=== PATIENT | male | born 1965 | race Caucasian/White ===

== ENCOUNTER 2016-07-25 07:54 | Outpatient (RCR) | payer BC ==
[2016-07-25 08:11] LABS: MEAN CORPUSCULAR VOLUME 83 FL (80-100); PLATELET COUNT 296 10^3uL (150-450); WHITE BLOOD COUNT 5.53 10^3uL (4.0-11.0)
[2016-07-25 08:40] LABS: MEAN CORPUSCULAR HEMOGLOBIN 25.9 PG (26.0-34.0); MEAN CORPUSCULAR HGB CONC 31.2 g/dL (31.0-37.0)
[2016-07-25 08:41] LABS: ANISOCYTOSIS SLIGHT; BAND NEUTROPHILS % 0 % (0-6); EOSINOPHILS % 6 % (0-4); MICROCYTOSIS SLIGHT; MONOCYTES # 0.7 #; MONOCYTES % 14 % (3-11); RBC MORPH SEE REFERENCE (NORMAL); SEGMENTED NEUTROPHILS % 44 % (51-67); TOTAL CELLS COUNTED 100
[2016-08-15 08:11] LABS: MEAN CORPUSCULAR VOLUME 81 FL (80-100); MEAN PLATELET VOLUME 9.9 FL (6.0-9.5); PLATELET COUNT 286 10^3uL (150-450); WHITE BLOOD COUNT 4.71 10^3uL (4.0-11.0)
[2016-08-15 08:14] LABS: MEAN CORPUSCULAR HEMOGLOBIN 24.3 PG (26.0-34.0); MEAN CORPUSCULAR HGB CONC 29.8 g/dL (31.0-37.0)
[2016-08-15 08:31] LABS: BAND NEUTROPHILS % 0 % (0-6); EOSINOPHILS % 9 % (0-4); LYMPHOCYTES # 1.5 #; MONOCYTES # 0.4 #; MONOCYTES % 10 % (3-11); RBC MORPH NORMAL (NORMAL); SEGMENTED NEUTROPHILS % 49 % (51-67); TOTAL CELLS COUNTED 100
[2016-09-01 10:50] LABS: MEAN PLATELET VOLUME 10.2 FL (6.0-9.5); PLATELET COUNT 329 10^3uL (150-450); WHITE BLOOD COUNT 5.59 10^3uL (4.0-11.0)
[2016-09-01 10:56] LABS: MEAN CORPUSCULAR HEMOGLOBIN 23.1 PG (26.0-34.0); MEAN CORPUSCULAR HGB CONC 29.6 g/dL (31.0-37.0); MEAN CORPUSCULAR VOLUME 78 FL (80-100)
[2016-09-01 10:57] LABS: ANISOCYTOSIS SLIGHT; BAND NEUTROPHILS % 0 % (0-6); EOSINOPHILS % 4 % (0-4); HYPOCHROMASIA SLIGHT; LYMPHOCYTES # 1.8 #; MONOCYTES # 0.3 #; MONOCYTES % 5 % (3-11); RBC MORPH SEE REFERENCE (NORMAL); SEGMENTED NEUTROPHILS % 59 % (51-67); TOTAL CELLS COUNTED 100
[2016-09-01 11:02] LABS: ANION GAP 15.7 MEQ/L (3-15); MAGNESIUM* 1.9 mg/dL (1.6-2.3); PHOSPHORUS 3.7 mg/dL (2.4-4.9); TOTAL PROTEIN 6.8 g/dL (6.4-8.5)
[2016-09-19 10:15] LABS: MEAN PLATELET VOLUME 9.9 FL (6.0-9.5); PLATELET COUNT 325 10^3uL (150-450); WHITE BLOOD COUNT 6.97 10^3uL (4.0-11.0)
[2016-09-19 11:02] LABS: MEAN CORPUSCULAR HEMOGLOBIN 22.1 PG (26.0-34.0); MEAN CORPUSCULAR VOLUME 76 FL (80-100)
[2016-09-19 11:18] LABS: BAND NEUTROPHILS % 0 % (0-6); LYMPHOCYTES # 2.1 #; SEGMENTED NEUTROPHILS % 59 % (51-67)
[2016-09-19 11:20] LABS: ANISOCYTOSIS SLIGHT; EOSINOPHILS % 3 % (0-4); HYPOCHROMASIA SLIGHT; MICROCYTOSIS SLIGHT; MONOCYTES # 0.4 #; MONOCYTES % 6 % (3-11); NUCLEATED RED BLOOD CELLS 2; RBC MORPH SEE REFERENCE (NORMAL); TOTAL CELLS COUNTED 100
[2016-09-19 12:04] LABS: ALBUMIN 3.8 g/dL (3.4-5.0); CALCULATED IONIZED CALCIUM 4.5 mg/dL (3.8-4.6); MAGNESIUM* 1.7 mg/dL (1.6-2.3); PHOSPHORUS 4.2 mg/dL (2.4-4.9); TOTAL PROTEIN 6.7 g/dL (6.4-8.5)
[2016-09-26 08:33] LABS: BASOPHILS % (AUTO) 0 % (0-2); EOSINOPHILS # (AUTO) 0.2 10^3uL; EOSINOPHILS % (AUTO) 4 % (0-4); LYMPHOCYTES # (AUTO) 1.3 X10^3; MEAN PLATELET VOLUME 10.1 FL (6.0-9.5); MONOCYTES # (AUTO) 0.3 X10^3; MONOCYTES % (AUTO) 6 % (3-11); NEUTROPHILS # (AUTO) 3.3 X10^3; NEUTROPHILS % (AUTO) 64 % (51-67); PLATELET COUNT 264 10^3uL (150-450); WHITE BLOOD COUNT 5.11 10^3uL (4.0-11.0)
[2016-09-26 08:46] LABS: MEAN CORPUSCULAR HEMOGLOBIN 23.1 PG (26.0-34.0); MEAN CORPUSCULAR VOLUME 77 FL (80-100)
[2016-09-27 18:45] LABS: IRON 26 ug/dL (65-175); UNBOUND IRON CONTENT 372 ug/dl (126-382)
[2016-10-03 08:15] LABS: BASOPHILS % (AUTO) 0 % (0-2); EOSINOPHILS # (AUTO) 0.1 10^3uL; EOSINOPHILS % (AUTO) 2 % (0-4); LYMPHOCYTES # (AUTO) 0.9 X10^3; MEAN PLATELET VOLUME 9.2 FL (6.0-9.5); MONOCYTES # (AUTO) 0.3 X10^3; MONOCYTES % (AUTO) 12 % (3-11); NEUTROPHILS # (AUTO) 1.6 X10^3; NEUTROPHILS % (AUTO) 54 % (51-67); PLATELET COUNT 290 10^3uL (150-450); WHITE BLOOD COUNT 2.86 10^3uL (4.0-11.0)
[2016-10-03 08:31] LABS: MEAN CORPUSCULAR HEMOGLOBIN 23.1 PG (26.0-34.0); MEAN CORPUSCULAR HGB CONC 29.5 g/dL (31.0-37.0); MEAN CORPUSCULAR VOLUME 78 FL (80-100)
[2016-10-10 08:12] LABS: MEAN PLATELET VOLUME 9.2 FL (6.0-9.5); PLATELET COUNT 177 10^3uL (150-450); WHITE BLOOD COUNT 3.59 10^3uL (4.0-11.0)
[2016-10-10 08:13] LABS: MEAN CORPUSCULAR HEMOGLOBIN 22.7 PG (26.0-34.0); MEAN CORPUSCULAR HGB CONC 29.7 g/dL (31.0-37.0); MEAN CORPUSCULAR VOLUME 76 FL (80-100)
[2016-10-10 08:40] LABS: BAND NEUTROPHILS % 12 % (0-6); EOSINOPHILS % 0 % (0-4); LYMPHOCYTES # 0.9 #; MONOCYTES # 0.2 #; MONOCYTES % 5 % (3-11); RBC MORPH SEE REFERENCE (NORMAL); SEGMENTED NEUTROPHILS % 58 % (51-67); TOTAL CELLS COUNTED 100
[2016-10-10 08:41] LABS: ANISOCYTOSIS MODERATE; HYPOCHROMASIA SLIGHT; POIKILOCYTOSIS SLIGHT
[2016-10-17 08:15] LABS: BASOPHILS % (AUTO) 0 % (0-2); EOSINOPHILS # (AUTO) 0.1 10^3uL; EOSINOPHILS % (AUTO) 2 % (0-4); LYMPHOCYTES # (AUTO) 1.6 X10^3; MEAN PLATELET VOLUME 9.1 FL (6.0-9.5); MONOCYTES # (AUTO) 0.3 X10^3; MONOCYTES % (AUTO) 5 % (3-11); NEUTROPHILS # (AUTO) 3.9 X10^3; NEUTROPHILS % (AUTO) 65 % (51-67); PLATELET COUNT 368 10^3uL (150-450); WHITE BLOOD COUNT 6.02 10^3uL (4.0-11.0)
[2016-10-17 08:18] LABS: MEAN CORPUSCULAR HEMOGLOBIN 22.9 PG (26.0-34.0); MEAN CORPUSCULAR HGB CONC 29.9 g/dL (31.0-37.0); MEAN CORPUSCULAR VOLUME 77 FL (80-100)
[2016-10-17 20:02] LABS: IRON 64 ug/dL (65-175); UNBOUND IRON CONTENT 225 ug/dl (126-382)
== END 2016-10-23 | disposition home or self-care (01) ==
LOC: LAB 07:54
PROVIDERS: ATTEND Internal Medicine Hematology & Oncology
DX: C18.0 Malignant neoplasm of cecum (principal)
CPT/HCPCS: 36415; 80053; 82378; 82728; 83540; 83550; 83615; 83735; 84100; 85007; 85025; 85027

== ENCOUNTER 2016-10-31 11:41 | Outpatient (RCR) | payer BC ==
[2016-10-31 11:56] LABS: MEAN CORPUSCULAR VOLUME 86 FL (80-100); MEAN PLATELET VOLUME 9.2 FL (6.0-9.5); PLATELET COUNT 338 10^3uL (150-450); WHITE BLOOD COUNT 2.81 10^3uL (4.0-11.0)
[2016-10-31 12:21] LABS: MEAN CORPUSCULAR HEMOGLOBIN 26.6 PG (26.0-34.0); MEAN CORPUSCULAR HGB CONC 30.8 g/dL (31.0-37.0)
[2016-10-31 12:27] LABS: ALBUMIN 3.6 g/dL (3.4-5.0); ANION GAP 15.3 MEQ/L (3-15); CALCULATED IONIZED CALCIUM 4.2 mg/dL (3.8-4.6); TOTAL PROTEIN 6.8 g/dL (6.4-8.5)
[2016-10-31 13:12] LABS: BAND NEUTROPHILS % 3 % (0-6); EOSINOPHILS % 5 % (0-4); LYMPHOCYTES # 0.7 #; MONOCYTES # 0.3 #; MONOCYTES % 17 % (3-11); POLYCHROMASIA SLIGHT; RBC MORPH SEE REFERENCE (NORMAL); SEGMENTED NEUTROPHILS % 49 % (51-67); TOTAL CELLS COUNTED 100
[2016-11-07 14:04] LABS: MEAN CORPUSCULAR HEMOGLOBIN 27.2 PG (26.0-34.0); MEAN CORPUSCULAR VOLUME 87 FL (80-100); MEAN PLATELET VOLUME 8.8 FL (6.0-9.5); PLATELET COUNT 336 10^3uL (150-450); WHITE BLOOD COUNT 6.85 10^3uL (4.0-11.0)
[2016-11-07 14:12] LABS: MEAN CORPUSCULAR HGB CONC 31.2 g/dL (31.0-37.0)
[2016-11-07 14:33] LABS: ALBUMIN 3.6 g/dL (3.4-5.0); ANION GAP 18.3 MEQ/L (3-15); CALCULATED IONIZED CALCIUM 4.1 mg/dL (3.8-4.6); MAGNESIUM* 2.1 mg/dL (1.6-2.3); TOTAL PROTEIN 7.1 g/dL (6.4-8.5)
[2016-11-07 14:48] LABS: ANISOCYTOSIS MODERATE; BAND NEUTROPHILS % 1 % (0-6); EOSINOPHILS % 6 % (0-4); LYMPHOCYTES # 1.4 #; MONOCYTES # 0.4 #; MONOCYTES % 7 % (3-11); RBC MORPH SEE REFERENCE (NORMAL); SEGMENTED NEUTROPHILS % 66 % (51-67); TOTAL CELLS COUNTED 100
[2016-11-14 12:16] LABS: MEAN CORPUSCULAR VOLUME 89 FL (80-100); MEAN PLATELET VOLUME 9.6 FL (6.0-9.5); PLATELET COUNT 295 10^3uL (150-450); WHITE BLOOD COUNT 8.15 10^3uL (4.0-11.0)
[2016-11-14 12:24] LABS: ALBUMIN 3.7 g/dL (3.4-5.0); ANION GAP 17.2 MEQ/L (3-15); CALCULATED IONIZED CALCIUM 4.1 mg/dL (3.8-4.6); MAGNESIUM* 2.2 mg/dL (1.6-2.3); TOTAL PROTEIN 7.1 g/dL (6.4-8.5)
[2016-11-14 12:25] LABS: MEAN CORPUSCULAR HGB CONC 30.3 g/dL (31.0-37.0)
[2016-11-14 12:36] LABS: ANISOCYTOSIS MARKED; BAND NEUTROPHILS % 0 % (0-6); EOSINOPHILS % 1 % (0-4); HYPOCHROMASIA SLIGHT; LYMPHOCYTES # 1.6 #; MONOCYTES # 0.6 #; MONOCYTES % 7 % (3-11); NUCLEATED RED BLOOD CELLS 1; RBC MORPH SEE REFERENCE (NORMAL); SEGMENTED NEUTROPHILS % 72 % (51-67); STOMATOCYTES SLIGHT; TOTAL CELLS COUNTED 100
[2016-11-21 12:00] LABS: BASOPHILS % (AUTO) 0 % (0-2); EOSINOPHILS # (AUTO) 0.4 10^3uL; EOSINOPHILS % (AUTO) 4 % (0-4); LYMPHOCYTES # (AUTO) 2.3 X10^3; MEAN CORPUSCULAR HGB CONC 31.9 g/dL (31.0-37.0); MEAN CORPUSCULAR VOLUME 88 FL (80-100); MEAN PLATELET VOLUME 9.9 FL (6.0-9.5); MONOCYTES # (AUTO) 1.1 X10^3; MONOCYTES % (AUTO) 10 % (3-11); NEUTROPHILS % (AUTO) 64 % (51-67); PLATELET COUNT 342 10^3uL (150-450); WHITE BLOOD COUNT 10.92 10^3uL (4.0-11.0)
[2016-11-21 12:36] LABS: ALBUMIN 3.4 g/dL (3.4-5.0); ANION GAP 17.9 MEQ/L (3-15); CALCULATED IONIZED CALCIUM 4.1 mg/dL (3.8-4.6); TOTAL PROTEIN 6.6 g/dL (6.4-8.5)
[2016-11-21 15:36] LABS: BILIRUBIN,URINE Negative (Negative); COLOR,URINE Yellow; GLUCOSE, URINE (UA) Negative (Negative); LEUKOCYTE ESTERASE, URINE 1+ (Negative); PH,URINE 6.5 (5.0 - 8.0)
[2016-11-21 15:37] LABS: CLARITY,URINE Slightly Cloudy
[2016-11-21 15:54] LABS: RBC,URINE >100 /HPF; URINE CENTRIFUGED VOLUME 12 mL
[2016-11-28 14:45] LABS: MEAN CORPUSCULAR HEMOGLOBIN 28.6 PG (26.0-34.0); MEAN CORPUSCULAR VOLUME 91 FL (80-100); MEAN PLATELET VOLUME 9.8 FL (6.0-9.5); PLATELET COUNT 328 10^3uL (150-450); WHITE BLOOD COUNT 8.44 10^3uL (4.0-11.0)
[2016-11-28 14:55] LABS: MEAN CORPUSCULAR HGB CONC 31.5 g/dL (31.0-37.0)
[2016-11-28 15:09] LABS: ANISOCYTOSIS MARKED; BAND NEUTROPHILS % 2 % (0-6); EOSINOPHILS % 7 % (0-4); LYMPHOCYTES # 1.5 #; MONOCYTES # 0.4 #; MONOCYTES % 5 % (3-11); RBC MORPH SEE REFERENCE (NORMAL); SEGMENTED NEUTROPHILS % 67 % (51-67); TOTAL CELLS COUNTED 100
[2016-11-28 15:26] LABS: ALBUMIN 3.4 g/dL (3.4-5.0); ANION GAP 13.7 MEQ/L (3-15); CALCULATED IONIZED CALCIUM 4.3 mg/dL (3.8-4.6); TOTAL PROTEIN 6.5 g/dL (6.4-8.5)
[2016-12-05 12:05] LABS: MEAN CORPUSCULAR HEMOGLOBIN 28.8 PG (26.0-34.0); MEAN CORPUSCULAR HGB CONC 32.3 g/dL (31.0-37.0); MEAN CORPUSCULAR VOLUME 89 FL (80-100); MEAN PLATELET VOLUME 9.3 FL (6.0-9.5); PLATELET COUNT 330 10^3uL (150-450); WHITE BLOOD COUNT 8.36 10^3uL (4.0-11.0)
[2016-12-05 12:21] LABS: ANISOCYTOSIS SLIGHT; BAND NEUTROPHILS % 0 % (0-6); EOSINOPHILS % 3 % (0-4); LYMPHOCYTES # 2.1 #; MONOCYTES # 0.2 #; MONOCYTES % 2 % (3-11); RBC MORPH SEE REFERENCE (NORMAL); SEGMENTED NEUTROPHILS % 70 % (51-67); TOTAL CELLS COUNTED 100
[2016-12-05 12:48] LABS: ALBUMIN 3.7 g/dL (3.4-5.0); ANION GAP 21.3 MEQ/L (3-15); CALCULATED IONIZED CALCIUM 4.3 mg/dL (3.8-4.6); MAGNESIUM* 1.9 mg/dL (1.6-2.3); TOTAL PROTEIN 6.9 g/dL (6.4-8.5)
[2016-12-12 13:06] LABS: MEAN CORPUSCULAR HEMOGLOBIN 28.2 PG (26.0-34.0); MEAN CORPUSCULAR VOLUME 90 FL (80-100); MEAN PLATELET VOLUME 9.3 FL (6.0-9.5); PLATELET COUNT 366 10^3uL (150-450); WHITE BLOOD COUNT 9.46 10^3uL (4.0-11.0)
[2016-12-12 13:08] LABS: MEAN CORPUSCULAR HGB CONC 31.4 g/dL (31.0-37.0)
[2016-12-12 13:18] LABS: ANISOCYTOSIS SLIGHT; BAND NEUTROPHILS % 1 % (0-6); EOSINOPHILS % 2 % (0-4); LYMPHOCYTES # 2.2 #; MONOCYTES # 0.9 #; MONOCYTES % 10 % (3-11); RBC MORPH SEE REFERENCE (NORMAL); SEGMENTED NEUTROPHILS % 64 % (51-67); TOTAL CELLS COUNTED 100
[2016-12-13] MEDS ORDERED: ONDA8TAB13 PO (17:24)
[2016-12-13] MEDS ORDERED: TRIF1TAB7 PO (17:24)
[2016-12-13] MEDS ORDERED: SCOP1PAT10 TOP (17:24)
[2016-12-13] MEDS ORDERED: REGO40TA PO (17:24)
[2016-12-13] MEDS ORDERED: OXYC5SOL13 PO (17:24)
[2016-12-13] MEDS ORDERED: DRON10CA2 PO (17:24)
[2016-12-13] MEDS ORDERED: MTC5V480 PO (17:24)
[2016-12-21] MEDS ORDERED: CIPR500S3 PO (14:46)
[2016-12-21] MEDS ORDERED: HDR4T PO (14:46)
[2016-12-21] MEDS ORDERED: MTC5V480 PO (14:48)
[2016-12-23] MEDS ORDERED: CEFD125S4 PO (08:17)
== END 2017-01-08 | disposition home or self-care (01) ==
LOC: LAB 11:41
PROVIDERS: ATTEND Internal Medicine Hematology & Oncology
DX: C18.0 Malignant neoplasm of cecum (principal); R30.0 Dysuria
CPT/HCPCS: 36415; 80053; 81003; 81015; 82378; 82728; 83540; 83550; 83615; 83735; 84100; 85007; 85025; 85027; 87077; 87088; 87186

== ENCOUNTER → 2016-11-10 | Outpatient (CLI) | payer BC | LOC: RAD 10:54 | PROVIDERS: ATTEND Internal Medicine Hematology & Oncology | DX: S37.009A Unspecified injury of unspecified kidney, initial encounter (principal); N13.39 Other hydronephrosis; Z96.0 Presence of urogenital implants; X58.XXXA Exposure to other specified factors, initial encounter | CPT/HCPCS: 76770 ==

== ENCOUNTER → 2016-11-15 | Outpatient (CLI) | payer BC | LOC: RAD 13:26 | PROVIDERS: ATTEND Internal Medicine Hematology & Oncology | DX: C18.0 Malignant neoplasm of cecum (principal); R16.0 Hepatomegaly, not elsewhere classified | CPT/HCPCS: 71250; 74176 ==

== ENCOUNTER 2016-12-13 16:41 | Inpatient (IN) | payer BC ==
[~2016-12-13] VITALS: Ht 195.6 cm; Wt 79.3 kg
--- NOTE | 2016-12-13 16:45 | NUR ---
Patient admitted to room [address] Stover's office. He denies abdominal pain but complaints of persistent nausea and vomiting at home.
--- OUTSIDE RECORDS SUMMARY | 2016-12-13 16:46 | XMS REPORT | Continuity of Care Document ---
Author Author [facility] Organization [facility] Address Unknown Phone Unavailable Care Team Providers Care Registered Appraiser Name Role Phone Page, Rogers PCP [phone] Source Comments Some departments are not documenting in the electronic medical record. If you do not see the information that you expected, contact Release of Information in the Health Information Management department at [phone] for further assistance in locating additional records.[facility] Active Allergies and Adverse Reactions No Known Allergies Current Medications Prescription Sig. Disp. Refills Start End Date Status Date amLODIPine (NORVASC) 10 Take 10 mg by mouth Active mg tablet daily. acetaminophen (TYLENOL) Take 1,000 mg by mouth Active 500 mg tablet every 6 hours as needed. other medication 1 Dose. Zija juice mix Active vitamin mix added to water. levofloxacin (LEVAQUIN) Take 1 Tab by mouth every 7 Tab 0 07/22/20 Active 250 mg tablet 24 hours. 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/19/2012 Colon cancer (HCC) 06/19/2012 Liver metastases (HCC) 06/19/2012 Social History Tobacco Use Types Packs/Day Years Used Date Never Smoker Smokeless Tobacco: Never Used Alcohol Use Drinks/Week oz/Week Comments No Last Filed Vital Signs Vital Sign Reading Time Taken Blood Pressure 129/84 11/06/2013 8:54 AM INNOVATION MANAGER Pulse 88 11/06/2013 8:54 AM INNOVATION MANAGER Temperature 36.8 C (98.3 F) 07/22/2013 8:00 AM INNOVATION MANAGER Respiratory Rate - - Height 1.943 m (6' 4.5") 11/06/2013 8:54 AM INNOVATION MANAGER Weight 104.599 kg (230 lb 9.6 11/06/2013 8:54 AM INNOVATION MANAGER oz) Body Mass Index 27.71 11/06/2013 8:54 AM INNOVATION MANAGER Oxygen Saturation 100% 11/06/2013 8:54 AM INNOVATION MANAGER Plan of Care Health Maintenance Due Date Last Done Comments Hepatitis C Screening 1965 Physical (Comprehensive) 02/03/1972 Exam Pertussis Vaccine 02/03/1976 Tetanus Vaccine 1982 Colorectal Cancer 2015 Screening Influenza Vaccine 05/05/2017 Results from Last 3 Months Not on file
[2016-12-13 17:01] VITALS: BP 133/94
[2016-12-13] MEDS ORDERED: SODIUM CHLORIDE FLUSH 10 ML ONE (17:10)
[2016-12-13 17:11] VITALS: BP 133/94
[2016-12-13 17:18] LABS: BASOPHILS % (AUTO) 0 % (0-2); EOSINOPHILS # (AUTO) 0.1 10^3uL; EOSINOPHILS % (AUTO) 2 % (0-4); LYMPHOCYTES # (AUTO) 1.3 X10^3; MEAN CORPUSCULAR HEMOGLOBIN 28.5 PG (26.0-34.0); MEAN CORPUSCULAR HGB CONC 32.1 g/dL (31.0-37.0); MEAN CORPUSCULAR VOLUME 89 FL (80-100); MEAN PLATELET VOLUME 9.5 FL (6.0-9.5); MONOCYTES # (AUTO) 0.7 X10^3; MONOCYTES % (AUTO) 8 % (3-11); NEUTROPHILS # (AUTO) 6.3 X10^3; NEUTROPHILS % (AUTO) 74 % (51-67); PLATELET COUNT 292 10^3uL (150-450); WHITE BLOOD COUNT 8.55 10^3uL (4.0-11.0)
[2016-12-13] MEDS ORDERED: DRON10CA2 PO (17:24)
[2016-12-13] MEDS ORDERED: ONDA8TAB13 PO (17:24)
[2016-12-13] MEDS ORDERED: TRIF1TAB7 PO (17:24)
[2016-12-13] MEDS ORDERED: SCOP1PAT10 TOP (17:24)
[2016-12-13] MEDS ORDERED: REGO40TA PO (17:24)
[2016-12-13] MEDS ORDERED: MTC5V480 PO (17:24)
[2016-12-13] MEDS ORDERED: OXYC5SOL13 PO (17:24)
[2016-12-13 17:34] LABS: ALBUMIN 3.7 g/dL (3.4-5.0); ANION GAP 14.8 MEQ/L (3-15)
--- NOTE | 2016-12-13 17:35 | NUR ---
Accessed patient's right port with a 20 gauge one inch power port needle. Site had good blood return.
--- NOTE | 2016-12-13 17:39 | History and Physical (E) ---
History & Physical PCP: Prosper Martinez MD CC: Nausea/vomiting, possible bowel obstruction HPI Prosper Feliciano is a 51 year old male admitted from oncology clinic 12/13 where he presented for follow-up of colon cancer and increased nausea/vomiting and anorexia. In office today he reported large volume emesis and oncologist had concern for bowel obstruction as well as electrolyte disturbances. He called asking for direct admit. Of note, patient was diagnosed 12/2011, stage IV-B, now on 5th line chemotherapy. On arrival to unit, accompanied by his . He is awake, alert, interactive, oriented, and not in acute distress at present. He is able to relate history well. He denied severe nausea and abdominal pain at this time. Had been seen in Dr. Stover's office 12/09 and was complaining of anorexia due to nausea. Notes from that visit reviewed. Plan was to add scopolamine. Patient thinks it helped for the first few days but hasn't since. Vomiting continues to happen daily and happened again today around 1300 before his oncology appointment. Has had some abdominal pain with this. Gets some relief with oxycodone. No bloating or distension. No bloody emesis or blood in stool. Endorses constipation. Takes some bowel regimen at home for this including suppository (which he took last night.) No fever or chills. No RAMOS. PMH * Metastatic Colon cancer, stage IV-B, diagnosed 12/2011. Adenocarcinoma, grade 2, KRAS gene: wild-type. S/P colon resection and regional lymphadenectomy. History of Folfiri, Folfox, Xeliri, Lonsurf, all with bevacizumab (Avastin). Has progressed despite these regimens. * Iron deficiency anemia * HTN * Bilateral ureteral obstruction PSH * Colon resection with regional lymphadenectomy * Bilateral ureteral stents * PowerPort * HIPEC (hyperthermic intraperitoneal chemotherapy) at [facility] 2012. ALLERGIES: Please see list at end of report. HOME MEDICATIONS: Please see list at end of report. FH Father of melanoma. Mother is living and healthy. Children are healthy. SH Lives with and 2 children in their home in [place]. 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 No alcohol, tobacco, or drug use. ROS CONSTITUTION: Losing weight, he thinks about 50 pounds in the last few months. HEENT: No change in vision or hearing. No sores in mouth, sore throat. Has trouble swallowing pills. CV: No chest pain, palpitations. PULM: Occasional shortness of breath. No cough. GI: Per HPI, exam. : No dysuria. No blood in urine. MS: No new muscle or joint aches and pains. NEURO: No numbness or tingling. No weakness. INTEG: No rashes, lesions, or sores. ENDO: No heat or cold intolerance. No polydipsia or polyuria. HEME/LYMPH: No easy bruising or bleeding. No swollen glands. PSYCH: No change in mood or behavior. OBJECTIVE Temp 97.4 HR 95 RR 18 BP 133/94 SpO2 97% RA GEN: Awake, alert, oriented. HEENT: EOMI, clear sclerae, dry oral mucosa, temporal wasting. CV: RRR S1 S2 normal with no murmur LUNGS: Diminished without R/R/W. ABD: Soft, tender in RLQ but he says this is chronic. Non-distended. No rebound tenderness. Normoactive bowel sounds. EXTR: No C/C/E. Normal peripheral pulses. INTEG: No rash. Pallor. NEURO: No focal motor neuro deficit. Weight: 78 kg LABS: PENDING IMAGING 12/13/16 ACUTE ABDOMINAL SERIES: PENDING ASSESSMENT Prosper Feliciano is a 51 year old male admitted from oncology clinic 12/13 with recurrent nausea, vomiting, anorexia, unintentional weight loss, and dehydration , all in the setting of metastatic colon cancer for which is now on 5th line therapy. Differential for his current symptoms includes possible bowel obstruction, pancreatitis, obstipation. PLAN * Possible Bowel Obstruction: NPO, IVF. Acute abdominal series. Check amylase, lipase. Consider CT abdomen if warranted. * Nausea/Vomiting: Ondansetron, promethazine. * Abdominal Pain: Minimal at present. Hydromorphone PRN. * Elevated Creatinine: History of. Had bilateral ureteral stents. Check UA, chemistry. * Dehydration: NS bolus + 1 L maintenance. Expect at least 2 L IVF. Check electrolytes. * Anorexia, Unintentional Weight Loss: Multifactorial. Supportive care. Workup for bowel obstruction. Treat nausea/vomiting. Consider sodium chlorite operator consult. * Chronic Pain: Takes oxycodone at home. * Metastatic Colon Cancer: No longer taking Lonsurf or Stivarga. For now, supportive care. * F/E/N: NPO, IVF as above. PowerPort. I&O, daily weight. * Prophylaxis: SCDs. Defer enoxaparin in case of surgical need. * Code Status: Full * Dispo: Inpatient, expecting at least 2-3 day stay. CHRONIC ISSUES Home medications to be reviewed: * HTN: Observe. No longer takes amlodipine, lisinopril. Allergies/Home Medications Allergies: Coded Allergies: No Known Drug Allergies (Unverified , 12/13/16) Copies to: End of Report . MISSAEL MOSCOSO MD Dec 13, 2016 17:09
[2016-12-13] MEDS ORDERED: NS FLUSH 3 ML PRN IV (17:40)
--- NOTE | 2016-12-13 17:40 | NUR ---
To radiology for abdominal x-ray. Patient treated with 8mg. of IV Zofran prior to leaving the floor.
[2016-12-13] MEDS: ONDANSETRON 2 MG/ML (Z0FRAN) 2 ML VIAL IV PRN ×2 (17:49→22:42)
[2016-12-13] MEDS: NS FLUSH 10 ML PRN IV (17:50)
--- NOTE | 2016-12-13 18:07 | NUR ---
MED REC COMPLETE--current list obtained from medication list provided by patient's PCP, retail pharmacy, patient report, and external med history application.
[2016-12-13] MEDS ORDERED: POLYETHYLENE GLYCOL 17 GM (MIRALAX) PACKET PO PRN (18:30)
[2016-12-13] MEDS ORDERED: MAGNESIUM HYDROXIDE 80MG/ML (MILK OF MAGNESIA) 30 ML UDC PO PRN (18:30)
[2016-12-13] MEDS ORDERED: DOCUSATE SODIUM 100 MG (COLACE) CAP PO PRN (18:30)
--- NOTE | 2016-12-13 18:30 | NUR ---
Patient remains NPO at this time with IVF bolus infusing. Continues to deny abdominal pain.
--- NOTE | 2016-12-13 18:46 | Diagnostic Imaging Report ---
INDICATION: Nausea and vomiting. Abdominal series performed with a frontal chest radiograph and supine and upright abdominal films. Frontal chest view shows Port-A-Cath over the right chest with tip overlying the SVC. The heart and mediastinal silhouette are unremarkable. The lungs are clear. There is no free intraperitoneal air. There is an air-fluid level in the stomach. There is prominent stool throughout the colon with no overt intestinal obstruction. There are postsurgical changes in the right upper quadrant with surgical anastomosis overlying the right side of the abdomen. There are bilateral ureteral stents in place. IMPRESSION: Prominent stool throughout the colon with no intestinal obstruction or ileus. Air-fluid level is noted in the stomach. There are postop changes with bilateral ureteral stents. There is no free air. There is no acute pulmonary infiltrate. Dictated by: Dictated on workstation # [id number]
[2016-12-13] MEDS: POTASSIUM CL INJ SCH ×4 (18:50→22:35)
[2016-12-13] MEDS: LIDOCAINE 1% INJ SCH ×4 (18:50→22:35)
[2016-12-13] MEDS: PROMETHAZINE HCL INJ 25 MG in SODIUM CHLORIDE 25 ML IV PRN (19:35)
[2016-12-13] MEDS: HYDROmorphone 1 MG/ML (DILAUDID) SYRINGE IV PRN ×2 (19:36→22:34)
[2016-12-13 20:39] VITALS: BP 138/85
[2016-12-14] VITALS: BP 114/82
[2016-12-14] MEDS: HYDROmorphone 1 MG/ML (DILAUDID) SYRINGE IV PRN ×6 (03:24→21:19)
[2016-12-14] MEDS: PROMETHAZINE HCL INJ 25 MG in SODIUM CHLORIDE 25 ML IV PRN ×3 (03:24→15:44)
[2016-12-14 03:37] VITALS: BP 120/86
[2016-12-14 04:01] LABS: CLARITY,URINE Cloudy; GLUCOSE, URINE (UA) Negative (Negative); LEUKOCYTE ESTERASE ,URINE Trace (Negative)
[2016-12-14 04:02] LABS: BILIRUBIN,URINE 1+ (Negative); COLOR,URINE Dark Yellow
[2016-12-14 04:05] LABS: URINE CENTRIFUGED VOLUME 12 mL
[2016-12-14 04:10] LABS: RBC,URINE >100 /HPF
[2016-12-14 06:10] LABS: BASOPHILS % (AUTO) 0 % (0-2); EOSINOPHILS # (AUTO) 0.2 10^3uL; EOSINOPHILS % (AUTO) 3 % (0-4); LYMPHOCYTES # (AUTO) 1.1 X10^3; MEAN CORPUSCULAR HEMOGLOBIN 28.2 PG (26.0-34.0); MEAN CORPUSCULAR VOLUME 92 FL (80-100); MONOCYTES # (AUTO) 0.6 X10^3; MONOCYTES % (AUTO) 11 % (3-11); NEUTROPHILS % (AUTO) 67 % (51-67); PLATELET COUNT 229 10^3uL (150-450)
[2016-12-14 06:34] LABS: PHOSPHORUS 3.6 mg/dL (2.4-4.9)
--- NOTE | 2016-12-14 06:39 | NUR ---
Patient rests in bed throughout night with minimal needs. Has some pain and nausea, see MAR for times. No needs at this time.
[2016-12-14 06:44] LABS: MEAN CORPUSCULAR HGB CONC 30.7 g/dL (31.0-37.0)
--- NOTE | 2016-12-14 07:35 | NUR ---
Patient resting in bed with eyes closed upon shift assessment. Alert and oriented X3. Reports nausea and RUQ abdominal pain rated 5/10 on pain scale. PRN Dilaudid and Zofran provided. Respirations even and non-labored. Vital signs WNL. Updated patient on plan of care for shift. Call light in reach.
[2016-12-14 07:48] VITALS: BP 136/87
[2016-12-14] MEDS: ONDANSETRON 2 MG/ML (Z0FRAN) 2 ML VIAL IV PRN ×3 (07:51→19:57)
--- NOTE | 2016-12-14 08:08 | NUR ---
NUTRITION ASSESSMENT Level 1 Patient: Prosper Feliciano Age/Sex: 51/M Date Screened: 12-14-16 Weight: 170.7#/77.6 kg Height: 77 inches Primary Diagnosis: possible bowel obstruction, n/v, colon cancer Diet Order: FL Relevant labs: potassium 3.3, glucose 89 Food allergies: N Nutrition Assessment Criteria Age over 80: N Body Mass Index (BMI) under 19: N Admission Screening Indicates Risk? 6 points Moderate/High Risk Diagnosis: 6 points TPN or PPN: N NPO or clear liquid diet: N Serum Glucose <70 or >180: N Hgb A1c >6.7: N/A Total: 12 points Risk Screen: __ Patient at low nutritional risk based on available data; reevaluate in 5-7 days __ Patient at moderate nutritional risk based on available data; reevaluate in 3-5 days _X_ Patient at high nutritional risk; complete Nutrition Assessment within 48 hours of admission.
[2016-12-14] MEDS: NS FLUSH 3 ML DAILY IV SCH (08:13)
[2016-12-14] MEDS ORDERED: POTASSIUM CHLORIDE ER 20 MEQ TABLET PO SCH (08:25)
--- NOTE | 2016-12-14 08:39 | Progress Note (E) ---
Progress Note SUBJECTIVE Vitals stable. No BM. WBC remains normal. Hgb down to 8.7. K still mildly low at 3.3. Renal function preserved. On exam, awake, interactive. Feels marginally better. Still having nausea but it's improved. Updated patient, , and mother at bedside on findings, plan of care. OBJECTIVE Vital Signs Date Time Temp Pulse Resp B/P Pulse Ox O2 Delivery O2 Flow Rate FiO2 12/14/16 07:48 97.5 71 16 136/87 100 Room air I & O 12/13/16 12/14/16 Cumulative From/Thru 19:00 07:00 12/13/16 17:11 - 12/14/16 06:34 Intake Total 1473 ml 1473 ml Output Total 350 ml 350 ml Balance 1123 ml 1123 ml GEN: Awake, alert, oriented. HEENT: EOMI, clear sclerae, dry oral mucosa, temporal wasting. CV: RRR S1 S2 normal with no murmur LUNGS: Diminished without R/R/W. ABD: Soft, tender in RLQ but he says this is chronic. Non-distended. No rebound tenderness. Hyperactive bowel sounds. EXTR: No C/C/E. Normal peripheral pulses. INTEG: No rash. Pallor. NEURO: No focal motor neuro deficit. Lab-Past 14 Days, 35 Results 12/13/16 03:15: Urine Bacteria None seen, Urine Bilirubin 1+H, Urine Blood 3+H, Urine Clarity Cloudy, Urine Collection Type Clean catch, Urine Color Dark yellow, Urine Glucose (UA) Negative, Urine Ketones Negative, Urine Leukocyte Esterase TraceH, Urine Microscopic RBC >100, Urine Nitrite Negative, Urine Protein 3+H, Urine Specific [place] 1.025, Urine Squamous Epithelial Cells 10-20, Urine Urobilinogen 1.0, Urine WBC 50-100H, Urine pH 7.0, Volume Urine Centrifuged 12 ml 12/13/16 17:10: Alanine Aminotransferase (ALT/SGPT) 115H, Albumin 3.7, Albumin/Globulin Ratio 1.121, Alkaline Phosphatase 188H, Amylase Level 58, Anion Gap 14.8, Aspartate Amino Transf (AST/SGOT) 74H, BUN/Creatinine Ratio 16, Basophils # (Auto) 0.0, Basophils (%) (Auto) 0, Blood Urea Nitrogen 23H, C-Reactive Protein 1.90H, Calcium Level 9.1, Calcium/Ionized Calcium Ratio 4.0, Calculated Osmolality 274L , Carbon Dioxide Level 35H, Chloride Level 93L, Creatinine 1.47, Eosinophils # ( Auto) 0.1, Eosinophils (%) (Auto) 2, Estimat Glomerular Filtration Rate 61.1, Estimated GFR (Non- 50.5, Glucose Level 113H, Hematocrit 32.40L , Hemoglobin 10.4L, Lipase 83, Lymphocytes # (Auto) 1.3, Lymphocytes (%) (Auto) 15L, Magnesium Level 2.0, Mean Corpuscular Hemoglobin 28.5, Mean Corpuscular Hemoglobin Concent 32.1, Mean Corpuscular Volume 89, Mean Platelet Volume 9.5, Monocytes # (Auto) 0.7, Monocytes (%) (Auto) 8, Neutrophils # (Auto) 6.3, Neutrophils (%) (Auto) 74H, Platelet Count 292, Potassium Level 3.0L, Red Blood Count 3.65L, Red Cell Distribution Width 18.0H, Sodium Level 139, Total Bilirubin 0.8, Total Protein 7.0, White Blood Count 8.55 12/14/16 05:50: Albumin 3.0L, Anion Gap 11.0, Basophils # (Auto) 0.0, Basophils (%) (Auto) 0, Blood Urea Nitrogen 21H, Calcium Level 8.4L, Carbon Dioxide Level 35H, Chloride Level 97L, Creatinine 1.44, Eosinophils # (Auto) 0.2, Eosinophils (%) (Auto) 3, Estimat Glomerular Filtration Rate 62.6, Estimated GFR (Non- 51.7, Glucose Level 89#, Hematocrit 28.30L, Hemoglobin 8.7L, Lymphocytes # (Auto ) 1.1, Lymphocytes (%) (Auto) 19L, Mean Corpuscular Hemoglobin 28.2, Mean Corpuscular Hemoglobin Concent 30.7L, Mean Corpuscular Volume 92, Mean Platelet Volume 10.0H, Monocytes # (Auto) 0.6, Monocytes (%) (Auto) 11, Neutrophils # ( Auto) 4.0, Neutrophils (%) (Auto) 67, Platelet Count 229, Potassium Level 3.3L, Red Blood Count 3.09L, Red Cell Distribution Width 18.1H, Sodium Level 140, White Blood Count 5.90, Phosphorus Level 3.6#, Smear Scan Yes IMAGING 12/13/16 ACUTE ABD SERIES INDICATION: Nausea and vomiting. Abdominal series performed with a frontal chest radiograph and supine and upright abdominal films. Frontal chest view shows Port-A-Cath over the right chest with tip overlying the SVC. The heart and mediastinal silhouette are unremarkable. The lungs are clear. There is no free intraperitoneal air. There is an air-fluid level in the stomach. There is prominent stool throughout the colon with no overt intestinal obstruction. There are postsurgical changes in the right upper quadrant with surgical anastomosis overlying the right side of the abdomen. There are bilateral ureteral stents in place. IMPRESSION: Prominent stool throughout the colon with no intestinal obstruction or ileus. Air-fluid level is noted in the stomach. There are postop changes with bilateral ureteral stents. There is no free air. There is no acute pulmonary infiltrate. ASSESSMENT Prosper Feliciano is a 51 year old male admitted from oncology clinic 12/13 with recurrent nausea, vomiting, anorexia, unintentional weight loss, and dehydration , all in the setting of metastatic colon cancer for which is now on 5th line therapy. Differential for his current symptoms includes possible bowel obstruction, pancreatitis, obstipation. PLAN * Possible Bowel Obstruction: Less likely on the basis of workup thus far. Was initially NPO and gave IVF. Acute abdominal series as noted. Amylase and lipase were normal. Treat constipation. If not improving, consider CT abdomen if warranted. * Constipation: On the basis of acute abdominal series. Likely contributing to symptoms. Bowel regimen. Enema. * Nausea/Vomiting: Ondansetron, promethazine. * Abdominal Pain: Minimal at present. Hydromorphone PRN. * Elevated Creatinine: History of. Had bilateral ureteral stents which is likely causing pyuria. Noted nitrate is nil. * Dehydration: NS bolus + 1 L maintenance. Expect at least 2 L IVF. Check electrolytes. * Anorexia, Unintentional Weight Loss: Multifactorial. Supportive care. Workup for bowel obstruction. Treat nausea/vomiting. Treat constipation. Desk Top Publisher consult. * Chronic Pain: Takes oxycodone at home. * Metastatic Colon Cancer: No longer taking Lonsurf or Stivarga. For now, supportive care. * F/E/N: NPO initially but advanced to FLD. IVF as above. PowerPort. I&O, daily weight. * Prophylaxis: SCDs. Defer enoxaparin in case of surgical need. * Code Status: Full * Dispo: Inpatient, expecting at least 2-3 day stay. CHRONIC ISSUES * HTN: Observe. No longer takes amlodipine, lisinopril. MISSAEL MOSCOSO MD Dec 14, 2016 08:31
[2016-12-14] MEDS: POLYETHYLENE GLYCOL 17 GM (MIRALAX) PACKET PO SCH ×2 (09:00→09:46)
[2016-12-14] MEDS: MAGNESIUM HYDROXIDE 80MG/ML (MILK OF MAGNESIA) 30 ML UDC PO SCH ×5 (09:00→21:00)
[2016-12-14] MEDS: DOCUSATE SODIUM 100 MG (COLACE) CAP PO SCH ×3 (09:00→21:00)
[2016-12-14] MEDS: POTASSIUM CHLORIDE ORAL SOLUTION 20 MEQ/15 ML (KCL) UDC PO SCH ×2 (09:45→17:59)
[2016-12-14] MEDS: NS FLUSH 10 ML PRN IV ×5 (09:55→19:57)
--- NOTE | 2016-12-14 11:49 | NUR ---
PRN Dilaudid provided at 1102 for c/o abdominal pain rated 5/10 on pain scale. Continues to report nausea. Unable to tolerate PO bowel regimen medication. Fleets enema provided at 1135. Patient tolerates well. Will continue to monitor for results.
--- NOTE | 2016-12-14 13:40 | NUR ---
NUTRITION ASSESSMENT Level II Patient: Prosper Feliciano Age/Sex: 51/M Date Assessed: 12-14-16 ASSESSMENT Pertinent History: Patient admitted with possible bowel obstruction, n/v and metastatic colon cancer. PMHx includes stage IV metastatic colon cancer, s/p colon resection, iron deficiency anemia and HTN. He lives with his at home. Pt. reports weight loss of ~50# in the past few months; there are no documented weights or past admissions for comparison. Noted physicians note today said bowel obstruction less likely based on abdominal series, and it appears as though constipation may be primary cause of abdominal discomfort. Dietitian consult received for anorexia, dysgeusia and colon cancer. Meds/Nutrition: Miralax, MOM, Colace, KCl Weight: 170.7#/77.6 kg Height: 77 inches Body Mass Index (BMI): 20.3 [place] Body Weight : 148#/67.2 kg % IBW: 115% GASTROINTESTINAL Appetite: poor Diet Order: FL Unintentional loss of >10 lbs. in 3 months: Yes Difficult to chew/swallow: N Diabetes: N Relevant Labs: potassium 3.3, glucose 89 Calculations for Nutritional Assessment Estimated calorie needs: 28-30 kcals/kg = 2,150-2,310 kcals Estimated protein needs: 1.2-1.5 g/kg = 92-115 g./day DIAGNOSIS 1. Nutrition Diagnosis: Malnutrition related to catabolic disease state as evidenced by unintentional weight loss of 50# in the past few months with metastatic colon cancer, n/v, anorexia and dysgeusia. NUTRITIONAL INTERVENTION Goal: Patient will receive adequate nutrition to meet his needs. Plan: Attempted to visit pt. re: dietary strategies to help with n/v/dysgeusia, but he had received an enema and RN recommended we wait. Plan to follow up tomorrow with educational handouts. Nutritional supplements such as Ensure or homemade protein shake will be encouraged. We can also try to supplement with Benecalorie for additional kcals/protein when diet is advanced to solid foods. MONITORING & EVALUATION __ Monitor patients menu selections _X_ Monitor patients food intake per nursing notes __ Monitor NPO/clear liquid days __ Monitor lab values __ Monitor I&O __ Other
[2016-12-14 15:53] VITALS: BP 127/82
[2016-12-14] MEDS ORDERED: SODIUM CHLORIDE 100 ML ONE (15:57)
[2016-12-14] MEDS ORDERED: DEXAMETHASONE 10 MG/ML (DECADRON) VIAL IV ONE (17:25)
--- NOTE | 2016-12-14 18:17 | NUR ---
Patient sitting up in bed attempting to sip on full liquid supper tray. Unable to tolerate PO intake throughout day shift. Dr. Reyes notified that patient unable to take PO potassium, new order received. Pain persists in abdomen, PRN Dilaudid provided. Also continues to report nausea, Decadron provided. Family at bedside so will defer new order for enema, patient agrees to call when children leave. Call light in reach.
[2016-12-14] MEDS: POTASSIUM CL IVPB 10 MEQ/100ML 100 ML IV SCH ×3 (18:28→21:13)
[2016-12-14 21:20] VITALS: BP 145/86
--- NOTE | 2016-12-14 23:25 | NUR ---
Pt. ready for enema; administered by Sofie/RN; pt. tolerated well.
--- NOTE | 2016-12-14 23:45 | NUR ---
Pt. reports a 'small to medium' result following enema.
--- NOTE | 2016-12-14 23:55 | NUR ---
Pt. requests snack-vanilla pudding and ice cream provided. Pt. currently denies nausea. at bedside
[2016-12-15 00:06] VITALS: BP 155/94
[2016-12-15] MEDS: HYDROmorphone 1 MG/ML (DILAUDID) SYRINGE IV PRN ×3 (00:21→12:33)
[2016-12-15] MEDS: NS FLUSH 10 ML PRN IV ×5 (00:21→20:06)
--- NOTE | 2016-12-15 00:25 | NUR ---
Dilaudid 1 mg IV given for pain in stomach rated "5"; pt. denies nausea. White board updated with info for PRN meds. Pt. watching tv; at bedside; no additional needs. Call light and H2O within reach.
--- NOTE | 2016-12-15 01:30 | NUR ---
Pt. resting quietly with eyes closed; appears to be in no distress.
[2016-12-15 04:00] VITALS: BP 146/90
--- NOTE | 2016-12-15 05:16 | NUR ---
Pt. down to xray via wheelchair.
--- NOTE | 2016-12-15 05:30 | NUR ---
Dilaudid 1 mg IV given for pain rated "6". Right port secure. Pt. denies nausea; eating ice chips. Resp are even and unlabored on room air. Pt. is very pleasant and cooperative. resting in recliner at bedside.
--- NOTE | 2016-12-15 05:50 | NUR ---
This nurse draws from central line for lab; no difficulties; flushed with NS. Pt. now eating jello.
[2016-12-15 05:57] LABS: BASOPHILS % (AUTO) 0 % (0-2); EOSINOPHILS % (AUTO) 0 % (0-4); LYMPHOCYTES # (AUTO) 0.7 X10^3; MEAN CORPUSCULAR HEMOGLOBIN 28.4 PG (26.0-34.0); MEAN CORPUSCULAR VOLUME 90 FL (80-100); MEAN PLATELET VOLUME 10.1 FL (6.0-9.5); MONOCYTES # (AUTO) 0.3 X10^3; MONOCYTES % (AUTO) 5 % (3-11); NEUTROPHILS # (AUTO) 4.5 X10^3; NEUTROPHILS % (AUTO) 82 % (51-67); PLATELET COUNT 250 10^3uL (150-450); WHITE BLOOD COUNT 5.42 10^3uL (4.0-11.0)
[2016-12-15 06:09] LABS: MEAN CORPUSCULAR HGB CONC 31.4 g/dL (31.0-37.0)
[2016-12-15 06:31] LABS: ALBUMIN 3.4 g/dL (3.4-5.0); ANION GAP 15.2 MEQ/L (3-15); CALCULATED IONIZED CALCIUM 4.2 mg/dL (3.8-4.6); TOTAL PROTEIN 6.4 g/dL (6.4-8.5)
--- NOTE | 2016-12-15 07:45 | Diagnostic Imaging Report ---
INDICATION: Constipation. 0519 hours. Abdominal images reveal bilateral double-J nephroureteral stents. Positioning is similar to the exam of 12/13/2016. Other extensive postoperative changes again noted at the level of the liver and right midabdomen. IMPRESSION: Stable appearance of bilateral nephroureteral stents. No new abnormality is appreciated. Dictated by: Dictated on workstation # [id number]
[2016-12-15 07:55] VITALS: BP 132/93
[2016-12-15] MEDS ORDERED: LORazepam 2 MG/ML (ATIVAN) 1 ML VIAL IV PRN (08:55)
[2016-12-15] MEDS: NS FLUSH 3 ML DAILY IV SCH (09:00)
--- NOTE | 2016-12-15 09:18 | Progress Note (E) ---
Progress Note SUBJECTIVE Overnight, got enema and had some minimal result. He couldn't retain the enema for long. Still having abdominal pain and nausea but he feels nausea is improved. CBC stable though Hgb down to 9.4 from 10.4. K improved to 4.1 with IV supplement. AST, ALT, AlkP all slightly elevated. CRP up to 3.6. On exam, resting in bed, alert, interactive. Updated on findings, plan of care. OBJECTIVE Vital Signs Date Time Temp Pulse Resp B/P Pulse Ox O2 Delivery O2 Flow Rate FiO2 12/15/16 07:55 97.6 74 74 132/93 97 Room air I & O 12/14/16 12/15/16 Cumulative From/Thru 19:00 07:00 12/13/16 17:11 - 12/14/16 22:00 Intake Total 100 ml 1573 ml Output Total 300 ml 400 ml 1050 ml Balance -200 ml -400 ml 523 ml GEN: Awake, alert, oriented. HEENT: EOMI, clear sclerae, dry oral mucosa, temporal wasting. CV: RRR S1 S2 normal with no murmur LUNGS: Diminished without R/R/W. ABD: Soft, steam press tender in RLQ but he says this is chronic. Non-distended. No rebound tenderness. Hyperactive bowel sounds. EXTR: No C/C/E. Normal peripheral pulses. INTEG: No rash. Pallor. NEURO: No focal motor neuro deficit. Lab-Past 14 Days, 35 Results 12/13/16 03:15: Urine Bacteria None seen, Urine Bilirubin 1+H, Urine Blood 3+H, Urine Clarity Cloudy, Urine Collection Type Clean catch, Urine Color Dark yellow, Urine Glucose (UA) Negative, Urine Ketones Negative, Urine Leukocyte Esterase TraceH, Urine Microscopic RBC >100, Urine Nitrite Negative, Urine Protein 3+H, Urine Specific [place] 1.025, Urine Squamous Epithelial Cells 10-20, Urine Urobilinogen 1.0, Urine WBC 50-100H, Urine pH 7.0, Volume Urine Centrifuged 12 ml 12/13/16 17:10: Alanine Aminotransferase (ALT/SGPT) 115H, Albumin 3.7, Albumin/Globulin Ratio 1.121, Alkaline Phosphatase 188H, Amylase Level 58, Anion Gap 14.8, Aspartate Amino Transf (AST/SGOT) 74H, BUN/Creatinine Ratio 16, Basophils # (Auto) 0.0, Basophils (%) (Auto) 0, Blood Urea Nitrogen 23H, C-Reactive Protein 1.90H, Calcium Level 9.1, Calcium/Ionized Calcium Ratio 4.0, Calculated Osmolality 274L , Carbon Dioxide Level 35H, Chloride Level 93L, Creatinine 1.47, Eosinophils # ( Auto) 0.1, Eosinophils (%) (Auto) 2, Estimat Glomerular Filtration Rate 61.1, Estimated GFR (Non- 50.5, Glucose Level 113H, Hematocrit 32.40L , Hemoglobin 10.4L, Lipase 83, Lymphocytes # (Auto) 1.3, Lymphocytes (%) (Auto) 15L, Magnesium Level 2.0, Mean Corpuscular Hemoglobin 28.5, Mean Corpuscular Hemoglobin Concent 32.1, Mean Corpuscular Volume 89, Mean Platelet Volume 9.5, Monocytes # (Auto) 0.7, Monocytes (%) (Auto) 8, Neutrophils # (Auto) 6.3, Neutrophils (%) (Auto) 74H, Platelet Count 292, Potassium Level 3.0L, Red Blood Count 3.65L, Red Cell Distribution Width 18.0H, Sodium Level 139, Total Bilirubin 0.8, Total Protein 7.0, White Blood Count 8.55 12/14/16 05:50: Albumin 3.0L, Anion Gap 11.0, Basophils # (Auto) 0.0, Basophils (%) (Auto) 0, Blood Urea Nitrogen 21H, Calcium Level 8.4L, Carbon Dioxide Level 35H, Chloride Level 97L, Creatinine 1.44, Eosinophils # (Auto) 0.2, Eosinophils (%) (Auto) 3, Estimat Glomerular Filtration Rate 62.6, Estimated GFR (Non- 51.7, Glucose Level 89#, Hematocrit 28.30L, Hemoglobin 8.7L, Lymphocytes # (Auto ) 1.1, Lymphocytes (%) (Auto) 19L, Mean Corpuscular Hemoglobin 28.2, Mean Corpuscular Hemoglobin Concent 30.7L, Mean Corpuscular Volume 92, Mean Platelet Volume 10.0H, Monocytes # (Auto) 0.6, Monocytes (%) (Auto) 11, Neutrophils # ( Auto) 4.0, Neutrophils (%) (Auto) 67, Platelet Count 229, Potassium Level 3.3L, Red Blood Count 3.09L, Red Cell Distribution Width 18.1H, Sodium Level 140, White Blood Count 5.90, Phosphorus Level 3.6#, Smear Scan Yes 12/15/16 05:45: Alanine Aminotransferase (ALT/SGPT) 94H, Albumin 3.4, Albumin/Globulin Ratio 1.133, Alkaline Phosphatase 157H, Anion Gap 15.2H, Aspartate Amino Transf (AST/ SGOT) 51H, BUN/Creatinine Ratio 14, Basophils # (Auto) 0.0, Basophils (%) (Auto ) 0, Blood Urea Nitrogen 21H, C-Reactive Protein 3.60H, Calcium Level 8.9, Calcium/Ionized Calcium Ratio 4.2, Calculated Osmolality 274L, Carbon Dioxide Level 29, Chloride Level 100, Creatinine 1.51H, Eosinophils # (Auto) 0.0, Eosinophils (%) (Auto) 0, Estimat Glomerular Filtration Rate 59.2, Estimated GFR (Non- 49.0, Glucose Level 113#H, Hematocrit 29.90L, Hemoglobin 9.4L, Lymphocytes # (Auto) 0.7, Lymphocytes (%) (Auto) 12L, Mean Corpuscular Hemoglobin 28.4, Mean Corpuscular Hemoglobin Concent 31.4, Mean Corpuscular Volume 90, Mean Platelet Volume 10.1H, Monocytes # (Auto) 0.3, Monocytes (%) (Auto) 5, Neutrophils # (Auto) 4.5, Neutrophils (%) (Auto) 82H, Platelet Count 250, Potassium Level 4.1#, Red Blood Count 3.31L, Red Cell Distribution Width 17.5H, Sodium Level 140, Total Bilirubin 0.7, Total Protein 6.4, White Blood Count 5.42 IMAGING 12/15/16 ABDOMEN (FLAT PLATE) 1VIEW INDICATION: Constipation. 0519 hours. Abdominal images reveal bilateral double-J nephroureteral stents. Positioning is similar to the exam of 12/13/2016. Other extensive postoperative changes again noted at the level of the liver and right midabdomen. IMPRESSION: Stable appearance of bilateral nephroureteral stents. No new abnormality is appreciated. 12/13/16 ACUTE ABD SERIES INDICATION: Nausea and vomiting. Abdominal series performed with a frontal chest radiograph and supine and upright abdominal films. Frontal chest view shows Port-A-Cath over the right chest with tip overlying the SVC. The heart and mediastinal silhouette are unremarkable. The lungs are clear. There is no free intraperitoneal air. There is an air-fluid level in the stomach. There is prominent stool throughout the colon with no overt intestinal obstruction. There are postsurgical changes in the right upper quadrant with surgical anastomosis overlying the right side of the abdomen. There are bilateral ureteral stents in place. IMPRESSION: Prominent stool throughout the colon with no intestinal obstruction or ileus. Air-fluid level is noted in the stomach. There are postop changes with bilateral ureteral stents. There is no free air. There is no acute pulmonary infiltrate. REFERENCE 11/15/16 CT CHEST/ABDOMEN/PELVIS WO PROCEDURE: CT chest, abdomen, and pelvis without contrast. TECHNIQUE: Multiple contiguous axial images were obtained through the chest, abdomen, and pelvis without the use of intravenous contrast. INDICATION: Cancer of the colon. COMPARISON: 08/19/2016. FINDINGS: CT chest: The lungs are well aerated. There are nodules present throughout all five lobes. These have increased in size and number when compared with previous exam. The largest lesion is in the right upper lobe medially measuring 12 mm today. This previously measured 8 mm. The nodules are too numerous to count, though multiple additional nodules were measured and have increased in average of 50% in size. All of the remaining nodules are 1 cm or smaller. There is no pleural effusion or pericardial effusion. No mediastinal or hilar adenopathy of pathologic size. Bone windows show no blastic or lytic lesions. Degenerative changes of the thoracic spine. IMPRESSION: Findings are consistent with diffuse metastatic lung nodules, increasing both in number and size since previous exam. CT abdomen and pelvis: Surgical clips from previous partial hepatectomy are again noted. The masses within the right lobe of the liver involving segment 8 have increased in size. The largest lesion now measures approximately 2.2 x 1.5 cm. This has increased from 1.6 x 1.5 cm. The hepatic dilatation in the left lobe is again present. The pancreas appears normal. The spleen is normal. The adrenal glands are normal. Kidneys show double-J stent present with mild hydronephrosis on the left. This does not appear significantly changed. Both stents extend into the bladder. Bladder appears normal. No evidence of aortic dilatation. Lack of IV contrast markedly limits the evaluation for adenopathy on today's study. The periportal lymph node measures approximately 3 x 2.5 cm today, increasing from 2.8 x 2.2 cm. An adjacent lymph node just anterior to the pancreas has increased in size as well, now measuring 2.4 x 1.2 cm. This previously measured approximately 1.3 x 1.1 cm. The mesenteric mass in the right lower quadrant measures 4 x 2.6 cm today, previously measuring 3.6 x 2 cm. Bone windows show no blastic or lytic lesions. IMPRESSION: 1. Increasing hepatic masses within the right lobe since previous exam, both in size and number. 2. Increasing size of the previously measured lymph nodes and mesenteric mass, as described above. ASSESSMENT Prosper Feliciano is a 51 year old male admitted from oncology clinic 12/13 with recurrent nausea, vomiting, anorexia, unintentional weight loss, and dehydration , all in the setting of metastatic colon cancer for which is now on 5th line therapy. Differential for his current symptoms includes possible bowel obstruction, pancreatitis, obstipation. He has improved marginally with supportive care thus far. He has ominous findings on CT chest/abdomen/pelvis from 11/2016, showing progression of metastatic colon cancer even over the three months prior when compared to CT scan 08/2016. PLAN * Possible Bowel Obstruction: Less likely on the basis of workup thus far. Was initially NPO and gave IVF. Acute abdominal series as noted. Follow-up as noted. Amylase and lipase were normal. Treated constipation. If not improving, consider small bowel follow through. * Constipation: On the basis of acute abdominal series. Likely contributing to symptoms. Bowel regimen. Enema x 2 given. With improved nausea, encourage use of PO bowel regimen. * Nausea/Vomiting: Ondansetron, promethazine. Gave dexamethasone 10 mg IV 12/14 with some benefit. Added lorazepam as well PRN. * Abdominal Pain: Hydromorphone PRN. * Elevated Creatinine: History of. Had bilateral ureteral stents which is likely causing pyuria. Noted nitrate is nil. Cr 1.47 on admit, rising to 1.51 . * Dehydration: NS bolus + 1 L maintenance. Not drinking well, so additional IVF 12/15. * Anorexia, Unintentional Weight Loss: Multifactorial. Supportive care. Workup for bowel obstruction. Treat nausea/vomiting. Treat constipation. Screening Tech consult. * Chronic Pain: Takes oxycodone at home. Hydromorphone while not tolerating PO well. * Metastatic Colon Cancer: No longer taking Lonsurf or Stivarga. CT 11/2016 as noted showing progression of metastatic disease over the preceding [address] Stover on findings, plan of care. * F/E/N: NPO initially but advanced to FLD. IVF as above. PowerPort. I&O, daily weight. * Prophylaxis: SCDs. Defer enoxaparin in case of surgical need. * Code Status: Full * Dispo: Inpatient, expecting 2-3 day additional stay. CHRONIC ISSUES * HTN: Observe. No longer takes amlodipine, lisinopril. MISSAEL MOSCOSO MD Dec 15, 2016 08:46
--- NOTE | 2016-12-15 09:52 | NUR ---
Nutrition Follow Up: Visited with pt. and his mom re: weight loss and dietary strategies to help with anorexia/n/v/taste changes. Pt. stated milk hasn't been settling well lately, although he can tolerate milk products such as pudding. He has tried Boost and Ensure and said they're "so-so." He did agree to try a homemade protein shake with protein powder. Pt. stated his taste changes happened after he initially was on chemo about 5 years ago, and it "comes and goes." He also reports dry mouth at times. Pt. requested a Sprite when I was in the room and he took some sips for me. Weight today: N/A Labs: glucose 113, AST 51, ALT 94 1. Discussed dietary strategies with pt. and mom and provided educational handouts re: n/v and dysgeusia. Specifically encouraged small sips of fluids throughout the day, and if he has a bad taste in his mouth, encouraged a mouth swish with 1 tsp. baking soda and 1 tsp. salt in 1 quart water. Otherwise, he can try ice water with lemon to help stimulate saliva flow, or suck on citrus hard candy. Cold foods or at room temperature are encouraged to reduce the smell and associated nausea, plus they typically have less of a strong taste. Will try a homemade chocolate protein shake at lunch today with ice cream, whole milk and protein powder. Will try a homemade strawberry smoothie later with protein powder. Also informed pt. that when his diet is advanced we can mix Benecalorie into foods such as mashed potatoes and oatmeal to provide additional kcals/protein. 2. Informed pt.s mom that the Med/Surg kitchenette is stocked with Sprite, pudding cups and Jello, and she can feel free to get him anything he wants according to his diet order, which is still [place] at the moment. Mom verbalized understanding.
[2016-12-15] MEDS: DOCUSATE SODIUM 100 MG (COLACE) CAP PO SCH ×3 (10:05→21:00)
[2016-12-15] MEDS: MAGNESIUM HYDROXIDE 80MG/ML (MILK OF MAGNESIA) 30 ML UDC PO SCH ×4 (10:06→21:47)
[2016-12-15] MEDS: POLYETHYLENE GLYCOL 17 GM (MIRALAX) PACKET PO SCH (10:06)
[2016-12-15] MEDS: D5 1/2 NS W/KCL 20 MEQ/L 1,000 ML IV SCH ×2 (10:06→18:11)
[2016-12-15 11:02] VITALS: BP 132/93
[2016-12-15 11:37] VITALS: BP 137/88
--- NOTE | 2016-12-15 13:00 | NUR ---
Patient has denied the need for pain or nausea medication throughout the morning. Still not able to drink or eat more than a few bites of breakfast or lunch.
--- NOTE | 2016-12-15 14:29 | NUR ---
MULTIDISCIPLINARY MTG/DR. REYES: Pt. has been battling colon cancer for five years which has recently progressed significantly. Pt. admitted with intractable n/v and constipation. Continue to work on a bowel regimen but Pt. is not tolerating orals well. Pt. has also had two enemas with some results. Pt. has not required any nausea medication today. Will change Pt. to low fiber diet. Pt. reports things don't taste good. Dietitian visited with Pt. to discuss what could help with this. Dr. Reyes to discuss Pt. expectations regarding his hospital stay. No discharge needs identified at this time.
[2016-12-15 15:48] VITALS: BP 142/83
--- NOTE | 2016-12-15 17:00 | NUR ---
Patient is in a significant amount of abdominal pain (rated 7/10) at this time. He is also nauseated with dry heaves. Gave Dilaudid 2 mg.IV and Zofran 8mg. IV. Encouraged the patient to accept PRN medications more frequently and educated him again on the intervals at which they could be requested. Did not give enema at this time.
[2016-12-15] MEDS: ONDANSETRON 2 MG/ML (Z0FRAN) 2 ML VIAL IV PRN (17:03)
[2016-12-15] MEDS: HYDROmorphone 2 MG/ML (DILAUDID) 1 ML SYRINGE IV PRN ×2 (17:09→20:06)
--- NOTE | 2016-12-15 17:20 | NUR ---
Pain has improved but enema was not given at this time either because a visitor was at the bedside.
--- NOTE | 2016-12-15 17:45 | NUR ---
To radiology for abdominal x-ray.
--- NOTE | 2016-12-15 18:00 | NUR ---
Back on the floor. The patient reports a significant decrease in pain and nausea. Also states he feels as though he would be able to eat something. Patient requested to wait with his enema because he would like to eat at this time.
--- NOTE | 2016-12-15 18:55 | Diagnostic Imaging Report ---
INDICATION: Ileus. EXAMINATION: KUB, supine and upright views were obtained at 6:02 p.m. COMPARISON: Same day at 5:19 a.m. FINDINGS: The bilateral ureteral stents are unchanged in position. There is moderate stool throughout the colon. There are postsurgical changes in the right upper quadrant as well as on the right side of the abdomen. Bowel gas pattern shows no overt obstruction or significant ileus. IMPRESSION: Stable abdominal study. No change in postoperative findings and ureteral stents. Prominent stool throughout the colon with no overt obstruction or ileus. Dictated by: Dictated on workstation # [id number]
--- NOTE | 2016-12-15 19:30 | NUR ---
Patient is still attempting to eat off of his food tray but he reports difficulty swallowing and a feeling of "fullness" in the abdomen. Enema will be given when the patient decides he is done with his supper.
--- NOTE | 2016-12-15 20:10 | NUR ---
Dilaudid 2 mg IV given for pain rated "6". Pt. finished with supper tray; denies nausea; requests enema to be given a little later-will notify nurse. IVF infusing at right port without difficulty; call light and drink within reach. at bedside; both watching tv.
--- NOTE | 2016-12-15 21:50 | NUR ---
Soap suds enema given per instruction; pt. tolerated procedure well.
--- NOTE | 2016-12-15 22:25 | NUR ---
Pt. reported small to medium stool return following enema; pt. states, "I think this type did me some good!" Pt. sitting at bedside; visiting with . Additional ice provided for drink; call light within reach.
[2016-12-16] MEDS: HYDROmorphone 2 MG/ML (DILAUDID) 1 ML SYRINGE IV PRN ×6 (00:10→15:08)
--- NOTE | 2016-12-16 00:10 | NUR ---
Dilaudid 2 mg IV given for pain rated "6". Pt. states, "I want all of you to know how much I appreciate everything you do. When I came into the ER, they asked if I wanted to go to [place] and I told them; No, I want to stay in [place]. Everyone is so nice; the care is good- I don't want to be anywhere else. Thank you." This nurse shares compliment with nightshift staff.
[2016-12-16] MEDS: NS FLUSH 10 ML PRN IV ×8 (00:12→17:26)
[2016-12-16 00:15] VITALS: BP 140/88
[2016-12-16] MEDS: ONDANSETRON 2 MG/ML (Z0FRAN) 2 ML VIAL IV PRN ×2 (02:13→05:44)
[2016-12-16] MEDS: D5 1/2 NS W/KCL 20 MEQ/L 1,000 ML IV SCH (02:14)
--- NOTE | 2016-12-16 02:15 | NUR ---
IVF replenished at this time. Dilaudid 2 mg IV; Zofran 8 mg IV given for nausea. Fan blowing in room for comfort; call light and H2O within reach. Addendum: 12/16/16 at 0228 by Rima Ash RN Pain rated "4-5".
--- NOTE | 2016-12-16 02:45 | NUR ---
IVF DC'd at this time; order states 2000 cc's total.
--- NOTE | 2016-12-16 05:45 | NUR ---
Dilaudid 2 mg IV given for pain rated "5"; Zofran 8 mg IV given for nausea; saline flushed.
[2016-12-16 07:19] VITALS: BP 122/75
--- NOTE | 2016-12-16 07:20 | NUR ---
Patient sitting up in bed upon shift assessment. Reports right sided abdominal pain rated 2/10 on pain scale. Denies nausea at this time. Updated for plan of care for shift including PRN medication schedule and pain management. Call light in reach.
[2016-12-16] MEDS: NS FLUSH 3 ML DAILY IV SCH (08:18)
[2016-12-16] MEDS: DOCUSATE SODIUM 100 MG (COLACE) CAP PO SCH ×2 (08:18→21:00)
[2016-12-16] MEDS: MAGNESIUM HYDROXIDE 80MG/ML (MILK OF MAGNESIA) 30 ML UDC PO SCH ×4 (08:31→21:00)
[2016-12-16] MEDS: POLYETHYLENE GLYCOL 17 GM (MIRALAX) PACKET PO SCH (08:31)
--- NOTE | 2016-12-16 08:47 | NUR ---
Patient consumes piece of white toast and small serving of scrambled eggs for breakfast. Ambulates to sink to shave face and perform oral care. Reports abdominal pain rated 5/10 on scale after food and activity. States "I was doing good but might have overdone it". PRN Dilaudid provided. Reports intermittent nausea but denies need for antiemetic. Will continue to monitor.
--- NOTE | 2016-12-16 12:31 | Progress Note (E) ---
Progress Note SUBJECTIVE Had some good result with soap suds enema last night. Still having pain. Nausea stable. Some minimal PO intake. Tolerated toast and eggs this AM. Discussed findings and plan of care at bedside. Mother was present. Discussed hospice. He is tearful during this discussion. He understands he has no treatment options but fears hospice means giving up altogether. Began education process regarding hospice, focusing on comfort instead of cure. He had already discussed this briefly with oncologist prior to this admission. Is receptive to meeting with hospice. Plan to have [facility] visit with him and family this afternoon. OBJECTIVE Vital Signs Date Time Temp Pulse Resp B/P Pulse Ox O2 Delivery O2 Flow Rate FiO2 12/16/16 07:19 97.4 78 18 122/75 97 Room air I & O 12/15/16 12/16/16 Cumulative From/Thru 19:00 07:00 12/13/16 17:11 - 12/16/16 06:14 Intake Total 1112 ml 1800 ml 4485 ml Output Total 400 ml 1000 ml 2450 ml Balance 712 ml 800 ml 2035 ml GEN: Awake, alert, oriented. HEENT: EOMI, clear sclerae, dry oral mucosa, temporal wasting. CV: RRR S1 S2 normal with no murmur LUNGS: Diminished without R/R/W. ABD: Soft, lining machine tender in RLQ but he says this is chronic. Non-distended. No rebound tenderness. Hyperactive bowel sounds. EXTR: No C/C/E. Normal peripheral pulses. INTEG: No rash. Pallor. NEURO: No focal motor neuro deficit. Lab-Past 14 Days, 35 Results 12/13/16 03:15: Urine Bacteria None seen, Urine Bilirubin 1+H, Urine Blood 3+H, Urine Clarity Cloudy, Urine Collection Type Clean catch, Urine Color Dark yellow, Urine Glucose (UA) Negative, Urine Ketones Negative, Urine Leukocyte Esterase TraceH, Urine Microscopic RBC >100, Urine Nitrite Negative, Urine Protein 3+H, Urine Specific [place] 1.025, Urine Squamous Epithelial Cells 10-20, Urine Urobilinogen 1.0, Urine WBC 50-100H, Urine pH 7.0, Volume Urine Centrifuged 12 ml 12/13/16 17:10: Alanine Aminotransferase (ALT/SGPT) 115H, Albumin 3.7, Albumin/Globulin Ratio 1.121, Alkaline Phosphatase 188H, Amylase Level 58, Anion Gap 14.8, Aspartate Amino Transf (AST/SGOT) 74H, BUN/Creatinine Ratio 16, Basophils # (Auto) 0.0, Basophils (%) (Auto) 0, Blood Urea Nitrogen 23H, C-Reactive Protein 1.90H, Calcium Level 9.1, Calcium/Ionized Calcium Ratio 4.0, Calculated Osmolality 274L , Carbon Dioxide Level 35H, Chloride Level 93L, Creatinine 1.47, Eosinophils # ( Auto) 0.1, Eosinophils (%) (Auto) 2, Estimat Glomerular Filtration Rate 61.1, Estimated GFR (Non- 50.5, Glucose Level 113H, Hematocrit 32.40L , Hemoglobin 10.4L, Lipase 83, Lymphocytes # (Auto) 1.3, Lymphocytes (%) (Auto) 15L, Magnesium Level 2.0, Mean Corpuscular Hemoglobin 28.5, Mean Corpuscular Hemoglobin Concent 32.1, Mean Corpuscular Volume 89, Mean Platelet Volume 9.5, Monocytes # (Auto) 0.7, Monocytes (%) (Auto) 8, Neutrophils # (Auto) 6.3, Neutrophils (%) (Auto) 74H, Platelet Count 292, Potassium Level 3.0L, Red Blood Count 3.65L, Red Cell Distribution Width 18.0H, Sodium Level 139, Total Bilirubin 0.8, Total Protein 7.0, White Blood Count 8.55 12/14/16 05:50: Albumin 3.0L, Anion Gap 11.0, Basophils # (Auto) 0.0, Basophils (%) (Auto) 0, Blood Urea Nitrogen 21H, Calcium Level 8.4L, Carbon Dioxide Level 35H, Chloride Level 97L, Creatinine 1.44, Eosinophils # (Auto) 0.2, Eosinophils (%) (Auto) 3, Estimat Glomerular Filtration Rate 62.6, Estimated GFR (Non- 51.7, Glucose Level 89#, Hematocrit 28.30L, Hemoglobin 8.7L, Lymphocytes # (Auto ) 1.1, Lymphocytes (%) (Auto) 19L, Mean Corpuscular Hemoglobin 28.2, Mean Corpuscular Hemoglobin Concent 30.7L, Mean Corpuscular Volume 92, Mean Platelet Volume 10.0H, Monocytes # (Auto) 0.6, Monocytes (%) (Auto) 11, Neutrophils # ( Auto) 4.0, Neutrophils (%) (Auto) 67, Platelet Count 229, Potassium Level 3.3L, Red Blood Count 3.09L, Red Cell Distribution Width 18.1H, Sodium Level 140, White Blood Count 5.90, Phosphorus Level 3.6#, Smear Scan Yes 12/15/16 05:45: Alanine Aminotransferase (ALT/SGPT) 94H, Albumin 3.4, Albumin/Globulin Ratio 1.133, Alkaline Phosphatase 157H, Anion Gap 15.2H, Aspartate Amino Transf (AST/ SGOT) 51H, BUN/Creatinine Ratio 14, Basophils # (Auto) 0.0, Basophils (%) (Auto ) 0, Blood Urea Nitrogen 21H, C-Reactive Protein 3.60H, Calcium Level 8.9, Calcium/Ionized Calcium Ratio 4.2, Calculated Osmolality 274L, Carbon Dioxide Level 29, Chloride Level 100, Creatinine 1.51H, Eosinophils # (Auto) 0.0, Eosinophils (%) (Auto) 0, Estimat Glomerular Filtration Rate 59.2, Estimated GFR (Non- 49.0, Glucose Level 113#H, Hematocrit 29.90L, Hemoglobin 9.4L, Lymphocytes # (Auto) 0.7, Lymphocytes (%) (Auto) 12L, Mean Corpuscular Hemoglobin 28.4, Mean Corpuscular Hemoglobin Concent 31.4, Mean Corpuscular Volume 90, Mean Platelet Volume 10.1H, Monocytes # (Auto) 0.3, Monocytes (%) (Auto) 5, Neutrophils # (Auto) 4.5, Neutrophils (%) (Auto) 82H, Platelet Count 250, Potassium Level 4.1#, Red Blood Count 3.31L, Red Cell Distribution Width 17.5H, Sodium Level 140, Total Bilirubin 0.7, Total Protein 6.4, White Blood Count 5.42 IMAGING 12/15/16 ABDOMEN (FLAT PLATE) 1VIEW INDICATION: Constipation. 0519 hours. Abdominal images reveal bilateral double-J nephroureteral stents. Positioning is similar to the exam of 12/13/2016. Other extensive postoperative changes again noted at the level of the liver and right midabdomen. IMPRESSION: Stable appearance of bilateral nephroureteral stents. No new abnormality is appreciated. 12/13/16 ACUTE ABD SERIES INDICATION: Nausea and vomiting. Abdominal series performed with a frontal chest radiograph and supine and upright abdominal films. Frontal chest view shows Port-A-Cath over the right chest with tip overlying the SVC. The heart and mediastinal silhouette are unremarkable. The lungs are clear. There is no free intraperitoneal air. There is an air-fluid level in the stomach. There is prominent stool throughout the colon with no overt intestinal obstruction. There are postsurgical changes in the right upper quadrant with surgical anastomosis overlying the right side of the abdomen. There are bilateral ureteral stents in place. IMPRESSION: Prominent stool throughout the colon with no intestinal obstruction or ileus. Air-fluid level is noted in the stomach. There are postop changes with bilateral ureteral stents. There is no free air. There is no acute pulmonary infiltrate. REFERENCE 11/15/16 CT CHEST/ABDOMEN/PELVIS WO PROCEDURE: CT chest, abdomen, and pelvis without contrast. TECHNIQUE: Multiple contiguous axial images were obtained through the chest, abdomen, and pelvis without the use of intravenous contrast. INDICATION: Cancer of the colon. COMPARISON: 08/19/2016. FINDINGS: CT chest: The lungs are well aerated. There are nodules present throughout all five lobes. These have increased in size and number when compared with previous exam. The largest lesion is in the right upper lobe medially measuring 12 mm today. This previously measured 8 mm. The nodules are too numerous to count, though multiple additional nodules were measured and have increased in average of 50% in size. All of the remaining nodules are 1 cm or smaller. There is no pleural effusion or pericardial effusion. No mediastinal or hilar adenopathy of pathologic size. Bone windows show no blastic or lytic lesions. Degenerative changes of the thoracic spine. IMPRESSION: Findings are consistent with diffuse metastatic lung nodules, increasing both in number and size since previous exam. CT abdomen and pelvis: Surgical clips from previous partial hepatectomy are again noted. The masses within the right lobe of the liver involving segment 8 have increased in size. The largest lesion now measures approximately 2.2 x 1.5 cm. This has increased from 1.6 x 1.5 cm. The hepatic dilatation in the left lobe is again present. The pancreas appears normal. The spleen is normal. The adrenal glands are normal. Kidneys show double-J stent present with mild hydronephrosis on the left. This does not appear significantly changed. Both stents extend into the bladder. Bladder appears normal. No evidence of aortic dilatation. Lack of IV contrast markedly limits the evaluation for adenopathy on today's study. The periportal lymph node measures approximately 3 x 2.5 cm today, increasing from 2.8 x 2.2 cm. An adjacent lymph node just anterior to the pancreas has increased in size as well, now measuring 2.4 x 1.2 cm. This previously measured approximately 1.3 x 1.1 cm. The mesenteric mass in the right lower quadrant measures 4 x 2.6 cm today, previously measuring 3.6 x 2 cm. Bone windows show no blastic or lytic lesions. IMPRESSION: 1. Increasing hepatic masses within the right lobe since previous exam, both in size and number. 2. Increasing size of the previously measured lymph nodes and mesenteric mass, as described above. ASSESSMENT Prosper Feliciano is a 51 year old male admitted from oncology clinic 12/13 with recurrent nausea, vomiting, anorexia, unintentional weight loss, and dehydration , all in the setting of metastatic colon cancer for which is now on 5th line therapy. Differential for his current symptoms includes possible bowel obstruction, pancreatitis, obstipation. He has improved marginally with supportive care thus far. He has ominous findings on CT chest/abdomen/pelvis from 11/2016, showing progression of metastatic colon cancer even over the three months prior when compared to CT scan 08/2016. PLAN * Possible Bowel Obstruction: Less likely on the basis of workup thus far. Was initially NPO and gave IVF. Acute abdominal series as noted. Follow-up as noted. Amylase and lipase were normal. Treated constipation. If not improving, consider small bowel follow through. * Constipation: On the basis of acute abdominal series. Likely contributing to symptoms. Bowel regimen. Fleets enema x 2 given, then soap suds enema with some effect. With improved nausea, encourage use of PO bowel regimen. * Nausea/Vomiting: Ondansetron, promethazine. Gave dexamethasone 10 mg IV 12/14 with some benefit. Added lorazepam as well PRN. Continued scopolamine. * Abdominal Pain: Hydromorphone PRN. * Elevated Creatinine: History of. Had bilateral ureteral stents which is likely causing pyuria. Noted nitrate is nil. Cr 1.47 on admit, rising to 1.51 . * Dehydration: NS bolus + 1 L maintenance. Not drinking well, so additional IVF 12/15. * Anorexia, Unintentional Weight Loss: Multifactorial. Supportive care. Workup for bowel obstruction. Treat nausea/vomiting. Treat constipation. [employer] Tool Driller consult. * Chronic Pain: Takes oxycodone at home. Hydromorphone while not tolerating PO well. * Metastatic Colon Cancer: No longer taking Lonsurf or Stivarga. CT 11/2016 as noted showing progression of metastatic disease over the preceding [address] Stover on findings, plan of care. * F/E/N: NPO initially but advanced to FLD. IVF as above. PowerPort. I&O, daily weight. * Prophylaxis: SCDs. Defer enoxaparin in case of surgical need. * Code Status: Full * Dispo: Inpatient, expecting 2-3 day additional stay. CHRONIC ISSUES * HTN: Observe. No longer takes amlodipine, lisinopril. MISSAEL MOSCOSO MD Dec 16, 2016 12:11
[2016-12-16] MEDS: SCOPOLAMINE 1.5 MG (TRANSDERM-SCOP) PATCH TD SCH (12:45)
[2016-12-16] MEDS: ONDANSETRON 4 MG (ZOFRAN) ORAL DISSOLVE TAB PO SCH ×3 (12:45→20:01)
[2016-12-16 15:26] VITALS: BP 139/89
[2016-12-16] MEDS ORDERED: KETOROLAC 30 MG/ML (TORADOL) 1 ML VIAL IV ONE (17:00)
[2016-12-16] MEDS: HYDROmorphone (DILAUDID) 4 MG TAB PO PRN ×2 (17:20→22:59)
[2016-12-16] MEDS: KETOROLAC 15 MG/ML (TORADOL) 1 ML VIAL IV PRN (20:03)
--- NOTE | 2016-12-16 20:10 | NUR ---
Prosper had consumed good portion of supper and drank coke and ice water - c/o N/V with pain. Scheduled Zofran administered, with prn Toradol, refused po Colace and MOM.
--- NOTE | 2016-12-16 21:30 | NUR ---
Feeling better and asking for Ice cream and sprite.
[2016-12-16] MEDS: PROMETHAZINE HCL INJ 25 MG in SODIUM CHLORIDE 25 ML IV PRN (22:58)
--- NOTE | 2016-12-16 23:00 | NUR ---
Complained of feeling nauseated w/ pain, no emesis. Prn Dilaudid po 8 mg and IV prn Phenergan.
[2016-12-17 00:08] VITALS: BP 128/89
[2016-12-17] MEDS: NS FLUSH 10 ML PRN IV ×7 (02:00→20:39)
[2016-12-17] MEDS: HYDROmorphone 2 MG/ML (DILAUDID) 1 ML SYRINGE IV PRN ×7 (02:00→20:39)
[2016-12-17] MEDS: ONDANSETRON 2 MG/ML (Z0FRAN) 2 ML VIAL IV PRN ×3 (05:45→17:35)
[2016-12-17 07:56] VITALS: BP 129/79
[2016-12-17] MEDS ORDERED: SODIUM CHLORIDE 250 ML ONE (08:11)
[2016-12-17] MEDS: PROMETHAZINE HCL INJ 25 MG in SODIUM CHLORIDE 25 ML IV PRN ×2 (08:14→18:31)
--- NOTE | 2016-12-17 08:40 | NUR ---
Pt in bed, rates abd pain 12/12, asks for pain meds and nausea meds- Refused Zofran 8mg ODT at this time- requests IV nausea medicine- Phenergan given at 0820. Dilaudid 2mg IV given at 0825 for abdominal pain. Refused breakfast meal- states "I ate 3 big meals yesterday and paid for it overnight, I better not eat right now." Will continue to monitor patient- call light within reach.
[2016-12-17] MEDS: NS FLUSH 3 ML DAILY IV SCH (08:56)
--- NOTE | 2016-12-17 09:16 | NUR ---
Pt resting at this time, arouses to verbal stimuli. RR 12 at this time. Mother and veterinary technician in [place] at their request while he is resting. This nurse at bedside. Will cont to monitor patient.
--- NOTE | 2016-12-17 09:44 | NUR ---
Pt placed on 2L nc, sats 88% on RA, RR 12. Arouses to verbal and tactile stimuli. Sats on 2L nc 96-97%. Will cont to monitor. Addendum: 12/17/16 at 0946 by Jennifer Fairbanks RN Alexa VALDERRAMA notified.
[2016-12-17] MEDS ORDERED: BISACODYL 10 MG SUPP (DULCOLAX) PR PRN (10:00)
--- NOTE | 2016-12-17 10:05 | NUR ---
Dr. Reyes at bedside. Pt awake/alert. Mother at bedside. O2 sats 99% on 2L nc, RR 16, HR 73- Placed back on RA- will cont to monitor- Pt is up to bathroom now Addendum: 12/17/16 at 1020 by Jennifer Fairbanks RN BP 155/85
[2016-12-17] MEDS: DOCUSATE SODIUM 100 MG (COLACE) CAP PO SCH ×2 (10:11→21:00)
[2016-12-17] MEDS: MAGNESIUM HYDROXIDE 80MG/ML (MILK OF MAGNESIA) 30 ML UDC PO SCH ×4 (10:12→21:00)
--- NOTE | 2016-12-17 10:12 | Progress Note (E) ---
Progress Note SUBJECTIVE Overnight, no major issues but this AM, again more nauseated and having some pain. Placed on 2 L NC for SpO2 dipping to 88% at times. Vitals stable otherwise. No further BMs charted but he states he had several loose stools. Had emesis last night as well. Feels stable at present. Voices great appreciation for his cares. OBJECTIVE Vital Signs Date Time Temp Pulse Resp B/P Pulse Ox O2 Delivery O2 Flow Rate FiO2 12/17/16 07:56 98.0 76 20 129/79 97 Room air I & O 12/16/16 12/17/16 Cumulative From/Thru 19:00 07:00 12/13/16 17:11 - 12/17/16 06:29 Intake Total 474 ml 879 ml 5838 ml Output Total 400 ml 600 ml 3450 ml Balance 74 ml 279 ml 2388 ml GEN: Awake, alert, oriented. Tired appearing. HEENT: EOMI, clear sclerae, dry oral mucosa, temporal wasting. CV: RRR S1 S2 normal with no murmur LUNGS: Diminished without R/R/W. ABD: Soft, distillery manager in RLQ, chronic. Non-distended. No rebound tenderness. Hypoactive bowel sounds. EXTR: No C/C/E. Normal peripheral pulses. INTEG: No rash. Pallor. NEURO: No focal motor neuro deficit. Lab-Past 14 Days, 35 Results 12/13/16 03:15: Urine Bacteria None seen, Urine Bilirubin 1+H, Urine Blood 3+H, Urine Clarity Cloudy, Urine Collection Type Clean catch, Urine Color Dark yellow, Urine Glucose (UA) Negative, Urine Ketones Negative, Urine Leukocyte Esterase TraceH, Urine Microscopic RBC >100, Urine Nitrite Negative, Urine Protein 3+H, Urine Specific [place] 1.025, Urine Squamous Epithelial Cells 10-20, Urine Urobilinogen 1.0, Urine WBC 50-100H, Urine pH 7.0, Volume Urine Centrifuged 12 ml 12/13/16 17:10: Alanine Aminotransferase (ALT/SGPT) 115H, Albumin 3.7, Albumin/Globulin Ratio 1.121, Alkaline Phosphatase 188H, Amylase Level 58, Anion Gap 14.8, Aspartate Amino Transf (AST/SGOT) 74H, BUN/Creatinine Ratio 16, Basophils # (Auto) 0.0, Basophils (%) (Auto) 0, Blood Urea Nitrogen 23H, C-Reactive Protein 1.90H, Calcium Level 9.1, Calcium/Ionized Calcium Ratio 4.0, Calculated Osmolality 274L , Carbon Dioxide Level 35H, Chloride Level 93L, Creatinine 1.47, Eosinophils # ( Auto) 0.1, Eosinophils (%) (Auto) 2, Estimat Glomerular Filtration Rate 61.1, Estimated GFR (Non- 50.5, Glucose Level 113H, Hematocrit 32.40L , Hemoglobin 10.4L, Lipase 83, Lymphocytes # (Auto) 1.3, Lymphocytes (%) (Auto) 15L, Magnesium Level 2.0, Mean Corpuscular Hemoglobin 28.5, Mean Corpuscular Hemoglobin Concent 32.1, Mean Corpuscular Volume 89, Mean Platelet Volume 9.5, Monocytes # (Auto) 0.7, Monocytes (%) (Auto) 8, Neutrophils # (Auto) 6.3, Neutrophils (%) (Auto) 74H, Platelet Count 292, Potassium Level 3.0L, Red Blood Count 3.65L, Red Cell Distribution Width 18.0H, Sodium Level 139, Total Bilirubin 0.8, Total Protein 7.0, White Blood Count 8.55 12/14/16 05:50: Albumin 3.0L, Anion Gap 11.0, Basophils # (Auto) 0.0, Basophils (%) (Auto) 0, Blood Urea Nitrogen 21H, Calcium Level 8.4L, Carbon Dioxide Level 35H, Chloride Level 97L, Creatinine 1.44, Eosinophils # (Auto) 0.2, Eosinophils (%) (Auto) 3, Estimat Glomerular Filtration Rate 62.6, Estimated GFR (Non- 51.7, Glucose Level 89#, Hematocrit 28.30L, Hemoglobin 8.7L, Lymphocytes # (Auto ) 1.1, Lymphocytes (%) (Auto) 19L, Mean Corpuscular Hemoglobin 28.2, Mean Corpuscular Hemoglobin Concent 30.7L, Mean Corpuscular Volume 92, Mean Platelet Volume 10.0H, Monocytes # (Auto) 0.6, Monocytes (%) (Auto) 11, Neutrophils # ( Auto) 4.0, Neutrophils (%) (Auto) 67, Platelet Count 229, Potassium Level 3.3L, Red Blood Count 3.09L, Red Cell Distribution Width 18.1H, Sodium Level 140, White Blood Count 5.90, Phosphorus Level 3.6#, Smear Scan Yes 12/15/16 05:45: Alanine Aminotransferase (ALT/SGPT) 94H, Albumin 3.4, Albumin/Globulin Ratio 1.133, Alkaline Phosphatase 157H, Anion Gap 15.2H, Aspartate Amino Transf (AST/ SGOT) 51H, BUN/Creatinine Ratio 14, Basophils # (Auto) 0.0, Basophils (%) (Auto ) 0, Blood Urea Nitrogen 21H, C-Reactive Protein 3.60H, Calcium Level 8.9, Calcium/Ionized Calcium Ratio 4.2, Calculated Osmolality 274L, Carbon Dioxide Level 29, Chloride Level 100, Creatinine 1.51H, Eosinophils # (Auto) 0.0, Eosinophils (%) (Auto) 0, Estimat Glomerular Filtration Rate 59.2, Estimated GFR (Non- 49.0, Glucose Level 113#H, Hematocrit 29.90L, Hemoglobin 9.4L, Lymphocytes # (Auto) 0.7, Lymphocytes (%) (Auto) 12L, Mean Corpuscular Hemoglobin 28.4, Mean Corpuscular Hemoglobin Concent 31.4, Mean Corpuscular Volume 90, Mean Platelet Volume 10.1H, Monocytes # (Auto) 0.3, Monocytes (%) (Auto) 5, Neutrophils # (Auto) 4.5, Neutrophils (%) (Auto) 82H, Platelet Count 250, Potassium Level 4.1#, Red Blood Count 3.31L, Red Cell Distribution Width 17.5H, Sodium Level 140, Total Bilirubin 0.7, Total Protein 6.4, White Blood Count 5.42 IMAGING 12/15/16 ABDOMEN (FLAT PLATE) 1VIEW INDICATION: Constipation. 0519 hours. Abdominal images reveal bilateral double-J nephroureteral stents. Positioning is similar to the exam of 12/13/2016. Other extensive postoperative changes again noted at the level of the liver and right midabdomen. IMPRESSION: Stable appearance of bilateral nephroureteral stents. No new abnormality is appreciated. 12/13/16 ACUTE ABD SERIES INDICATION: Nausea and vomiting. Abdominal series performed with a frontal chest radiograph and supine and upright abdominal films. Frontal chest view shows Port-A-Cath over the right chest with tip overlying the SVC. The heart and mediastinal silhouette are unremarkable. The lungs are clear. There is no free intraperitoneal air. There is an air-fluid level in the stomach. There is prominent stool throughout the colon with no overt intestinal obstruction. There are postsurgical changes in the right upper quadrant with surgical anastomosis overlying the right side of the abdomen. There are bilateral ureteral stents in place. IMPRESSION: Prominent stool throughout the colon with no intestinal obstruction or ileus. Air-fluid level is noted in the stomach. There are postop changes with bilateral ureteral stents. There is no free air. There is no acute pulmonary infiltrate. REFERENCE 11/15/16 CT CHEST/ABDOMEN/PELVIS WO PROCEDURE: CT chest, abdomen, and pelvis without contrast. TECHNIQUE: Multiple contiguous axial images were obtained through the chest, abdomen, and pelvis without the use of intravenous contrast. INDICATION: Cancer of the colon. COMPARISON: 08/19/2016. FINDINGS: CT chest: The lungs are well aerated. There are nodules present throughout all five lobes. These have increased in size and number when compared with previous exam. The largest lesion is in the right upper lobe medially measuring 12 mm today. This previously measured 8 mm. The nodules are too numerous to count, though multiple additional nodules were measured and have increased in average of 50% in size. All of the remaining nodules are 1 cm or smaller. There is no pleural effusion or pericardial effusion. No mediastinal or hilar adenopathy of pathologic size. Bone windows show no blastic or lytic lesions. Degenerative changes of the thoracic spine. IMPRESSION: Findings are consistent with diffuse metastatic lung nodules, increasing both in number and size since previous exam. CT abdomen and pelvis: Surgical clips from previous partial hepatectomy are again noted. The masses within the right lobe of the liver involving segment 8 have increased in size. The largest lesion now measures approximately 2.2 x 1.5 cm. This has increased from 1.6 x 1.5 cm. The hepatic dilatation in the left lobe is again present. The pancreas appears normal. The spleen is normal. The adrenal glands are normal. Kidneys show double-J stent present with mild hydronephrosis on the left. This does not appear significantly changed. Both stents extend into the bladder. Bladder appears normal. No evidence of aortic dilatation. Lack of IV contrast markedly limits the evaluation for adenopathy on today's study. The periportal lymph node measures approximately 3 x 2.5 cm today, increasing from 2.8 x 2.2 cm. An adjacent lymph node just anterior to the pancreas has increased in size as well, now measuring 2.4 x 1.2 cm. This previously measured approximately 1.3 x 1.1 cm. The mesenteric mass in the right lower quadrant measures 4 x 2.6 cm today, previously measuring 3.6 x 2 cm. Bone windows show no blastic or lytic lesions. IMPRESSION: 1. Increasing hepatic masses within the right lobe since previous exam, both in size and number. 2. Increasing size of the previously measured lymph nodes and mesenteric mass, as described above. ASSESSMENT Prosper Feliciano is a 51 year old male admitted from oncology clinic 12/13 with recurrent nausea, vomiting, anorexia, unintentional weight loss, and dehydration , all in the setting of metastatic colon cancer for which is now on 5th line therapy. Differential for his current symptoms includes possible bowel obstruction, pancreatitis, obstipation. He has improved marginally with supportive care thus far. He has ominous findings on CT chest/abdomen/pelvis from 11/2016, showing progression of metastatic colon cancer even over the three months prior when compared to CT scan 08/2016. PLAN * Possible Bowel Obstruction: Ruled out. Was initially NPO and gave IVF. Acute abdominal series as noted. Follow-up as noted. Amylase and lipase were normal. Treated constipation. * Constipation: On the basis of acute abdominal series. Bowel regimen. Fleets enema x 2 given, then soap suds enema with some effect. With improved nausea, encourage use of PO bowel regimen. * Nausea/Vomiting: Ondansetron, promethazine. Gave dexamethasone 10 mg IV 12/14 with some benefit. Added lorazepam as well PRN. Continued scopolamine. * Abdominal Pain: Hydromorphone PRN. * Elevated Creatinine: History of. Had bilateral ureteral stents which is likely causing pyuria. Noted nitrate is nil. Cr 1.47 on admit, rising to 1.51 . * Dehydration: NS bolus + 1 L maintenance. Not drinking well, so additional IVF 12/15. * Anorexia, Unintentional Weight Loss: Multifactorial. Supportive care. Treat nausea/vomiting. Treat constipation. Paper Cone Maker consult. * Chronic Pain: Takes oxycodone at home. Hydromorphone while not tolerating PO well. Ketorolac PRN. * Metastatic Colon Cancer: No longer taking Lonsurf or Stivarga. CT 11/2016 as noted showing progression of metastatic disease over the preceding [address] Stover on findings, plan of care. * F/E/N: NPO initially but advanced to FLD, then low fiber as tolerated. IVF as above. PowerPort. I&O, daily weight. * Prophylaxis: SCDs. Defer enoxaparin in case of surgical need. * Code Status: Full * Dispo: Inpatient. Possible discharge 12/18 or 12/19. Working on stabilizing his symptoms so he can try again to manage at home. CHRONIC ISSUES * HTN: Observe. No longer takes amlodipine, lisinopril. MISSAEL MOSCOSO MD Dec 17, 2016 10:01
[2016-12-17] MEDS: POLYETHYLENE GLYCOL 17 GM (MIRALAX) PACKET PO SCH (10:31)
[2016-12-17] MEDS: ONDANSETRON 4 MG (ZOFRAN) ORAL DISSOLVE TAB PO SCH ×4 (10:31→20:39)
--- NOTE | 2016-12-17 10:44 | NUR ---
Pt used bathroom indep. States he had a "big" bowel movement- he had already flushed. Pt educated to let staff assess BMs and measure urine- verbalizes understanding.
--- NOTE | 2016-12-17 11:40 | NUR ---
Pt calls nurse to room- had a small dark brown liquid BM- Dr. Reyes notified. Requests nausea and pain medications- Zofran 8mg IV for nausea and Dilaudid 2mg IV for abdominal pain rated 4/10 as ordered. Before nurse even left room- patient states he is already feeling better. Mother remains at bedside. Call light within reach- calls appropriately.
--- NOTE | 2016-12-17 13:45 | NUR ---
Pt reports abdominal pain has increased to 6/10- Dilaudid 2mg IV given at this time. Pt took scheduled Zofran 8mg ODT as well as Scheduled MOM at this time as well. No other needs reported at this time.
[2016-12-17 15:47] VITALS: BP 128/81
--- NOTE | 2016-12-17 18:06 | NUR ---
@0903 pt calls nurse to room for c/o extreme nausea but no emesis. Zofran 8mg IV given along with Dilaudid 2mg IV for abdominal pain that he rates pain 8/10 at worst, then decreases to 2/10- states the pain comes and goes quickly. States this is the most nauseous he has been today. Will give Phenergan if nauseous persists after this Zofran. 10minutes after Zofran, Mother leaves to get him a grape slushy- states that he thought that sounded appealing. Will cont to monitor nausea closely.
[2016-12-18] VITALS (7 sets, daily range): BP systolic 119–163; BP diastolic 79–87
[2016-12-18] MEDS: NS FLUSH 10 ML PRN IV ×4 (04:28→14:57)
[2016-12-18] MEDS: HYDROmorphone 2 MG/ML (DILAUDID) 1 ML SYRINGE IV PRN ×2 (04:28→11:54)
--- NOTE | 2016-12-18 07:05 | NUR ---
Patient rests in bed throughout night, has one episode of emesis after eating a cup of pudding. Has had 2 loose stools this shift. Utilizes pain medication when needed, discussed pain medication options, and patient states that he is not ready to take pills at this time. No needs at this time.
[2016-12-18] MEDS: DOCUSATE SODIUM 100 MG (COLACE) CAP PO SCH ×2 (09:00→21:00)
[2016-12-18] MEDS: POLYETHYLENE GLYCOL 17 GM (MIRALAX) PACKET PO SCH (09:00)
[2016-12-18] MEDS: MAGNESIUM HYDROXIDE 80MG/ML (MILK OF MAGNESIA) 30 ML UDC PO SCH ×4 (09:00→21:00)
[2016-12-18] MEDS: NS FLUSH 3 ML DAILY IV SCH (09:00)
[2016-12-18] MEDS ORDERED: DEXAMETHASONE 10 MG/ML (DECADRON) VIAL IV ONE (09:40)
--- NOTE | 2016-12-18 09:51 | Progress Note (E) ---
Progress Note SUBJECTIVE Still having emesis at times and nausea often. Continuing to have loose stools. Continuing to have abdominal pain. OBJECTIVE Vital Signs Date Time Temp Pulse Resp B/P Pulse Ox O2 Delivery O2 Flow Rate FiO2 12/18/16 07:50 97.0 84 18 125/87 98 Room air I & O 12/17/16 12/18/16 Cumulative From/Thru 19:00 07:00 12/13/16 17:11 - 12/18/16 06:24 Intake Total 288 ml 240 ml 6366 ml Output Total 100 ml 800 ml 4350 ml Balance 188 ml -560 ml 2016 ml GEN: Awake, alert, oriented. Tired appearing. HEENT: EOMI, clear sclerae, dry oral mucosa, temporal wasting. CV: RRR S1 S2 normal with no murmur LUNGS: Diminished without R/R/W. ABD: Soft, feeder tender in RLQ, chronic. Non-distended. No rebound tenderness. Hypoactive bowel sounds. EXTR: No C/C/E. Normal peripheral pulses. INTEG: No rash. Pallor. NEURO: No focal motor neuro deficit. Lab-Past 14 Days, 35 Results 12/13/16 03:15: Urine Bacteria None seen, Urine Bilirubin 1+H, Urine Blood 3+H, Urine Clarity Cloudy, Urine Collection Type Clean catch, Urine Color Dark yellow, Urine Glucose (UA) Negative, Urine Ketones Negative, Urine Leukocyte Esterase TraceH, Urine Microscopic RBC >100, Urine Nitrite Negative, Urine Protein 3+H, Urine Specific [place] 1.025, Urine Squamous Epithelial Cells 10-20, Urine Urobilinogen 1.0, Urine WBC 50-100H, Urine pH 7.0, Volume Urine Centrifuged 12 ml 12/13/16 17:10: Alanine Aminotransferase (ALT/SGPT) 115H, Albumin 3.7, Albumin/Globulin Ratio 1.121, Alkaline Phosphatase 188H, Amylase Level 58, Anion Gap 14.8, Aspartate Amino Transf (AST/SGOT) 74H, BUN/Creatinine Ratio 16, Basophils # (Auto) 0.0, Basophils (%) (Auto) 0, Blood Urea Nitrogen 23H, C-Reactive Protein 1.90H, Calcium Level 9.1, Calcium/Ionized Calcium Ratio 4.0, Calculated Osmolality 274L , Carbon Dioxide Level 35H, Chloride Level 93L, Creatinine 1.47, Eosinophils # ( Auto) 0.1, Eosinophils (%) (Auto) 2, Estimat Glomerular Filtration Rate 61.1, Estimated GFR (Non- 50.5, Glucose Level 113H, Hematocrit 32.40L , Hemoglobin 10.4L, Lipase 83, Lymphocytes # (Auto) 1.3, Lymphocytes (%) (Auto) 15L, Magnesium Level 2.0, Mean Corpuscular Hemoglobin 28.5, Mean Corpuscular Hemoglobin Concent 32.1, Mean Corpuscular Volume 89, Mean Platelet Volume 9.5, Monocytes # (Auto) 0.7, Monocytes (%) (Auto) 8, Neutrophils # (Auto) 6.3, Neutrophils (%) (Auto) 74H, Platelet Count 292, Potassium Level 3.0L, Red Blood Count 3.65L, Red Cell Distribution Width 18.0H, Sodium Level 139, Total Bilirubin 0.8, Total Protein 7.0, White Blood Count 8.55 12/14/16 05:50: Albumin 3.0L, Anion Gap 11.0, Basophils # (Auto) 0.0, Basophils (%) (Auto) 0, Blood Urea Nitrogen 21H, Calcium Level 8.4L, Carbon Dioxide Level 35H, Chloride Level 97L, Creatinine 1.44, Eosinophils # (Auto) 0.2, Eosinophils (%) (Auto) 3, Estimat Glomerular Filtration Rate 62.6, Estimated GFR (Non- 51.7, Glucose Level 89#, Hematocrit 28.30L, Hemoglobin 8.7L, Lymphocytes # (Auto ) 1.1, Lymphocytes (%) (Auto) 19L, Mean Corpuscular Hemoglobin 28.2, Mean Corpuscular Hemoglobin Concent 30.7L, Mean Corpuscular Volume 92, Mean Platelet Volume 10.0H, Monocytes # (Auto) 0.6, Monocytes (%) (Auto) 11, Neutrophils # ( Auto) 4.0, Neutrophils (%) (Auto) 67, Platelet Count 229, Potassium Level 3.3L, Red Blood Count 3.09L, Red Cell Distribution Width 18.1H, Sodium Level 140, White Blood Count 5.90, Phosphorus Level 3.6#, Smear Scan Yes 12/15/16 05:45: Alanine Aminotransferase (ALT/SGPT) 94H, Albumin 3.4, Albumin/Globulin Ratio 1.133, Alkaline Phosphatase 157H, Anion Gap 15.2H, Aspartate Amino Transf (AST/ SGOT) 51H, BUN/Creatinine Ratio 14, Basophils # (Auto) 0.0, Basophils (%) (Auto ) 0, Blood Urea Nitrogen 21H, C-Reactive Protein 3.60H, Calcium Level 8.9, Calcium/Ionized Calcium Ratio 4.2, Calculated Osmolality 274L, Carbon Dioxide Level 29, Chloride Level 100, Creatinine 1.51H, Eosinophils # (Auto) 0.0, Eosinophils (%) (Auto) 0, Estimat Glomerular Filtration Rate 59.2, Estimated GFR (Non- 49.0, Glucose Level 113#H, Hematocrit 29.90L, Hemoglobin 9.4L, Lymphocytes # (Auto) 0.7, Lymphocytes (%) (Auto) 12L, Mean Corpuscular Hemoglobin 28.4, Mean Corpuscular Hemoglobin Concent 31.4, Mean Corpuscular Volume 90, Mean Platelet Volume 10.1H, Monocytes # (Auto) 0.3, Monocytes (%) (Auto) 5, Neutrophils # (Auto) 4.5, Neutrophils (%) (Auto) 82H, Platelet Count 250, Potassium Level 4.1#, Red Blood Count 3.31L, Red Cell Distribution Width 17.5H, Sodium Level 140, Total Bilirubin 0.7, Total Protein 6.4, White Blood Count 5.42 IMAGING 12/15/16 ABDOMEN (FLAT PLATE) 1VIEW INDICATION: Constipation. 0519 hours. Abdominal images reveal bilateral double-J nephroureteral stents. Positioning is similar to the exam of 12/13/2016. Other extensive postoperative changes again noted at the level of the liver and right midabdomen. IMPRESSION: Stable appearance of bilateral nephroureteral stents. No new abnormality is appreciated. 12/13/16 ACUTE ABD SERIES INDICATION: Nausea and vomiting. Abdominal series performed with a frontal chest radiograph and supine and upright abdominal films. Frontal chest view shows Port-A-Cath over the right chest with tip overlying the SVC. The heart and mediastinal silhouette are unremarkable. The lungs are clear. There is no free intraperitoneal air. There is an air-fluid level in the stomach. There is prominent stool throughout the colon with no overt intestinal obstruction. There are postsurgical changes in the right upper quadrant with surgical anastomosis overlying the right side of the abdomen. There are bilateral ureteral stents in place. IMPRESSION: Prominent stool throughout the colon with no intestinal obstruction or ileus. Air-fluid level is noted in the stomach. There are postop changes with bilateral ureteral stents. There is no free air. There is no acute pulmonary infiltrate. REFERENCE 11/15/16 CT CHEST/ABDOMEN/PELVIS WO PROCEDURE: CT chest, abdomen, and pelvis without contrast. TECHNIQUE: Multiple contiguous axial images were obtained through the chest, abdomen, and pelvis without the use of intravenous contrast. INDICATION: Cancer of the colon. COMPARISON: 08/19/2016. FINDINGS: CT chest: The lungs are well aerated. There are nodules present throughout all five lobes. These have increased in size and number when compared with previous exam. The largest lesion is in the right upper lobe medially measuring 12 mm today. This previously measured 8 mm. The nodules are too numerous to count, though multiple additional nodules were measured and have increased in average of 50% in size. All of the remaining nodules are 1 cm or smaller. There is no pleural effusion or pericardial effusion. No mediastinal or hilar adenopathy of pathologic size. Bone windows show no blastic or lytic lesions. Degenerative changes of the thoracic spine. IMPRESSION: Findings are consistent with diffuse metastatic lung nodules, increasing both in number and size since previous exam. CT abdomen and pelvis: Surgical clips from previous partial hepatectomy are again noted. The masses within the right lobe of the liver involving segment 8 have increased in size. The largest lesion now measures approximately 2.2 x 1.5 cm. This has increased from 1.6 x 1.5 cm. The hepatic dilatation in the left lobe is again present. The pancreas appears normal. The spleen is normal. The adrenal glands are normal. Kidneys show double-J stent present with mild hydronephrosis on the left. This does not appear significantly changed. Both stents extend into the bladder. Bladder appears normal. No evidence of aortic dilatation. Lack of IV contrast markedly limits the evaluation for adenopathy on today's study. The periportal lymph node measures approximately 3 x 2.5 cm today, increasing from 2.8 x 2.2 cm. An adjacent lymph node just anterior to the pancreas has increased in size as well, now measuring 2.4 x 1.2 cm. This previously measured approximately 1.3 x 1.1 cm. The mesenteric mass in the right lower quadrant measures 4 x 2.6 cm today, previously measuring 3.6 x 2 cm. Bone windows show no blastic or lytic lesions. IMPRESSION: 1. Increasing hepatic masses within the right lobe since previous exam, both in size and number. 2. Increasing size of the previously measured lymph nodes and mesenteric mass, as described above. ASSESSMENT Prosper Feliciano is a 51 year old male admitted from oncology clinic 12/13 with recurrent nausea, vomiting, anorexia, unintentional weight loss, and dehydration , all in the setting of metastatic colon cancer for which has had progression on 5th line therapy. Differential for his current symptoms included possible bowel obstruction, pancreatitis, obstipation. He has improved marginally with supportive care thus far, with enemas effective in helping start BM. He continues to struggle with abdominal pain and nausea/vomiting. He has ominous findings on CT chest/abdomen/pelvis from 11/2016, showing progression of metastatic colon cancer even over the three months prior when compared to CT scan 08/2016. PLAN * Possible Bowel Obstruction: Ruled out. Was initially NPO and gave IVF. Acute abdominal series as noted. Follow-up as noted. Amylase and lipase were normal. Treated constipation. * Constipation: On the basis of acute abdominal series. Bowel regimen. Fleets enema x 2 given, then soap suds enema with some effect. With improved nausea, encourage use of PO bowel regimen. * Nausea/Vomiting: Recurrent. Ondansetron, promethazine, scopolamine. Gave dexamethasone 10 mg IV 12/14 with some benefit. Repeated dose 12/18. Added lorazepam as well PRN. * Abdominal Pain: Hydromorphone PRN. * Elevated Creatinine: History of. Had bilateral ureteral stents which is likely causing pyuria. Noted nitrate is nil. Cr 1.47 on admit, rising to 1.51 . * Dehydration: NS bolus + 1 L maintenance. Not drinking well, so additional IVF 12/15. * Anorexia, Unintentional Weight Loss: Multifactorial. Supportive care. Treat nausea/vomiting. Treat constipation. Tape Librarian consult... recommended baking soda rinses and/or lemon juice rinses to help with dysgeusia. * Chronic Pain: Takes oxycodone at home. Gave IV hydromorphone while not tolerating PO well. Ketorolac PRN. * Metastatic Colon Cancer: No longer taking Lonsurf or Stivarga. CT 11/2016 as noted showing progression of metastatic disease over the preceding [address] Stover on findings, plan of care. * F/E/N: NPO initially but advanced to FLD, then low fiber as tolerated. IVF as above. PowerPort. I&O, daily weight. * Prophylaxis: SCDs. Defer enoxaparin in case of surgical need. * Code Status: Full * Dispo: Inpatient. Still working on stabilizing his symptoms so he can try again to manage at home. He does not feel he can manage as of 12/18. If still not manageable 12/19, revisit hospice... has already met with [facility], but may need to determine if he should be transitioned to inpatient hospice. CHRONIC ISSUES * HTN: Observe. No longer takes amlodipine, lisinopril. MISSAEL MOSCOSO MD Dec 18, 2016 09:37
[2016-12-18] MEDS: ONDANSETRON 4 MG (ZOFRAN) ORAL DISSOLVE TAB PO SCH ×4 (09:57→21:00)
[2016-12-18] MEDS: PROMETHAZINE HCL INJ 25 MG in SODIUM CHLORIDE 25 ML IV PRN (09:57)
--- NOTE | 2016-12-18 11:01 | NUR ---
0935- Patient has been resting quietly this AM- at bedside. 0940- Dr. Reyes at bedside, discussing small bowel follow through. As soon as left room, patient had a large liquid emesis in trash can with red biohazard bag- Unable to measure but would approximate 1/4 of trash bag was emesis. Phenergan infusing. 1055- Pt to radiology for small bowel follow through study. accompanied patient.
[2016-12-18] MEDS: ONDANSETRON 2 MG/ML (Z0FRAN) 2 ML VIAL IV PRN ×2 (11:53→17:24)
[2016-12-18] MEDS: KETOROLAC 15 MG/ML (TORADOL) 1 ML VIAL IV PRN (11:54)
--- NOTE | 2016-12-18 11:55 | NUR ---
Pt returns to room from radiology via w/c. No emesis while in radiology. Zofran 8mg IV given, Dilaudid 2mg IV and Toradol IV given for pain. at bedside. Meat Manager explains that she will return in an hour to complete the test. Pt resting in bed.
[2016-12-18] MEDS ORDERED: LIDOCAINE 4% TOPICAL 4.5 ML SYR ONE (13:50)
[2016-12-18] MEDS ORDERED: NALOXONE 0.4 MG/ML (NARCAN) 1 ML VIAL IV PRN (13:50)
[2016-12-18] MEDS ORDERED: OXYMETAZOLINE 0.05% NASAL SPRAY (AFRIN) 15 ML BTL ONE (13:50)
[2016-12-18] MEDS: METOCLOPRAMIDE 10 MG/2 ML (REGLAN) VIAL IV PRN ×2 (14:57→21:33)
[2016-12-18] MEDS: HYDROmorphone PCA 30 MG/30 ML (DILAUDID) VIAL IV PRN (14:57)
[2016-12-18] MEDS: D5 1/2 NS IV 1,000 ML IV SCH (14:58)
--- NOTE | 2016-12-18 15:39 | NUR ---
@1510-Patient had gone to radiology again for another image of small bowel follow through. Is now back in room. @1515-Dilaudid GOVERNMENT AFFAIRS SPECIALIST started at this time, verified by Mari STRONG. IVF infusing at 75ml/hr as ordered into Rt PAC. Alexa RT in room to connect ETCO2 monitor. This nurse and Alexa educated patient on ETCO2 monitor purpose and alarms, GOVERNMENT AFFAIRS SPECIALIST use and questions answered- and daughter were in room and educated as well. VS 124/84, HR 88, RR 12, O2 90% RA, ETCO2 48 @1530- Alexa RT called to room due to ETCO2 monitor not reading cannula- She places patient on 1L nc. O2 sats increase to 98%. Pt drowsy and falls asleep frequently-easily arouses to verbal stimuli. Will cont to monitor frequently.
--- NOTE | 2016-12-18 17:00 | Diagnostic Imaging Report ---
INDICATION: Nausea and vomiting. EXAMINATION: Small bowel study. COMPARISON: Abdominal radiograph of 12/15/16. FINDINGS: Labeling Specialist radiograph demonstrated bilateral nephroureteral stents in place. Oral contrast was administered. This promptly distended the stomach. The abdomen and pelvis was then imaged in multiple different time frames up to 5 hours and 15 minutes post contrast administration. Throughout the entire examination, at least some contrast remained in a mildly dilated stomach. However, the remainder of the contrast passed through the small bowel and entered the colon by 5 hours and 15 minutes. This is on the upper limits of normal in time for small bowel transit. There are no dilated loops of small bowel throughout the examination. IMPRESSION: 1. No small bowel obstruction. The small bowel transit time was on the upper limits of normal at approximately 5 hours. 2. Throughout the entire exam, there was oral contrast material within the stomach. This could be due to gastroparesis. Consider nuclear medicine gastric imaging time for further evaluation if this is of clinical concern. Dictated by: Dictated on workstation # [id number]
[2016-12-19] VITALS (7 sets, daily range): BP systolic 115–139; BP diastolic 79–88
[2016-12-19] MEDS: D5 1/2 NS IV 1,000 ML IV SCH ×2 (03:58→17:13)
[2016-12-19] MEDS: METOCLOPRAMIDE 10 MG/2 ML (REGLAN) VIAL IV PRN ×2 (03:58→11:50)
--- NOTE | 2016-12-19 06:25 | NUR ---
Patient rests in bed throughout night with minimal needs. Reglan given as needed for nausea, but no other PRN's given for nausea. Patient reports good pain control with ORCHID WORKER and states that he is feeling well. Has 2-3 loose stools this shift. No needs at this time.
[2016-12-19] MEDS: POLYETHYLENE GLYCOL 17 GM (MIRALAX) PACKET PO SCH (09:00)
[2016-12-19] MEDS: MAGNESIUM HYDROXIDE 80MG/ML (MILK OF MAGNESIA) 30 ML UDC PO SCH ×4 (09:00→20:24)
[2016-12-19] MEDS: DOCUSATE SODIUM 100 MG (COLACE) CAP PO SCH ×2 (09:00→20:24)
[2016-12-19] MEDS: NS FLUSH 3 ML DAILY IV SCH (09:00)
[2016-12-19] MEDS: ONDANSETRON 4 MG (ZOFRAN) ORAL DISSOLVE TAB PO SCH ×4 (09:29→20:58)
--- NOTE | 2016-12-19 09:42 | Progress Note (E) ---
Progress Note S: Awake and reports feeling better, stools liquidy, no blood, here. He wants to go home but wants to make sure he feels a bit stronger. Misses his children. 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 CV: RRR S1 S2 normal with no murmur LUNGS: Diminished without R/R/W. ABD: Soft, linseed oil press tender in RLQ, chronic. Non-distended. No rebound tenderness. Hypoactive bowel sounds. EXTR: No C/C/E. Normal peripheral pulses. INTEG: No rash. Pallor. NEURO: No focal motor neuro deficit. Lab-Past 14 Days, 35 Results 12/13/16 03:15: Urine Bacteria None seen, Urine Bilirubin 1+H, Urine Blood 3+H, Urine Clarity Cloudy, Urine Collection Type Clean catch, Urine Color Dark yellow, Urine Glucose (UA) Negative, Urine Ketones Negative, Urine Leukocyte Esterase TraceH, Urine Microscopic RBC >100, Urine Nitrite Negative, Urine Protein 3+H, Urine Specific Chunky 1.025, Urine Squamous Epithelial Cells 10-20, Urine Urobilinogen 1.0, Urine WBC 50-100H, Urine pH 7.0, Volume Urine Centrifuged 12 ml 12/13/16 17:10: Alanine Aminotransferase (ALT/SGPT) 115H, Albumin 3.7, Albumin/Globulin Ratio 1.121, Alkaline Phosphatase 188H, Amylase Level 58, Anion Gap 14.8, Aspartate Amino Transf (AST/SGOT) 74H, BUN/Creatinine Ratio 16, Basophils # (Auto) 0.0, Basophils (%) (Auto) 0, Blood Urea Nitrogen 23H, C-Reactive Protein 1.90H, Calcium Level 9.1, Calcium/Ionized Calcium Ratio 4.0, Calculated Osmolality 274L , Carbon Dioxide Level 35H, Chloride Level 93L, Creatinine 1.47, Eosinophils # ( Auto) 0.1, Eosinophils (%) (Auto) 2, Estimat Glomerular Filtration Rate 61.1, Estimated GFR (Non- 50.5, Glucose Level 113H, Hematocrit 32.40L , Hemoglobin 10.4L, Lipase 83, Lymphocytes # (Auto) 1.3, Lymphocytes (%) (Auto) 15L, Magnesium Level 2.0, Mean Corpuscular Hemoglobin 28.5, Mean Corpuscular Hemoglobin Concent 32.1, Mean Corpuscular Volume 89, Mean Platelet Volume 9.5, Monocytes # (Auto) 0.7, Monocytes (%) (Auto) 8, Neutrophils # (Auto) 6.3, Neutrophils (%) (Auto) 74H, Platelet Count 292, Potassium Level 3.0L, Red Blood Count 3.65L, Red Cell Distribution Width 18.0H, Sodium Level 139, Total Bilirubin 0.8, Total Protein 7.0, White Blood Count 8.55 12/14/16 05:50: Albumin 3.0L, Anion Gap 11.0, Basophils # (Auto) 0.0, Basophils (%) (Auto) 0, Blood Urea Nitrogen 21H, Calcium Level 8.4L, Carbon Dioxide Level 35H, Chloride Level 97L, Creatinine 1.44, Eosinophils # (Auto) 0.2, Eosinophils (%) (Auto) 3, Estimat Glomerular Filtration Rate 62.6, Estimated GFR (Non- 51.7, Glucose Level 89#, Hematocrit 28.30L, Hemoglobin 8.7L, Lymphocytes # (Auto ) 1.1, Lymphocytes (%) (Auto) 19L, Mean Corpuscular Hemoglobin 28.2, Mean Corpuscular Hemoglobin Concent 30.7L, Mean Corpuscular Volume 92, Mean Platelet Volume 10.0H, Monocytes # (Auto) 0.6, Monocytes (%) (Auto) 11, Neutrophils # ( Auto) 4.0, Neutrophils (%) (Auto) 67, Platelet Count 229, Potassium Level 3.3L, Red Blood Count 3.09L, Red Cell Distribution Width 18.1H, Sodium Level 140, White Blood Count 5.90, Phosphorus Level 3.6#, Smear Scan Yes 12/15/16 05:45: Alanine Aminotransferase (ALT/SGPT) 94H, Albumin 3.4, Albumin/Globulin Ratio 1.133, Alkaline Phosphatase 157H, Anion Gap 15.2H, Aspartate Amino Transf (AST/ SGOT) 51H, BUN/Creatinine Ratio 14, Basophils # (Auto) 0.0, Basophils (%) (Auto ) 0, Blood Urea Nitrogen 21H, C-Reactive Protein 3.60H, Calcium Level 8.9, Calcium/Ionized Calcium Ratio 4.2, Calculated Osmolality 274L, Carbon Dioxide Level 29, Chloride Level 100, Creatinine 1.51H, Eosinophils # (Auto) 0.0, Eosinophils (%) (Auto) 0, Estimat Glomerular Filtration Rate 59.2, Estimated GFR (Non- 49.0, Glucose Level 113#H, Hematocrit 29.90L, Hemoglobin 9.4L, Lymphocytes # (Auto) 0.7, Lymphocytes (%) (Auto) 12L, Mean Corpuscular Hemoglobin 28.4, Mean Corpuscular Hemoglobin Concent 31.4, Mean Corpuscular Volume 90, Mean Platelet Volume 10.1H, Monocytes # (Auto) 0.3, Monocytes (%) (Auto) 5, Neutrophils # (Auto) 4.5, Neutrophils (%) (Auto) 82H, Platelet Count 250, Potassium Level 4.1#, Red Blood Count 3.31L, Red Cell Distribution Width 17.5H, Sodium Level 140, Total Bilirubin 0.7, Total Protein 6.4, White Blood Count 5.42 IMAGING 12/15/16 ABDOMEN (FLAT PLATE) 1VIEW INDICATION: Constipation. 0519 hours. Abdominal images reveal bilateral double-J nephroureteral stents. Positioning is similar to the exam of 12/13/2016. Other extensive postoperative changes again noted at the level of the liver and right midabdomen. IMPRESSION: Stable appearance of bilateral nephroureteral stents. No new abnormality is appreciated. 12/13/16 ACUTE ABD SERIES INDICATION: Nausea and vomiting. Abdominal series performed with a frontal chest radiograph and supine and upright abdominal films. Frontal chest view shows Port-A-Cath over the right chest with tip overlying the SVC. The heart and mediastinal silhouette are unremarkable. The lungs are clear. There is no free intraperitoneal air. There is an air-fluid level in the stomach. There is prominent stool throughout the colon with no overt intestinal obstruction. There are postsurgical changes in the right upper quadrant with surgical anastomosis overlying the right side of the abdomen. There are bilateral ureteral stents in place. IMPRESSION: Prominent stool throughout the colon with no intestinal obstruction or ileus. Air-fluid level is noted in the stomach. There are postop changes with bilateral ureteral stents. There is no free air. There is no acute pulmonary infiltrate. REFERENCE 11/15/16 CT CHEST/ABDOMEN/PELVIS WO PROCEDURE: CT chest, abdomen, and pelvis without contrast. TECHNIQUE: Multiple contiguous axial images were obtained through the chest, abdomen, and pelvis without the use of intravenous contrast. INDICATION: Cancer of the colon. COMPARISON: 08/19/2016. FINDINGS: CT chest: The lungs are well aerated. There are nodules present throughout all five lobes. These have increased in size and number when compared with previous exam. The largest lesion is in the right upper lobe medially measuring 12 mm today. This previously measured 8 mm. The nodules are too numerous to count, though multiple additional nodules were measured and have increased in average of 50% in size. All of the remaining nodules are 1 cm or smaller. There is no pleural effusion or pericardial effusion. No mediastinal or hilar adenopathy of pathologic size. Bone windows show no blastic or lytic lesions. Degenerative changes of the thoracic spine. IMPRESSION: Findings are consistent with diffuse metastatic lung nodules, increasing both in number and size since previous exam. CT abdomen and pelvis: Surgical clips from previous partial hepatectomy are again noted. The masses within the right lobe of the liver involving segment 8 have increased in size. The largest lesion now measures approximately 2.2 x 1.5 cm. This has increased from 1.6 x 1.5 cm. The hepatic dilatation in the left lobe is again present. The pancreas appears normal. The spleen is normal. The adrenal glands are normal. Kidneys show double-J stent present with mild hydronephrosis on the left. This does not appear significantly changed. Both stents extend into the bladder. Bladder appears normal. No evidence of aortic dilatation. Lack of IV contrast markedly limits the evaluation for adenopathy on today's study. The periportal lymph node measures approximately 3 x 2.5 cm today, increasing from 2.8 x 2.2 cm. An adjacent lymph node just anterior to the pancreas has increased in size as well, now measuring 2.4 x 1.2 cm. This previously measured approximately 1.3 x 1.1 cm. The mesenteric mass in the right lower quadrant measures 4 x 2.6 cm today, previously measuring 3.6 x 2 cm. Bone windows show no blastic or lytic lesions. IMPRESSION: 1. Increasing hepatic masses within the right lobe since previous exam, both in size and number. 2. Increasing size of the previously measured lymph nodes and mesenteric mass, as described above. ASSESSMENT Prosper Feliciano is a 51 year old male admitted from oncology clinic 12/13 with recurrent nausea, vomiting, anorexia, unintentional weight loss, and dehydration , all in the setting of metastatic colon cancer for which has had progression on 5th line therapy. Differential for his current symptoms included possible bowel obstruction, pancreatitis, obstipation. He has improved marginally with supportive care thus far, with enemas effective in helping start BM. He continues to struggle with abdominal pain and nausea/vomiting. He has ominous findings on CT chest/abdomen/pelvis from 11/2016, showing progression of metastatic colon cancer even over the three months prior when compared to CT scan 08/2016. PLAN * Possible Bowel Obstruction: Ruled out. Was initially NPO and gave IVF. Acute abdominal series as noted. Follow-up as noted. Amylase and lipase were normal. Treated constipation. * Constipation: On the basis of acute abdominal series. Bowel regimen. Fleets enema x 2 given, then soap suds enema with some effect. With improved nausea, encourage use of PO bowel regimen. * Nausea/Vomiting: Recurrent. Ondansetron, promethazine, scopolamine. Gave dexamethasone 10 mg IV 12/14 with some benefit. Repeated dose 12/18. Added lorazepam as well PRN. * Abdominal Pain: Hydromorphone PRN. * Elevated Creatinine: History of. Had bilateral ureteral stents which is likely causing pyuria. Noted nitrate is nil. Cr 1.47 on admit, rising to 1.51 . * Dehydration: NS bolus + 1 L maintenance. Not drinking well, so additional IVF 12/15. * Anorexia, Unintentional Weight Loss: Multifactorial. Supportive care. Treat nausea/vomiting. Treat constipation. Acetylene Gas Compressor consult... recommended baking soda rinses and/or lemon juice rinses to help with dysgeusia. * Chronic Pain: Takes oxycodone at home. Gave IV hydromorphone while not tolerating PO well. Ketorolac PRN. * Metastatic Colon Cancer: No longer taking Lonsurf or Stivarga. CT 11/2016 as noted showing progression of metastatic disease over the preceding [address] Stover on findings, plan of care. * F/E/N: NPO initially but advanced to FLD, then low fiber as tolerated. IVF as above. PowerPort. I&O, daily weight. * Prophylaxis: SCDs. Defer enoxaparin in case of surgical need. * Code Status: Full * Dispo: Inpatient. Still working on stabilizing his symptoms so he can try again to manage at home. He would like to wait another day but wants to get home. [facility] has already visited with him. Will see how he does and then determine if he should be transitioned to inpatient hospice vs Hospice at home. CHRONIC ISSUES * HTN: Observe. No longer takes amlodipine, lisinopril. Dr. Reyes' Note : Mr. Feliciano is concerned about his diarrhea bowel movements and he wonders what we can do to help them become more solid.He describes bowel pain well controlled.He wants to feel a little stronger heart shows a RRR lungs show no wheezes or crackles abdomen is soft and nt today;bs are active extremities show no c/c/edema assessment: abdominal pain ,controlled;colon cancer, with widespread metastases. Plan : continue present care and check witrh his oncologist office about diet.I did speak to Hyun at Dr Stover's cffice [oncology] and she promised to speak to Dr Stover about our Q.Q. and then she will get back to me. Lyudmila Genao APRN Dec 19, 2016 09:42 MELINDA REYES DO Dec 19, 2016 13:26
--- NOTE | 2016-12-19 10:20 | CONSULTATION REPORT ---
ADMITTING PHYSICIAN: Reza Reyes MD CONSULTING PHYSICIAN: Mendoza Blevins MD REPORT Date of Report: 12/19/2016 REASON FOR CONSULTATION: Nausea and vomiting DIAGNOSIS: 1. Stage IV colon cancer. 2. Intermittent nausea and vomiting. RECOMMENDATIONS: Continue medical therapy. There doesn't appear to be a surgically correctable situation at this time, and a gastrostomy would be unlikely to change his course at this point. I did discuss this with him today. I will continue to follow. HISTORY AND PRESENT ILLNESS: The patient is a 51-year-old who was admitted by Dr. Reyes several days ago with nausea and vomiting. The patient has stage IV colon cancer that was diagnosed in 2011, and recently completed his 5th different chemotherapy line. His tumor has progressed on imaging from November, and he had developed nausea and vomiting at home that led him to be admitted at the request of Dr. Stover. Over the last several days he has improved to some degree and the small bowel follow through that was obtained yesterday did show contrast that reached the colon after about 5 hours. There was some delay of passage of contrast, and much of it was retained in the stomach, even at the end of the study. The patient has had a laparotomy, colon resection and a liver resection. He reports that he feels better today, actually much better than when he came into the hospital. He hasn't had any vomiting through the day yesterday and overnight. He took some breakfast this morning and has had loose stools over the last couple of days. PAST MEDICAL HISTORY: 1. Metastatic colon cancer, stage IV. 2. Iron deficiency anemia. 3. Hypertension. 4. Bilateral ureteral obstruction. SURGICAL HISTORY: 1. Resection with regional lymphadenectomy and liver resection. 2. Bilateral ureteral stents. 3. PowerPort placement. 4. HIPEC at [facility] in 2012. ALLERGIES: None. MEDICATIONS: See chart. SOCIAL HISTORY: The patient lives with his and 2 children in their home in [place]. He does not use alcohol or tobacco. REVIEW OF SYSTEMS: As above. PHYSICAL EXAM VITAL: Temperature is 96.0, heart rate 100, respirations 18, blood pressure 115/82. O2 sats are 100% on room air. GENERAL: The patient is awake and alert, oriented and in no acute distress. He appears thin and slightly pale, but not emaciated. Neck: Soft and nontender with no lymphadenopathy. LUNGS: Clear to auscultation bilaterally. HEART: S1, S2 regular rate and rhythm. ABDOMEN: Bowel sounds are present. Soft with firmness and some palpable areas of firmness that suggest metastatic disease, either in the abdominal wall or in the underlying omentum. One in particular was just below the umbilicus. There was no guarding or rebound tenderness noted. SKIN: Warm and dry with no jaundice and slightly pale. NEURO: Grossly intact. LABORATORY: White blood cell count was 5.4 on December 15 with hemoglobin of 9.4. IMAGING: CT from November shows progression in the size of enlarged lymph nodes in the abdomen, as well as multiple pulmonary nodules bilaterally. There are several hepatic lesions that have increased in size compared to previous exams.
[2016-12-19] MEDS: SCOPOLAMINE 1.5 MG (TRANSDERM-SCOP) PATCH TD SCH (11:54)
--- NOTE | 2016-12-19 13:15 | NUR ---
MULTIDISCIPLINARY MTG/DR. GODOY: Pt. is now having loose stools. GI panel ordered. Pt. doesn't feel comfortable going home at this time. Pt. nausea has improved. Discussed Pt. diet. Encouraged him to have low fiber smaller meals with snacks. Dr. Blevins evaluated Pt. and he did not recommend any further interventions at this time. Pt. is on a DELIVERY MANAGER at this time. Discussed pain medications with Pt. Flory with [facility] visited with Pt. and family on Monday. Discussed with Pt. about going home on a pain pump. Explained that could be done through hospice, home health and/or an infusion company. Pt. agreed to have SW look into the pricing of these services. Pt. and reported insurance has only covered so much antiemetic. Pharmacy will contact Pt. insurance to look at what antiemetic and pain medications are covered and report to Pt. and .
--- NOTE | 2016-12-19 16:34 | NUR ---
SW and pharmacy met with Pt. Becca and informed her of the findings regarding the cost for nausea and pain medications. SW also informed them of the cost for a pain pump through an infusion company and also the what insurance covers for hospice and home health. SW will type of this information to give to Becca. Becca stated Pt. is not really excited about getting a pain pump because he had to have a pump for chemo and he didn't care for it. She thinks Pt. would like to try oral pain medications. Pharmacy suggested the oral pills and also using a fentanyl patch to help.
[2016-12-19] MEDS: ONDANSETRON 2 MG/ML (Z0FRAN) 2 ML VIAL IV PRN (16:39)
--- NOTE | 2016-12-19 18:14 | NUR ---
Patient's pain has been well controlled by the Dilaudid VBA DEVELOPER. He is educated about the safety features in place on the VBA DEVELOPER. He has required two PRN nausea medications in addition to the scheduled meds. already on board. No vomiting on this shift. He was able to eat a low fiber diet slowly and in small portions without difficulty. No swallowing issues noted. Patient has had a 4 small diarrhea stools this shift.
--- NOTE | 2016-12-19 19:30 | NUR ---
Pt sitting in bed, playing games with son. 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 Denies need for nausea meds currently.
--- NOTE | 2016-12-19 20:40 | NUR ---
Pt found awake in bed, SPO2 98% on 1 l/min NC, ETCO2 40, HR 89, RR 14. I did not titrate O2, when Pt falls asleep his SPO2 drops below 90% on RA.
--- NOTE | 2016-12-19 22:50 | NUR ---
Pt ambulates one lap around unit with his .
[2016-12-19] MEDS: PROMETHAZINE HCL INJ 25 MG in SODIUM CHLORIDE 25 ML IV PRN (23:41)
[2016-12-20] VITALS (7 sets, daily range): BP systolic 121–148; BP diastolic 70–87
[2016-12-20] MEDS: ONDANSETRON 2 MG/ML (Z0FRAN) 2 ML VIAL IV PRN (04:35)
[2016-12-20] MEDS: HYDROmorphone PCA 30 MG/30 ML (DILAUDID) VIAL IV PRN (04:59)
[2016-12-20] MEDS: D5 1/2 NS IV 1,000 ML IV SCH ×2 (06:28→20:44)
[2016-12-20] MEDS: ONDANSETRON 4 MG (ZOFRAN) ORAL DISSOLVE TAB PO SCH ×4 (06:29→20:42)
--- NOTE | 2016-12-20 06:30 | NUR ---
Pt rests intermittently throughout the night. Scheduled zofran given early to help stave off breakfast nausea. Pt states that pain is controlled "pretty well" with SENIOR FOREMAN. Cont on 1L oxygen per nc. No needs at this time.
[2016-12-20] MEDS: METOCLOPRAMIDE 10 MG/2 ML (REGLAN) VIAL IV PRN ×3 (08:35→22:56)
[2016-12-20] MEDS: NS FLUSH 3 ML DAILY IV SCH (08:57)
[2016-12-20] MEDS: MAGNESIUM HYDROXIDE 80MG/ML (MILK OF MAGNESIA) 30 ML UDC PO SCH (09:00)
[2016-12-20] MEDS: DOCUSATE SODIUM 100 MG (COLACE) CAP PO SCH ×2 (09:00→21:00)
[2016-12-20] MEDS: POLYETHYLENE GLYCOL 17 GM (MIRALAX) PACKET PO SCH (09:00)
--- NOTE | 2016-12-20 09:40 | Progress Note (E) ---
Progress Note S: Reports feeling better today-ate some eggs for breakfast- states he slept actually very well last night. no vomiting, no new complaints in room O: I & O Past 24 hrs 12/20/16 07:00 Intake Total 3088 ml Output Total 600 ml Balance 2488 ml Intake Oral 1363 ml IV Total 1725 ml Output Urine Total 600 ml # Bowel Movements 4 Vital Signs Date Time Temp Pulse Resp B/P Pulse Ox O2 Delivery O2 Flow Rate FiO2 12/20/16 07:31 96.1 100 20 126/70 97 Room air GEN: Awake, alert, oriented.feels good this am- better appetite HEENT: EOMI, clear sclerae, moist oral mucosa, temporal wasting. CV: RRR S1 S2 normal with no murmur LUNGS: Diminished without R/R/W. ABD: Soft, Non-distended. No rebound tenderness. Hypoactive bowel sounds. EXTR: No C/C/E. Normal peripheral pulses. INTEG: No rash. Pallor. NEURO: No focal motor neuro deficit. Lab-Past 14 Days, 35 Results 12/13/16 03:15: Urine Bacteria None seen, Urine Bilirubin 1+H, Urine Blood 3+H, Urine Clarity Cloudy, Urine Collection Type Clean catch, Urine Color Dark yellow, Urine Glucose (UA) Negative, Urine Ketones Negative, Urine Leukocyte Esterase TraceH, Urine Microscopic RBC >100, Urine Nitrite Negative, Urine Protein 3+H, Urine Specific [place] 1.025, Urine Squamous Epithelial Cells 10-20, Urine Urobilinogen 1.0, Urine WBC 50-100H, Urine pH 7.0, Volume Urine Centrifuged 12 ml 12/13/16 17:10: Alanine Aminotransferase (ALT/SGPT) 115H, Albumin 3.7, Albumin/Globulin Ratio 1.121, Alkaline Phosphatase 188H, Amylase Level 58, Anion Gap 14.8, Aspartate Amino Transf (AST/SGOT) 74H, BUN/Creatinine Ratio 16, Basophils # (Auto) 0.0, Basophils (%) (Auto) 0, Blood Urea Nitrogen 23H, C-Reactive Protein 1.90H, Calcium Level 9.1, Calcium/Ionized Calcium Ratio 4.0, Calculated Osmolality 274L , Carbon Dioxide Level 35H, Chloride Level 93L, Creatinine 1.47, Eosinophils # ( Auto) 0.1, Eosinophils (%) (Auto) 2, Estimat Glomerular Filtration Rate 61.1, Estimated GFR (Non- 50.5, Glucose Level 113H, Hematocrit 32.40L , Hemoglobin 10.4L, Lipase 83, Lymphocytes # (Auto) 1.3, Lymphocytes (%) (Auto) 15L, Magnesium Level 2.0, Mean Corpuscular Hemoglobin 28.5, Mean Corpuscular Hemoglobin Concent 32.1, Mean Corpuscular Volume 89, Mean Platelet Volume 9.5, Monocytes # (Auto) 0.7, Monocytes (%) (Auto) 8, Neutrophils # (Auto) 6.3, Neutrophils (%) (Auto) 74H, Platelet Count 292, Potassium Level 3.0L, Red Blood Count 3.65L, Red Cell Distribution Width 18.0H, Sodium Level 139, Total Bilirubin 0.8, Total Protein 7.0, White Blood Count 8.55 12/14/16 05:50: Albumin 3.0L, Anion Gap 11.0, Basophils # (Auto) 0.0, Basophils (%) (Auto) 0, Blood Urea Nitrogen 21H, Calcium Level 8.4L, Carbon Dioxide Level 35H, Chloride Level 97L, Creatinine 1.44, Eosinophils # (Auto) 0.2, Eosinophils (%) (Auto) 3, Estimat Glomerular Filtration Rate 62.6, Estimated GFR (Non- 51.7, Glucose Level 89#, Hematocrit 28.30L, Hemoglobin 8.7L, Lymphocytes # (Auto ) 1.1, Lymphocytes (%) (Auto) 19L, Mean Corpuscular Hemoglobin 28.2, Mean Corpuscular Hemoglobin Concent 30.7L, Mean Corpuscular Volume 92, Mean Platelet Volume 10.0H, Monocytes # (Auto) 0.6, Monocytes (%) (Auto) 11, Neutrophils # ( Auto) 4.0, Neutrophils (%) (Auto) 67, Platelet Count 229, Potassium Level 3.3L, Red Blood Count 3.09L, Red Cell Distribution Width 18.1H, Sodium Level 140, White Blood Count 5.90, Phosphorus Level 3.6#, Smear Scan Yes 12/15/16 05:45: Alanine Aminotransferase (ALT/SGPT) 94H, Albumin 3.4, Albumin/Globulin Ratio 1.133, Alkaline Phosphatase 157H, Anion Gap 15.2H, Aspartate Amino Transf (AST/ SGOT) 51H, BUN/Creatinine Ratio 14, Basophils # (Auto) 0.0, Basophils (%) (Auto ) 0, Blood Urea Nitrogen 21H, C-Reactive Protein 3.60H, Calcium Level 8.9, Calcium/Ionized Calcium Ratio 4.2, Calculated Osmolality 274L, Carbon Dioxide Level 29, Chloride Level 100, Creatinine 1.51H, Eosinophils # (Auto) 0.0, Eosinophils (%) (Auto) 0, Estimat Glomerular Filtration Rate 59.2, Estimated GFR (Non- 49.0, Glucose Level 113#H, Hematocrit 29.90L, Hemoglobin 9.4L, Lymphocytes # (Auto) 0.7, Lymphocytes (%) (Auto) 12L, Mean Corpuscular Hemoglobin 28.4, Mean Corpuscular Hemoglobin Concent 31.4, Mean Corpuscular Volume 90, Mean Platelet Volume 10.1H, Monocytes # (Auto) 0.3, Monocytes (%) (Auto) 5, Neutrophils # (Auto) 4.5, Neutrophils (%) (Auto) 82H, Platelet Count 250, Potassium Level 4.1#, Red Blood Count 3.31L, Red Cell Distribution Width 17.5H, Sodium Level 140, Total Bilirubin 0.7, Total Protein 6.4, White Blood Count 5.42 IMAGING 12/15/16 ABDOMEN (FLAT PLATE) 1VIEW INDICATION: Constipation. 0519 hours. Abdominal images reveal bilateral double-J nephroureteral stents. Positioning is similar to the exam of 12/13/2016. Other extensive postoperative changes again noted at the level of the liver and right midabdomen. IMPRESSION: Stable appearance of bilateral nephroureteral stents. No new abnormality is appreciated. 12/13/16 ACUTE ABD SERIES INDICATION: Nausea and vomiting. Abdominal series performed with a frontal chest radiograph and supine and upright abdominal films. Frontal chest view shows Port-A-Cath over the right chest with tip overlying the SVC. The heart and mediastinal silhouette are unremarkable. The lungs are clear. There is no free intraperitoneal air. There is an air-fluid level in the stomach. There is prominent stool throughout the colon with no overt intestinal obstruction. There are postsurgical changes in the right upper quadrant with surgical anastomosis overlying the right side of the abdomen. There are bilateral ureteral stents in place. IMPRESSION: Prominent stool throughout the colon with no intestinal obstruction or ileus. Air-fluid level is noted in the stomach. There are postop changes with bilateral ureteral stents. There is no free air. There is no acute pulmonary infiltrate. REFERENCE 11/15/16 CT CHEST/ABDOMEN/PELVIS WO PROCEDURE: CT chest, abdomen, and pelvis without contrast. TECHNIQUE: Multiple contiguous axial images were obtained through the chest, abdomen, and pelvis without the use of intravenous contrast. INDICATION: Cancer of the colon. COMPARISON: 08/19/2016. FINDINGS: CT chest: The lungs are well aerated. There are nodules present throughout all five lobes. These have increased in size and number when compared with previous exam. The largest lesion is in the right upper lobe medially measuring 12 mm today. This previously measured 8 mm. The nodules are too numerous to count, though multiple additional nodules were measured and have increased in average of 50% in size. All of the remaining nodules are 1 cm or smaller. There is no pleural effusion or pericardial effusion. No mediastinal or hilar adenopathy of pathologic size. Bone windows show no blastic or lytic lesions. Degenerative changes of the thoracic spine. IMPRESSION: Findings are consistent with diffuse metastatic lung nodules, increasing both in number and size since previous exam. CT abdomen and pelvis: Surgical clips from previous partial hepatectomy are again noted. The masses within the right lobe of the liver involving segment 8 have increased in size. The largest lesion now measures approximately 2.2 x 1.5 cm. This has increased from 1.6 x 1.5 cm. The hepatic dilatation in the left lobe is again present. The pancreas appears normal. The spleen is normal. The adrenal glands are normal. Kidneys show double-J stent present with mild hydronephrosis on the left. This does not appear significantly changed. Both stents extend into the bladder. Bladder appears normal. No evidence of aortic dilatation. Lack of IV contrast markedly limits the evaluation for adenopathy on today's study. The periportal lymph node measures approximately 3 x 2.5 cm today, increasing from 2.8 x 2.2 cm. An adjacent lymph node just anterior to the pancreas has increased in size as well, now measuring 2.4 x 1.2 cm. This previously measured approximately 1.3 x 1.1 cm. The mesenteric mass in the right lower quadrant measures 4 x 2.6 cm today, previously measuring 3.6 x 2 cm. Bone windows show no blastic or lytic lesions. IMPRESSION: 1. Increasing hepatic masses within the right lobe since previous exam, both in size and number. 2. Increasing size of the previously measured lymph nodes and mesenteric mass, as described above. ASSESSMENT Prosper Feliciano is a 51 year old male admitted from oncology clinic 12/13 with recurrent nausea, vomiting, anorexia, unintentional weight loss, and dehydration , all in the setting of metastatic colon cancer for which has had progression on 5th line therapy. Differential for his current symptoms included possible bowel obstruction, pancreatitis, obstipation. He has improved marginally with supportive care thus far, with enemas effective in helping start BM. He continues to struggle with abdominal pain and nausea/vomiting. He has ominous findings on CT chest/abdomen/pelvis from 11/2016, showing progression of metastatic colon cancer even over the three months prior when compared to CT scan 08/2016. PLAN * Possible Bowel Obstruction: Ruled out. Was initially NPO and gave IVF. Acute abdominal series as noted. Follow-up as noted. Amylase and lipase were normal. Treated constipation. * Constipation: On the basis of acute abdominal series. Bowel regimen. Fleets enema x 2 given, then soap suds enema with some effect. With improved nausea, encourage use of PO bowel regimen. * Nausea/Vomiting: Recurrent. Ondansetron, promethazine, scopolamine. Gave dexamethasone 10 mg IV 12/14 with some benefit. Repeated dose 12/18. Added lorazepam as well PRN. * Abdominal Pain: Hydromorphone PRN. * Elevated Creatinine: History of. Had bilateral ureteral stents which is likely causing pyuria. Noted nitrate is nil. Cr 1.47 on admit, rising to 1.51 . * Dehydration: NS bolus + 1 L maintenance. Not drinking well, so additional IVF 12/15. * Anorexia, Unintentional Weight Loss: Multifactorial. Supportive care. Treat nausea/vomiting. Treat constipation. Final Installer Inspector consult... recommended baking soda rinses and/or lemon juice rinses to help with dysgeusia. * Chronic Pain: Takes oxycodone at home. Gave IV hydromorphone while not tolerating PO well. Ketorolac PRN. * Metastatic Colon Cancer: No longer taking Lonsurf or Stivarga. CT 11/2016 as noted showing progression of metastatic disease over the preceding [address] Stover on findings, plan of care. * F/E/N: NPO initially but advanced to FLD, then low fiber as tolerated. IVF as above. [employer]. I&O, daily weight. * Prophylaxis: SCDs. Defer enoxaparin in case of surgical need. * Code Status: Full * Dispo: Inpatient. He is feeling better- Dr Stover to visit him today. Continue same management- getting close to a plan- home soon- he will decide at some point on whether he wants hospice or not.He isnt sure if hes ready for that just yet CHRONIC ISSUES * HTN: Observe. No longer takes amlodipine, lisinopril. Lyudmila Genao ANIMAL CONTROL SPECIALIST Dec 20, 2016 09:40
[2016-12-20] MEDS ORDERED: MAGNESIUM HYDROXIDE 80MG/ML (MILK OF MAGNESIA) 30 ML UDC PO PRN (12:10)
--- NOTE | 2016-12-20 14:00 | NUR ---
Walked the halls with his mother.
--- NOTE | 2016-12-20 17:30 | NUR ---
Dr. Stover here to see the patient. at the bedside.
--- NOTE | 2016-12-20 18:04 | NUR ---
Patient continues to have good pain control from Dilaudid TREER. He required a couple of additional PRN doses of nausea medication in addition to his scheduled Zofran. With this on board he was able to eat about half of his lunch and about 25% of his breakfast.
--- NOTE | 2016-12-20 21:08 | NUR ---
Pt found lying in bed on 1 l/min NC, SPO2 98%, HR 80, ETCO2 37, RR 17.
--- NOTE | 2016-12-20 22:30 | NUR ---
Patient up, has walked one lap with in fowler. Reglan given per request, patient states that he feels like it is helping him control his nausea much better. RECEIVING BARN CUSTODIAN controlling pain well. No needs at this time. Returned to bed.
[2016-12-21] VITALS (7 sets, daily range): BP systolic 118–143; BP diastolic 67–83
--- NOTE | 2016-12-21 05:42 | NUR ---
Pt has been asleep most of this shift, rates pain 1/10 at this time. is asleep in recliner next to bed. Call light is in reach, will continue to monitor.
[2016-12-21] MEDS: ONDANSETRON 4 MG (ZOFRAN) ORAL DISSOLVE TAB PO SCH ×2 (06:11→11:45)
--- NOTE | 2016-12-21 07:48 | NUR ---
Pt is resting in bed- seems comfortable. Pt wakes easily to verbal stimuli. VSS- remains on 1L nc as he de-sats during rest periods. IVF infusing into Rt PAC. Pt states he wants to wait for breakfast as he is resting so well- states he will call for his tray when he is ready. has left to get kids off to school. Educated patient to let this nurse know when he uses bathroom for I&O. Will cont to monitor patient closely- call light within reach.
--- NOTE | 2016-12-21 07:48 | NUR ---
Nutrition Follow Up: Pt. continues to have diarrhea. Nausea is improved but not completely gone, and his appetite is improved when the nausea is gone. Nursing is giving Zofran before meals to help with symptom control, and Reglan is also helping. He is eating 10-50% of low-fiber diet with small portions. Plans are being made to transition to home with adequate pain meds. Weight today: 174.4#/79.3 kg--this is up 3.7# 1. Continue low-fiber diet per physician order with small portions. Dietary manipulation of foods should continue to be done based on pt. preference, such as emphasizing cold foods to help when nauseous, or adding spices based on taste preference in the moment. Baking soda mouth rinse or cold water with lemon continue to be options to help combat taste changes. 2. Supplement foods with Benecalorie for additional kcals/protein. 3. Homemade protein shake BID, flavor per pt. preference.
[2016-12-21] MEDS: D5 1/2 NS IV 1,000 ML IV SCH (08:47)
[2016-12-21] MEDS: NS FLUSH 10 ML PRN IV ×2 (08:49→15:28)
[2016-12-21] MEDS: METOCLOPRAMIDE 10 MG/2 ML (REGLAN) VIAL IV PRN ×2 (08:49→15:28)
[2016-12-21] MEDS: DOCUSATE SODIUM 100 MG (COLACE) CAP PO SCH (08:57)
[2016-12-21] MEDS: NS FLUSH 3 ML DAILY IV SCH (08:57)
[2016-12-21] MEDS: POLYETHYLENE GLYCOL 17 GM (MIRALAX) PACKET PO SCH (08:57)
--- NOTE | 2016-12-21 09:01 | NUR ---
Pt awake, alert/oriented, at bedside. Pt states he is ready to try some breakfast. Rates abdominal pain 2/10 at this time, EMAIL CAMPAIGN SPECIALIST button within reach. PRN Reglan given at 0850 to "stay ahead of nausea"- currently denies nausea but is about to try to eat. Dr. Reyes notified of reports from clerk television production that urine is bright red colored- no voids for this nurse to assess since 644. Dr. Reyes gives VORB for UA- new hat placed in toilet, patient educated to let nurse know next time he urinates to collect sample- patient and verbalize understanding. Addendum: 12/21/16 at 0912 by Jennifer Fairbanks RN Pt refused scheduled Miralax and Colace this AM- states he is still having multiple somewhat loose stools.
--- NOTE | 2016-12-21 09:25 | NUR ---
UA sent to lab- Red in color- patient denies pain or discomfort when voiding.
[2016-12-21 09:35] LABS: BILIRUBIN,URINE Negative (Negative); CLARITY,URINE Cloudy; COLOR,URINE Brown; GLUCOSE, URINE (UA) Negative (Negative); LEUKOCYTE ESTERASE ,URINE Trace (Negative); UROBILINOGEN,URINE 0.2 mg/dL (0.2-1.0)
[2016-12-21 10:07] LABS: RBC,URINE TNTC /HPF; URINE CENTRIFUGED VOLUME 12 mL
--- NOTE | 2016-12-21 10:27 | NUR ---
Pt resting quietly in bed, o2 remains at 1 lpm. ETCO2 38-44mmhg, SpO2 95% in 1 Lpm.
--- NOTE | 2016-12-21 10:41 | NUR ---
Dustin SUTTON at bedside.
--- NOTE | 2016-12-21 11:45 | Progress Note (E) ---
Progress Note Mr Jodie sampson he had a smooth night and he is feeling better.He denies chest pain and abdominal pain of new origin.He denies coughing ,but does admit a strong red tint to his urine today.He believes he is ready to go back home. heart shows a RRR LUNGS-CTA abdomen-soft,nontender,bs are active extremities--no c/c/ edema Assessment:Stage lv metastatic colon cancer Recurrent nausea and vomiting Frequent diarrhea Plan Probable discharge to home today. MELINDA GODOY DO Dec 21, 2016 11:45
[2016-12-21] MEDS ORDERED: cefTRIAXone SODIUM 1,000 MG in SODIUM CHLORIDE 50 ML IV SCH (11:55)
--- NOTE | 2016-12-21 13:44 | Discharge Instructions (E) ---
Discharge Instructions Activity Instructions as tolerates Discharge Diet: Low fiber, Soft Lyudmila Genao APRN Dec 21, 2016 13:44
--- NOTE | 2016-12-21 14:35 | NUR ---
This morning Pt. decided to discharge home with a pain pump along with home health services through [facility]. [facility] contacted [facility] to order the pain pump. They planned on being here at 15:00. After visiting with Pt. and this afternoon. Pt. would prefer to try and go home with oral pain medication. Pt. will have a follow up with Dr. Stover on Monday. [facility] contacted [facility] and cancelled the pump. Jazmyne with [facility] stated they can hold the pain pump and medication for 7-10 days. [facility]EL informed Pt. of this and instructed him that if the pain is not manageable at home he can request the pain pump through Dr. Stover. [facility] and gave her the contact information for Jazmyne at [facility] P: [phone] F: [phone] and updated her on Pt. discharge plan.
[2016-12-21] MEDS ORDERED: HDR4T PO (14:46)
[2016-12-21] MEDS ORDERED: CIPR500S3 PO (14:46)
[2016-12-21] MEDS ORDERED: MTC5V480 PO (14:48)
--- NOTE | 2016-12-21 14:53 | Discharge Summary (E FT) ---
Discharge Summary (E FT) Admit Date Dec 13, 2016 at 16:42 Discharge Date December 21, 2016 3pm Admitting Provider Reza Reyes MD Primary Care Provider Prosper Martinez MD Attending Provider Reza Reyes MD Consulting Provider SANDRA SPEARS MD Hospital Course Summary CC: Nausea/vomiting, possible bowel obstruction HPI Prosper Feliciano is a 51 year old male admitted from oncology clinic 12/13 where he presented for follow-up of colon cancer and increased nausea/vomiting and anorexia. In office today he reported large volume emesis and oncologist had concern for bowel obstruction as well as electrolyte disturbances. He called asking for direct admit. Of note, patient was diagnosed 12/2011, stage IV-B, now on 5th line chemotherapy. On arrival to unit, accompanied by his . He is awake, alert, interactive, oriented, and not in acute distress at present. He is able to relate history well. He denied severe nausea and abdominal pain at this time. Had been seen in Dr. Stover's office 12/09 and was complaining of anorexia due to nausea. Notes from that visit reviewed. Plan was to add scopolamine. Patient thinks it helped for the first few days but hasn't since. Vomiting continues to happen daily and happened again today around 1300 before his oncology appointment. Has had some abdominal pain with this. Gets some relief with oxycodone. No bloating or distension. No bloody emesis or blood in stool. Endorses constipation. Takes some bowel regimen at home for this including suppository (which he took last night.) No fever or chills. No RAMOS. GEN: Awake, alert, oriented.feels good this am- better appetite HEENT: EOMI, clear sclerae, moist oral mucosa, temporal wasting. CV: RRR S1 S2 normal with no murmur LUNGS: Diminished without R/R/W. ABD: Soft, Non-distended. No rebound tenderness. Hypoactive bowel sounds. EXTR: No C/C/E. Normal peripheral pulses. INTEG: No rash. Pallor. NEURO: No focal motor neuro deficit. Lab-Past 14 Days, 35 Results 12/13/16 03:15: Urine Bacteria None seen, Urine Bilirubin 1+H, Urine Blood 3+H, Urine Clarity Cloudy, Urine Collection Type Clean catch, Urine Color Dark yellow, Urine Glucose (UA) Negative, Urine Ketones Negative, Urine Leukocyte Esterase TraceH, Urine Microscopic RBC >100, Urine Nitrite Negative, Urine Protein 3+H, Urine Specific [place] 1.025, Urine Squamous Epithelial Cells 10-20, Urine Urobilinogen 1.0, Urine WBC 50-100H, Urine pH 7.0, Volume Urine Centrifuged 12 ml 12/13/16 17:10: Alanine Aminotransferase (ALT/SGPT) 115H, Albumin 3.7, Albumin/Globulin Ratio 1.121, Alkaline Phosphatase 188H, Amylase Level 58, Anion Gap 14.8, Aspartate Amino Transf (AST/SGOT) 74H, BUN/Creatinine Ratio 16, Basophils # (Auto) 0.0, Basophils (%) (Auto) 0, Blood Urea Nitrogen 23H, C-Reactive Protein 1.90H, Calcium Level 9.1, Calcium/Ionized Calcium Ratio 4.0, Calculated Osmolality 274L , Carbon Dioxide Level 35H, Chloride Level 93L, Creatinine 1.47, Eosinophils # ( Auto) 0.1, Eosinophils (%) (Auto) 2, Estimat Glomerular Filtration Rate 61.1, Estimated GFR (Non- 50.5, Glucose Level 113H, Hematocrit 32.40L , Hemoglobin 10.4L, Lipase 83, Lymphocytes # (Auto) 1.3, Lymphocytes (%) (Auto) 15L, Magnesium Level 2.0, Mean Corpuscular Hemoglobin 28.5, Mean Corpuscular Hemoglobin Concent 32.1, Mean Corpuscular Volume 89, Mean Platelet Volume 9.5, Monocytes # (Auto) 0.7, Monocytes (%) (Auto) 8, Neutrophils # (Auto) 6.3, Neutrophils (%) (Auto) 74H, Platelet Count 292, Potassium Level 3.0L, Red Blood Count 3.65L, Red Cell Distribution Width 18.0H, Sodium Level 139, Total Bilirubin 0.8, Total Protein 7.0, White Blood Count 8.55 12/14/16 05:50: Albumin 3.0L, Anion Gap 11.0, Basophils # (Auto) 0.0, Basophils (%) (Auto) 0, Blood Urea Nitrogen 21H, Calcium Level 8.4L, Carbon Dioxide Level 35H, Chloride Level 97L, Creatinine 1.44, Eosinophils # (Auto) 0.2, Eosinophils (%) (Auto) 3, Estimat Glomerular Filtration Rate 62.6, Estimated GFR (Non- 51.7, Glucose Level 89#, Hematocrit 28.30L, Hemoglobin 8.7L, Lymphocytes # (Auto ) 1.1, Lymphocytes (%) (Auto) 19L, Mean Corpuscular Hemoglobin 28.2, Mean Corpuscular Hemoglobin Concent 30.7L, Mean Corpuscular Volume 92, Mean Platelet Volume 10.0H, Monocytes # (Auto) 0.6, Monocytes (%) (Auto) 11, Neutrophils # ( Auto) 4.0, Neutrophils (%) (Auto) 67, Platelet Count 229, Potassium Level 3.3L, Red Blood Count 3.09L, Red Cell Distribution Width 18.1H, Sodium Level 140, White Blood Count 5.90, Phosphorus Level 3.6#, Smear Scan Yes 12/15/16 05:45: Alanine Aminotransferase (ALT/SGPT) 94H, Albumin 3.4, Albumin/Globulin Ratio 1.133, Alkaline Phosphatase 157H, Anion Gap 15.2H, Aspartate Amino Transf (AST/ SGOT) 51H, BUN/Creatinine Ratio 14, Basophils # (Auto) 0.0, Basophils (%) (Auto ) 0, Blood Urea Nitrogen 21H, C-Reactive Protein 3.60H, Calcium Level 8.9, Calcium/Ionized Calcium Ratio 4.2, Calculated Osmolality 274L, Carbon Dioxide Level 29, Chloride Level 100, Creatinine 1.51H, Eosinophils # (Auto) 0.0, Eosinophils (%) (Auto) 0, Estimat Glomerular Filtration Rate 59.2, Estimated GFR (Non- 49.0, Glucose Level 113#H, Hematocrit 29.90L, Hemoglobin 9.4L, Lymphocytes # (Auto) 0.7, Lymphocytes (%) (Auto) 12L, Mean Corpuscular Hemoglobin 28.4, Mean Corpuscular Hemoglobin Concent 31.4, Mean Corpuscular Volume 90, Mean Platelet Volume 10.1H, Monocytes # (Auto) 0.3, Monocytes (%) (Auto) 5, Neutrophils # (Auto) 4.5, Neutrophils (%) (Auto) 82H, Platelet Count 250, Potassium Level 4.1#, Red Blood Count 3.31L, Red Cell Distribution Width 17.5H, Sodium Level 140, Total Bilirubin 0.7, Total Protein 6.4, White Blood Count 5.42 IMAGING 12/15/16 ABDOMEN (FLAT PLATE) 1VIEW INDICATION: Constipation. 0519 hours. Abdominal images reveal bilateral double-J nephroureteral stents. Positioning is similar to the exam of 12/13/2016. Other extensive postoperative changes again noted at the level of the liver and right midabdomen. IMPRESSION: Stable appearance of bilateral nephroureteral stents. No new abnormality is appreciated. 12/13/16 ACUTE ABD SERIES INDICATION: Nausea and vomiting. Abdominal series performed with a frontal chest radiograph and supine and upright abdominal films. Frontal chest view shows Port-A-Cath over the right chest with tip overlying the SVC. The heart and mediastinal silhouette are unremarkable. The lungs are clear. There is no free intraperitoneal air. There is an air-fluid level in the stomach. There is prominent stool throughout the colon with no overt intestinal obstruction. There are postsurgical changes in the right upper quadrant with surgical anastomosis overlying the right side of the abdomen. There are bilateral ureteral stents in place. IMPRESSION: Prominent stool throughout the colon with no intestinal obstruction or ileus. Air-fluid level is noted in the stomach. There are postop changes with bilateral ureteral stents. There is no free air. There is no acute pulmonary infiltrate. REFERENCE 11/15/16 CT CHEST/ABDOMEN/PELVIS WO PROCEDURE: CT chest, abdomen, and pelvis without contrast. TECHNIQUE: Multiple contiguous axial images were obtained through the chest, abdomen, and pelvis without the use of intravenous contrast. INDICATION: Cancer of the colon. COMPARISON: 08/19/2016. FINDINGS: CT chest: The lungs are well aerated. There are nodules present throughout all five lobes. These have increased in size and number when compared with previous exam. The largest lesion is in the right upper lobe medially measuring 12 mm today. This previously measured 8 mm. The nodules are too numerous to count, though multiple additional nodules were measured and have increased in average of 50% in size. All of the remaining nodules are 1 cm or smaller. There is no pleural effusion or pericardial effusion. No mediastinal or hilar adenopathy of pathologic size. Bone windows show no blastic or lytic lesions. Degenerative changes of the thoracic spine. IMPRESSION: Findings are consistent with diffuse metastatic lung nodules, increasing both in number and size since previous exam. CT abdomen and pelvis: Surgical clips from previous partial hepatectomy are again noted. The masses within the right lobe of the liver involving segment 8 have increased in size. The largest lesion now measures approximately 2.2 x 1.5 cm. This has increased from 1.6 x 1.5 cm. The hepatic dilatation in the left lobe is again present. The pancreas appears normal. The spleen is normal. The adrenal glands are normal. Kidneys show double-J stent present with mild hydronephrosis on the left. This does not appear significantly changed. Both stents extend into the bladder. Bladder appears normal. No evidence of aortic dilatation. Lack of IV contrast markedly limits the evaluation for adenopathy on today's study. The periportal lymph node measures approximately 3 x 2.5 cm today, increasing from 2.8 x 2.2 cm. An adjacent lymph node just anterior to the pancreas has increased in size as well, now measuring 2.4 x 1.2 cm. This previously measured approximately 1.3 x 1.1 cm. The mesenteric mass in the right lower quadrant measures 4 x 2.6 cm today, previously measuring 3.6 x 2 cm. Bone windows show no blastic or lytic lesions. IMPRESSION: 1. Increasing hepatic masses within the right lobe since previous exam, both in size and number. 2. Increasing size of the previously measured lymph nodes and mesenteric mass, as described above. ASSESSMENT Prosper Feliciano is a 51 year old male admitted from oncology clinic 12/13 with recurrent nausea, vomiting, anorexia, unintentional weight loss, and dehydration , all in the setting of metastatic colon cancer for which has had progression on 5th line therapy. Differential for his current symptoms included possible bowel obstruction, pancreatitis, obstipation. He has improved marginally with supportive care thus far, with enemas effective in helping start BM. He continues to struggle with abdominal pain and nausea/vomiting. He has ominous findings on CT chest/abdomen/pelvis from 11/2016, showing progression of metastatic colon cancer even over the three months prior when compared to CT scan 08/2016. PLAN * Possible Bowel Obstruction: Ruled out. Was initially NPO and gave IVF. Acute abdominal series as noted. Follow-up as noted. Amylase and lipase were normal. Treated constipation. * Constipation: On the basis of acute abdominal series. Bowel regimen. Fleets enema x 2 given, then soap suds enema with some effect. With improved nausea, encourage use of PO bowel regimen. * Nausea/Vomiting: Recurrent. Ondansetron, promethazine, scopolamine. Gave dexamethasone 10 mg IV 12/14 with some benefit. Repeated dose 12/18. Added lorazepam as well PRN. * Abdominal Pain: Hydromorphone PRN. * Elevated Creatinine: History of. Had bilateral ureteral stents which is likely causing pyuria. Noted nitrate is nil. Cr 1.47 on admit, rising to 1.51 . * Dehydration: NS bolus + 1 L maintenance. Not drinking well, so additional IVF 12/15. * Anorexia, Unintentional Weight Loss: Multifactorial. Supportive care. Treat nausea/vomiting. Treat constipation. Junior Mechanical Engineer consult... recommended baking soda rinses and/or lemon juice rinses to help with dysgeusia. * Chronic Pain: Takes oxycodone at home. Gave IV hydromorphone while not tolerating PO well. Ketorolac PRN. * Metastatic Colon Cancer: No longer taking Lonsurf or Stivarga. CT 11/2016 as noted showing progression of metastatic disease over the preceding [address] Stover on findings, plan of care. * F/E/N: NPO initially but advanced to FLD, then low fiber as tolerated. IVF as above. PowerPort. I&O, daily weight. * Prophylaxis: SCDs. Defer enoxaparin in case of surgical need. * Code Status: Full * Dispo: Inpatient. He is feeling better- Dr Stover visited him 12-20-16. No plans for Hospice at this time. Contemplated a pain pump- decided against it- prefers oral Dilaudid dissolved in water to go home with. Will see Dr Stover Monday at 4pm for f/u- information for pain pump given to Dr Espinoza Nurse if he should change his mind. CHRONIC ISSUES * HTN: Observe. No longer takes amlodipine, lisinopril. Discharge Disposition ASSESSMENT Prosper Feliciano is a 51 year old male admitted from oncology clinic 12/13 with recurrent nausea, vomiting, anorexia, unintentional weight loss, and dehydration , all in the setting of metastatic colon cancer for which has had progression on 5th line therapy. Differential for his current symptoms included possible bowel obstruction, pancreatitis, obstipation. He has improved marginally with supportive care thus far, with enemas effective in helping start BM. He continues to struggle with abdominal pain and nausea/vomiting. He has ominous findings on CT chest/abdomen/pelvis from 11/2016, showing progression of metastatic colon cancer even over the three months prior when compared to CT scan 08/2016. PLAN * Possible Bowel Obstruction: Ruled out. Treated constipation. * Constipation: * UTI- culture pending at time of discharge- received Rocephin 1 gm IV x 1 - home on Cipro- Dr Stover to f/u culture * Nausea/Vomiting: Recurrent. * Abdominal Pain: * Elevated Creatinine:. * Dehydration:. * Anorexia, Unintentional Weight Loss: Multifactorial * Chronic Pain: Takes oxycodone at home. Will use Dilaudid oral at home- likes it better dissolved in water * Metastatic Colon Cancer: No longer taking Lonsurf or Stivarga. CT 11/2016 as noted showing progression of metastatic disease over the preceding [address] Stover on findings, plan of care. * F/E/N: NPO initially but advanced to FLD, then low fiber as tolerated. IVF as above. PowerPort. I&O, daily weight. * Prophylaxis: SCDs * Code Status: Full * Dispo: Inpatient. He is feeling better- Dr Stover to visit him today. Continue same management- getting close to a plan- home soon- he will decide at some point on whether he wants hospice or not.He isnt sure if hes ready for that just yet CHRONIC ISSUES * HTN: Observe. No longer takes amlodipine, lisinopril. New Medications: Ciprofloxacin HCl (Cipro 500mg/5ml) 500 Mg/5 Ml Roxana.mc.rec 500 MG PO BID Infection #70 Ref 0 BTL Hydromorphone HCl (Dilaudid) 4 Mg Tab 4 MG PO Q4 1-2 tabs po q4 hours prn pain PRN PAIN #20 Ref 0 TAB Continued Medications: Metoclopramide HCl (Metoclopramide HCl) 5 Mg/5 Ml Solution 10 MG PO Q6H PRN prn #200 (This prescription has been renewed) Ondansetron (Ondansetron ODT) 8 Mg Tab.rapdis 8 MG PO Q8H PRN NAUSEA/VOMITING Oxycodone HCl (Oxycodone HCl) 5 Mg/5 Ml Solution 10 MG PO Q3H PRN PAIN Scopolamine Hydrobromide (Transderm-Scop 1.5mg) 1 Each Patch.td72 1 PATCH TOP Q72H Follow up Instructions continue meds as at home. Appt Dr Stover Monday 4 pm He wants to get home and try to manage there. No Hospice at this time Copies to: End of Report . Lyudmila Genao RESERVATIONS AGENT Dec 21, 2016 14:53
--- NOTE | 2016-12-21 14:56 | NUR ---
Scripts for Dilaudid and Reglan given to Becca- she is leaving hospital to drop off at [facility] so that scripts could be filled for when patient gets home.
--- NOTE | 2016-12-21 15:53 | NUR ---
@ 1540 Discharge instructions reviewed with patient and Becca. Both Verbalize understanding. Discharge signature sheets signed by Becca and copies given to them. @1545- Rt PAC heparinized and de-accessed at this time. Pt tolerated without difficulty. @1552- Pt dismissed to home via w/c accompanied by this nurse and his . Belongings with .
== END 2016-12-21 15:55 | disposition home or self-care (01) | DRG 392 ==
LOC: MED/SURG 16:42
PROVIDERS: ADMIT Internal Medicine; ATTEND Internal Medicine
DX: K59.00 Constipation, unspecified (principal); C18.9 Malignant neoplasm of colon, unspecified; N39.0 Urinary tract infection, site not specified; T83.592A Infection and inflammatory reaction due to indwelling ureteral stent, initial encounter; R11.2 Nausea with vomiting, unspecified; R63.0 Anorexia; R63.4 Abnormal weight loss; I10 Essential (primary) hypertension; E86.0 Dehydration; Y84.6 Urinary catheterization as the cause of abnormal reaction of the patient, or of later complication, without mention of misadventure at the time of the procedure; R19.7 Diarrhea, unspecified
CPT/HCPCS: 36415; 74000; 74020; 74022; 74250; 80053; 80069; 81003; 81015; 82150; 83690; 83735; 85025; 86140; 87088; 87507; 94770

== ENCOUNTER 2016-12-22 19:42 | Inpatient (IN) | payer BC ==
[~2016-12-22] VITALS: Ht 193 cm; Wt 76.2 kg
[~2016-12-22 19:42] MED LIST: CIPR500S3 PO; DRON10CA2 PO; HDR4T PO; MTC5V480 PO; ONDA8TAB13 PO; OXYC5SOL13 PO; REGO40TA PO; SCOP1PAT10 TOP; TRIF1TAB7 PO
--- OUTSIDE RECORDS SUMMARY | 2016-12-22 19:46 | XMS REPORT | Continuity of Care Document ---
Author Author [facility] Organization [facility] Address Unknown Phone Unavailable Care Team Providers Care Apprentice Instrument Technician Name Role Phone Page, [place] PCP [phone] Source Comments Some departments are not documenting in the electronic medical record. If you do not see the information that you expected, contact Release of Information in the Health Information Management department at [phone] for further assistance in locating additional records.[facility] Active Allergies and Adverse Reactions No Known [...] Taken Blood Pressure 129/84 11/06/2013 8:54 AM DIESEL FITTER MECHANIC Pulse 88 11/06/2013 8:54 AM DIESEL FITTER MECHANIC Temperature 36.8 C (98.3 F) 07/22/2013 8:00 AM DIESEL FITTER MECHANIC Respiratory Rate - - Height 1.943 m (6' 4.5") 11/06/2013 8:54 AM DIESEL FITTER MECHANIC Weight 104.599 kg (230 lb 9.6 11/06/2013 8:54 AM DIESEL FITTER MECHANIC oz) Body Mass Index 27.71 11/06/2013 8:54 AM DIESEL FITTER MECHANIC Oxygen Saturation 100% 11/06/2013 8:54 AM DIESEL FITTER MECHANIC Plan of Care Health Maintenance Due Date Last Done Comments Hepatitis C Screening 1965 Physical (Comprehensive) 02/03/1972 Exam Pertussis Vaccine 02/03/1976 Tetanus Vaccine 1982 Colorectal Cancer 2015 Screening Influenza Vaccine 05/05/2017 Results from Last 3 Months Not on file
--- OUTSIDE RECORDS SUMMARY | 2016-12-22 19:46 | XMS REPORT | Continuity of Care Document ---
Author Author [facility] Organization [facility] Address Unknown Phone Unavailable Care Team Providers Care Finisher Plate Name Role Phone Page, [place] PCP [phone] Source Comments Some departments are not documenting in the electronic medical record. If you do not see the information that you expected, contact Release of Information in the Health Information Management department at [phone] for further assistance in locating additional records.[facility] Active Allergies and Adverse Reactions No Known [...] Taken Blood Pressure 129/84 11/06/2013 8:54 AM CLIENT DEVELOPMENT DIRECTOR Pulse 88 11/06/2013 8:54 AM CLIENT DEVELOPMENT DIRECTOR Temperature 36.8 C (98.3 F) 07/22/2013 8:00 AM CLIENT DEVELOPMENT DIRECTOR Respiratory Rate - - Height 1.943 m (6' 4.5") 11/06/2013 8:54 AM CLIENT DEVELOPMENT DIRECTOR Weight 104.599 kg (230 lb 9.6 11/06/2013 8:54 AM CLIENT DEVELOPMENT DIRECTOR oz) Body Mass Index 27.71 11/06/2013 8:54 AM CLIENT DEVELOPMENT DIRECTOR Oxygen Saturation 100% 11/06/2013 8:54 AM CLIENT DEVELOPMENT DIRECTOR Plan of Care Health Maintenance Due Date Last Done Comments Hepatitis C Screening 1965 Physical (Comprehensive) 02/03/1972 Exam Pertussis Vaccine 02/03/1976 Tetanus Vaccine 1982 Colorectal Cancer 2015 Screening Influenza Vaccine 05/05/2017 Results from Last 3 Months Not on file
[2016-12-22] MEDS ORDERED: HYDROmorphone 1 MG/ML (DILAUDID) SYRINGE IV ONE (20:10)
[2016-12-22] MEDS ORDERED: METOCLOPRAMIDE 10 MG/2 ML (REGLAN) VIAL IV ONE (20:10)
[2016-12-22 20:35] LABS: BASOPHILS % (AUTO) 0 % (0-2); EOSINOPHILS # (AUTO) 0.1 10^3uL; EOSINOPHILS % (AUTO) 1 % (0-4); LYMPHOCYTES # (AUTO) 0.9 X10^3; MEAN CORPUSCULAR HEMOGLOBIN 28.3 PG (26.0-34.0); MEAN CORPUSCULAR HGB CONC 31.9 g/dL (31.0-37.0); MEAN CORPUSCULAR VOLUME 89 FL (80-100); MEAN PLATELET VOLUME 9.9 FL (6.0-9.5); MONOCYTES # (AUTO) 0.7 X10^3; MONOCYTES % (AUTO) 10 % (3-11); NEUTROPHILS # (AUTO) 5.5 X10^3; NEUTROPHILS % (AUTO) 77 % (51-67); PLATELET COUNT 278 10^3uL (150-450); WHITE BLOOD COUNT 7.17 10^3uL (4.0-11.0)
[2016-12-22 21:22] LABS: ALBUMIN 3.4 g/dL (3.4-5.0); ANION GAP 16.2 MEQ/L (3-15); CALCULATED IONIZED CALCIUM 4.2 mg/dL (3.8-4.6); TOTAL PROTEIN 6.5 g/dL (6.4-8.5)
[2016-12-22] MEDS ORDERED: POTASSIUM CL IVPB 10 MEQ/100ML 100 ML IV ONE (21:30)
--- NOTE | 2016-12-22 22:24 | NUR ---
Patient admitted to room 317 at this time. Reports nausea and pain 12/12. with patient. KCL running through port. See admission assessment part 1 & 2. Will continue to monitor.
[2016-12-22] MEDS ORDERED: LIDOCAINE PF 1% (XYLOCAINE) 2 ML VIAL INJ ONE (22:30)
[2016-12-22 22:36] VITALS: BP 167/93
[2016-12-22 22:39] VITALS: BP 167/93
[2016-12-22] MEDS: LIDOCAINE PF 1% (XYLOCAINE) 2 ML VIAL INJ PRN (23:06)
[2016-12-22] MEDS: POTASSIUM CL IVPB 10 MEQ/100ML 100 ML IV SCH (23:06)
[2016-12-22] MEDS ORDERED: SODIUM CHLORIDE 25 ML IV ONE (23:09)
[2016-12-22] MEDS ORDERED: PROMETHAZINE 25 MG/ML (PHENERGAN) 1 ML VIAL ONE (23:09)
[2016-12-22] MEDS ORDERED: SODIUM CHLORIDE 100 ML ONE (23:09)
--- NOTE | 2016-12-22 23:09 | History and Physical (E) ---
History & Physical PCP: Prosper Martinez MD CC: Abdominal pain HPI Very pleasant 51 year old male returns to the hospital tonight with worsening abdominal pain, nausea and vomiting. He was recently discharged yesterday. He has as known diagnosis of widely metastatic Stage IV colon CA follow by Dr Stover with [facility]. He returns tonight, and BMP has revealed a potassium of 2.7. Some u waves on EKG, but otherwise OK. He received dilaudid and antiemetics in the ER, and also a bolus of 10 meq of KCL. He feels better this evening upon my telemedicine evaluation. Please note this patient was seen by telemedicine technology. PMH Stage IV colon CA as above ALLERGIES: Please see list at end of report. HOME MEDICATIONS: Please see list at end of report. FH Non contributory SH No EtOH or tobacco reported ROS As mentioned above, otherwise negative in a 10 point review of systems OBJECTIVE GEN: Awake, alert, oriented, NAD HEENT: EOMI, CV: RRR S1 S2 normal with no murmur LUNGS: CTA B ABD: Soft, NT/ND with normal bowel sounds. EXTR: No C/C/E. Normal peripheral pulses. INTEG: No rash. NEURO: No focal motor neuro deficit. Weight: 76.2 kg LABS Potassium of 2.7 as mentioned above ASSESSMENT 1. Intractable nausea and vomiting 2. Widely metastatic stage IV colon CA 3. Hypokalemia 4. Mild clinical dehydration PLAN Patient will be admitted to inpatient status. He will need monitored on telemetry. Will continue potassium repletion tonight, and repeat labs in the morning along with a magnesium. Will allow a clear liquid diet as he tolerates. Reglan and dilaudid IV for symptomatic control. I had a discussion regarding advanced directives, and he wishes for a DNR. Will place this order on his chart tonight as per his expressed wishes. This patient will be admitted to inpatient services and meets medical necessity in accordance with [facility] guidelines. Allergies/Home Medications Allergies: Coded Allergies: No Known Drug Allergies (Unverified , 12/22/16) Reported Home Medications Scheduled Ciprofloxacin HCl (Cipro 500mg/5ml) 500 MG PO BID Scopolamine Hydrobromide (Transderm-Scop 1.5mg) 1 PATCH TOP Q72H (Reported) Scheduled PRN Hydromorphone HCl (Dilaudid) 4 MG PO Q4 PRN PRN PAIN Metoclopramide HCl (Metoclopramide HCl) 10 MG PO Q6H PRN PRN prn Ondansetron (Ondansetron ODT) 8 MG PO Q8H PRN PRN NAUSEA/VOMITING (Reported) Oxycodone HCl (Oxycodone HCl) 10 MG PO Q3H PRN PRN PAIN (Reported) Copies to: End of Report . CONRADO AVERY MD Dec 22, 2016 23:09
[2016-12-22] MEDS ORDERED: SCOPOLAMINE 1.5 MG (TRANSDERM-SCOP) PATCH TD ONE (23:11)
[2016-12-22] MEDS: PROMETHAZINE HCL INJ 12.5 MG in SODIUM CHLORIDE 25 ML IV PRN (23:14)
[2016-12-22] MEDS: HYDROmorphone 1 MG/ML (DILAUDID) SYRINGE IV PRN (23:22)
[2016-12-23] VITALS (7 sets, daily range): BP systolic 122–156; BP diastolic 64–95
[2016-12-23] MEDS: POTASSIUM CL IVPB 10 MEQ/100ML 100 ML IV SCH ×2 (00:30→01:36)
[2016-12-23] MEDS: SCOPOLAMINE 1.5 MG (TRANSDERM-SCOP) PATCH TD SCH (00:30)
[2016-12-23] MEDS: LIDOCAINE PF 1% (XYLOCAINE) 2 ML VIAL INJ PRN ×2 (00:30→01:36)
[2016-12-23] MEDS: ONDANSETRON 2 MG/ML (Z0FRAN) 2 ML VIAL IV PRN ×4 (00:31→22:39)
[2016-12-23] MEDS: METOCLOPRAMIDE 10 MG/2 ML (REGLAN) VIAL IV PRN ×4 (02:30→23:22)
[2016-12-23] MEDS: HYDROmorphone 1 MG/ML (DILAUDID) SYRINGE IV PRN ×3 (02:30→08:35)
--- NOTE | 2016-12-23 03:31 | NUR ---
Dr Cruz notified of potassium recheck - 3.2. Will continue to monitor.
[2016-12-23] MEDS ORDERED: SODIUM CHLORIDE 25 ML IV ONE (04:59)
[2016-12-23] MEDS ORDERED: PROMETHAZINE 25 MG/ML (PHENERGAN) 1 ML VIAL ONE (05:00)
[2016-12-23] MEDS ORDERED: HYDROmorphone 1 MG/ML (DILAUDID) SYRINGE ONE (05:00)
[2016-12-23] MEDS: PROMETHAZINE HCL INJ 12.5 MG in SODIUM CHLORIDE 25 ML IV PRN ×2 (05:02→14:37)
[2016-12-23 05:54] LABS: BASOPHILS % (AUTO) 0 % (0-2); EOSINOPHILS # (AUTO) 0.1 10^3uL; EOSINOPHILS % (AUTO) 2 % (0-4); LYMPHOCYTES # (AUTO) 0.9 X10^3; MEAN CORPUSCULAR HEMOGLOBIN 28.6 PG (26.0-34.0); MEAN CORPUSCULAR HGB CONC 32.1 g/dL (31.0-37.0); MEAN CORPUSCULAR VOLUME 89 FL (80-100); MEAN PLATELET VOLUME 9.8 FL (6.0-9.5); MONOCYTES # (AUTO) 0.7 X10^3; MONOCYTES % (AUTO) 11 % (3-11); NEUTROPHILS # (AUTO) 4.4 X10^3; NEUTROPHILS % (AUTO) 72 % (51-67); PLATELET COUNT 248 10^3uL (150-450); WHITE BLOOD COUNT 6.19 10^3uL (4.0-11.0)
--- NOTE | 2016-12-23 06:01 | NUR ---
Pt rests intermittently throughout the night. Experiences one episode of emesis. PRN antiemetics given as ordered this shift. PRN dilaudid provided for abdominal pain. Right port-a-cath heplocked. at bedside. No needs at this time.
--- NOTE | 2016-12-23 06:10 | Diagnostic Imaging Report ---
EXAMINATION: Abdominal radiographs, acute series. DATE: December 22, 2016. CLINICAL INDICATION: 51-year-old male, abdominal pain. COMPARISON: December 18, 2016. COMMENTS: There is contrast material within the stomach. There are bilateral ureteral stents. There are sutures overlying the right lower abdomen. There are right upper quadrant sutures. There are no abnormally distended gas-filled segments of bowel. There is no identified free intraperitoneal air, pneumatosis, or portal venous gas. There is no identified acute cardiopulmonary abnormality. Right-sided port catheter tip overlies the upper SVC. IMPRESSION: 1. No identified acute abdominal radiographic abnormality. Dictated by: Dictated on workstation # [id number]
[2016-12-23] MEDS ORDERED: SODIUM CHLORIDE FLUSH 10 ML ONE (06:54)
[2016-12-23 07:16] LABS: ANION GAP 15.3 MEQ/L (3-15); MAGNESIUM* 1.8 mg/dL (1.6-2.3)
--- NOTE | 2016-12-23 07:40 | NUR ---
Patient returning from bathroom upon shift assessment. Alert and oriented X3. Appears pale and lethargic. Reports RLQ abdominal pain rated 4/10 on pain scale, denies need for PRN pain medication. Reports abdominal is tender to touch and he is experiencing mild nausea. Respirations even and shallow on roomair. Telemetry intact and reflecting NSR at a rate of 69 bpm. No edema noted to BLE. Updated patient on plan of care for shift including pain management, potassium replacement, and floor routines. Call light in reach.
[2016-12-23] MEDS ORDERED: CEFD125S4 PO (08:17)
--- NOTE | 2016-12-23 08:32 | NUR ---
NUTRITION ASSESSMENT Level 1 Patient: Prosper Feliciano Age/Sex: 51/M Date Screened: 12-23-16 Weight: 167.6#/76.2 kg Height: 76 inches Primary Diagnosis: intractable n/v, hypokalemia Diet Order: CL Relevant labs: potassium 2.9, glucose 100 Food allergies: N Nutrition Assessment Criteria Age over 80: N Body Mass Index (BMI) under 19: N Admission Screening Indicates Risk? 6 points Moderate/High Risk Diagnosis: 3 points TPN or PPN: N NPO or clear liquid diet: Yes Serum Glucose <70 or >180: N Hgb A1c >6.7: N/A Total: 9 points Risk Screen: __ Patient at low nutritional risk based on available data; reevaluate in 5-7 days __ Patient at moderate nutritional risk based on available data; reevaluate in 3-5 days _X_ Patient at high nutritional risk; complete Nutrition Assessment within 48 hours of admission.
--- NOTE | 2016-12-23 08:47 | NUR ---
PRN Dilaudid and Reglan provided at this time via right port-a-cath. Patient rates pain 4/10 on scale in right lower abdomen. Will continue to monitor.
[2016-12-23] MEDS: NS FLUSH 3 ML DAILY IV SCH (09:00)
[2016-12-23] MEDS ORDERED: NS FLUSH 3 ML PRN IV (09:00)
--- NOTE | 2016-12-23 09:10 | NUR ---
MED REC COMPLETED-current med list obtained from Ext Med History application and previous medication reconciliation from discharge. Conducted by Adryan Son, PharmD Candidate 2017.
--- NOTE | 2016-12-23 09:43 | NUR ---
NUTRITION ASSESSMENT Level II Patient: Prosper Feliciano Age/Sex: 51/M Date Assessed: 12-23-16 ASSESSMENT Pertinent History: Patient admitted with intractable n/v and hypokalemia and screened at high nutritional risk secondary to metastatic cancer and recent hospitalization. PMHx includes stage IV metastatic colon cancer, iron deficiency anemia, and HTN. He was most recently hospitalized 12-13 through 12-21 with partial LISANDRA and constipation. He had improved enough to take a low-fiber diet, but continues to have n/v, anorexia and dysgeusia. At his last admission I discussed nutritional strategies to help combat n/v and dysgeusia and provided handouts to pt. His weight hx. includes 50# loss over the past few months. Most recently he weighed 170.7# on 12-14-16 and was DCd on 12-21-16 weighing 174.4#. Hospice has been discussed with pt. and family, but he was not ready yet as of this last admission. Meds/Nutrition: KCl, Scopolamine (anti-emetic), Reglan prn, Phenergan prn, Zofran prn Weight: 167.6#/76.2 kg Height: 76 inches Body Mass Index (BMI): 20.4 [place] Body Weight : 202#/91.8 kg % IBW: 82% GASTROINTESTINAL Appetite: poor Diet Order: CL Unintentional loss of >10 lbs. in 3 months: Yes Difficult to chew/swallow: N Diabetes: N Relevant Labs: potassium 2.9, glucose 100 Calculations for Nutritional Assessment Estimated calorie needs: 28-30 kcals/kg = 2,120-2,280 kcals Estimated protein needs: 1.3-1.5 g/kg = 98-114 g./day DIAGNOSIS 1. Nutrition Diagnosis: Unintentional weight loss related to catabolic disease state and inadequate intake as evidenced by >50# weight loss in the past few months in the setting of stage IV metastatic colon cancer and frequent n/v/anorexia/dysgeusia. NUTRITIONAL INTERVENTION Goal: Patient will receive adequate nutrition to meet his needs; at this time, the goal is not palliative care/Hospice. Plan: 1. Will monitor tolerance to diet as advanced, and supplement with kcals/protein however we can. When diet is advanced, recommend small portions with nutrient-dense foods; will also plan to include 1 pkt. Benecalorie per meal mixed into appropriate foods (i.e. mashed potatoes, cream of wheat, etc.) as well as a homemade protein shake. Pt. does not like Ensure very much and milk is not setting well with him right now; we will avoid both of these. 2. At last admission, physician and I discussed possible nutrition support. At that time we determined that it was up to the patient, but TPN would merely likely prolong his course rather than improve his clinical condition. If pt. goes on Hospice, nutrition support would of course not be appropriate. I am not recommending nutrition support at this time; from a nutritional standpoint, every effort should be made to improving patients quality of life with p.o. nutrition and maximizing enjoyment of food through various methods that I educated him on to help combat taste changes and nausea. These include: baking soda mouth rinse, ice water with lemon for taste changes, adding citrus or sour things for xerostomia, and adding spices to meals based on taste preferences in the moment. 3. Will work with pt. on providing foods that sound good to him, and will monitor closely. MONITORING & EVALUATION __ Monitor patients menu selections __ Monitor patients food intake per nursing notes _X_ Monitor NPO/clear liquid days __ Monitor lab values __ Monitor I&O __ Other
[2016-12-23] MEDS: NS FLUSH 10 ML PRN IV ×5 (10:05→23:22)
[2016-12-23] MEDS: NS IV SCH ×2 (10:05→20:16)
[2016-12-23] MEDS: POTASSIUM CHLORIDE IV SCH ×2 (10:05→20:16)
--- NOTE | 2016-12-23 10:12 | Progress Note (E) ---
Progress Note December Mr. Feliciano is back in with emesis and hypokalemia. Of course he has the metastatic stomach cancer also.He does ask for another dose of antiemetic and dilaudid.I assured him I would tell the nurse right away.He denies chest pain and sob,but does admit to abdominal pains. heart-RRR LUNGS-cta abdomen-tender in general to palpation extremities- no c/c/ edema k+ is at 2.9 this am ASSESSMENT 1. Intractable nausea and vomiting 2. Widely metastatic stage IV colon CA 3. Hypokalemia 4. Mild clinical dehydration Plan; Give IV kcl at approx. 4meq per hour and try to get his MOLDING CUTTER pump restarted. MELINDA GODOY DO Dec 23, 2016 10:12
--- NOTE | 2016-12-23 10:18 | NUR ---
AXEL was contacted by Keke with [facility] who reported she was contacted by Pt. and Dr. Stover's nurse regarding Pt. uncontrolled symptoms. Keke reviewed the options with Pt. and answered her questions. Pt. ultimately decided to bring Pt. to the emergency room and he was then admitted. Keke stated the plan for discharge at this time is for Pt. to go home with a pain pump as well as home health services through [facility]. Keke has already discussed this with Jazmyne Ramsey. Addendum: 12/23/16 at 1507 by Shelia AVALOS Jazmyne Ramsey P: [phone] F: [phone] for pain pump. Addendum: 12/23/16 at 1525 by Shelia AVALOS Roxy professional development manager number: [phone]
[2016-12-23] MEDS: HYDROmorphone PCA 30 MG/30 ML (DILAUDID) VIAL IV PRN (10:56)
--- NOTE | 2016-12-23 10:56 | NUR ---
Dilaudid PIT SLAGMAN initiated at this time. 1mg bolus administered at 1057. Settings verified by Jazmyne Espinosa RN. Patient refuses end tidal C02 monitor. Respiratory rate currently 18. Rates pain 3/10 on pain scale in generalized abdomen. Educated on button and dosing. Will continue to monitor.
[2016-12-23] MEDS ORDERED: NALOXONE 0.4 MG/ML (NARCAN) 1 ML VIAL IV PRN (11:10)
--- NOTE | 2016-12-23 14:44 | NUR ---
Care assumed at 1300 from LIGIA Sepulveda. PRN Phenergan given at this time per pt request for c/o nausea. Pt denies other needs. PARTRIDGE FARMER, carrier fluids, and etco2 monitor all intact.
[2016-12-23] MEDS ORDERED: ONDANSETRON 2 MG/ML (Z0FRAN) 2 ML VIAL IV PRN (16:15)
--- NOTE | 2016-12-23 17:33 | NUR ---
PRN Reglan given at this time for c/o nausea. Pt states pain is "doing pretty well" right now. CHOIRMASTER button within reach. Denies other needs.
--- NOTE | 2016-12-23 18:34 | NUR ---
PRN Zofran given at this time for c/o nausea. Pt denies other needs. EtCO2 monitor intact.
[2016-12-23] MEDS: ONDANSETRON 4 MG (ZOFRAN) ORAL DISSOLVE TAB PO SCH (20:14)
[2016-12-23] MEDS ORDERED: POTASSIUM CL IVPB 10 MEQ/100ML 100 ML IV ONE (21:30)
--- NOTE | 2016-12-23 22:40 | NUR ---
Zofran 8 mg IV given for nausea. Pt. reports current pain level with Dilaudid RAYON TESTER is "4". Telemetry reflects sinus rhythm in the 80's. Pt. is watching basketball game on lap top; sitting at bedside; no additional requests currently. Pt. is very pleasant and cooperative; call light and H2O within reach.
--- NOTE | 2016-12-23 23:25 | NUR ---
Reglan 10 mg IV given for nausea; unmeasured large quantity dark emesis. Void of 250 cc's; dark/red in coloration. Pt. sitting at bedside for awhile.
[2016-12-24] VITALS (7 sets, daily range): BP systolic 139–153; BP diastolic 87–102
[2016-12-24] MEDS: ONDANSETRON 4 MG (ZOFRAN) ORAL DISSOLVE TAB PO SCH ×5 (01:26→21:34)
--- NOTE | 2016-12-24 01:30 | NUR ---
Zofran dissolve given per schedule; pt. currently resting more comfortably; no current requests. IVF/Dilaudid HELP DESK SUPERVISOR infusing and providing adequate pain control; at bedside.
[2016-12-24] MEDS: ONDANSETRON 2 MG/ML (Z0FRAN) 2 ML VIAL IV PRN ×4 (03:09→22:32)
--- NOTE | 2016-12-24 03:10 | NUR ---
Zofran 8 mg IV given for nausea by Lyudmila COY.
[2016-12-24] MEDS: PROMETHAZINE HCL INJ 25 MG in SODIUM CHLORIDE 25 ML IV PRN ×3 (03:55→18:47)
--- NOTE | 2016-12-24 03:55 | NUR ---
Phenergan 25 mg IV given for nausea by Lyudmila COY.
[2016-12-24] MEDS: POTASSIUM CHLORIDE IV SCH ×2 (06:18→17:05)
[2016-12-24] MEDS: NS IV SCH ×2 (06:18→17:05)
--- NOTE | 2016-12-24 06:25 | NUR ---
Dilaudid CREATIVE GURU cleared; 4.6 mg; pain controlled to promote rest. Pt. has slept in intervals; PRN nausea meds given throughout shift. Telemetry reflects sinus rhythm to sinus tach. Urine remains dark in coloration. has stayed at bedside. Call light and H2O within reach. Pt. is very pleasant and cooperative.
[2016-12-24] MEDS: NS FLUSH 10 ML PRN IV ×3 (07:35→22:32)
[2016-12-24] MEDS: METOCLOPRAMIDE 10 MG/2 ML (REGLAN) VIAL IV PRN ×3 (07:35→20:05)
--- NOTE | 2016-12-24 07:35 | NUR ---
Scheduled Zofran; PRN Reglan given at this time for nausea/emesis. Large amount of unmeasured emesis in trash can; dark in coloration noted. Ice chips and call light within reach.
[2016-12-24] MEDS: NS FLUSH 3 ML DAILY IV SCH (08:40)
[2016-12-24 08:58] LABS: BASOPHILS % (AUTO) 0 % (0-2); EOSINOPHILS # (AUTO) 0.1 10^3uL; EOSINOPHILS % (AUTO) 2 % (0-4); LYMPHOCYTES # (AUTO) 0.7 X10^3; MEAN CORPUSCULAR HEMOGLOBIN 28.2 PG (26.0-34.0); MEAN CORPUSCULAR VOLUME 93 FL (80-100); MEAN PLATELET VOLUME 9.5 FL (6.0-9.5); MONOCYTES # (AUTO) 0.4 X10^3; MONOCYTES % (AUTO) 8 % (3-11); NEUTROPHILS # (AUTO) 3.9 X10^3; NEUTROPHILS % (AUTO) 76 % (51-67); PLATELET COUNT 254 10^3uL (150-450); WHITE BLOOD COUNT 5.06 10^3uL (4.0-11.0)
[2016-12-24 09:16] LABS: ANION GAP 13.5 MEQ/L (3-15)
[2016-12-24 09:22] LABS: MEAN CORPUSCULAR HGB CONC 30.4 g/dL (31.0-37.0)
--- NOTE | 2016-12-24 09:45 | NUR ---
Patient is sleeping. No non-verbal indication of pain. at the bedside.
--- NOTE | 2016-12-24 11:19 | Progress Note (E) ---
Progress Note December Mr. Feliciano today c/o 3 episodes of nausea or emesis last night when there was no anti emetic which the passageof time allowed him to have.He denies chest pain and has just a wee bit of abdominal pain.He says he coughs only on occasion. He questioned me about our goals. I told him we would love to send him home whenever he wishes except our main goals are to stop the emesis and get his K+ back in a normal range. heart-RRR LUNGS- Clear to auscultation bilaterally abdomen bs are active extremities-we see no c/c/ and no edema ASSESSMENT: Frequent nausea with emesis,improving Metastatic colon cancer Hypokalemia Plan: Continue IV fluids with added kcl and continue anti emetic medications [3 in number] and change the dosing schedule of all three meds to eliminate gaps in coverage for c/o nausea.Patient remains a DNR status patient. MELINDA GODOY DO Dec 24, 2016 11:19
[2016-12-24] MEDS ORDERED: ONDANSETRON 4 MG (ZOFRAN) ORAL DISSOLVE TAB PO SCH (13:20)
[2016-12-24] MEDS: LORazepam 1 MG (ATIVAN) TABLET PO SCH ×2 (15:49→21:34)
--- NOTE | 2016-12-24 20:05 | NUR ---
Reglan 10 mg IV given for nausea; no emesis this time. FEATHER DUSTER WINDER is providing adequate pain control. No additional needs at this time. Pt. watching baseball on lap top computer; at bedside.
--- NOTE | 2016-12-24 22:35 | NUR ---
Zofran 8 mg IV given for nausea.
[2016-12-25] VITALS (7 sets, daily range): BP systolic 136–165; BP diastolic 62–100
[2016-12-25] MEDS: PROMETHAZINE HCL INJ 25 MG in SODIUM CHLORIDE 25 ML IV PRN ×4 (00:31→20:56)
--- NOTE | 2016-12-25 00:31 | NUR ---
Phenergan 25 mg IV given for nausea. Pt. is sleeping in short intervals; states ARCHITECTURAL DESIGN LECTURER controlling pain.
[2016-12-25] MEDS: METOCLOPRAMIDE 10 MG/2 ML (REGLAN) VIAL IV PRN ×4 (02:18→19:06)
[2016-12-25] MEDS: NS FLUSH 10 ML PRN IV ×3 (02:18→06:01)
--- NOTE | 2016-12-25 02:19 | NUR ---
Emesis: Reglan 10 mg IV given for N/V.
[2016-12-25] MEDS: NS IV SCH (04:22)
[2016-12-25] MEDS: POTASSIUM CHLORIDE IV SCH (04:22)
--- NOTE | 2016-12-25 04:25 | NUR ---
Phenergan 25 mg IV given for nausea. Pt. experienced a large amount of dark, liquid emesis.
--- NOTE | 2016-12-25 05:15 | NUR ---
Lab draw from central line by this nurse; followed by flush. Dilaudid TELEGRAPHIC TYPEWRITER INSTALLER and IVF infusing without difficulty; pt. appeared to have slept through procedure; resp are even and unlabored on room air.
[2016-12-25] MEDS: ONDANSETRON 2 MG/ML (Z0FRAN) 2 ML VIAL IV PRN ×4 (06:00→23:06)
--- NOTE | 2016-12-25 06:00 | NUR ---
Zofran 8 mg IV given for nausea; no emesis.
[2016-12-25 06:05] LABS: BASOPHILS % (AUTO) 0 % (0-2); EOSINOPHILS # (AUTO) 0.1 10^3uL; EOSINOPHILS % (AUTO) 1 % (0-4); LYMPHOCYTES # (AUTO) 0.9 X10^3; MEAN CORPUSCULAR HEMOGLOBIN 28.3 PG (26.0-34.0); MEAN CORPUSCULAR VOLUME 94 FL (80-100); MONOCYTES # (AUTO) 0.6 X10^3; MONOCYTES % (AUTO) 9 % (3-11); NEUTROPHILS # (AUTO) 5.3 X10^3; NEUTROPHILS % (AUTO) 77 % (51-67); PLATELET COUNT 278 10^3uL (150-450); WHITE BLOOD COUNT 6.98 10^3uL (4.0-11.0)
[2016-12-25 06:21] LABS: ANION GAP 16.2 MEQ/L (3-15)
[2016-12-25 06:31] LABS: MEAN CORPUSCULAR HGB CONC 30.3 g/dL (31.0-37.0)
--- NOTE | 2016-12-25 06:45 | NUR ---
PHONE REPRESENTATIVE cleared: 6 mg/Dilaudid. Pt. reports good pain control with the PHONE REPRESENTATIVE. Pt. slept in short intervals last night as was frequently nauseated; pt. experienced two episodes of emesis. Antiemetic medications were administered every 1 1/2 to 2 hrs.; PRN meds updated on white board for pt. reference. at bedside all night.
[2016-12-25] MEDS: ONDANSETRON 4 MG (ZOFRAN) ORAL DISSOLVE TAB PO SCH ×4 (07:42→20:57)
[2016-12-25] MEDS: NS FLUSH 3 ML DAILY IV SCH (09:00)
--- NOTE | 2016-12-25 09:22 | Progress Note (E) ---
Progress Note December This 51 year old is still throwing up some,in fact 4 or 5 times yesterday. He asked me to adjust his medication to hopefully put a stop to the emesis. He denies chest pain,abdominal pain and sob.He denies pain with walking to the bathroom or elsewhere. heart demonstrates a regular rate and rhythm K+-3.5 today ; creatinine- 2.05 ;bun-12 lungs show they are CTA BILATERALLY ABDOMEN HAS bs which are physiologic;abdomen is nontender extremities have no c/c/ or edema Assessment: recurrent emesis; colon cancer with widespread metastasis ;do not resusitate status remains Plan: reschedule his reglan and ativan dosages closer together and change his IV fluid to D5 1/2 ns. MELINDA GODOY DO Dec 25, 2016 09:22
--- NOTE | 2016-12-25 09:30 | NUR ---
Sleeping. O2 sats. are in the 90's.
[2016-12-25] MEDS: LORazepam 1 MG (ATIVAN) TABLET PO SCH ×4 (10:00→20:58)
--- NOTE | 2016-12-25 13:49 | NUR ---
ETCO2 monitor in place, all readings within normal limits.
--- NOTE | 2016-12-25 15:00 | NUR ---
Patient had about 1100 cc's of IVF in but voided only 200 cc's for the first 8 hours of the shift.
--- NOTE | 2016-12-25 17:55 | NUR ---
Offered the patient a shower twice today but on each time the patient said he would wait until later and see if he feels better.
--- NOTE | 2016-12-25 18:00 | NUR ---
Patient was able to void another 200cc's. He continues to have nausea despite a PRN or scheduled dose of nausea medication being administered every 1.5 to 2 hours through the day and night. Had a large episode of emesis and two small episodes. Scheduled Ativan makes him drowsy and more confused than usual but he has elected to take it despite these side effects.
[2016-12-25] MEDS: D5 1/2 NS W/KCL 40 MEQ/L 1,000 ML IV SCH ×2 (21:44→21:45)
[2016-12-25] MEDS: SCOPOLAMINE 1.5 MG (TRANSDERM-SCOP) PATCH TD SCH (23:46)
[2016-12-26] VITALS (7 sets, daily range): BP systolic 133–151; BP diastolic 91–98
[2016-12-26] MEDS ORDERED: SCOPOLAMINE PATCH REMOVAL TOP SCH (00:25)
[2016-12-26] MEDS: METOCLOPRAMIDE 10 MG/2 ML (REGLAN) VIAL IV PRN ×2 (00:51→04:54)
[2016-12-26] MEDS: LORazepam 1 MG (ATIVAN) TABLET PO SCH ×2 (00:54→06:37)
[2016-12-26] MEDS: PROMETHAZINE HCL INJ 25 MG in SODIUM CHLORIDE 25 ML IV PRN ×4 (01:29→23:23)
[2016-12-26] MEDS: ONDANSETRON 2 MG/ML (Z0FRAN) 2 ML VIAL IV PRN ×3 (02:58→17:39)
[2016-12-26 06:02] LABS: BASOPHILS % (AUTO) 0 % (0-2); EOSINOPHILS # (AUTO) 0.1 10^3uL; EOSINOPHILS % (AUTO) 1 % (0-4); LYMPHOCYTES # (AUTO) 0.9 X10^3; MEAN CORPUSCULAR HEMOGLOBIN 28.4 PG (26.0-34.0); MEAN CORPUSCULAR VOLUME 94 FL (80-100); MONOCYTES # (AUTO) 0.7 X10^3; MONOCYTES % (AUTO) 9 % (3-11); NEUTROPHILS # (AUTO) 6.6 X10^3; NEUTROPHILS % (AUTO) 79 % (51-67); PLATELET COUNT 309 10^3uL (150-450)
[2016-12-26 06:17] LABS: MEAN CORPUSCULAR HGB CONC 30.3 g/dL (31.0-37.0)
[2016-12-26 06:34] LABS: BUN/CREATININE RATIO 11 (10-20)
[2016-12-26] MEDS: ONDANSETRON 4 MG (ZOFRAN) ORAL DISSOLVE TAB PO SCH (06:35)
--- NOTE | 2016-12-26 06:38 | NUR ---
Pt rests in short intervals throughout the night. Multiple large amounts of emesis throughout the night. Antiemetics given as frequently as possible. Pain controlled by dilaudid GRIT REMOVAL OPERATOR.
[2016-12-26] MEDS: D5 1/2 NS W/KCL 40 MEQ/L 1,000 ML IV SCH ×4 (06:48→23:55)
--- NOTE | 2016-12-26 08:09 | NUR ---
PRN Phenergan given at this time for c/o nausea. Pt consumed approx 25% of breakfast. Skin warm, dry, intact. Resprs nonlabored, even on RA. EtCO2 monitor on; HR 90, O2 93% on RA, CO2 35, Resprs 14. Pt denies needs at this time. Mother and at bedside.
[2016-12-26] MEDS: NS FLUSH 3 ML DAILY IV SCH (08:54)
--- NOTE | 2016-12-26 10:18 | NUR ---
Pt remains on ETCO2, resting quietly. SpO2 92% on Room Air, ETCO2 46-52mmhg.
[2016-12-26] MEDS ORDERED: POLYETHYLENE GLYCOL 17 GM (MIRALAX) PACKET PO PRN (10:20)
[2016-12-26] MEDS ORDERED: MAGNESIUM HYDROXIDE 80MG/ML (MILK OF MAGNESIA) 30 ML UDC PO PRN (10:20)
[2016-12-26] MEDS ORDERED: DOCUSATE SODIUM 100 MG (COLACE) CAP PO PRN (10:20)
[2016-12-26] MEDS ORDERED: MAGNESIUM 1 GM/100 ML IVPB 100 ML IV ONE (10:20)
--- NOTE | 2016-12-26 10:40 | Progress Note (E) ---
Progress Note SUBJECTIVE Readmitted 12/22 after he had just been discharged 12/21 for nausea/vomiting and abdominal pain in the setting of metastatic colon cancer. On this admit, K was low at 2.7. Was given potassium replacement and was monitored on tele. Since admit, has continued to seg[place]ia nausea/vomiting despite high doses of anti- emetics. Overnight, vitals stable. Remains on room air. On repeat CBC, anemic with Hgb 8.4. WBC normal. K still low at 3.3 but improved since admit. Cr. 2.00, improved from peak 2.10 12/24. On exam, looks tired and unwell. Having emesis during exam. Bilious in quality. Feels better after emesis. Discussed findings, plan of care. OBJECTIVE Vital Signs Date Time Temp Pulse Resp B/P Pulse Ox O2 Delivery O2 Flow Rate FiO2 12/26/16 08:16 97.5 99 16 135/91 91 Room air 0.00 I & O 12/25/16 12/26/16 Cumulative From/Thru 19:00 07:00 12/22/16 19:50 - 12/26/16 06:05 Intake Total 1401 ml 2135 ml 9562 ml Output Total 200 ml 1050 ml 4800 ml Balance 1201 ml 1085 ml 4762 ml GEN: Tired appearing. Interactive, oriented. HEENT: EOMI, clear sclerae, dry oral mucosa, temporal wasting. CV: RRR S1 S2 normal with no murmur LUNGS: Diminished without R/R/W. ABD: Soft, mildly tender in lower quadrants. Non-distended. Hypoactive bowel sounds. EXTR: No C/C/E. Normal peripheral pulses. INTEG: No rash. Pallor. NEURO: No focal motor neuro deficit. Lab-Past 14 Days, 35 Results 12/22/16 20:30: Alanine Aminotransferase (ALT/SGPT) 63, Albumin 3.4, Albumin/Globulin Ratio 1.096L, Alkaline Phosphatase 160H, Amylase Level 42, Anion Gap 16.2H, Aspartate Amino Transf (AST/SGOT) 46H, BUN/Creatinine Ratio 13, Basophils # (Auto) 0.0, Basophils (%) (Auto) 0, Blood Urea Nitrogen 20H, Calcium Level 9.1, Calcium/ Ionized Calcium Ratio 4.2, Calculated Osmolality 272L, Carbon Dioxide Level 33H , Chloride Level 93L, Creatinine 1.49, Eosinophils # (Auto) 0.1, Eosinophils (% ) (Auto) 1, Estimat Glomerular Filtration Rate 60.2, Estimated GFR (Non- 49.7, Glucose Level 108, Hematocrit 27.00L, Hemoglobin 8.6L, Lipase 59 , Lymphocytes # (Auto) 0.9, Lymphocytes (%) (Auto) 12L, Mean Corpuscular Hemoglobin 28.3, Mean Corpuscular Hemoglobin Concent 31.9, Mean Corpuscular Volume 89, Mean Platelet Volume 9.9H, Monocytes # (Auto) 0.7, Monocytes (%) ( Auto) 10, Neutrophils # (Auto) 5.5, Neutrophils (%) (Auto) 77H, Platelet Count 278, Potassium Level 2.7#L, Red Blood Count 3.04L, Red Cell Distribution Width 15.8H, Smear Scan , Sodium Level 139, Total Bilirubin 0.8, Total Protein 6.5, White Blood Count 7.17 12/23/16 03:10: Potassium Level 3.2L 12/23/16 05:37: Anion Gap 15.3H, BUN/Creatinine Ratio 13, Basophils # (Auto) 0.0, Basophils (%) (Auto) 0, Blood Urea Nitrogen 20H, Calcium Level 8.6L, Carbon Dioxide Level 32H , Chloride Level 97L, Creatinine 1.58H, Eosinophils # (Auto) 0.1, Eosinophils (% ) (Auto) 2, Estimat Glomerular Filtration Rate 56.2, Estimated GFR (Non- 46.5, Glucose Level 100, Hematocrit 25.20L, Hemoglobin 8.1L, Lymphocytes # (Auto) 0.9, Lymphocytes (%) (Auto) 14L, Mean Corpuscular Hemoglobin 28.6, Mean Corpuscular Hemoglobin Concent 32.1, Mean Corpuscular Volume 89, Mean Platelet Volume 9.8H, Monocytes # (Auto) 0.7, Monocytes (%) ( Auto) 11, Neutrophils # (Auto) 4.4, Neutrophils (%) (Auto) 72H, Platelet Count 248, Potassium Level 2.9L, Red Blood Count 2.83L, Red Cell Distribution Width 16.0H, Smear Scan Yes, Sodium Level 141, White Blood Count 6.19, Magnesium Level 1.8 12/24/16 08:40: Anion Gap 13.5, BUN/Creatinine Ratio 11, Basophils # (Auto) 0.0, Basophils (%) ( Auto) 0, Blood Urea Nitrogen 24H, Calcium Level 8.6L, Carbon Dioxide Level 37H, Chloride Level 98, Creatinine 2.10H, Eosinophils # (Auto) 0.1, Eosinophils (%) ( Auto) 2, Estimat Glomerular Filtration Rate 40.5, Estimated GFR (Non- 33.5, Glucose Level 89, Hematocrit 25.30L, Hemoglobin 7.7L, Lymphocytes # (Auto) 0.7, Lymphocytes (%) (Auto) 13L, Mean Corpuscular Hemoglobin 28.2, Mean Corpuscular Hemoglobin Concent 30.4L, Mean Corpuscular Volume 93, Mean Platelet Volume 9.5, Monocytes # (Auto) 0.4, Monocytes (%) (Auto ) 8, Neutrophils # (Auto) 3.9, Neutrophils (%) (Auto) 76H, Platelet Count 254, Potassium Level 3.4L, Red Blood Count 2.73L, Red Cell Distribution Width 16.3H, Smear Scan Yes, Sodium Level 145, White Blood Count 5.06 12/25/16 05:23: Anion Gap 16.2H, BUN/Creatinine Ratio 12, Basophils # (Auto) 0.0, Basophils (%) (Auto) 0, Blood Urea Nitrogen 25H, Calcium Level 8.7L, Carbon Dioxide Level 39H , Chloride Level 96L, Creatinine 2.05H, Eosinophils # (Auto) 0.1, Eosinophils (% ) (Auto) 1, Estimat Glomerular Filtration Rate 41.6, Estimated GFR (Non- 34.4, Glucose Level 90, Hematocrit 26.10L, Hemoglobin 7.9L, Lymphocytes # (Auto) 0.9, Lymphocytes (%) (Auto) 13L, Mean Corpuscular Hemoglobin 28.3, Mean Corpuscular Hemoglobin Concent 30.3L, Mean Corpuscular Volume 94, Mean Platelet Volume 10.0H, Monocytes # (Auto) 0.6, Monocytes (%) ( Auto) 9, Neutrophils # (Auto) 5.3, Neutrophils (%) (Auto) 77H, Platelet Count 278, Potassium Level 3.5, Red Blood Count 2.79L, Red Cell Distribution Width 16.3H, Smear Scan Yes, Sodium Level 148, White Blood Count 6.98 4/24/17 05:30: Anion Gap , BUN/Creatinine Ratio 11, Basophils # (Auto) 0.0, Basophils (%) (Auto ) 0, Blood Urea Nitrogen 22H, Calcium Level 8.7L, Carbon Dioxide Level 44H, Chloride Level 95L, Creatinine 2.00H, Eosinophils # (Auto) 0.1, Eosinophils (%) (Auto) 1, Estimat Glomerular Filtration Rate 42.8, Estimated GFR (Non- 35.4, Glucose Level 125#H, Hematocrit 27.70L, Hemoglobin 8.4L, Lymphocytes # (Auto) 0.9, Lymphocytes (%) (Auto) 11L, Mean Corpuscular Hemoglobin 28.4, Mean Corpuscular Hemoglobin Concent 30.3L, Mean Corpuscular Volume 94, Mean Platelet Volume 10.0H, Monocytes # (Auto) 0.7, Monocytes (%) ( Auto) 9, Neutrophils # (Auto) 6.6, Neutrophils (%) (Auto) 79H, Platelet Count 309, Potassium Level 3.3L, Red Blood Count 2.96L, Red Cell Distribution Width 16.2H, Sodium Level 146, White Blood Count 8.30 IMAGING 12/22/16 ACUTE ABD SERIES EXAMINATION: Abdominal radiographs, acute series. DATE : December 22, 2016. CLINICAL INDICATION: 51-year-old male, abdominal pain. COMPARISON: December 18, 2016. COMMENTS: There is contrast material within the stomach. There are bilateral ureteral stents. There are sutures overlying the right lower abdomen. There are right upper quadrant sutures. There are no abnormally distended gas-filled segments of bowel. There is no identified free intraperitoneal air, pneumatosis, or portal venous gas. There is no identified acute cardiopulmonary abnormality. Right-sided port catheter tip overlies the upper SVC. IMPRESSION: 1. No identified acute abdominal radiographic abnormality. REFERENCE 12/18/16 SMALL BOWEL STUDY INDICATION: Nausea and vomiting. EXAMINATION: Small bowel study. COMPARISON: Abdominal radiograph of 12/15/16. FINDINGS: Planograph Operator radiograph demonstrated bilateral nephroureteral stents in place. Oral contrast was administered. This promptly distended the stomach. The abdomen and pelvis was then imaged in multiple different time frames up to 5 hours and 15 minutes post contrast administration. Throughout the entire examination, at least some contrast remained in a mildly dilated stomach. However, the remainder of the contrast passed through the small bowel and entered the colon by 5 hours and 15 minutes. This is on the upper limits of normal in time for small bowel transit. There are no dilated loops of small bowel throughout the examination. IMPRESSION: 1. No small bowel obstruction. The small bowel transit time was on the upper limits of normal at approximately 5 hours. 2. Throughout the entire exam, there was oral contrast material within the stomach. This could be due to gastroparesis. Consider nuclear medicine gastric imaging time for further evaluation if this is of clinical concern. ASSESSMENT Prosper Feliciano is a 51 year old male admitted from ED 12/22 with recurrent and intractable nausea/vomiting as well as abdominal pain all attributed to metastatic colon cancer for which has had progression on 5th line therapy. He had just been discharged after hospitalization 12/13-12/21 for similar presentation. Had small bowle follow-through study that admit that was negative for complete obstruction but did have low transit time. On this admit he had marked hypokalemia. PLAN * Nausea/Vomiting: Recurrent. Intractable. Metoclopramide scheduled. Scopolamine. Added dexamethasone scheduled 12/26. Ondansetron and promethazine PRN. If not improvement, consider adding olanzapine. 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 * MAGDY: Attributed to dehydration in the setting of history of urinary obstruction requiring bilateral ureteral stents. 1.49 on admit, fernanda to peak 2.10 12/24. IVF. Monitor trend. * Dehydration: IVF. * Hypokalemia: Attributed to vomiting. Improved with K supplement. Gave Mg 1 g IV 12/26. Monitor trends. * Anorexia, Unintentional Weight Loss: Multifactorial. Supportive care. Treat nausea/vomiting. Treat constipation. Studio Designer consult... recommended baking soda rinses and/or lemon juice rinses to help with dysgeusia. * Chronic Pain: Takes oxycodone at home. Gave IV hydromorphone while not tolerating PO well. NSAID deferred due to MAGDY. 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 * Metastatic Colon Cancer: No longer taking Lonsurf or Stivarga. CT 11/2016 as noted showing progression of metastatic disease over the preceding 3 months. [facility]ain [facility]. * F/E/N: NPO initially but advanced to regular as tolerated. IVF as above. PowerPort. I&O, daily weight. * Prophylaxis: SCDs. * Code Status: Full * Dispo: Inpatient. Still working on stabilizing his symptoms so he can try again to manage at home. Have discussed hospice at length but he does not feel ready for this service. CHRONIC ISSUES * HTN: Observe. No longer takes amlodipine, lisinopril. * Constipation: Improved since prior admit. Bowel regimen. MISSAEL MOSCOSO MD Dec 26, 2016 10:25
[2016-12-26] MEDS ORDERED: LORazepam 2 MG/ML (ATIVAN) 1 ML VIAL IV PRN (11:15)
[2016-12-26] MEDS: DEXAMETHASONE 4 MG/ML (DECADRON) VIAL IV SCH ×3 (11:19→23:48)
--- NOTE | 2016-12-26 11:25 | NUR ---
One time dose of Magnesium hung at this time. Pt denies other needs.
[2016-12-26] MEDS ORDERED: ONDANSETRON 2 MG/ML (Z0FRAN) 2 ML VIAL ONE (11:27)
--- NOTE | 2016-12-26 11:47 | NUR ---
PRN Zofran given at this time for c/o nausea. Denies other needs.
[2016-12-26] MEDS: METOCLOPRAMIDE 10 MG/2 ML (REGLAN) VIAL IV SCH ×2 (14:04→22:35)
[2016-12-26] MEDS: NS FLUSH 10 ML PRN IV (14:07)
--- NOTE | 2016-12-26 14:19 | NUR ---
MULTIDISCIPLINARY MTG/DR. MOSCOSO: Continue to try and find a regimen to control Pt. symptoms. Pt. was receiving Ativan but this has been stopped due to side affects. It is still available if needed. Pt. hypokalemia is improving. No discharge needs identified at this time.
--- NOTE | 2016-12-26 16:00 | NUR ---
PRN Phenergan given at this time for c/o nausea. Denies other needs.
--- NOTE | 2016-12-26 17:39 | NUR ---
PRN Zofran given at this time by Jennifer Byrd RN. Pt denies other needs.
[2016-12-26] MEDS ORDERED: OLANZAPINE 10 MG IM ONE (18:30)
--- NOTE | 2016-12-26 18:45 | NUR ---
Pt continues to c/o nausea this shift. Medications do not provide much relief. PRNs given when available. EtCO2 monitor intact. IVF infusing with no difficulty. Pt has vomited multiple times today, varying in size. Supportive cares given. Pt and family deny needs.
--- NOTE | 2016-12-26 20:50 | NUR ---
scopolamine patch removed.
[2016-12-27] VITALS (7 sets, daily range): BP systolic 125–146; BP diastolic 68–96
[2016-12-27] MEDS: ONDANSETRON 2 MG/ML (Z0FRAN) 2 ML VIAL IV PRN ×3 (01:09→16:38)
[2016-12-27] MEDS: PROMETHAZINE HCL INJ 25 MG in SODIUM CHLORIDE 25 ML IV PRN ×2 (04:28→22:54)
[2016-12-27] MEDS: METOCLOPRAMIDE 10 MG/2 ML (REGLAN) VIAL IV SCH ×3 (05:57→21:34)
[2016-12-27] MEDS: DEXAMETHASONE 4 MG/ML (DECADRON) VIAL IV SCH ×3 (05:57→18:03)
[2016-12-27 06:22] LABS: ALBUMIN 3.4 g/dL (3.4-5.0); ANION GAP 18.5 MEQ/L (3-15); MAGNESIUM* 1.7 mg/dL (1.6-2.3)
--- NOTE | 2016-12-27 06:32 | NUR ---
Pt cont to be nauseous this shift. PRN antiemetics given as ordered, along with scheduled meds. Dilaudid STRIPPING CUTTER AND WINDER is controlling pain. Pt confused; attempts to get up without help. Bed alarm set for safety.
[2016-12-27] MEDS: NS FLUSH 3 ML DAILY IV SCH (08:57)
[2016-12-27] MEDS: OLANZAPINE 10 MG PO SCH (09:26)
--- NOTE | 2016-12-27 10:28 | Progress Note (E) ---
Progress Note SUBJECTIVE Still having episodes of vomiting. Added olanzapine last night IM and had first PO dose this AM. Nauseated after but did not vomit. Cr continues to rise despite being on IVF. K 3.4. Met patient with Dr. Stover. No other recommendations for nausea beyond what we are doing. CAD pump could be of help but this will sedate him, most likely. Discussed hospice again and he feels OK now meeting with hospice. Will coordinate visit again with [facility] to determine if he wants to try to get home or if he needs inpatient hospice. OBJECTIVE Vital Signs Date Time Temp Pulse Resp B/P Pulse Ox O2 Delivery O2 Flow Rate FiO2 12/27/16 09:03 97.1 65 22 127/68 97 Room air 12/26/16 15:54 0.00 I & O 12/26/16 12/27/16 Cumulative From/Thru 19:00 07:00 12/22/16 19:50 - 12/27/16 06:04 Intake Total 2309 ml 1795 ml 23093 ml Output Total 2400 ml 3125 ml 91921 ml Balance -91 ml -1330 ml 3341 ml GEN: Tired appearing. Interactive, oriented. HEENT: EOMI, clear sclerae, dry oral mucosa, temporal wasting. CV: RRR S1 S2 normal with no murmur LUNGS: Diminished without R/R/W. ABD: Soft, mildly tender in lower quadrants. Non-distended. Hypoactive bowel sounds. EXTR: No C/C/E. Normal peripheral pulses. INTEG: No rash. Pallor. NEURO: No focal motor neuro deficit. Lab-Past 14 Days, 35 Results 12/22/16 20:30: Alanine Aminotransferase (ALT/SGPT) 63, Albumin 3.4, Albumin/Globulin Ratio 1.096L, Alkaline Phosphatase 160H, Amylase Level 42, Anion Gap 16.2H, Aspartate Amino Transf (AST/SGOT) 46H, BUN/Creatinine Ratio 13, Basophils # (Auto) 0.0, Basophils (%) (Auto) 0, Blood Urea Nitrogen 20H, Calcium Level 9.1, Calcium/ Ionized Calcium Ratio 4.2, Calculated Osmolality 272L, Carbon Dioxide Level 33H , Chloride Level 93L, Creatinine 1.49, Eosinophils # (Auto) 0.1, Eosinophils (% ) (Auto) 1, Estimat Glomerular Filtration Rate 60.2, Estimated GFR (Non- 49.7, Glucose Level 108, Hematocrit 27.00L, Hemoglobin 8.6L, Lipase 59 , Lymphocytes # (Auto) 0.9, Lymphocytes (%) (Auto) 12L, Mean Corpuscular Hemoglobin 28.3, Mean Corpuscular Hemoglobin Concent 31.9, Mean Corpuscular Volume 89, Mean Platelet Volume 9.9H, Monocytes # (Auto) 0.7, Monocytes (%) ( Auto) 10, Neutrophils # (Auto) 5.5, Neutrophils (%) (Auto) 77H, Platelet Count 278, Potassium Level 2.7#L, Red Blood Count 3.04L, Red Cell Distribution Width 15.8H, Smear Scan , Sodium Level 139, Total Bilirubin 0.8, Total Protein 6.5, White Blood Count 7.17 12/23/16 03:10: Potassium Level 3.2L 12/23/16 05:37: Anion Gap 15.3H, BUN/Creatinine Ratio 13, Basophils # (Auto) 0.0, Basophils (%) (Auto) 0, Blood Urea Nitrogen 20H, Calcium Level 8.6L, Carbon Dioxide Level 32H , Chloride Level 97L, Creatinine 1.58H, Eosinophils # (Auto) 0.1, Eosinophils (% ) (Auto) 2, Estimat Glomerular Filtration Rate 56.2, Estimated GFR (Non- 46.5, Glucose Level 100, Hematocrit 25.20L, Hemoglobin 8.1L, Lymphocytes # (Auto) 0.9, Lymphocytes (%) (Auto) 14L, Mean Corpuscular Hemoglobin 28.6, Mean Corpuscular Hemoglobin Concent 32.1, Mean Corpuscular Volume 89, Mean Platelet Volume 9.8H, Monocytes # (Auto) 0.7, Monocytes (%) ( Auto) 11, Neutrophils # (Auto) 4.4, Neutrophils (%) (Auto) 72H, Platelet Count 248, Potassium Level 2.9L, Red Blood Count 2.83L, Red Cell Distribution Width 16.0H, Smear Scan Yes, Sodium Level 141, White Blood Count 6.19, Magnesium Level 1.8 12/24/16 08:40: Anion Gap 13.5, BUN/Creatinine Ratio 11, Basophils # (Auto) 0.0, Basophils (%) ( Auto) 0, Blood Urea Nitrogen 24H, Calcium Level 8.6L, Carbon Dioxide Level 37H, Chloride Level 98, Creatinine 2.10H, Eosinophils # (Auto) 0.1, Eosinophils (%) ( Auto) 2, Estimat Glomerular Filtration Rate 40.5, Estimated GFR (Non- 33.5, Glucose Level 89, Hematocrit 25.30L, Hemoglobin 7.7L, Lymphocytes # (Auto) 0.7, Lymphocytes (%) (Auto) 13L, Mean Corpuscular Hemoglobin 28.2, Mean Corpuscular Hemoglobin Concent 30.4L, Mean Corpuscular Volume 93, Mean Platelet Volume 9.5, Monocytes # (Auto) 0.4, Monocytes (%) (Auto ) 8, Neutrophils # (Auto) 3.9, Neutrophils (%) (Auto) 76H, Platelet Count 254, Potassium Level 3.4L, Red Blood Count 2.73L, Red Cell Distribution Width 16.3H, Smear Scan Yes, Sodium Level 145, White Blood Count 5.06 12/25/16 05:23: Anion Gap 16.2H, BUN/Creatinine Ratio 12, Basophils # (Auto) 0.0, Basophils (%) (Auto) 0, Blood Urea Nitrogen 25H, Calcium Level 8.7L, Carbon Dioxide Level 39H , Chloride Level 96L, Creatinine 2.05H, Eosinophils # (Auto) 0.1, Eosinophils (% ) (Auto) 1, Estimat Glomerular Filtration Rate 41.6, Estimated GFR (Non- 34.4, Glucose Level 90, Hematocrit 26.10L, Hemoglobin 7.9L, Lymphocytes # (Auto) 0.9, Lymphocytes (%) (Auto) 13L, Mean Corpuscular Hemoglobin 28.3, Mean Corpuscular Hemoglobin Concent 30.3L, Mean Corpuscular Volume 94, Mean Platelet Volume 10.0H, Monocytes # (Auto) 0.6, Monocytes (%) ( Auto) 9, Neutrophils # (Auto) 5.3, Neutrophils (%) (Auto) 77H, Platelet Count 278, Potassium Level 3.5, Red Blood Count 2.79L, Red Cell Distribution Width 16.3H, Smear Scan Yes, Sodium Level 148, White Blood Count 6.98 12/26/16 05:30: Anion Gap , BUN/Creatinine Ratio 11, Basophils # (Auto) 0.0, Basophils (%) (Auto ) 0, Blood Urea Nitrogen 22H, Calcium Level 8.7L, Carbon Dioxide Level 44H, Chloride Level 95L, Creatinine 2.00H, Eosinophils # (Auto) 0.1, Eosinophils (%) (Auto) 1, Estimat Glomerular Filtration Rate 42.8, Estimated GFR (Non- 35.4, Glucose Level 125#H, Hematocrit 27.70L, Hemoglobin 8.4L, Lymphocytes # (Auto) 0.9, Lymphocytes (%) (Auto) 11L, Mean Corpuscular Hemoglobin 28.4, Mean Corpuscular Hemoglobin Concent 30.3L, Mean Corpuscular Volume 94, Mean Platelet Volume 10.0H, Monocytes # (Auto) 0.7, Monocytes (%) ( Auto) 9, Neutrophils # (Auto) 6.6, Neutrophils (%) (Auto) 79H, Platelet Count 309, Potassium Level 3.3L, Red Blood Count 2.96L, Red Cell Distribution Width 16.2H, Sodium Level 146, White Blood Count 8.30 12/27/16 05:50: Anion Gap 18.5H, Blood Urea Nitrogen 22H, Calcium Level 8.7L, Carbon Dioxide Level 39H, Chloride Level 89L, Creatinine 2.13H, Estimat Glomerular Filtration Rate 39.8, Estimated GFR (Non- 32.9, Glucose Level 135H, Potassium Level 3.4L, Sodium Level 143, Albumin 3.4, Magnesium Level 1.7, Phosphorus Level 5.7#H IMAGING 12/22/16 ACUTE ABD SERIES EXAMINATION: Abdominal radiographs, acute series. DATE : December 22, 2016. CLINICAL INDICATION: 51-year-old male, abdominal pain. COMPARISON: December 18, 2016. COMMENTS: There is contrast material within the stomach. There are bilateral ureteral stents. There are sutures overlying the right lower abdomen. There are right upper quadrant sutures. There are no abnormally distended gas-filled segments of bowel. There is no identified free intraperitoneal air, pneumatosis, or portal venous gas. There is no identified acute cardiopulmonary abnormality. Right-sided port catheter tip overlies the upper SVC. IMPRESSION: 1. No identified acute abdominal radiographic abnormality. REFERENCE 12/18/16 SMALL BOWEL STUDY INDICATION: Nausea and vomiting. EXAMINATION: Small bowel study. COMPARISON: Abdominal radiograph of 12/15/16. FINDINGS: Space Systems Operations Craftsman radiograph demonstrated bilateral nephroureteral stents in place. Oral contrast was administered. This promptly distended the stomach. The abdomen and pelvis was then imaged in multiple different time frames up to 5 hours and 15 minutes post contrast administration. Throughout the entire examination, at least some contrast remained in a mildly dilated stomach. However, the remainder of the contrast passed through the small bowel and entered the colon by 5 hours and 15 minutes. This is on the upper limits of normal in time for small bowel transit. There are no dilated loops of small bowel throughout the examination. IMPRESSION: 1. No small bowel obstruction. The small bowel transit time was on the upper limits of normal at approximately 5 hours. 2. Throughout the entire exam, there was oral contrast material within the stomach. This could be due to gastroparesis. Consider nuclear medicine gastric imaging time for further evaluation if this is of clinical concern. ASSESSMENT Prosper Feliciano is a 51 year old male admitted from ED 12/22 with recurrent and intractable nausea/vomiting as well as abdominal pain all attributed to metastatic colon cancer for which has had progression on 5th line therapy. He had just been discharged after hospitalization 12/13-12/21 for similar presentation. Had small bowle follow-through study that admit that was negative for complete obstruction but did have low transit time. On this admit he had marked hypokalemia. PLAN * Nausea/Vomiting: Recurrent. Intractable. Metoclopramide scheduled. Scopolamine , but removed 12/26 in case of adverse reaction. Added dexamethasone scheduled 12/26. Ondansetron and promethazine PRN. Added olanzapine 12/27. 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 * MAGDY: Worsening. Attributed to dehydration in the setting of history of urinary obstruction requiring bilateral ureteral stents. 1.49 on admit, fernanda to peak 2.13 12/27. IVF. * Dehydration: IVF. * Hypokalemia: Improved. Attributed to vomiting. Improved with K supplement. Gave Mg 1 g IV 12/26. Monitor trends. * Anorexia, Unintentional Weight Loss: Multifactorial. Tried to address on prior admit but not expected to improve. * Metastatic Colon Cancer: No longer taking Lonsurf or Stivarga. CT 11/2016 as noted showing progression of metastatic disease over the preceding 3 months. Discussed with oncologist who endorsed hospice. * F/E/N: NPO initially but advanced to regular as tolerated. IVF as above. PowerPort. I&O, daily weight. * Prophylaxis: SCDs. * Code Status: Full * Dispo: Inpatient. Re-consult hospice. Meet to determine if he wants to try home hospice or if he needs/meets inpatient hospice. CHRONIC ISSUES * HTN: Observe. No longer takes amlodipine, lisinopril. * Constipation: Improved since prior admit. Bowel regimen. MISSAEL MOSCOSO MD Dec 27, 2016 10:28
--- NOTE | 2016-12-27 14:00 | NUR ---
Patient and his are visiting with Flory from [facility] about goals for the next week.
[2016-12-27] MEDS ORDERED: TPN IV SCH ×10 (14:17→16:00)
--- NOTE | 2016-12-27 16:34 | NUR ---
Flory with [facility] visited with Pt. and . Pt. would like to go to his daughter's basketball games in [place] this weekend. Will continue to work on controlling Pt. nausea and vomiting and start TPN. Hospice will admit Pt. to their service Monday morning.
[2016-12-27] MEDS: [UNRECOGNIZED DRUG - NUTRITION] XX SCH (18:04)
[2016-12-27] MEDS: 1/2 NS W/KCL 20 MEQ/L 1,000 ML IV SCH (18:04)
--- NOTE | 2016-12-27 19:30 | NUR ---
Patient, family, and staff have worked together to create a balance between nausea and level of sedation. He has had several good visits including laughing and planning for children's activities today. He continues to vomit liquids even after taking only small drinks and does better without any oral intake.
[2016-12-28] MEDS: DEXAMETHASONE 4 MG/ML (DECADRON) VIAL IV SCH ×2 (00:01→05:47)
[2016-12-28] MEDS: NS FLUSH 10 ML PRN IV ×2 (00:02→21:11)
[2016-12-28] MEDS: ONDANSETRON 2 MG/ML (Z0FRAN) 2 ML VIAL IV PRN ×3 (01:51→17:59)
[2016-12-28] MEDS: 1/2 NS W/KCL 20 MEQ/L 1,000 ML IV SCH ×3 (04:06→18:45)
[2016-12-28] MEDS: PROMETHAZINE HCL INJ 25 MG in SODIUM CHLORIDE 25 ML IV PRN ×2 (04:26→20:21)
[2016-12-28] MEDS: METOCLOPRAMIDE 10 MG/2 ML (REGLAN) VIAL IV SCH ×3 (05:47→21:10)
[2016-12-28 05:54] VITALS: BP 142/93
[2016-12-28 06:52] LABS: ALBUMIN 3.1 g/dL (3.4-5.0); ANION GAP 12.1 MEQ/L (3-15); MAGNESIUM* 1.7 mg/dL (1.6-2.3)
--- NOTE | 2016-12-28 07:00 | NUR ---
Sleeping. Resp. even and unlabored.
[2016-12-28 07:46] VITALS: BP 145/95
--- NOTE | 2016-12-28 08:30 | NUR ---
Patient and sleeping. No non-verbal indication of pain.
[2016-12-28] MEDS: NS FLUSH 3 ML DAILY IV SCH (09:00)
[2016-12-28] MEDS: OLANZAPINE 10 MG PO SCH (09:30)
--- NOTE | 2016-12-28 10:30 | NUR ---
Patient had one large episode of emesis after attempting to take a few sips of liquids with his breakfast tray. He typically vomits within minutes of attempting any oral intake.
[2016-12-28] MEDS: HYDROmorphone PCA 30 MG/30 ML (DILAUDID) VIAL IV PRN (11:04)
--- NOTE | 2016-12-28 11:11 | Progress Note (E) ---
Progress Note SUBJECTIVE Nausea not improving. He's not able to keep anything down, food or fluid. Offered NG again but he feels that will make things worse. Now on TPN. Tolerating this OK. Encouraged use of lorazepam which is the only remaining tool available to him. He has avoided this because of the sedative effect but agrees to use it today to get some rest. OBJECTIVE Vital Signs Date Time Temp Pulse Resp B/P Pulse Ox O2 Delivery O2 Flow Rate FiO2 12/28/16 07:46 97.7 73 16 145/95 96 Room air 12/26/16 15:54 0.00 I & O 12/27/16 12/28/16 Cumulative From/Thru 19:00 07:00 12/22/16 19:50 - 12/28/16 05:55 Intake Total 119 ml 1415 ml 84283 ml Output Total 100 ml 17076 ml Balance 19 ml 1415 ml 4775 ml GEN: Tired appearing. Tearful. HEENT: EOMI, clear sclerae, dry oral mucosa, temporal wasting. CV: RRR S1 S2 normal with no murmur LUNGS: Diminished without R/R/W. ABD: Soft, mildly tender in lower quadrants. Non-distended. Hypoactive bowel sounds. EXTR: No C/C/E. Normal peripheral pulses. INTEG: No rash. Pallor. NEURO: No focal motor neuro deficit. Lab-Past 14 Days, 35 Results 12/22/16 20:30: Alanine Aminotransferase (ALT/SGPT) 63, Albumin 3.4, Albumin/Globulin Ratio 1.096L, Alkaline Phosphatase 160H, Amylase Level 42, Anion Gap 16.2H, Aspartate Amino Transf (AST/SGOT) 46H, BUN/Creatinine Ratio 13, Basophils # (Auto) 0.0, Basophils (%) (Auto) 0, Blood Urea Nitrogen 20H, Calcium Level 9.1, Calcium/ Ionized Calcium Ratio 4.2, Calculated Osmolality 272L, Carbon Dioxide Level 33H , Chloride Level 93L, Creatinine 1.49, Eosinophils # (Auto) 0.1, Eosinophils (% ) (Auto) 1, Estimat Glomerular Filtration Rate 60.2, Estimated GFR (Non- 49.7, Glucose Level 108, Hematocrit 27.00L, Hemoglobin 8.6L, Lipase 59 , Lymphocytes # (Auto) 0.9, Lymphocytes (%) (Auto) 12L, Mean Corpuscular Hemoglobin 28.3, Mean Corpuscular Hemoglobin Concent 31.9, Mean Corpuscular Volume 89, Mean Platelet Volume 9.9H, Monocytes # (Auto) 0.7, Monocytes (%) ( Auto) 10, Neutrophils # (Auto) 5.5, Neutrophils (%) (Auto) 77H, Platelet Count 278, Potassium Level 2.7#L, Red Blood Count 3.04L, Red Cell Distribution Width 15.8H, Smear Scan , Sodium Level 139, Total Bilirubin 0.8, Total Protein 6.5, White Blood Count 7.17 12/23/16 03:10: Potassium Level 3.2L 12/23/16 05:37: Anion Gap 15.3H, BUN/Creatinine Ratio 13, Basophils # (Auto) 0.0, Basophils (%) (Auto) 0, Blood Urea Nitrogen 20H, Calcium Level 8.6L, Carbon Dioxide Level 32H , Chloride Level 97L, Creatinine 1.58H, Eosinophils # (Auto) 0.1, Eosinophils (% ) (Auto) 2, Estimat Glomerular Filtration Rate 56.2, Estimated GFR (Non- 46.5, Glucose Level 100, Hematocrit 25.20L, Hemoglobin 8.1L, Lymphocytes # (Auto) 0.9, Lymphocytes (%) (Auto) 14L, Mean Corpuscular Hemoglobin 28.6, Mean Corpuscular Hemoglobin Concent 32.1, Mean Corpuscular Volume 89, Mean Platelet Volume 9.8H, Monocytes # (Auto) 0.7, Monocytes (%) ( Auto) 11, Neutrophils # (Auto) 4.4, Neutrophils (%) (Auto) 72H, Platelet Count 248, Potassium Level 2.9L, Red Blood Count 2.83L, Red Cell Distribution Width 16.0H, Smear Scan Yes, Sodium Level 141, White Blood Count 6.19, Magnesium Level 1.8 12/24/16 08:40: Anion Gap 13.5, BUN/Creatinine Ratio 11, Basophils # (Auto) 0.0, Basophils (%) ( Auto) 0, Blood Urea Nitrogen 24H, Calcium Level 8.6L, Carbon Dioxide Level 37H, Chloride Level 98, Creatinine 2.10H, Eosinophils # (Auto) 0.1, Eosinophils (%) ( Auto) 2, Estimat Glomerular Filtration Rate 40.5, Estimated GFR (Non- 33.5, Glucose Level 89, Hematocrit 25.30L, Hemoglobin 7.7L, Lymphocytes # (Auto) 0.7, Lymphocytes (%) (Auto) 13L, Mean Corpuscular Hemoglobin 28.2, Mean Corpuscular Hemoglobin Concent 30.4L, Mean Corpuscular Volume 93, Mean Platelet Volume 9.5, Monocytes # (Auto) 0.4, Monocytes (%) (Auto ) 8, Neutrophils # (Auto) 3.9, Neutrophils (%) (Auto) 76H, Platelet Count 254, Potassium Level 3.4L, Red Blood Count 2.73L, Red Cell Distribution Width 16.3H, Smear Scan Yes, Sodium Level 145, White Blood Count 5.06 12/25/16 05:23: Anion Gap 16.2H, BUN/Creatinine Ratio 12, Basophils # (Auto) 0.0, Basophils (%) (Auto) 0, Blood Urea Nitrogen 25H, Calcium Level 8.7L, Carbon Dioxide Level 39H , Chloride Level 96L, Creatinine 2.05H, Eosinophils # (Auto) 0.1, Eosinophils (% ) (Auto) 1, Estimat Glomerular Filtration Rate 41.6, Estimated GFR (Non- 34.4, Glucose Level 90, Hematocrit 26.10L, Hemoglobin 7.9L, Lymphocytes # (Auto) 0.9, Lymphocytes (%) (Auto) 13L, Mean Corpuscular Hemoglobin 28.3, Mean Corpuscular Hemoglobin Concent 30.3L, Mean Corpuscular Volume 94, Mean Platelet Volume 10.0H, Monocytes # (Auto) 0.6, Monocytes (%) ( Auto) 9, Neutrophils # (Auto) 5.3, Neutrophils (%) (Auto) 77H, Platelet Count 278, Potassium Level 3.5, Red Blood Count 2.79L, Red Cell Distribution Width 16.3H, Smear Scan Yes, Sodium Level 148, White Blood Count 6.98 12/26/16 05:30: Anion Gap , BUN/Creatinine Ratio 11, Basophils # (Auto) 0.0, Basophils (%) (Auto ) 0, Blood Urea Nitrogen 22H, Calcium Level 8.7L, Carbon Dioxide Level 44H, Chloride Level 95L, Creatinine 2.00H, Eosinophils # (Auto) 0.1, Eosinophils (%) (Auto) 1, Estimat Glomerular Filtration Rate 42.8, Estimated GFR (Non- 35.4, Glucose Level 125#H, Hematocrit 27.70L, Hemoglobin 8.4L, Lymphocytes # (Auto) 0.9, Lymphocytes (%) (Auto) 11L, Mean Corpuscular Hemoglobin 28.4, Mean Corpuscular Hemoglobin Concent 30.3L, Mean Corpuscular Volume 94, Mean Platelet Volume 10.0H, Monocytes # (Auto) 0.7, Monocytes (%) ( Auto) 9, Neutrophils # (Auto) 6.6, Neutrophils (%) (Auto) 79H, Platelet Count 309, Potassium Level 3.3L, Red Blood Count 2.96L, Red Cell Distribution Width 16.2H, Sodium Level 146, White Blood Count 8.30 12/27/16 05:50: Anion Gap 18.5H, Blood Urea Nitrogen 22H, Calcium Level 8.7L, Carbon Dioxide Level 39H, Chloride Level 89L, Creatinine 2.13H, Estimat Glomerular Filtration Rate 39.8, Estimated GFR (Non- 32.9, Glucose Level 135H, Potassium Level 3.4L, Sodium Level 143, Albumin 3.4, Magnesium Level 1.7, Phosphorus Level 5.7#H 12/28/16 05:45: Anion Gap 12.1, Blood Urea Nitrogen 25H, Calcium Level 8.6L, Carbon Dioxide Level 39H, Chloride Level 90L, Creatinine 1.95H, Estimat Glomerular Filtration Rate 44.1, Estimated GFR (Non- 36.5, Glucose Level 124H, Potassium Level 3.4L, Sodium Level 138, Albumin 3.1L, Magnesium Level 1.7, Phosphorus Level 5.0H IMAGING 12/22/16 ACUTE ABD SERIES EXAMINATION: Abdominal radiographs, acute series. DATE : December 22, 2016. CLINICAL INDICATION: 51-year-old male, abdominal pain. COMPARISON: December 18, 2016. COMMENTS: There is contrast material within the stomach. There are bilateral ureteral stents. There are sutures overlying the right lower abdomen. There are right upper quadrant sutures. There are no abnormally distended gas-filled segments of bowel. There is no identified free intraperitoneal air, pneumatosis, or portal venous gas. There is no identified acute cardiopulmonary abnormality. Right-sided port catheter tip overlies the upper SVC. IMPRESSION: 1. No identified acute abdominal radiographic abnormality. REFERENCE 12/18/16 SMALL BOWEL STUDY INDICATION: Nausea and vomiting. EXAMINATION: Small bowel study. COMPARISON: Abdominal radiograph of 12/15/16. FINDINGS: Garnishment Specialist radiograph demonstrated bilateral nephroureteral stents in place. Oral contrast was administered. This promptly distended the stomach. The abdomen and pelvis was then imaged in multiple different time frames up to 5 hours and 15 minutes post contrast administration. Throughout the entire examination, at least some contrast remained in a mildly dilated stomach. However, the remainder of the contrast passed through the small bowel and entered the colon by 5 hours and 15 minutes. This is on the upper limits of normal in time for small bowel transit. There are no dilated loops of small bowel throughout the examination. IMPRESSION: 1. No small bowel obstruction. The small bowel transit time was on the upper limits of normal at approximately 5 hours. 2. Throughout the entire exam, there was oral contrast material within the stomach. This could be due to gastroparesis. Consider nuclear medicine gastric imaging time for further evaluation if this is of clinical concern. ASSESSMENT Prosper Feliciano is a 51 year old male admitted from ED 12/22 with recurrent and intractable nausea/vomiting as well as abdominal pain all attributed to metastatic colon cancer for which has had progression on 5th line therapy. He had just been discharged after hospitalization 12/13-12/21 for similar presentation. Had small bowle follow-through study that admit that was negative for complete obstruction but did have low transit time. On this admit he had marked hypokalemia. PLAN * Nausea/Vomiting: Recurrent. Intractable. Metoclopramide scheduled. Scopolamine , but removed 12/26 in case of adverse reaction. Added dexamethasone scheduled 12/26. Ondansetron and promethazine PRN. Added olanzapine 12/27 without much benefit. Encouraged use of lorazepam which he had been avoiding because of sedation. 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 * MAGDY: Stable. Attributed to dehydration in the setting of history of urinary obstruction requiring bilateral ureteral stents. 1.49 on admit, fernanda to peak 2.13 12/27. IVF. * Dehydration: IVF. * Hypokalemia: Improved. Attributed to vomiting. Improved with K supplement. Gave Mg 1 g IV 12/26. Monitor trends. * Anorexia, Unintentional Weight Loss: Multifactorial. Tried to address on prior admit but not expected to improve. TPN in an effort to temporize the situation. * Metastatic Colon Cancer: No longer taking Lonsurf or Stivarga. CT 11/2016 as noted showing progression of metastatic disease over the preceding 3 months. Discussed with oncologist who endorsed hospice. * F/E/N: NPO initially but advanced to regular as tolerated. IVF as above. PowerPort. I&O, daily weight. * Prophylaxis: SCDs. * Code Status: Full * Dispo: Inpatient. Re-consulted hospice. His goal is to get stable enough to travel to [place] this weekend to see his daughter play basketball. Worried that his symptoms are not stable enough for travel but will continue to try. TPN is a temporizing agent but not likely to help. Will enroll in hospice at discharge Monday or if he further declines. CHRONIC ISSUES * HTN: Observe. No longer takes amlodipine, lisinopril. * Constipation: Improved since prior admit. Bowel regimen. MISSAEL MOSCOSO MD Dec 28, 2016 11:11
[2016-12-28] MEDS ORDERED: LORazepam 2 MG/ML (ATIVAN) 1 ML VIAL IV PRN (11:15)
--- NOTE | 2016-12-28 12:08 | NUR ---
Nutrition Follow Up: Intake remains poor, at 0-25%, due to intractable vomiting. Pt. tries to eat at times, but vomits most of what he takes. Noted delayed gastric emptying time, so Metoclopramide was scheduled to hopefully help combat intractable n/v. His hypokalemia is attributed to vomiting. TPN was started yesterday due to inability to take adequate p.o. nutrition and to hopefully help him have the strength to make an anticipated trip to [place] this weekend. It appears as though he will go on Hospice later this week. Weight today: N/A Labs: potassium 3.4, glucose 124, phosphorus 5.0, magnesium 1.7 1. Noted TPN was started last night at 25 ml/hr. Patient is at high risk for refeeding syndrome due to malnutrition and length of time he has had inadequate intake; agree with starting low-volume and slowly advance. Recommend final rate of TPN to be 80 ml/hr. to provide 1,958 kcals and 83 g. protein. 2. Discussed with RN about holding all meal trays since pt. is not tolerating p.o. intake at all. She agreed that it would be helpful; I changed his diet order to NPO with the comment that dietary may send food at nursing or patients request.
[2016-12-28 16:00] VITALS: BP 123/90
[2016-12-28] MEDS ORDERED: TPN IV SCH ×9 (16:00)
[2016-12-28] MEDS: diphenhydrAMINE 50 MG/ML INJ (BENADRYL) IV SCH (17:59)
[2016-12-28] MEDS: DEXAMETHASONE 10 MG/ML (DECADRON) VIAL IV SCH (17:59)
[2016-12-28] MEDS ORDERED: HOME MEDICATION PO SCH (19:05)
--- NOTE | 2016-12-28 19:30 | NUR ---
After a very emotional morning, the patient was able to sleep a few hours in the early afternoon. The last 4 to 5 hours of the shift, he has been awake and able to visit with multiple family members. He has smiled and joked with family. No further episodes of vomiting this afternoon but no oral intake was initiated.
[2016-12-28 20:52] VITALS: BP 118/82
[2016-12-29] VITALS (9 sets, daily range): BP systolic 119–1398; BP diastolic 86–106
[2016-12-29] MEDS: DEXAMETHASONE 10 MG/ML (DECADRON) VIAL IV SCH ×4 (00:15→18:34)
[2016-12-29] MEDS: ONDANSETRON 2 MG/ML (Z0FRAN) 2 ML VIAL IV PRN ×3 (00:15→16:52)
[2016-12-29] MEDS: diphenhydrAMINE 50 MG/ML INJ (BENADRYL) IV SCH ×4 (00:15→18:37)
[2016-12-29] MEDS: PROMETHAZINE HCL INJ 25 MG in SODIUM CHLORIDE 25 ML IV PRN ×2 (04:02→09:23)
--- NOTE | 2016-12-29 04:05 | NUR ---
Pt. has had a long interval of rest; woke up feeling nauseated; Phenergan IV given. Pain controlled by EMOTIONAL DISABILITIES TEACHER. at bedside.
[2016-12-29] MEDS: METOCLOPRAMIDE 10 MG/2 ML (REGLAN) VIAL IV SCH ×3 (05:02→22:12)
[2016-12-29] MEDS: NS FLUSH 10 ML PRN IV ×6 (05:02→22:12)
--- NOTE | 2016-12-29 05:05 | NUR ---
Scheduled Reglan given at this time; slight nausea still present following Phenergan.
--- NOTE | 2016-12-29 06:20 | NUR ---
Dilaudid PROJECT MANAGER/DESIGN MANAGER cleared for shift: 5.5 mg used.
[2016-12-29 06:41] LABS: ANION GAP 11.4 MEQ/L (3-15)
--- NOTE | 2016-12-29 07:00 | NUR ---
Zofran 8 mg IV given for nausea. Pt. has had zero emesis this past shift.
[2016-12-29] MEDS ORDERED: FAT EMULSIONS 250 ML IV SCH (09:00)
[2016-12-29] MEDS: NS FLUSH 3 ML DAILY IV SCH (09:00)
[2016-12-29] MEDS: OLANZAPINE 10 MG PO SCH (09:00)
--- NOTE | 2016-12-29 09:30 | NUR ---
Pt resting in bed at this time. Skin warm, dry, intact. Resprs nonlabored, even on RA. RETURNS SUPERVISOR, IVF, and TPN infusing into R port with no difficulty. States pain is "okay". PRN Phenergan given at this time per pt request for c/o nausea. Will continue to monitor. Denies other needs.
[2016-12-29] MEDS ORDERED: DRONABINOL 10 MG CAPSULE PO SCH (10:32)
--- NOTE | 2016-12-29 13:23 | NUR ---
Pt sitting on bed, leaning over small trash can. RUSLAN Reglan given. Pt requests to hold Dronabinol until nausea subsides. Will continue to monitor.
[2016-12-29] MEDS: DRONABINOL 10 MG CAPSULE PO SCH ×2 (14:31→21:50)
[2016-12-29] MEDS ORDERED: [UNRECOGNIZED DRUG - OTHER] IV SCH ×7 (16:00)
[2016-12-29] MEDS ORDERED: TPN IV SCH ×7 (16:00)
[2016-12-29] MEDS: TPN IV SCH ×7 (16:41)
[2016-12-29] MEDS: [UNRECOGNIZED DRUG - OTHER] IV SCH ×7 (16:41)
[2016-12-29] MEDS: 1/2 NS W/KCL 20 MEQ/L 1,000 ML IV SCH (16:51)
--- NOTE | 2016-12-29 16:52 | NUR ---
PRN Zofran given at this time for c/o nausea. Pt denies other needs.
--- NOTE | 2016-12-29 17:30 | NUR ---
Pt requests to have Dilaudid SADDLE MAKER dose increased as pain is uncontrolled. Bloustine aware, verbal order to give 1mg bolus, start continuous dose 0.5mg/hr, with SADDLE MAKER dose of 0.5mg every 10 mins with a 4 hour lock out of 9mg. Informed pt we would have to initiate etCO2 monitor d/t continuous dose. Pt complies.
--- NOTE | 2016-12-29 18:02 | NUR ---
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 EtCO2 32, HR 86, RR 13, O2sat. 97%. Pt. still on room air at this time.
--- NOTE | 2016-12-29 18:22 | Progress Note (E) ---
Progress Note SUBJECTIVE Still nauseated. TPN tolerated. Has not tried to eat or drink much because of nausea. Having worse abdominal pain today. 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 He acknowledges he is not well enough to go to [place] this weekend. Long conversation regarding plan of care. Plan to have him stay through weekend with TPN and current pain and nausea regimen. Encourage use of lorazepam especially at night to help with sleep. If not improvement by Monday, not likely to improve further. OBJECTIVE Vital Signs Date Time Temp Pulse Resp B/P Pulse Ox O2 Delivery O2 Flow Rate FiO2 12/29/16 17:01 76 16 99 Room air 12/29/16 16:11 98.0 149/100 12/26/16 15:54 0.00 I & O 12/28/16 12/29/16 Cumulative From/Thru 19:00 07:00 12/22/16 19:50 - 12/29/16 06:15 Intake Total 1826 ml 1902 ml 31543 ml Output Total 500 ml 700 ml 84546 ml Balance 1326 ml 1202 ml 7303 ml GEN: Tired appearing. Interactive, oriented. Belching. HEENT: EOMI, clear sclerae, dry oral mucosa, temporal wasting. CV: RRR S1 S2 normal with no murmur LUNGS: Diminished without R/R/W. ABD: Soft, mildly tender in lower quadrants. Non-distended. Hypoactive bowel sounds. EXTR: No C/C/E. Normal peripheral pulses. INTEG: No rash. Pallor. NEURO: No focal motor neuro deficit. Lab-Past 14 Days, 35 Results 12/22/16 20:30: Alanine Aminotransferase (ALT/SGPT) 63, Albumin 3.4, Albumin/Globulin Ratio 1.096L, Alkaline Phosphatase 160H, Amylase Level 42, Anion Gap 16.2H, Aspartate Amino Transf (AST/SGOT) 46H, BUN/Creatinine Ratio 13, Basophils # (Auto) 0.0, Basophils (%) (Auto) 0, Blood Urea Nitrogen 20H, Calcium Level 9.1, Calcium/ Ionized Calcium Ratio 4.2, Calculated Osmolality 272L, Carbon Dioxide Level 33H , Chloride Level 93L, Creatinine 1.49, Eosinophils # (Auto) 0.1, Eosinophils (% ) (Auto) 1, Estimat Glomerular Filtration Rate 60.2, Estimated GFR (Non- 49.7, Glucose Level 108, Hematocrit 27.00L, Hemoglobin 8.6L, Lipase 59 , Lymphocytes # (Auto) 0.9, Lymphocytes (%) (Auto) 12L, Mean Corpuscular Hemoglobin 28.3, Mean Corpuscular Hemoglobin Concent 31.9, Mean Corpuscular Volume 89, Mean Platelet Volume 9.9H, Monocytes # (Auto) 0.7, Monocytes (%) ( Auto) 10, Neutrophils # (Auto) 5.5, Neutrophils (%) (Auto) 77H, Platelet Count 278, Potassium Level 2.7#L, Red Blood Count 3.04L, Red Cell Distribution Width 15.8H, Smear Scan , Sodium Level 139, Total Bilirubin 0.8, Total Protein 6.5, White Blood Count 7.17 12/23/16 03:10: Potassium Level 3.2L 12/23/16 05:37: Anion Gap 15.3H, BUN/Creatinine Ratio 13, Basophils # (Auto) 0.0, Basophils (%) (Auto) 0, Blood Urea Nitrogen 20H, Calcium Level 8.6L, Carbon Dioxide Level 32H , Chloride Level 97L, Creatinine 1.58H, Eosinophils # (Auto) 0.1, Eosinophils (% ) (Auto) 2, Estimat Glomerular Filtration Rate 56.2, Estimated GFR (Non- 46.5, Glucose Level 100, Hematocrit 25.20L, Hemoglobin 8.1L, Lymphocytes # (Auto) 0.9, Lymphocytes (%) (Auto) 14L, Mean Corpuscular Hemoglobin 28.6, Mean Corpuscular Hemoglobin Concent 32.1, Mean Corpuscular Volume 89, Mean Platelet Volume 9.8H, Monocytes # (Auto) 0.7, Monocytes (%) ( Auto) 11, Neutrophils # (Auto) 4.4, Neutrophils (%) (Auto) 72H, Platelet Count 248, Potassium Level 2.9L, Red Blood Count 2.83L, Red Cell Distribution Width 16.0H, Smear Scan Yes, Sodium Level 141, White Blood Count 6.19, Magnesium Level 1.8 12/24/16 08:40: Anion Gap 13.5, BUN/Creatinine Ratio 11, Basophils # (Auto) 0.0, Basophils (%) ( Auto) 0, Blood Urea Nitrogen 24H, Calcium Level 8.6L, Carbon Dioxide Level 37H, Chloride Level 98, Creatinine 2.10H, Eosinophils # (Auto) 0.1, Eosinophils (%) ( Auto) 2, Estimat Glomerular Filtration Rate 40.5, Estimated GFR (Non- 33.5, Glucose Level 89, Hematocrit 25.30L, Hemoglobin 7.7L, Lymphocytes # (Auto) 0.7, Lymphocytes (%) (Auto) 13L, Mean Corpuscular Hemoglobin 28.2, Mean Corpuscular Hemoglobin Concent 30.4L, Mean Corpuscular Volume 93, Mean Platelet Volume 9.5, Monocytes # (Auto) 0.4, Monocytes (%) (Auto ) 8, Neutrophils # (Auto) 3.9, Neutrophils (%) (Auto) 76H, Platelet Count 254, Potassium Level 3.4L, Red Blood Count 2.73L, Red Cell Distribution Width 16.3H, Smear Scan Yes, Sodium Level 145, White Blood Count 5.06 12/25/16 05:23: Anion Gap 16.2H, BUN/Creatinine Ratio 12, Basophils # (Auto) 0.0, Basophils (%) (Auto) 0, Blood Urea Nitrogen 25H, Calcium Level 8.7L, Carbon Dioxide Level 39H , Chloride Level 96L, Creatinine 2.05H, Eosinophils # (Auto) 0.1, Eosinophils (% ) (Auto) 1, Estimat Glomerular Filtration Rate 41.6, Estimated GFR (Non- 34.4, Glucose Level 90, Hematocrit 26.10L, Hemoglobin 7.9L, Lymphocytes # (Auto) 0.9, Lymphocytes (%) (Auto) 13L, Mean Corpuscular Hemoglobin 28.3, Mean Corpuscular Hemoglobin Concent 30.3L, Mean Corpuscular Volume 94, Mean Platelet Volume 10.0H, Monocytes # (Auto) 0.6, Monocytes (%) ( Auto) 9, Neutrophils # (Auto) 5.3, Neutrophils (%) (Auto) 77H, Platelet Count 278, Potassium Level 3.5, Red Blood Count 2.79L, Red Cell Distribution Width 16.3H, Smear Scan Yes, Sodium Level 148, White Blood Count 6.98 12/26/16 05:30: Anion Gap , BUN/Creatinine Ratio 11, Basophils # (Auto) 0.0, Basophils (%) (Auto ) 0, Blood Urea Nitrogen 22H, Calcium Level 8.7L, Carbon Dioxide Level 44H, Chloride Level 95L, Creatinine 2.00H, Eosinophils # (Auto) 0.1, Eosinophils (%) (Auto) 1, Estimat Glomerular Filtration Rate 42.8, Estimated GFR (Non- 35.4, Glucose Level 125#H, Hematocrit 27.70L, Hemoglobin 8.4L, Lymphocytes # (Auto) 0.9, Lymphocytes (%) (Auto) 11L, Mean Corpuscular Hemoglobin 28.4, Mean Corpuscular Hemoglobin Concent 30.3L, Mean Corpuscular Volume 94, Mean Platelet Volume 10.0H, Monocytes # (Auto) 0.7, Monocytes (%) ( Auto) 9, Neutrophils # (Auto) 6.6, Neutrophils (%) (Auto) 79H, Platelet Count 309, Potassium Level 3.3L, Red Blood Count 2.96L, Red Cell Distribution Width 16.2H, Sodium Level 146, White Blood Count 8.30 12/27/16 05:50: Anion Gap 18.5H, Blood Urea Nitrogen 22H, Calcium Level 8.7L, Carbon Dioxide Level 39H, Chloride Level 89L, Creatinine 2.13H, Estimat Glomerular Filtration Rate 39.8, Estimated GFR (Non- 32.9, Glucose Level 135H, Potassium Level 3.4L, Sodium Level 143, Albumin 3.4, Magnesium Level 1.7, Phosphorus Level 5.7#H 12/28/16 05:45: Anion Gap 12.1, Blood Urea Nitrogen 25H, Calcium Level 8.6L, Carbon Dioxide Level 39H, Chloride Level 90L, Creatinine 1.95H, Estimat Glomerular Filtration Rate 44.1, Estimated GFR (Non- 36.5, Glucose Level 124H, Potassium Level 3.4L, Sodium Level 138, Albumin 3.1L, Magnesium Level 1.7, Phosphorus Level 5.0H 12/29/16 06:00: Albumin 3.0L, Anion Gap 11.4, Blood Urea Nitrogen 28H, Calcium Level 8.9, Carbon Dioxide Level 36H, Chloride Level 93L, Creatinine 1.48, Estimat Glomerular Filtration Rate 60.6, Estimated GFR (Non- 50.1, Glucose Level 147H, Phosphorus Level 4.4, Potassium Level 3.9, Sodium Level 136 IMAGING 12/22/16 ACUTE ABD SERIES EXAMINATION: Abdominal radiographs, acute series. DATE : December 22, 2016. CLINICAL INDICATION: 51-year-old male, abdominal pain. COMPARISON: December 18, 2016. COMMENTS: There is contrast material within the stomach. There are bilateral ureteral stents. There are sutures overlying the right lower abdomen. There are right upper quadrant sutures. There are no abnormally distended gas-filled segments of bowel. There is no identified free intraperitoneal air, pneumatosis, or portal venous gas. There is no identified acute cardiopulmonary abnormality. Right-sided port catheter tip overlies the upper SVC. IMPRESSION: 1. No identified acute abdominal radiographic abnormality. REFERENCE 12/18/16 SMALL BOWEL STUDY INDICATION: Nausea and vomiting. EXAMINATION: Small bowel study. COMPARISON: Abdominal radiograph of 12/15/16. FINDINGS: Industrial Relations Director radiograph demonstrated bilateral nephroureteral stents in place. Oral contrast was administered. This promptly distended the stomach. The abdomen and pelvis was then imaged in multiple different time frames up to 5 hours and 15 minutes post contrast administration. Throughout the entire examination, at least some contrast remained in a mildly dilated stomach. However, the remainder of the contrast passed through the small bowel and entered the colon by 5 hours and 15 minutes. This is on the upper limits of normal in time for small bowel transit. There are no dilated loops of small bowel throughout the examination. IMPRESSION: 1. No small bowel obstruction. The small bowel transit time was on the upper limits of normal at approximately 5 hours. 2. Throughout the entire exam, there was oral contrast material within the stomach. This could be due to gastroparesis. Consider nuclear medicine gastric imaging time for further evaluation if this is of clinical concern. ASSESSMENT Prosper Feliciano is a 51 year old male admitted from ED 12/22 with recurrent and intractable nausea/vomiting as well as abdominal pain all attributed to metastatic colon cancer for which has had progression on 5th line therapy. He had just been discharged after hospitalization 12/13-12/21 for similar presentation. Had small bowle follow-through study that admit that was negative for complete obstruction but did have low transit time. On this admit he had marked hypokalemia. PLAN * Nausea/Vomiting: Recurrent. Intractable. Metoclopramide scheduled. Scopolamine , but removed 12/26 in case of adverse reaction. Added dexamethasone scheduled 12/26. Ondansetron and promethazine PRN. Added olanzapine 12/27 without much benefit. Encouraged use of lorazepam which he had been avoiding because of sedation. Permit home dose of dronabinol. Trial of diphenhydramine. 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 Dose titrated 12/29. * MAGDY: Stable. Attributed to dehydration in the setting of history of urinary obstruction requiring bilateral ureteral stents. 1.49 on admit, fernanda to peak 2.13 12/27. IVF. * Dehydration: IVF/TPN. * Hypokalemia: Improved. Attributed to vomiting. Improved with K supplement. Gave Mg 1 g IV 12/26. Monitor trends. * Anorexia, Unintentional Weight Loss: Multifactorial. Tried to address on prior admit but not expected to improve. TPN in an effort to temporize the situation. * Metastatic Colon Cancer: No longer taking Lonsurf or Stivarga. CT 11/2016 as noted showing progression of metastatic disease over the preceding 3 months. Discussed with oncologist who endorsed hospice. * F/E/N: NPO initially but advanced to regular as tolerated. IVF as above. PowerPort. I&O, daily weight. * Prophylaxis: SCDs. * Code Status: DNR * Dispo: Inpatient. Re-consulted hospice. His goal is to get stable enough to travel to [place] this weekend to see his daughter play basketball but this is not realistic and he understands. Continue efforts at palliation through . Re-evaluate for hospice on Monday. CHRONIC ISSUES * HTN: Observe. No longer takes amlodipine, lisinopril. * Constipation: Improved since prior admit. Bowel regimen. MISSAEL MOSCOSO MD Dec 29, 2016 18:05
--- NOTE | 2016-12-29 18:45 | NUR ---
Pt resting in bed at this time. Skin warm, dry, intact. Resprs nonlabored, even on RA. CONTRACT ADMINISTRATOR, IVF, and TPN infusing into R port with no difficulty. Denies needs.
--- NOTE | 2016-12-29 21:05 | NUR ---
RT/Thien here per request of this RN. End Tidal CO2 monitor beeping continually; pt. sitting up in bed visiting with company. Ranges on monitor reset. Pt. appears cheerful; Dilaudid WATER TENDER maintaining pain control; nausea very mild currently. TPN and IVF infusing without difficulty; call light within reach.
--- NOTE | 2016-12-29 22:14 | NUR ---
Reglan 10 mg IV given for nausea; pt. experienced emesis a few minutes ago. Pt. and watching basketball game on tv. Pt. states the continuous rate of the PROFESSOR OF BIOCHEMISTRY makes a difference; "I am feeling better". Call light within reach.
[2016-12-30] VITALS (9 sets, daily range): BP systolic 101–144; BP diastolic 63–91
[2016-12-30] MEDS: diphenhydrAMINE 50 MG/ML INJ (BENADRYL) IV SCH (00:01)
[2016-12-30] MEDS: DEXAMETHASONE 10 MG/ML (DECADRON) VIAL IV SCH (00:02)
[2016-12-30] MEDS: NS FLUSH 10 ML PRN IV ×2 (00:06→01:41)
[2016-12-30] MEDS: ONDANSETRON 2 MG/ML (Z0FRAN) 2 ML VIAL IV PRN ×3 (01:41→18:43)
--- NOTE | 2016-12-30 01:44 | NUR ---
Zofran 8 mg IV given for nausea; Ativan 2 mg IV given for anxiety/sleep aid. Pt. rests in very short intervals; fatigued. at bedside.
--- NOTE | 2016-12-30 02:35 | NUR ---
Pt. placed on 2L of O2 via NC; SATs were dropping to low 80's. Pt. is finally resting; sleeping soundly with eyes closed; mouth breathing; HOB elevated with several pillows for comfort.
--- NOTE | 2016-12-30 04:00 | NUR ---
Pt. sleeping; vitals delayed due to pt. resting comfortably; SATS are currently 94% on 2L of O2.
--- NOTE | 2016-12-30 05:30 | NUR ---
Pt. wakes up confused; appears to be in pain; ENVIRONMENTAL FIELD SERVICES TECHNICIAN button pushed by this RN with agreement from . Pt. did have a few hours of much needed sleep. Pt. now resting on left side; TPN/IVF infusing; appears to be calmer and more relaxed as this RN & PRINT CUTTER exit room. Will continue to monitor.
--- NOTE | 2016-12-30 05:45 | NUR ---
Pt. gets up and attempts to walk to bathroom; and this RN as well as staff in room. Pt. is weak; eased back onto bed with assist. Bedside commode provided. Pt. still disorientated but resting on bed.
[2016-12-30] MEDS: METOCLOPRAMIDE 10 MG/2 ML (REGLAN) VIAL IV SCH ×3 (06:07→22:17)
--- NOTE | 2016-12-30 06:10 | NUR ---
Scheduled Reglan given.
--- NOTE | 2016-12-30 06:40 | NUR ---
O2 up to 3L as SATS in low 80's currently; pt. resting soundly; mouth breathing; appears comfortable.
[2016-12-30] MEDS: NS FLUSH 3 ML DAILY IV SCH (07:30)
--- NOTE | 2016-12-30 07:35 | NUR ---
End Tidal CO2 monitor switched by Dexter/RT for accuracy in readings; pt. continues to rest soundly.
--- NOTE | 2016-12-30 08:30 | NUR ---
Pt rests soundly, then sits up on edge of bed abruptly and states "I need to go". Pt is quite groggy and appears disoriented. Pt states he needs to use RR, assisted to standing position. Pt points towards room door and states "I need to go. Please". Asked pt to use urinal at bedside. Pt persists with pointing to door, stating "I need to go". Pt's knees buckle slightly but pt recovers. Instructed pt to sit back down on bed. Pt struggles with following commands. After approx 15 mins of pt standing up and sitting back down, pt becomes slightly more oriented, stating "I just need privacy to go". Instructed pt that we would set him on BSC and step out of room. Pt then sits on BSC, voids, and got back in bed by himself before staff came back in room. Mother updated, informed that we will just have to let the Ativan wear off. She states she will call his to come back in. Will continue to monitor.
--- NOTE | 2016-12-30 09:19 | NUR ---
Nutrition Follow Up: TPN continues at 80 ml/hr; pt. remains nauseated on and off. No labs available today. 1. Recommend lab draw for phosphorus, potassium and magnesium to monitor for refeeding syndrome. Recommendations suggest monitoring electrolytes once daily x 1 week, and >3 times the following week.
[2016-12-30] MEDS: DRONABINOL 10 MG CAPSULE PO SCH ×3 (10:15→17:55)
[2016-12-30] MEDS: OLANZAPINE 10 MG PO SCH (10:16)
[2016-12-30] MEDS: HYDROmorphone PCA 30 MG/30 ML (DILAUDID) VIAL IV PRN (12:21)
--- NOTE | 2016-12-30 12:26 | NUR ---
PRN Zofran given at this time for c/o nausea. Pt states "you girls are incredible". Pt is more oriented this afternoon as Ativan is wearing off. and mother at bedside. Denies needs.
[2016-12-30] MEDS: 1/2 NS W/KCL 20 MEQ/L 1,000 ML IV SCH (15:18)
[2016-12-30] MEDS: [UNRECOGNIZED DRUG - NUTRITION] XX SCH (16:00)
[2016-12-30] MEDS: [UNRECOGNIZED DRUG - OTHER] IV SCH ×7 (16:44)
[2016-12-30] MEDS: TPN IV SCH ×7 (16:44)
--- NOTE | 2016-12-30 18:35 | Progress Note (E) ---
Progress Note SUBJECTIVE No significant changes. Was delirious this AM upon awakening, attributed to adverse effect of lorazepam. Could be build up of anticholinergic effects also. More alert as the day progressed. Expresses gratitude frequently for his care. On evening rounds, interactive but still a bit disoriented. Discussed that he may be having paradoxical lorazepam reaction. Has not been taking olanzapine. Trial of ziprasidone IM to see if this helps with delirium and rest. OBJECTIVE Vital Signs Date Time Temp Pulse Resp B/P Pulse Ox O2 Delivery O2 Flow Rate FiO2 12/30/16 15:58 97.3 110 9 116/81 94 Nasal cannula 12/26/16 15:54 0.00 I & O 12/29/16 12/30/16 Cumulative From/Thru 19:00 07:00 12/22/16 19:50 - 12/30/16 06:50 Intake Total 1085 ml 2112 ml 68899 ml Output Total 600 ml 350 ml 89831 ml Balance 485 ml 1762 ml 9550 ml GEN: Tired appearing. Interactive, but disoriented. Appears somewhat uncomfortable. HEENT: EOMI, clear sclerae, dry oral mucosa, temporal wasting. CV: RRR S1 S2 normal with no murmur LUNGS: Diminished without R/R/W. ABD: Soft, mildly tender in lower quadrants. Somewhat distended compared to . Hypoactive bowel sounds. EXTR: No C/C/E. Normal peripheral pulses. INTEG: No rash. Pallor. NEURO: No focal motor neuro deficit. Lab-Past 14 Days, 35 Results 12/22/16 20:30: Alanine Aminotransferase (ALT/SGPT) 63, Albumin 3.4, Albumin/Globulin Ratio 1.096L, Alkaline Phosphatase 160H, Amylase Level 42, Anion Gap 16.2H, Aspartate Amino Transf (AST/SGOT) 46H, BUN/Creatinine Ratio 13, Basophils # (Auto) 0.0, Basophils (%) (Auto) 0, Blood Urea Nitrogen 20H, Calcium Level 9.1, Calcium/ Ionized Calcium Ratio 4.2, Calculated Osmolality 272L, Carbon Dioxide Level 33H , Chloride Level 93L, Creatinine 1.49, Eosinophils # (Auto) 0.1, Eosinophils (% ) (Auto) 1, Estimat Glomerular Filtration Rate 60.2, Estimated GFR (Non- 49.7, Glucose Level 108, Hematocrit 27.00L, Hemoglobin 8.6L, Lipase 59 , Lymphocytes # (Auto) 0.9, Lymphocytes (%) (Auto) 12L, Mean Corpuscular Hemoglobin 28.3, Mean Corpuscular Hemoglobin Concent 31.9, Mean Corpuscular Volume 89, Mean Platelet Volume 9.9H, Monocytes # (Auto) 0.7, Monocytes (%) ( Auto) 10, Neutrophils # (Auto) 5.5, Neutrophils (%) (Auto) 77H, Platelet Count 278, Potassium Level 2.7#L, Red Blood Count 3.04L, Red Cell Distribution Width 15.8H, Smear Scan , Sodium Level 139, Total Bilirubin 0.8, Total Protein 6.5, White Blood Count 7.17 12/23/16 03:10: Potassium Level 3.2L 12/23/16 05:37: Anion Gap 15.3H, BUN/Creatinine Ratio 13, Basophils # (Auto) 0.0, Basophils (%) (Auto) 0, Blood Urea Nitrogen 20H, Calcium Level 8.6L, Carbon Dioxide Level 32H , Chloride Level 97L, Creatinine 1.58H, Eosinophils # (Auto) 0.1, Eosinophils (% ) (Auto) 2, Estimat Glomerular Filtration Rate 56.2, Estimated GFR (Non- 46.5, Glucose Level 100, Hematocrit 25.20L, Hemoglobin 8.1L, Lymphocytes # (Auto) 0.9, Lymphocytes (%) (Auto) 14L, Mean Corpuscular Hemoglobin 28.6, Mean Corpuscular Hemoglobin Concent 32.1, Mean Corpuscular Volume 89, Mean Platelet Volume 9.8H, Monocytes # (Auto) 0.7, Monocytes (%) ( Auto) 11, Neutrophils # (Auto) 4.4, Neutrophils (%) (Auto) 72H, Platelet Count 248, Potassium Level 2.9L, Red Blood Count 2.83L, Red Cell Distribution Width 16.0H, Smear Scan Yes, Sodium Level 141, White Blood Count 6.19, Magnesium Level 1.8 12/24/16 08:40: Anion Gap 13.5, BUN/Creatinine Ratio 11, Basophils # (Auto) 0.0, Basophils (%) ( Auto) 0, Blood Urea Nitrogen 24H, Calcium Level 8.6L, Carbon Dioxide Level 37H, Chloride Level 98, Creatinine 2.10H, Eosinophils # (Auto) 0.1, Eosinophils (%) ( Auto) 2, Estimat Glomerular Filtration Rate 40.5, Estimated GFR (Non- 33.5, Glucose Level 89, Hematocrit 25.30L, Hemoglobin 7.7L, Lymphocytes # (Auto) 0.7, Lymphocytes (%) (Auto) 13L, Mean Corpuscular Hemoglobin 28.2, Mean Corpuscular Hemoglobin Concent 30.4L, Mean Corpuscular Volume 93, Mean Platelet Volume 9.5, Monocytes # (Auto) 0.4, Monocytes (%) (Auto ) 8, Neutrophils # (Auto) 3.9, Neutrophils (%) (Auto) 76H, Platelet Count 254, Potassium Level 3.4L, Red Blood Count 2.73L, Red Cell Distribution Width 16.3H, Smear Scan Yes, Sodium Level 145, White Blood Count 5.06 12/25/16 05:23: Anion Gap 16.2H, BUN/Creatinine Ratio 12, Basophils # (Auto) 0.0, Basophils (%) (Auto) 0, Blood Urea Nitrogen 25H, Calcium Level 8.7L, Carbon Dioxide Level 39H , Chloride Level 96L, Creatinine 2.05H, Eosinophils # (Auto) 0.1, Eosinophils (% ) (Auto) 1, Estimat Glomerular Filtration Rate 41.6, Estimated GFR (Non- 34.4, Glucose Level 90, Hematocrit 26.10L, Hemoglobin 7.9L, Lymphocytes # (Auto) 0.9, Lymphocytes (%) (Auto) 13L, Mean Corpuscular Hemoglobin 28.3, Mean Corpuscular Hemoglobin Concent 30.3L, Mean Corpuscular Volume 94, Mean Platelet Volume 10.0H, Monocytes # (Auto) 0.6, Monocytes (%) ( Auto) 9, Neutrophils # (Auto) 5.3, Neutrophils (%) (Auto) 77H, Platelet Count 278, Potassium Level 3.5, Red Blood Count 2.79L, Red Cell Distribution Width 16.3H, Smear Scan Yes, Sodium Level 148, White Blood Count 6.98 12/26/16 05:30: Anion Gap , BUN/Creatinine Ratio 11, Basophils # (Auto) 0.0, Basophils (%) (Auto ) 0, Blood Urea Nitrogen 22H, Calcium Level 8.7L, Carbon Dioxide Level 44H, Chloride Level 95L, Creatinine 2.00H, Eosinophils # (Auto) 0.1, Eosinophils (%) (Auto) 1, Estimat Glomerular Filtration Rate 42.8, Estimated GFR (Non- 35.4, Glucose Level 125#H, Hematocrit 27.70L, Hemoglobin 8.4L, Lymphocytes # (Auto) 0.9, Lymphocytes (%) (Auto) 11L, Mean Corpuscular Hemoglobin 28.4, Mean Corpuscular Hemoglobin Concent 30.3L, Mean Corpuscular Volume 94, Mean Platelet Volume 10.0H, Monocytes # (Auto) 0.7, Monocytes (%) ( Auto) 9, Neutrophils # (Auto) 6.6, Neutrophils (%) (Auto) 79H, Platelet Count 309, Potassium Level 3.3L, Red Blood Count 2.96L, Red Cell Distribution Width 16.2H, Sodium Level 146, White Blood Count 8.30 12/27/16 05:50: Anion Gap 18.5H, Blood Urea Nitrogen 22H, Calcium Level 8.7L, Carbon Dioxide Level 39H, Chloride Level 89L, Creatinine 2.13H, Estimat Glomerular Filtration Rate 39.8, Estimated GFR (Non- 32.9, Glucose Level 135H, Potassium Level 3.4L, Sodium Level 143, Albumin 3.4, Magnesium Level 1.7, Phosphorus Level 5.7#H 12/28/16 05:45: Anion Gap 12.1, Blood Urea Nitrogen 25H, Calcium Level 8.6L, Carbon Dioxide Level 39H, Chloride Level 90L, Creatinine 1.95H, Estimat Glomerular Filtration Rate 44.1, Estimated GFR (Non- 36.5, Glucose Level 124H, Potassium Level 3.4L, Sodium Level 138, Albumin 3.1L, Magnesium Level 1.7, Phosphorus Level 5.0H 12/29/16 06:00: Albumin 3.0L, Anion Gap 11.4, Blood Urea Nitrogen 28H, Calcium Level 8.9, Carbon Dioxide Level 36H, Chloride Level 93L, Creatinine 1.48, Estimat Glomerular Filtration Rate 60.6, Estimated GFR (Non- 50.1, Glucose Level 147H, Phosphorus Level 4.4, Potassium Level 3.9, Sodium Level 136 ASSESSMENT Prosper Feliciano is a 51 year old male admitted from ED 04/20 with recurrent and intractable nausea/vomiting as well as abdominal pain all attributed to metastatic colon cancer for which has had progression on 5th line therapy. He had just been discharged after hospitalization 12/13-12/21 for similar presentation. Had small bowle follow-through study that admit that was negative for complete obstruction but did have low transit time. On this admit he had marked hypokalemia. PLAN * Nausea/Vomiting: Recurrent. Intractable. Metoclopramide scheduled. Scopolamine , but removed 12/26 in case of adverse reaction. Added dexamethasone scheduled 12/26. Ondansetron and promethazine PRN. Added olanzapine 12/27 without much benefit and he hasn't been taking it consistently... so this was stopped. Encouraged use of lorazepam which he had been avoiding because of sedation. Permit home dose of dronabinol. Trial of diphenhydramine. * Medication Adverse Effect, Delirium: Has confusion when using lorazepam, perhaps due to paradoxical reaction. Stopped this altogether since he's getting no palliative effect. Trial of ziprasidone for delirium. 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 Dose titrated 12/29. * MAGDY: Stable. Attributed to dehydration in the setting of history of urinary obstruction requiring bilateral ureteral stents. 1.49 on admit, fernanda to peak 2.13 12/27. IVF. * Dehydration: IVF/TPN. * Hypokalemia: Improved. Attributed to vomiting. Improved with K supplement. Gave Mg 1 g IV 12/26. Monitor trends. * Anorexia, Unintentional Weight Loss: Multifactorial. Tried to address on prior admit but not expected to improve. TPN in an effort to temporize the situation. * Metastatic Colon Cancer: No longer taking Lonsurf or Stivarga. CT 11/2016 as noted showing progression of metastatic disease over the preceding 3 months. Discussed with oncologist who endorsed hospice. * F/E/N: NPO initially but advanced to regular as tolerated. IVF as above. PowerPort. I&O, daily weight. * Prophylaxis: SCDs. * Code Status: DNR * Dispo: Inpatient. Re-consulted hospice. Continue efforts at palliation through weekend. Re-evaluate for hospice on Monday. He has been reluctant to transition to hospice. CHRONIC ISSUES * HTN: Observe. No longer takes amlodipine, lisinopril. * Constipation: Improved since prior admit. Bowel regimen. MISSAEL MOSCOSO MD Dec 30, 2016 18:35
[2016-12-30] MEDS ORDERED: ZIPRASIDONE 20 MG INJ (GEODON) VIAL IM PRN (18:50)
--- NOTE | 2016-12-30 20:05 | NUR ---
Visitors here to see pt.; pt. sleeping; at bedside. IVF/NARCOTICS INVESTIGATOR/TPN infusing without difficulty at right port.
--- NOTE | 2016-12-30 21:45 | NUR ---
Dr. Reyes in pt. room; discussion with . Pt. is now on 10L via oxy mask. Pt. remains lethargic/sedated. DELIVERY LEAD will have new settings and not be utilized until pt. more alert.
--- NOTE | 2016-12-30 21:53 | Progress Note (E) ---
Progress Note Notified by RT that patient has become more hypopneic. Oxygen requirement now 10 L oxy-mask. He is somnolent. at bedside. Discussed that this change is sequulae from up-titration of pain medication. Explained plan to hold all narcotics for now until respiratory status improves, then NANOELECTRONICS ENGINEER can be resumed but with lower settings. Explained that his condition continues to deteriorate and that he may be approaching soon. Explained rationale for pain medication adjustment because he has not consented to hospice yet, so need to back off on pain medication because of sedative effect. She voiced understanding. Will monitor closely through the night and discuss again in AM. MISSAEL MOSCOSO MD Dec 30, 2016 21:53
--- NOTE | 2016-12-30 22:10 | NUR ---
OPTIMIZATION CONSULTANT settings changed per physician order: No loading dose or continuous: 0.3 mg demand dose with 10 minute lock out; maximum 5 mg in 4 hrs. No OPTIMIZATION CONSULTANT use until pt. more alert. Current OPTIMIZATION CONSULTANT reading is 17.5. Addendum: 12/31/16 at 0017 by Rima Ash RN Correction: Current OPTIMIZATION CONSULTANT reading-17.4 mg.
[2016-12-31 00:20] VITALS: BP 116/50
--- NOTE | 2016-12-31 01:00 | NUR ---
Pt. feeling pain; is more alert and orientated compared to earlier; pt. responds appropriately to this nurse's questions/comments; DREDGE PUMP OPERATOR button given to pt. to utilize for PRN pain. Pt. pulled up in bed for comfort/additional leg room. SATs are currently 91% on 10L of O2 via oxy mask. Pt. just ambulated to and fro bathroom without difficulty.
[2016-12-31] MEDS: ONDANSETRON 2 MG/ML (Z0FRAN) 2 ML VIAL IV PRN ×4 (02:23→21:04)
[2016-12-31] MEDS: NS FLUSH 10 ML PRN IV ×2 (02:23→13:14)
--- NOTE | 2016-12-31 02:23 | NUR ---
Zofran 8 mg IV given for nausea. Pt. just projectile vomited; linen/gown change. Pt. is progressively more alert & orientated as the shift progresses. Pt. pushes DIVORCE LAWYER button for pain control. SATs are 91% on 10 L of O2 via oxy mask. at bedside.
[2016-12-31 04:11] VITALS: BP 130/79
--- NOTE | 2016-12-31 05:12 | NUR ---
Thien / RT here to check end tidal CO2 monitor; pt. and have questions plus it keeps beeping. SATS are 95% on 10L oxy mask. Pt. very alert; orientated; watching tv with . INTERNATIONAL LOGISTICS ANALYST utilized for pain.
[2016-12-31] MEDS: METOCLOPRAMIDE 10 MG/2 ML (REGLAN) VIAL IV SCH ×3 (06:21→22:47)
--- NOTE | 2016-12-31 06:25 | NUR ---
Scheduled Reglan given; pt. awake & orientated. WOOD LATHER cleared: 19.5 mg. Pt. rates current pain level at "5"; pt. just pushed button again. End Tidal CO2 monitor continues to beep periodically; current SATS are 94% on 8L O2 via oxy mask. at bedside; call light within easy reach for pt.
[2016-12-31 06:30] VITALS: BP 136/64
[2016-12-31 06:59] LABS: ALBUMIN 2.5 g/dL (3.4-5.0); ANION GAP 11.6 MEQ/L (3-15); MAGNESIUM* 1.8 mg/dL (1.6-2.3)
[2016-12-31 07:52] VITALS: BP 116/79
[2016-12-31] MEDS: NS FLUSH 3 ML DAILY IV SCH (08:06)
--- NOTE | 2016-12-31 08:50 | NUR ---
PT CALLS WITH C/O INCR. NAUSEA AND RESTLESSNESS, PT AGREEABLE TO ZOFRAN AT THIS TIME, DISCUSSED RATIONAL FOR HOLDING ATIVAN, PT & VERBALIZE UNDERSTANDING/AGREEMENT. PT MED WITH ZOFRAN 8MG SIVP AT 0857. DR. MOSCOSO NOTIFIED PT & WOULD LIKE TO SEE HIM EARLY POSSIBLE THIS MORNING. DR. MOSCOSO RETURNS WITH MODIFIED WITH ORDER FOR MELE.
[2016-12-31] MEDS: DRONABINOL 10 MG CAPSULE PO SCH ×3 (09:00→18:00)
[2016-12-31] MEDS ORDERED: ZIPRASIDONE 20 MG INJ (GEODON) VIAL IM PRN (09:08)
[2016-12-31] MEDS ORDERED: SODIUM CHLORIDE VIAL (PF) 10 ML IV ONE (09:18)
--- NOTE | 2016-12-31 09:30 | NUR ---
PT MEDICATED WITH GEODON 10MG IM IN LVG AREA, INST OF POSSIBLE S/E, ENC. TO CALL WITH NEEDS TO GET UP THIS COULD CAUSE SOMNOLENCE. PT VERBALIZES UNDERSTANDING. CALL LIGHT IN REACH, SR UP X2.
[2016-12-31] MEDS ORDERED: WATER (STERILE) FOR INJECTION 10 ML ONE (10:55)
--- NOTE | 2016-12-31 11:20 | NUR ---
PT'S USES CALL LIGHT, PT IN BR WHEN NURSE ENTERS ROOM, STS HE NEEDS HELP HAVING A BM, PT IN MOD DISTRESS, MOANING AND HOLDING HEAD IN HANDS, STS HE FEELS LIKE HE NEEDS TO POOP BUT HE CAN'T, ALSO C/O BACK PAIN; THIS NURSE TALKS WITH PT AND PT AGREES TO A RECTAL EXAM WHILE ON TOILET TO SEE IF STOOL IS THERE BUT UNABLE TO BE PUSHED OUT DUE TO PAIN, RECTAL EXAM WHILE PT ON TOILET INDICATES POSS EXT HEMORRHOID BUT NO STOOL NEAR RECTAL SPHINCTER, UNABLE TO DO FULL RECTAL EXAM WHILE PT ON TOILET SO UNABLE TO SEE IF THERE IS STOOL IN THE RECTAL VAULT. PT AGREES TO GO BACK TO BED, ASKS FOR MOM OR MIRALAX, MOM ADMIN AT 1127, ENC PT TO TAKE SLOWLY DUE TO NAUSEA, PT IS CALM WHEN NURSE RETURNS WITH MOM.
[2016-12-31 12:02] VITALS: BP 133/87
--- NOTE | 2016-12-31 12:10 | NUR ---
PT'S REPORTS PT IS CALM AND RESTING WITH EYES CLOSED.
--- NOTE | 2016-12-31 12:56 | NUR ---
PT RESTING WITH EYES CLOSED, RESP REG/NONLABORED, HOB ELEV. 45 DEG, PT'S MOTHER AT BEDSIDE.
--- NOTE | 2016-12-31 13:05 | NUR ---
PT'S MOM COMES TO N. STATION REPORTING PT HAD VOMITED, THIS NURSE TO ROOM, PT LOOKS IN DISTRESS HOLDING TRASH CAN, M.O.M NOTED IN CAN DUE TO THIS EPISODE OF EMESIS, NO LONGER VOMITING AT THIS TIME, PT DECLINES COOL CLOTH TO FACE/NECK, DISC. WILL ADMIN ZOFRAN AT 1400. ENC. TO CALL WITH NEEDS OR C/O.
[2016-12-31] MEDS ORDERED: BISACODYL 10 MG SUPP (DULCOLAX) PR PRN (13:30)
[2016-12-31] MEDS: 1/2 NS W/KCL 20 MEQ/L 1,000 ML IV SCH (13:47)
--- NOTE | 2016-12-31 14:10 | NUR ---
PT RESTING WELL WITH EYES CLOSED, THIS NURSE TALKED WITH ABOUT WHETHER TO GIVE ZOFRAN NOW OR HOLD OFF UNTIL 1600 SO THAT HIS ANTI-EMITICS ARE MORE WIDE SPREAD ON TIMELINE, AGREES WITH WAITING UNTIL 1600.
--- NOTE | 2016-12-31 15:00 | NUR ---
Referral for inpatient hospice received. Beverley Garibay RN, scalehouse attendant notified. Beverley Garibay contacts [facility]. Beverley Brown at [facility] notifies Beverley Garibay that pre-cert is required and will not be able to obtain until Monday. Dr. Reyes notified. Message left for Lucille Rodriguez, social worker health services.
--- NOTE | 2016-12-31 15:10 | NUR ---
FAMILY COMES TO N. STATION TO REPORT PT IS VOMITING AGAIN, THIS NURSE TO ROOM, ZOFRAN 8MG ADMIN SIVP, PT DOES NOT VOMIT OR DRY HEAVE WHILE NURSE IN ROOM, NO EPISODES OF EMESIS WITNESSED, NO "VOLUME" IN WASTE CAN, PT IS IN SLIGHT DISTRESS, PT FEELS NAUSEOUS AND LIKELY IS DRY-HEAVING.
--- NOTE | 2016-12-31 15:25 | NUR ---
FAMILY REPORTS PT IS "VOMITING AGAIN", THIS NURSE TO ROOM, DISCUSSED ADMIN. PHENERGAN, PRIOR TO ADMINISTERING THIS PATTERN WAS DISCUSSED WITH DR. MOSCOSO.
--- NOTE | 2016-12-31 15:30 | NUR ---
[id number] ORDER RECEIVED FOR SUMATRIPTAN, SEVERAL ATTEMPTS MADE TO CALL PHARMACY BEFORE CALL TO HOUSE SUPR TO RETRIEVE THIS FROM PHARMACY; THIS WAS ADMIN SQ IN SD AT 1650
--- NOTE | 2016-12-31 16:01 | Progress Note (E) ---
Progress Note SUBJECTIVE SPECIAL OFFICER resumed after halting last night due to severe sedation. Mentation and breathing markedly improved today. SPECIAL OFFICER remains available now but with no continuous rate and with lower bolus dose. Discussed situation again and he is accepting comfort care. and mother present and all voice understanding and appreciation. [facility] was contacted and they cannot accept until they complete pre-certification with BC/BS which can't happen now until Monday. Comfort care continues here during his inpatient stay. OBJECTIVE Vital Signs Date Time Temp Pulse Resp B/P Pulse Ox O2 Delivery O2 Flow Rate FiO2 12/31/16 12:02 98.1 119 18 133/87 93 Nasal cannula 12/26/16 15:54 0.00 I & O 12/30/16 12/31/16 Cumulative From/Thru 19:00 07:00 12/22/16 19:50 - 12/31/16 06:30 Intake Total 1010 ml 2017 ml 62944 ml Output Total 750 ml 550 ml 24033 ml Balance 260 ml 1467 ml 29766 ml GEN: Tired appearing. Appears uncomfortable and still struggling with nausea. HEENT: EOMI, clear sclerae, dry oral mucosa, temporal wasting. CV: RRR S1 S2 normal with no murmur LUNGS: Diminished without R/R/W. ABD: Soft, Somewhat distended compared to 12/29. Hypoactive bowel sounds. EXTR: No C/C/E. Normal peripheral pulses. INTEG: No rash. Pallor. NEURO: No focal motor neuro deficit. Lab-Past 14 Days, 35 Results 12/22/16 20:30: Alanine Aminotransferase (ALT/SGPT) 63, Albumin 3.4, Albumin/Globulin Ratio 1.096L, Alkaline Phosphatase 160H, Amylase Level 42, Anion Gap 16.2H, Aspartate Amino Transf (AST/SGOT) 46H, BUN/Creatinine Ratio 13, Basophils # (Auto) 0.0, Basophils (%) (Auto) 0, Blood Urea Nitrogen 20H, Calcium Level 9.1, Calcium/ Ionized Calcium Ratio 4.2, Calculated Osmolality 272L, Carbon Dioxide Level 33H , Chloride Level 93L, Creatinine 1.49, Eosinophils # (Auto) 0.1, Eosinophils (% ) (Auto) 1, Estimat Glomerular Filtration Rate 60.2, Estimated GFR (Non- 49.7, Glucose Level 108, Hematocrit 27.00L, Hemoglobin 8.6L, Lipase 59 , Lymphocytes # (Auto) 0.9, Lymphocytes (%) (Auto) 12L, Mean Corpuscular Hemoglobin 28.3, Mean Corpuscular Hemoglobin Concent 31.9, Mean Corpuscular Volume 89, Mean Platelet Volume 9.9H, Monocytes # (Auto) 0.7, Monocytes (%) ( Auto) 10, Neutrophils # (Auto) 5.5, Neutrophils (%) (Auto) 77H, Platelet Count 278, Potassium Level 2.7#L, Red Blood Count 3.04L, Red Cell Distribution Width 15.8H, Smear Scan , Sodium Level 139, Total Bilirubin 0.8, Total Protein 6.5, White Blood Count 7.17 12/23/16 03:10: Potassium Level 3.2L 12/23/16 05:37: Anion Gap 15.3H, BUN/Creatinine Ratio 13, Basophils # (Auto) 0.0, Basophils (%) (Auto) 0, Blood Urea Nitrogen 20H, Calcium Level 8.6L, Carbon Dioxide Level 32H , Chloride Level 97L, Creatinine 1.58H, Eosinophils # (Auto) 0.1, Eosinophils (% ) (Auto) 2, Estimat Glomerular Filtration Rate 56.2, Estimated GFR (Non- 46.5, Glucose Level 100, Hematocrit 25.20L, Hemoglobin 8.1L, Lymphocytes # (Auto) 0.9, Lymphocytes (%) (Auto) 14L, Mean Corpuscular Hemoglobin 28.6, Mean Corpuscular Hemoglobin Concent 32.1, Mean Corpuscular Volume 89, Mean Platelet Volume 9.8H, Monocytes # (Auto) 0.7, Monocytes (%) ( Auto) 11, Neutrophils # (Auto) 4.4, Neutrophils (%) (Auto) 72H, Platelet Count 248, Potassium Level 2.9L, Red Blood Count 2.83L, Red Cell Distribution Width 16.0H, Smear Scan Yes, Sodium Level 141, White Blood Count 6.19, Magnesium Level 1.8 12/24/16 08:40: Anion Gap 13.5, BUN/Creatinine Ratio 11, Basophils # (Auto) 0.0, Basophils (%) ( Auto) 0, Blood Urea Nitrogen 24H, Calcium Level 8.6L, Carbon Dioxide Level 37H, Chloride Level 98, Creatinine 2.10H, Eosinophils # (Auto) 0.1, Eosinophils (%) ( Auto) 2, Estimat Glomerular Filtration Rate 40.5, Estimated GFR (Non- 33.5, Glucose Level 89, Hematocrit 25.30L, Hemoglobin 7.7L, Lymphocytes # (Auto) 0.7, Lymphocytes (%) (Auto) 13L, Mean Corpuscular Hemoglobin 28.2, Mean Corpuscular Hemoglobin Concent 30.4L, Mean Corpuscular Volume 93, Mean Platelet Volume 9.5, Monocytes # (Auto) 0.4, Monocytes (%) (Auto ) 8, Neutrophils # (Auto) 3.9, Neutrophils (%) (Auto) 76H, Platelet Count 254, Potassium Level 3.4L, Red Blood Count 2.73L, Red Cell Distribution Width 16.3H, Smear Scan Yes, Sodium Level 145, White Blood Count 5.06 12/25/16 05:23: Anion Gap 16.2H, BUN/Creatinine Ratio 12, Basophils # (Auto) 0.0, Basophils (%) (Auto) 0, Blood Urea Nitrogen 25H, Calcium Level 8.7L, Carbon Dioxide Level 39H , Chloride Level 96L, Creatinine 2.05H, Eosinophils # (Auto) 0.1, Eosinophils (% ) (Auto) 1, Estimat Glomerular Filtration Rate 41.6, Estimated GFR (Non- 34.4, Glucose Level 90, Hematocrit 26.10L, Hemoglobin 7.9L, Lymphocytes # (Auto) 0.9, Lymphocytes (%) (Auto) 13L, Mean Corpuscular Hemoglobin 28.3, Mean Corpuscular Hemoglobin Concent 30.3L, Mean Corpuscular Volume 94, Mean Platelet Volume 10.0H, Monocytes # (Auto) 0.6, Monocytes (%) ( Auto) 9, Neutrophils # (Auto) 5.3, Neutrophils (%) (Auto) 77H, Platelet Count 278, Potassium Level 3.5, Red Blood Count 2.79L, Red Cell Distribution Width 16.3H, Smear Scan Yes, Sodium Level 148, White Blood Count 6.98 12/26/16 05:30: Anion Gap , BUN/Creatinine Ratio 11, Basophils # (Auto) 0.0, Basophils (%) (Auto ) 0, Blood Urea Nitrogen 22H, Calcium Level 8.7L, Carbon Dioxide Level 44H, Chloride Level 95L, Creatinine 2.00H, Eosinophils # (Auto) 0.1, Eosinophils (%) (Auto) 1, Estimat Glomerular Filtration Rate 42.8, Estimated GFR (Non- 35.4, Glucose Level 125#H, Hematocrit 27.70L, Hemoglobin 8.4L, Lymphocytes # (Auto) 0.9, Lymphocytes (%) (Auto) 11L, Mean Corpuscular Hemoglobin 28.4, Mean Corpuscular Hemoglobin Concent 30.3L, Mean Corpuscular Volume 94, Mean Platelet Volume 10.0H, Monocytes # (Auto) 0.7, Monocytes (%) ( Auto) 9, Neutrophils # (Auto) 6.6, Neutrophils (%) (Auto) 79H, Platelet Count 309, Potassium Level 3.3L, Red Blood Count 2.96L, Red Cell Distribution Width 16.2H, Sodium Level 146, White Blood Count 8.30 12/27/16 05:50: Anion Gap 18.5H, Blood Urea Nitrogen 22H, Calcium Level 8.7L, Carbon Dioxide Level 39H, Chloride Level 89L, Creatinine 2.13H, Estimat Glomerular Filtration Rate 39.8, Estimated GFR (Non- 32.9, Glucose Level 135H, Potassium Level 3.4L, Sodium Level 143, Albumin 3.4, Magnesium Level 1.7, Phosphorus Level 5.7#H 12/28/16 05:45: Anion Gap 12.1, Blood Urea Nitrogen 25H, Calcium Level 8.6L, Carbon Dioxide Level 39H, Chloride Level 90L, Creatinine 1.95H, Estimat Glomerular Filtration Rate 44.1, Estimated GFR (Non- 36.5, Glucose Level 124H, Potassium Level 3.4L, Sodium Level 138, Albumin 3.1L, Magnesium Level 1.7, Phosphorus Level 5.0H 12/29/16 06:00: Albumin 3.0L, Anion Gap 11.4, Blood Urea Nitrogen 28H, Calcium Level 8.9, Carbon Dioxide Level 36H, Chloride Level 93L, Creatinine 1.48, Estimat Glomerular Filtration Rate 60.6, Estimated GFR (Non- 50.1, Glucose Level 147H, Phosphorus Level 4.4, Potassium Level 3.9, Sodium Level 136 12/31/16 05:40: Albumin 2.5L, Anion Gap 11.6, Blood Urea Nitrogen 53#H, Calcium Level 9.3, Carbon Dioxide Level 31H, Chloride Level 97L, Creatinine 1.81H, Estimat Glomerular Filtration Rate 48.1, Estimated GFR (Non- 39.7, Glucose Level 119H, Phosphorus Level 3.4#, Potassium Level 5.0#, Sodium Level 134L, Magnesium Level 1.8 ASSESSMENT Prosper Feliciano is a 51 year old male admitted from ED 12/22 with recurrent and intractable nausea/vomiting as well as abdominal pain all attributed to metastatic colon cancer for which has had progression on 5th line therapy. He had just been discharged after hospitalization 12/13-12/21 for similar presentation. Had small bowel follow-through study that admit that was negative for complete obstruction but did have low transit time. On this admit he had marked hypokalemia. He struggled continually with abdominal pain and nausea/ vomiting. Hydromorphone SPECIAL OFFICER was effective for pain though dose had to be adjusted. Nausea/vomiting remained intractable despite multimodal therapy. TPN was tried but not shown to give him any benefit. On 12/31 he elected transition to hospice. [facility] had already been consulted but had not completed pre-certification so he remained inpatient with comfort care. PLAN * Nausea/Vomiting: Recurrent. Intractable. Metoclopramide scheduled. Scopolamine , but removed 12/26 in case of adverse reaction. Added dexamethasone scheduled 12/26. Ondansetron and promethazine PRN. Added olanzapine 12/27 without much benefit and he hasn't been taking it consistently... so this was stopped. Encouraged use of lorazepam which he had been avoiding because of sedation. Permitted home dose of dronabinol which was not effective. Trial of diphenhydramine which didn't help much. Tried sumatriptan 12/31 as a cyclic vomiting therapy to see if it would give any relief. * Medication Adverse Effect, Delirium: Has confusion when using lorazepam, perhaps due to paradoxical reaction. Stopped this altogether since he's getting no palliative effect. Trial of ziprasidone for delirium. (Stopped olanzapine which he wasn't using.) * Abdominal Pain: Hydromorphone SPECIAL OFFICER. Dose titrated 12/29. Had to decrease 12/30 because of sedation. With official transition now to comfort care, SPECIAL OFFICER resumed and can further adjust as needed. * MAGDY: Stable. Attributed to dehydration in the setting of history of urinary obstruction requiring bilateral ureteral stents. 1.49 on admit, fernanda to peak 2.13 12/27. IVF. With transition to comfort care, stop checking labs. * Dehydration: IVF/TPN. Stopped 12/31 with transition to comfort. * Hypokalemia: Improved. Attributed to vomiting. Improved with K supplement. Gave Mg 1 g IV 12/26. Monitored trends. * Anorexia, Unintentional Weight Loss: Multifactorial. Tried to address on prior admit but not expected to improve. TPN in an effort to temporize the situation. * Metastatic Colon Cancer: No longer taking Lonsurf or Stivarga. CT 11/2016 as noted showing progression of metastatic disease over the preceding 3 months. Discussed with oncologist who endorsed hospice. Patient had struggled with this decision but has transitioned to comfort care 12/31. * F/E/N: NPO initially but advanced to regular as tolerated. IVF as above. PowerPort. I&O, daily weight. * Prophylaxis: SCDs. * Code Status: DNR * Dispo: Inpatient. Re-consulted hospice. Efforts at palliation continued. Transitioned to comfort care 12/31. [facility] notified but they cannot complete pre-certification for hospice until 01/02. Remains inpatient, comfort care. CHRONIC ISSUES * HTN: Observe. No longer takes amlodipine, lisinopril. * Constipation: Bowel regimen. Bisacodyl. MISSAEL MOSCOSO MD Dec 31, 2016 16:00
[2016-12-31] MEDS: SUMAtriptan 6 MG/0.5 ML (IMITREX) INJ SC PRN ×2 (16:49→18:23)
[2016-12-31] MEDS: PROMETHAZINE HCL INJ 25 MG in SODIUM CHLORIDE 25 ML IV PRN (17:30)
--- NOTE | 2016-12-31 17:30 | NUR ---
PT FAMILY CALLING WITH REPORT PT IS VOMITING, IT IS NOT YET TIME FOR REPEAT X1 DOSE OF SUMATRIPTAN, PHENERGAN 25MG IN NS 25ML WAS ADMIN ORDERED AT 75CC/HR VIA RPAC
--- NOTE | 2016-12-31 20:30 | NUR ---
Patient care assumed after receiving report from LIGIA Gonzales
[2016-12-31] MEDS: HYDROmorphone PCA 30 MG/30 ML (DILAUDID) VIAL IV PRN (21:07)
--- NOTE | 2016-12-31 21:10 | NUR ---
Administered Zofran IV for nausea.
[2016-12-31 22:00] VITALS: BP 133/87
[2017-01-01] MEDS: PROMETHAZINE HCL INJ 25 MG in SODIUM CHLORIDE 25 ML IV PRN ×5 (00:54→21:01)
--- NOTE | 2017-01-01 01:00 | NUR ---
Phenergan administered for nausea.
[2017-01-01] MEDS: ONDANSETRON 2 MG/ML (Z0FRAN) 2 ML VIAL IV PRN ×4 (03:21→23:58)
[2017-01-01] MEDS: METOCLOPRAMIDE 10 MG/2 ML (REGLAN) VIAL IV SCH ×3 (05:15→21:56)
--- NOTE | 2017-01-01 07:15 | NUR ---
PT IS RESTING WITH EYES CLOSED, RESP REG/NONLABORED. SLEEPING AT BEDSIDE.
--- NOTE | 2017-01-01 07:42 | NUR ---
ETCO2 water trap and canula changed out, all readings are within ordered parameters.
--- NOTE | 2017-01-01 08:30 | NUR ---
PT CONT TO REST, HAS NOT WOKEN TO NURSE IN ROOM, STAFF DEFERRING WAKING PT & HIS .
[2017-01-01] MEDS: NS FLUSH 3 ML DAILY IV SCH (09:00)
[2017-01-01] MEDS: DRONABINOL 10 MG CAPSULE PO SCH ×3 (09:00→18:00)
--- NOTE | 2017-01-01 09:17 | Progress Note (E) ---
Progress Note SUBJECTIVE Transitioned to comfort care yesterday. Stopped TPN. Vomited throughout the day. Tried sumatriptan (as a cyclic vomiting therapy) but it did not provide any relief. Has been on every kind of anti-emetic. Consistently declines offer for NG tube. Has been tachycardic. On oxygen at times. Had 1 BM yesterday. At present, sleeping. Exam deferred for now. Updated and mother on findings, plan of care. OBJECTIVE Vital Signs Date Time Temp Pulse Resp B/P Pulse Ox O2 Delivery O2 Flow Rate FiO2 01/01/17 05:43 113 18 94 Nasal cannula 12/31/16 12:02 98.1 133/87 12/26/16 15:54 0.00 I & O 12/31/16 01/01/17 Cumulative From/Thru 19:00 07:00 12/22/16 19:50 - 01/01/17 05:42 Intake Total 100 ml 180 ml 39207 ml Output Total 500 ml 1825 ml 55874 ml Balance -400 ml -1645 ml 9232 ml Exam: Deferred 12/31: GEN: Tired appearing. Appears uncomfortable and still struggling with nausea. HEENT: EOMI, clear sclerae, dry oral mucosa, temporal wasting. CV: RRR S1 S2 normal with no murmur LUNGS: Diminished without R/R/W. ABD: Soft, Somewhat distended compared to 12/29. Hypoactive bowel sounds. EXTR: No C/C/E. Normal peripheral pulses. INTEG: No rash. Pallor. NEURO: No focal motor neuro deficit. Lab-Past 14 Days, 35 Results 12/22/16 20:30: Alanine Aminotransferase (ALT/SGPT) 63, Albumin 3.4, Albumin/Globulin Ratio 1.096L, Alkaline Phosphatase 160H, Amylase Level 42, Anion Gap 16.2H, Aspartate Amino Transf (AST/SGOT) 46H, BUN/Creatinine Ratio 13, Basophils # (Auto) 0.0, Basophils (%) (Auto) 0, Blood Urea Nitrogen 20H, Calcium Level 9.1, Calcium/ Ionized Calcium Ratio 4.2, Calculated Osmolality 272L, Carbon Dioxide Level 33H , Chloride Level 93L, Creatinine 1.49, Eosinophils # (Auto) 0.1, Eosinophils (% ) (Auto) 1, Estimat Glomerular Filtration Rate 60.2, Estimated GFR (Non- 49.7, Glucose Level 108, Hematocrit 27.00L, Hemoglobin 8.6L, Lipase 59 , Lymphocytes # (Auto) 0.9, Lymphocytes (%) (Auto) 12L, Mean Corpuscular Hemoglobin 28.3, Mean Corpuscular Hemoglobin Concent 31.9, Mean Corpuscular Volume 89, Mean Platelet Volume 9.9H, Monocytes # (Auto) 0.7, Monocytes (%) ( Auto) 10, Neutrophils # (Auto) 5.5, Neutrophils (%) (Auto) 77H, Platelet Count 278, Potassium Level 2.7#L, Red Blood Count 3.04L, Red Cell Distribution Width 15.8H, Smear Scan , Sodium Level 139, Total Bilirubin 0.8, Total Protein 6.5, White Blood Count 7.17 12/23/16 03:10: Potassium Level 3.2L 12/23/16 05:37: Anion Gap 15.3H, BUN/Creatinine Ratio 13, Basophils # (Auto) 0.0, Basophils (%) (Auto) 0, Blood Urea Nitrogen 20H, Calcium Level 8.6L, Carbon Dioxide Level 32H , Chloride Level 97L, Creatinine 1.58H, Eosinophils # (Auto) 0.1, Eosinophils (% ) (Auto) 2, Estimat Glomerular Filtration Rate 56.2, Estimated GFR (Non- 46.5, Glucose Level 100, Hematocrit 25.20L, Hemoglobin 8.1L, Lymphocytes # (Auto) 0.9, Lymphocytes (%) (Auto) 14L, Mean Corpuscular Hemoglobin 28.6, Mean Corpuscular Hemoglobin Concent 32.1, Mean Corpuscular Volume 89, Mean Platelet Volume 9.8H, Monocytes # (Auto) 0.7, Monocytes (%) ( Auto) 11, Neutrophils # (Auto) 4.4, Neutrophils (%) (Auto) 72H, Platelet Count 248, Potassium Level 2.9L, Red Blood Count 2.83L, Red Cell Distribution Width 16.0H, Smear Scan Yes, Sodium Level 141, White Blood Count 6.19, Magnesium Level 1.8 12/24/16 08:40: Anion Gap 13.5, BUN/Creatinine Ratio 11, Basophils # (Auto) 0.0, Basophils (%) ( Auto) 0, Blood Urea Nitrogen 24H, Calcium Level 8.6L, Carbon Dioxide Level 37H, Chloride Level 98, Creatinine 2.10H, Eosinophils # (Auto) 0.1, Eosinophils (%) ( Auto) 2, Estimat Glomerular Filtration Rate 40.5, Estimated GFR (Non- 33.5, Glucose Level 89, Hematocrit 25.30L, Hemoglobin 7.7L, Lymphocytes # (Auto) 0.7, Lymphocytes (%) (Auto) 13L, Mean Corpuscular Hemoglobin 28.2, Mean Corpuscular Hemoglobin Concent 30.4L, Mean Corpuscular Volume 93, Mean Platelet Volume 9.5, Monocytes # (Auto) 0.4, Monocytes (%) (Auto ) 8, Neutrophils # (Auto) 3.9, Neutrophils (%) (Auto) 76H, Platelet Count 254, Potassium Level 3.4L, Red Blood Count 2.73L, Red Cell Distribution Width 16.3H, Smear Scan Yes, Sodium Level 145, White Blood Count 5.06 12/25/16 05:23: Anion Gap 16.2H, BUN/Creatinine Ratio 12, Basophils # (Auto) 0.0, Basophils (%) (Auto) 0, Blood Urea Nitrogen 25H, Calcium Level 8.7L, Carbon Dioxide Level 39H , Chloride Level 96L, Creatinine 2.05H, Eosinophils # (Auto) 0.1, Eosinophils (% ) (Auto) 1, Estimat Glomerular Filtration Rate 41.6, Estimated GFR (Non- 34.4, Glucose Level 90, Hematocrit 26.10L, Hemoglobin 7.9L, Lymphocytes # (Auto) 0.9, Lymphocytes (%) (Auto) 13L, Mean Corpuscular Hemoglobin 28.3, Mean Corpuscular Hemoglobin Concent 30.3L, Mean Corpuscular Volume 94, Mean Platelet Volume 10.0H, Monocytes # (Auto) 0.6, Monocytes (%) ( Auto) 9, Neutrophils # (Auto) 5.3, Neutrophils (%) (Auto) 77H, Platelet Count 278, Potassium Level 3.5, Red Blood Count 2.79L, Red Cell Distribution Width 16.3H, Smear Scan Yes, Sodium Level 148, White Blood Count 6.98 12/26/16 05:30: Anion Gap , BUN/Creatinine Ratio 11, Basophils # (Auto) 0.0, Basophils (%) (Auto ) 0, Blood Urea Nitrogen 22H, Calcium Level 8.7L, Carbon Dioxide Level 44H, Chloride Level 95L, Creatinine 2.00H, Eosinophils # (Auto) 0.1, Eosinophils (%) (Auto) 1, Estimat Glomerular Filtration Rate 42.8, Estimated GFR (Non- 35.4, Glucose Level 125#H, Hematocrit 27.70L, Hemoglobin 8.4L, Lymphocytes # (Auto) 0.9, Lymphocytes (%) (Auto) 11L, Mean Corpuscular Hemoglobin 28.4, Mean Corpuscular Hemoglobin Concent 30.3L, Mean Corpuscular Volume 94, Mean Platelet Volume 10.0H, Monocytes # (Auto) 0.7, Monocytes (%) ( Auto) 9, Neutrophils # (Auto) 6.6, Neutrophils (%) (Auto) 79H, Platelet Count 309, Potassium Level 3.3L, Red Blood Count 2.96L, Red Cell Distribution Width 16.2H, Sodium Level 146, White Blood Count 8.30 12/27/16 05:50: Anion Gap 18.5H, Blood Urea Nitrogen 22H, Calcium Level 8.7L, Carbon Dioxide Level 39H, Chloride Level 89L, Creatinine 2.13H, Estimat Glomerular Filtration Rate 39.8, Estimated GFR (Non- 32.9, Glucose Level 135H, Potassium Level 3.4L, Sodium Level 143, Albumin 3.4, Magnesium Level 1.7, Phosphorus Level 5.7#H 12/28/16 05:45: Anion Gap 12.1, Blood Urea Nitrogen 25H, Calcium Level 8.6L, Carbon Dioxide Level 39H, Chloride Level 90L, Creatinine 1.95H, Estimat Glomerular Filtration Rate 44.1, Estimated GFR (Non- 36.5, Glucose Level 124H, Potassium Level 3.4L, Sodium Level 138, Albumin 3.1L, Magnesium Level 1.7, Phosphorus Level 5.0H 12/29/16 06:00: Albumin 3.0L, Anion Gap 11.4, Blood Urea Nitrogen 28H, Calcium Level 8.9, Carbon Dioxide Level 36H, Chloride Level 93L, Creatinine 1.48, Estimat Glomerular Filtration Rate 60.6, Estimated GFR (Non- 50.1, Glucose Level 147H, Phosphorus Level 4.4, Potassium Level 3.9, Sodium Level 136 12/31/16 05:40: Albumin 2.5L, Anion Gap 11.6, Blood Urea Nitrogen 53#H, Calcium Level 9.3, Carbon Dioxide Level 31H, Chloride Level 97L, Creatinine 1.81H, Estimat Glomerular Filtration Rate 48.1, Estimated GFR (Non- 39.7, Glucose Level 119H, Phosphorus Level 3.4#, Potassium Level 5.0#, Sodium Level 134L, Magnesium Level 1.8 ASSESSMENT Prosper Feliciano is a 51 year old male admitted from ED 12/22 with recurrent and intractable nausea/vomiting as well as abdominal pain all attributed to metastatic colon cancer for which has had progression on 5th line therapy. He had just been discharged after hospitalization 12/13-12/21 for similar presentation. Had small bowel follow-through study that admit that was negative for complete obstruction but did have low transit time. On this admit he had marked hypokalemia. He struggled continually with abdominal pain and nausea/ vomiting. Hydromorphone INTERNAL SPECIALIST was effective for pain though dose had to be adjusted. Nausea/vomiting remained intractable despite multimodal therapy. TPN was tried but not shown to give him any benefit. On 12/31 he elected transition to hospice. [facility] had already been consulted but had not completed pre-certification so he remained inpatient with comfort care. PLAN * Nausea/Vomiting: Recurrent. Intractable. Metoclopramide scheduled. Scopolamine , but removed 12/26 in case of adverse reaction. Added dexamethasone scheduled 12/26. Ondansetron and promethazine PRN. Added olanzapine 12/27 without much benefit and he hasn't been taking it consistently... so this was stopped. Encouraged use of lorazepam which he had been avoiding because of sedation. Permitted home dose of dronabinol which was not effective. Trial of diphenhydramine which didn't help much. Tried sumatriptan 12/31 but this provided no benefit. * Medication Adverse Effect, Delirium: Has confusion when using lorazepam, perhaps due to paradoxical reaction. Stopped this altogether since he's getting no palliative effect. Trial of ziprasidone for delirium. (Stopped olanzapine which he wasn't using.) * Abdominal Pain: Hydromorphone INTERNAL SPECIALIST. Dose titrated 12/29. Had to decrease 12/30 because of sedation. With official transition now to comfort care, INTERNAL SPECIALIST resumed and can further adjust as needed. * MAGDY: Stable. Attributed to dehydration in the setting of history of urinary obstruction requiring bilateral ureteral stents. 1.49 on admit, fernanda to peak 2.13 12/27. IVF. With transition to comfort care, stop checking labs. * Dehydration: IVF/TPN. Stopped 12/31 with transition to comfort. * Hypokalemia: Improved. Attributed to vomiting. Improved with K supplement. Gave Mg 1 g IV 12/26. Monitored trends. * Anorexia, Unintentional Weight Loss: Multifactorial. Tried to address on prior admit but not expected to improve. TPN in an effort to temporize the situation. * Metastatic Colon Cancer: No longer taking Lonsurf or Stivarga. CT 11/2016 as noted showing progression of metastatic disease over the preceding 3 months. Discussed with oncologist who endorsed hospice. Patient had struggled with this decision but has transitioned to comfort care 12/31. * F/E/N: NPO initially but advanced to regular as tolerated. IVF as above. PowerPort. I&O, daily weight. * Prophylaxis: SCDs. * Code Status: DNR * Dispo: Inpatient. Comfort care. [facility] notified but they cannot complete pre-certification for hospice until 01/02. CHRONIC ISSUES * HTN: Observe. No longer takes amlodipine, lisinopril. * Constipation: Bowel regimen. Bisacodyl. IMSSAEL MOSCOSO MD Jan 01, 2017 09:12
[2017-01-01] MEDS: NS FLUSH 10 ML PRN IV (09:30)
--- NOTE | 2017-01-01 09:30 | NUR ---
PT CONT TO SLEEP, RESP REG & NONLABORED, IVF INFUST AT KVO RATE FOR CHARTER COORDINATOR WHICH IS IN PT'S REACH
--- NOTE | 2017-01-01 10:30 | NUR ---
CONT TO REST WELL AT FREQ CHECKS, DENIES NEEDS. THIS NURSE HAD DISCUSSED NG TUBE IF PT SO DESIRES IF INTRACTABLE VOMITING STARTS UP AGAIN, STS SHE WILL SPEAK TO PT ABOUT THIS IF THE NEED ARISES, VERBALIZES APPRECIATION.
--- NOTE | 2017-01-01 11:30 | NUR ---
PT AWAKE, QUIET, DENIES NEEDS AT THIS TIME, USES WAREHOUSE STOCK CLERK, REPORTS ADEQUATE PAIN RELIEF, WISHES TO BE AWAKE FOR DTR'S BASKETBALL GAME, AT BEDSIDE. MANY FAMILY IN & OUT FOR SUPORT.
--- NOTE | 2017-01-01 14:00 | NUR ---
REGLAN ADMIN PER SCHEDULED DOSE, PT CONT AWAKE & DENIES C/O, REPORTS HE IS NOTICING NAUSEA, NO EMESIS.
--- NOTE | 2017-01-01 15:30 | NUR ---
FANI OFFERED, PT STS HE IS EXPERIENCING NAUSEA,NO EMESIS. 1545 FANI ADMIN SIVP. PT RESTS WITH EYES CLOSED, IS AWAKE & LISTENS TO GIVE UPDATES ON DTR'S BASKETBALL GAME.
--- NOTE | 2017-01-01 16:48 | NUR ---
PT IS RESTING WITH EYES CLOSED, RESP REG, MORE SHALLOW WHILE SLEEPING. PT IS USING FIELD RESEARCH ASSISTANT EVIDENCED BY FIELD RESEARCH ASSISTANT READING, INFORMED PT CAN HAVE PHENERGAN ANYTIME IF NEEDED, VERBALIZES UNDERSTANDING.
--- NOTE | 2017-01-01 17:22 | NUR ---
PHENERGAN ADMIN IVPB/CONCURRENT FOR C/O INCR. NAUSEA, NO EMESIS.
--- NOTE | 2017-01-01 20:07 | NUR ---
Pt resting quietly in bed, even respirations, no sign of distress at this time. Multiple family members present. Informed will do complete assessment when pt awake, will not disturb at this time. Call light in reach. Will round frequently for cares.
--- NOTE | 2017-01-01 21:03 | NUR ---
ETCO2 monitor alarming for low respirations, noted to be between 6-10, pt arouses easily to verbal stimuli, complains of nausea, will give PRN Phenergan.
[2017-01-01 21:59] VITALS: BP 133/87
--- NOTE | 2017-01-02 00:10 | NUR ---
EtCo2 monitor removed per pt request. "I can't rest very well." Pt alert, denies discomfort, PRN zofran given for nausea.
[2017-01-02] MEDS: PROMETHAZINE HCL INJ 25 MG in SODIUM CHLORIDE 25 ML IV PRN ×3 (01:01→11:16)
--- NOTE | 2017-01-02 05:55 | NUR ---
Pt resting quietly. Resp shallow, even, approximately 10-12 per minute. at bedside.
[2017-01-02 05:57] VITALS: BP 133/87
[2017-01-02] MEDS: METOCLOPRAMIDE 10 MG/2 ML (REGLAN) VIAL IV SCH (05:57)
[2017-01-02] MEDS: DRONABINOL 10 MG CAPSULE PO SCH ×2 (07:45→12:03)
--- NOTE | 2017-01-02 08:00 | NUR ---
Pt vomited approx 1L of dark green bile at this time. Rafael offered, pt states he would like to wait. Encouraged pt to call when he is ready for it. Pt expresses appreciation of cares. Denies other needs.
[2017-01-02] MEDS: NS FLUSH 3 ML DAILY IV SCH (08:11)
--- NOTE | 2017-01-02 09:35 | Progress Note (E) ---
Progress Note S: Awake, and family in room, still nauseated and vomiting. Hasn't eaten much if anything in days. Hospice certification in progress. Overall- very weak, pain tolerable with pain meds O: I & O Past 24 hrs 01/02/17 07:00 Intake Total 799 ml Output Total 1800 ml Balance -1001 ml Intake Oral 0 ml IV Total 799 ml Output Urine Total 0 ml Stool Total 0 ml Emesis 1800 ml Vitals: Vital Signs Date Time Temp Pulse Resp B/P Pulse Ox O2 Delivery O2 Flow Rate FiO2 01/02/17 05:57 112 8 90 Nasal cannula 01/02/17 00:30 7.00 12/31/16 12:02 98.1 GEN: Tired , pale, still struggling with nausea. HEENT: EOMI, clear sclerae, dry oral mucosa, temporal wasting. CV: RRR S1 S2 normal with no murmur LUNGS: Diminished without R/R/W. ABD: Soft,. Hypoactive bowel sounds. EXTR: No C/C/E. Normal peripheral pulses. INTEG: No rash. Pallor. NEURO: No focal motor neuro deficit. Lab-Past 14 Days, 35 Results 12/22/16 20:30: Alanine Aminotransferase (ALT/SGPT) 63, Albumin 3.4, Albumin/Globulin Ratio 1.096L, Alkaline Phosphatase 160H, Amylase Level 42, Anion Gap 16.2H, Aspartate Amino Transf (AST/SGOT) 46H, BUN/Creatinine Ratio 13, Basophils # (Auto) 0.0, Basophils (%) (Auto) 0, Blood Urea Nitrogen 20H, Calcium Level 9.1, Calcium/ Ionized Calcium Ratio 4.2, Calculated Osmolality 272L, Carbon Dioxide Level 33H , Chloride Level 93L, Creatinine 1.49, Eosinophils # (Auto) 0.1, Eosinophils (% ) (Auto) 1, Estimat Glomerular Filtration Rate 60.2, Estimated GFR (Non- 49.7, Glucose Level 108, Hematocrit 27.00L, Hemoglobin 8.6L, Lipase 59 , Lymphocytes # (Auto) 0.9, Lymphocytes (%) (Auto) 12L, Mean Corpuscular Hemoglobin 28.3, Mean Corpuscular Hemoglobin Concent 31.9, Mean Corpuscular Volume 89, Mean Platelet Volume 9.9H, Monocytes # (Auto) 0.7, Monocytes (%) ( Auto) 10, Neutrophils # (Auto) 5.5, Neutrophils (%) (Auto) 77H, Platelet Count 278, Potassium Level 2.7#L, Red Blood Count 3.04L, Red Cell Distribution Width 15.8H, Smear Scan , Sodium Level 139, Total Bilirubin 0.8, Total Protein 6.5, White Blood Count 7.17 12/23/16 03:10: Potassium Level 3.2L 12/23/16 05:37: Anion Gap 15.3H, BUN/Creatinine Ratio 13, Basophils # (Auto) 0.0, Basophils (%) (Auto) 0, Blood Urea Nitrogen 20H, Calcium Level 8.6L, Carbon Dioxide Level 32H , Chloride Level 97L, Creatinine 1.58H, Eosinophils # (Auto) 0.1, Eosinophils (% ) (Auto) 2, Estimat Glomerular Filtration Rate 56.2, Estimated GFR (Non- 46.5, Glucose Level 100, Hematocrit 25.20L, Hemoglobin 8.1L, Lymphocytes # (Auto) 0.9, Lymphocytes (%) (Auto) 14L, Mean Corpuscular Hemoglobin 28.6, Mean Corpuscular Hemoglobin Concent 32.1, Mean Corpuscular Volume 89, Mean Platelet Volume 9.8H, Monocytes # (Auto) 0.7, Monocytes (%) ( Auto) 11, Neutrophils # (Auto) 4.4, Neutrophils (%) (Auto) 72H, Platelet Count 248, Potassium Level 2.9L, Red Blood Count 2.83L, Red Cell Distribution Width 16.0H, Smear Scan Yes, Sodium Level 141, White Blood Count 6.19, Magnesium Level 1.8 12/24/16 08:40: Anion Gap 13.5, BUN/Creatinine Ratio 11, Basophils # (Auto) 0.0, Basophils (%) ( Auto) 0, Blood Urea Nitrogen 24H, Calcium Level 8.6L, Carbon Dioxide Level 37H, Chloride Level 98, Creatinine 2.10H, Eosinophils # (Auto) 0.1, Eosinophils (%) ( Auto) 2, Estimat Glomerular Filtration Rate 40.5, Estimated GFR (Non- 33.5, Glucose Level 89, Hematocrit 25.30L, Hemoglobin 7.7L, Lymphocytes # (Auto) 0.7, Lymphocytes (%) (Auto) 13L, Mean Corpuscular Hemoglobin 28.2, Mean Corpuscular Hemoglobin Concent 30.4L, Mean Corpuscular Volume 93, Mean Platelet Volume 9.5, Monocytes # (Auto) 0.4, Monocytes (%) (Auto ) 8, Neutrophils # (Auto) 3.9, Neutrophils (%) (Auto) 76H, Platelet Count 254, Potassium Level 3.4L, Red Blood Count 2.73L, Red Cell Distribution Width 16.3H, Smear Scan Yes, Sodium Level 145, White Blood Count 5.06 12/25/16 05:23: Anion Gap 16.2H, BUN/Creatinine Ratio 12, Basophils # (Auto) 0.0, Basophils (%) (Auto) 0, Blood Urea Nitrogen 25H, Calcium Level 8.7L, Carbon Dioxide Level 39H , Chloride Level 96L, Creatinine 2.05H, Eosinophils # (Auto) 0.1, Eosinophils (% ) (Auto) 1, Estimat Glomerular Filtration Rate 41.6, Estimated GFR (Non- 34.4, Glucose Level 90, Hematocrit 26.10L, Hemoglobin 7.9L, Lymphocytes # (Auto) 0.9, Lymphocytes (%) (Auto) 13L, Mean Corpuscular Hemoglobin 28.3, Mean Corpuscular Hemoglobin Concent 30.3L, Mean Corpuscular Volume 94, Mean Platelet Volume 10.0H, Monocytes # (Auto) 0.6, Monocytes (%) ( Auto) 9, Neutrophils # (Auto) 5.3, Neutrophils (%) (Auto) 77H, Platelet Count 278, Potassium Level 3.5, Red Blood Count 2.79L, Red Cell Distribution Width 16.3H, Smear Scan Yes, Sodium Level 148, White Blood Count 6.98 12/26/16 05:30: Anion Gap , BUN/Creatinine Ratio 11, Basophils # (Auto) 0.0, Basophils (%) (Auto ) 0, Blood Urea Nitrogen 22H, Calcium Level 8.7L, Carbon Dioxide Level 44H, Chloride Level 95L, Creatinine 2.00H, Eosinophils # (Auto) 0.1, Eosinophils (%) (Auto) 1, Estimat Glomerular Filtration Rate 42.8, Estimated GFR (Non- 35.4, Glucose Level 125#H, Hematocrit 27.70L, Hemoglobin 8.4L, Lymphocytes # (Auto) 0.9, Lymphocytes (%) (Auto) 11L, Mean Corpuscular Hemoglobin 28.4, Mean Corpuscular Hemoglobin Concent 30.3L, Mean Corpuscular Volume 94, Mean Platelet Volume 10.0H, Monocytes # (Auto) 0.7, Monocytes (%) ( Auto) 9, Neutrophils # (Auto) 6.6, Neutrophils (%) (Auto) 79H, Platelet Count 309, Potassium Level 3.3L, Red Blood Count 2.96L, Red Cell Distribution Width 16.2H, Sodium Level 146, White Blood Count 8.30 12/27/16 05:50: Anion Gap 18.5H, Blood Urea Nitrogen 22H, Calcium Level 8.7L, Carbon Dioxide Level 39H, Chloride Level 89L, Creatinine 2.13H, Estimat Glomerular Filtration Rate 39.8, Estimated GFR (Non- 32.9, Glucose Level 135H, Potassium Level 3.4L, Sodium Level 143, Albumin 3.4, Magnesium Level 1.7, Phosphorus Level 5.7#H 12/28/16 05:45: Anion Gap 12.1, Blood Urea Nitrogen 25H, Calcium Level 8.6L, Carbon Dioxide Level 39H, Chloride Level 90L, Creatinine 1.95H, Estimat Glomerular Filtration Rate 44.1, Estimated GFR (Non- 36.5, Glucose Level 124H, Potassium Level 3.4L, Sodium Level 138, Albumin 3.1L, Magnesium Level 1.7, Phosphorus Level 5.0H 12/29/16 06:00: Albumin 3.0L, Anion Gap 11.4, Blood Urea Nitrogen 28H, Calcium Level 8.9, Carbon Dioxide Level 36H, Chloride Level 93L, Creatinine 1.48, Estimat Glomerular Filtration Rate 60.6, Estimated GFR (Non- 50.1, Glucose Level 147H, Phosphorus Level 4.4, Potassium Level 3.9, Sodium Level 136 12/31/16 05:40: Albumin 2.5L, Anion Gap 11.6, Blood Urea Nitrogen 53#H, Calcium Level 9.3, Carbon Dioxide Level 31H, Chloride Level 97L, Creatinine 1.81H, Estimat Glomerular Filtration Rate 48.1, Estimated GFR (Non- 39.7, Glucose Level 119H, Phosphorus Level 3.4#, Potassium Level 5.0#, Sodium Level 134L, Magnesium Level 1.8 ASSESSMENT Prosper Feliciano is a 51 year old male admitted from ED 12/22 with recurrent and intractable nausea/vomiting as well as abdominal pain all attributed to metastatic colon cancer for which has had progression on 5th line therapy. He had just been discharged after hospitalization 12/13-12/21 for similar presentation. Had small bowel follow-through study that admit that was negative for complete obstruction but did have low transit time. On this admit he had marked hypokalemia. He struggled continually with abdominal pain and nausea/ vomiting. Hydromorphone LAB COURIER was effective for pain though dose had to be adjusted. Nausea/vomiting remained intractable despite multimodal therapy. TPN was tried but not shown to give him any benefit. On 12/31 he elected transition to hospice. [facility] had already been consulted but had not completed pre-certification so he remained inpatient with comfort care. PLAN * Nausea/Vomiting: Recurrent. Intractable. Metoclopramide scheduled. Scopolamine , but removed 12/26 in case of adverse reaction. Added dexamethasone scheduled 12/26. Ondansetron and promethazine PRN. Added olanzapine 12/27 without much benefit and he hasn't been taking it consistently... so this was stopped. Encouraged use of lorazepam which he had been avoiding because of sedation. Permitted home dose of dronabinol which was not effective. Trial of diphenhydramine which didn't help much. Tried sumatriptan 12/31 but this provided no benefit. * Medication Adverse Effect, Delirium: Has confusion when using lorazepam, perhaps due to paradoxical reaction. Stopped this altogether since he's getting no palliative effect. Trial of ziprasidone for delirium. (Stopped olanzapine which he wasn't using.) * Abdominal Pain: Hydromorphone LAB COURIER. Dose titrated 12/29. Had to decrease 12/30 because of sedation. With official transition now to comfort care, LAB COURIER resumed and can further adjust as needed. * MAGDY: Stable. Attributed to dehydration in the setting of history of urinary obstruction requiring bilateral ureteral stents. 1.49 on admit, fernanda to peak 2.13 12/27. IVF. With transition to comfort care, stop checking labs. * Dehydration: IVF/TPN. Stopped 12/31 with transition to comfort. * Hypokalemia: Improved. Attributed to vomiting. Improved with K supplement. Gave Mg 1 g IV 12/26. Monitored trends. * Anorexia, Unintentional Weight Loss: Multifactorial. Tried to address on prior admit but not expected to improve. TPN in an effort to temporize the situation. * Metastatic Colon Cancer: No longer taking Lonsurf or Stivarga. CT 11/2016 as noted showing progression of metastatic disease over the preceding 3 months. Discussed with oncologist who endorsed hospice. Patient had struggled with this decision but has transitioned to comfort care 12/31. * F/E/N: NPO initially but advanced to regular as tolerated. IVF as above. PowerPort. I&O, daily weight. * Prophylaxis: SCDs. * Code Status: DNR * Dispo: Inpatient. Comfort care. [facility] notified but they cannot complete pre-certification for hospice until today 01/02. CHRONIC ISSUES * HTN: Observe. No longer takes amlodipine, lisinopril. * Constipation: Bowel regimen. Bisacodyl. Pt seen and examined with HERAMN, agree with above. Pt is having short periods of time without n/v, but he is still not really able to tolerate much po. Hospice has accepted him and he will continue as inpt hospice. Continue to work on controlling n/v and pain. Lyudmila Enriquez APRN January 02, 2017 09:35 Mello Roman MD January 02, 2017 20:26
[2017-01-02] MEDS: ONDANSETRON 2 MG/ML (Z0FRAN) 2 ML VIAL IV PRN (09:42)
--- NOTE | 2017-01-02 09:42 | NUR ---
PRN Zofran given at this time for c/o nausea. Pt denies other needs. AVIATION MECHANIC and IVF infusing with no difficulties. and mother at bedside.
--- NOTE | 2017-01-02 11:16 | NUR ---
PRN Phenergan given at this time for c/o nausea. Pt is dry heaving and has vomited a small amount of dark green bile. Denies other needs.
--- NOTE | 2017-01-02 11:27 | NUR ---
Flory, Hospice SW here at this time.
[2017-01-02] MEDS ORDERED: DEXAMETHASONE 10 MG/ML (DECADRON) VIAL IV SCH (12:50)
[2017-01-02] MEDS ORDERED: diphenhydrAMINE 50 MG/ML INJ (BENADRYL) IV SCH (12:51)
--- NOTE | 2017-01-02 13:27 | Discharge Instructions (E) ---
Discharge Instructions Instructions He is transferring to in Hospice today Lyudmila Genao APRN January 02, 2017 13:27
--- NOTE | 2017-01-02 13:29 | NUR ---
Nutrition Follow Up: TPN was DC'd on 12-30; pt. is transitioning to Hospice today. N/V remains uncontrolled; nothing has worked either for symptom relief. 1. Continue to recommend no meal trays unless patient requests something, simply to help combat nausea and avoid overpowering scents from food. Will sign off on nutrition services at this time due to Hospice/comfort care.
--- NOTE | 2017-01-02 13:30 | Discharge Summary (E FT) ---
Discharge Summary (E FT) Admit Date Dec 22, 2016 at 22:04 Discharge Date January 02, 2017 1300 Admitting Provider Zackary Cruz MD Primary Care Provider Prosper Martinez MD Attending Provider Zackary Cruz MD Consulting Provider Hospital Course Summary Prosper was readmitted on December 22 for nausea vomiting and dehydration with hypokalemia. He has metastatic colon and liver cancer- has been under the care of Dr Stover. He has been through many rounds of treatment that have failed. He is admitted for pain control, nausea control and decisions to be made for Hospice. Family has been here and attentive. S: Awake, and family in room, still nauseated and vomiting. Hasn't eaten much if anything in days. Hospice certification in progress. Overall- very weak, pain tolerable with pain meds O: I & O Past 24 hrs 01/02/17 07:00 Intake Total 799 ml Output Total 1800 ml Balance -1001 ml Intake Oral 0 ml IV Total 799 ml Output Urine Total 0 ml Stool Total 0 ml Emesis 1800 ml Vitals: Vital Signs Date Time Temp Pulse Resp B/P Pulse Ox O2 Delivery O2 Flow Rate FiO2 01/02/17 05:57 112 8 90 Nasal cannula 01/02/17 00:30 7.00 12/31/16 12:02 98.1 GEN: Tired , pale, still struggling with nausea. HEENT: EOMI, clear sclerae, dry oral mucosa, temporal wasting. CV: RRR S1 S2 normal with no murmur LUNGS: Diminished without R/R/W. ABD: Soft,. Hypoactive bowel sounds. EXTR: No C/C/E. Normal peripheral pulses. INTEG: No rash. Pallor. NEURO: No focal motor neuro deficit. Lab-Past 14 Days, 35 Results 12/22/16 20:30: Alanine Aminotransferase (ALT/SGPT) 63, Albumin 3.4, Albumin/Globulin Ratio 1.096L, Alkaline Phosphatase 160H, Amylase Level 42, Anion Gap 16.2H, Aspartate Amino Transf (AST/SGOT) 46H, BUN/Creatinine Ratio 13, Basophils # (Auto) 0.0, Basophils (%) (Auto) 0, Blood Urea Nitrogen 20H, Calcium Level 9.1, Calcium/ Ionized Calcium Ratio 4.2, Calculated Osmolality 272L, Carbon Dioxide Level 33H , Chloride Level 93L, Creatinine 1.49, Eosinophils # (Auto) 0.1, Eosinophils (% ) (Auto) 1, Estimat Glomerular Filtration Rate 60.2, Estimated GFR (Non- 49.7, Glucose Level 108, Hematocrit 27.00L, Hemoglobin 8.6L, Lipase 59 , Lymphocytes # (Auto) 0.9, Lymphocytes (%) (Auto) 12L, Mean Corpuscular Hemoglobin 28.3, Mean Corpuscular Hemoglobin Concent 31.9, Mean Corpuscular Volume 89, Mean Platelet Volume 9.9H, Monocytes # (Auto) 0.7, Monocytes (%) ( Auto) 10, Neutrophils # (Auto) 5.5, Neutrophils (%) (Auto) 77H, Platelet Count 278, Potassium Level 2.7#L, Red Blood Count 3.04L, Red Cell Distribution Width 15.8H, Smear Scan , Sodium Level 139, Total Bilirubin 0.8, Total Protein 6.5, White Blood Count 7.17 12/23/16 03:10: Potassium Level 3.2L 12/23/16 05:37: Anion Gap 15.3H, BUN/Creatinine Ratio 13, Basophils # (Auto) 0.0, Basophils (%) (Auto) 0, Blood Urea Nitrogen 20H, Calcium Level 8.6L, Carbon Dioxide Level 32H , Chloride Level 97L, Creatinine 1.58H, Eosinophils # (Auto) 0.1, Eosinophils (% ) (Auto) 2, Estimat Glomerular Filtration Rate 56.2, Estimated GFR (Non- 46.5, Glucose Level 100, Hematocrit 25.20L, Hemoglobin 8.1L, Lymphocytes # (Auto) 0.9, Lymphocytes (%) (Auto) 14L, Mean Corpuscular Hemoglobin 28.6, Mean Corpuscular Hemoglobin Concent 32.1, Mean Corpuscular Volume 89, Mean Platelet Volume 9.8H, Monocytes # (Auto) 0.7, Monocytes (%) ( Auto) 11, Neutrophils # (Auto) 4.4, Neutrophils (%) (Auto) 72H, Platelet Count 248, Potassium Level 2.9L, Red Blood Count 2.83L, Red Cell Distribution Width 16.0H, Smear Scan Yes, Sodium Level 141, White Blood Count 6.19, Magnesium Level 1.8 12/24/16 08:40: Anion Gap 13.5, BUN/Creatinine Ratio 11, Basophils # (Auto) 0.0, Basophils (%) ( Auto) 0, Blood Urea Nitrogen 24H, Calcium Level 8.6L, Carbon Dioxide Level 37H, Chloride Level 98, Creatinine 2.10H, Eosinophils # (Auto) 0.1, Eosinophils (%) ( Auto) 2, Estimat Glomerular Filtration Rate 40.5, Estimated GFR (Non- 33.5, Glucose Level 89, Hematocrit 25.30L, Hemoglobin 7.7L, Lymphocytes # (Auto) 0.7, Lymphocytes (%) (Auto) 13L, Mean Corpuscular Hemoglobin 28.2, Mean Corpuscular Hemoglobin Concent 30.4L, Mean Corpuscular Volume 93, Mean Platelet Volume 9.5, Monocytes # (Auto) 0.4, Monocytes (%) (Auto ) 8, Neutrophils # (Auto) 3.9, Neutrophils (%) (Auto) 76H, Platelet Count 254, Potassium Level 3.4L, Red Blood Count 2.73L, Red Cell Distribution Width 16.3H, Smear Scan Yes, Sodium Level 145, White Blood Count 5.06 12/25/16 05:23: Anion Gap 16.2H, BUN/Creatinine Ratio 12, Basophils # (Auto) 0.0, Basophils (%) (Auto) 0, Blood Urea Nitrogen 25H, Calcium Level 8.7L, Carbon Dioxide Level 39H , Chloride Level 96L, Creatinine 2.05H, Eosinophils # (Auto) 0.1, Eosinophils (% ) (Auto) 1, Estimat Glomerular Filtration Rate 41.6, Estimated GFR (Non- 34.4, Glucose Level 90, Hematocrit 26.10L, Hemoglobin 7.9L, Lymphocytes # (Auto) 0.9, Lymphocytes (%) (Auto) 13L, Mean Corpuscular Hemoglobin 28.3, Mean Corpuscular Hemoglobin Concent 30.3L, Mean Corpuscular Volume 94, Mean Platelet Volume 10.0H, Monocytes # (Auto) 0.6, Monocytes (%) ( Auto) 9, Neutrophils # (Auto) 5.3, Neutrophils (%) (Auto) 77H, Platelet Count 278, Potassium Level 3.5, Red Blood Count 2.79L, Red Cell Distribution Width 16.3H, Smear Scan Yes, Sodium Level 148, White Blood Count 6.98 12/26/16 05:30: Anion Gap , BUN/Creatinine Ratio 11, Basophils # (Auto) 0.0, Basophils (%) (Auto ) 0, Blood Urea Nitrogen 22H, Calcium Level 8.7L, Carbon Dioxide Level 44H, Chloride Level 95L, Creatinine 2.00H, Eosinophils # (Auto) 0.1, Eosinophils (%) (Auto) 1, Estimat Glomerular Filtration Rate 42.8, Estimated GFR (Non- 35.4, Glucose Level 125#H, Hematocrit 27.70L, Hemoglobin 8.4L, Lymphocytes # (Auto) 0.9, Lymphocytes (%) (Auto) 11L, Mean Corpuscular Hemoglobin 28.4, Mean Corpuscular Hemoglobin Concent 30.3L, Mean Corpuscular Volume 94, Mean Platelet Volume 10.0H, Monocytes # (Auto) 0.7, Monocytes (%) ( Auto) 9, Neutrophils # (Auto) 6.6, Neutrophils (%) (Auto) 79H, Platelet Count 309, Potassium Level 3.3L, Red Blood Count 2.96L, Red Cell Distribution Width 16.2H, Sodium Level 146, White Blood Count 8.30 12/27/16 05:50: Anion Gap 18.5H, Blood Urea Nitrogen 22H, Calcium Level 8.7L, Carbon Dioxide Level 39H, Chloride Level 89L, Creatinine 2.13H, Estimat Glomerular Filtration Rate 39.8, Estimated GFR (Non- 32.9, Glucose Level 135H, Potassium Level 3.4L, Sodium Level 143, Albumin 3.4, Magnesium Level 1.7, Phosphorus Level 5.7#H 12/28/16 05:45: Anion Gap 12.1, Blood Urea Nitrogen 25H, Calcium Level 8.6L, Carbon Dioxide Level 39H, Chloride Level 90L, Creatinine 1.95H, Estimat Glomerular Filtration Rate 44.1, Estimated GFR (Non- 36.5, Glucose Level 124H, Potassium Level 3.4L, Sodium Level 138, Albumin 3.1L, Magnesium Level 1.7, Phosphorus Level 5.0H 12/29/16 06:00: Albumin 3.0L, Anion Gap 11.4, Blood Urea Nitrogen 28H, Calcium Level 8.9, Carbon Dioxide Level 36H, Chloride Level 93L, Creatinine 1.48, Estimat Glomerular Filtration Rate 60.6, Estimated GFR (Non- 50.1, Glucose Level 147H, Phosphorus Level 4.4, Potassium Level 3.9, Sodium Level 136 12/31/16 05:40: Albumin 2.5L, Anion Gap 11.6, Blood Urea Nitrogen 53#H, Calcium Level 9.3, Carbon Dioxide Level 31H, Chloride Level 97L, Creatinine 1.81H, Estimat Glomerular Filtration Rate 48.1, Estimated GFR (Non- 39.7, Glucose Level 119H, Phosphorus Level 3.4#, Potassium Level 5.0#, Sodium Level 134L, Magnesium Level 1.8 ASSESSMENT Prosper Feliciano is a 51 year old male admitted from ED 12/22 with recurrent and intractable nausea/vomiting as well as abdominal pain all attributed to metastatic colon cancer for which has had progression on 5th line therapy. He had just been discharged after hospitalization 12/13-12/21 for similar presentation. Had small bowel follow-through study that admit that was negative for complete obstruction but did have low transit time. On this admit he had marked hypokalemia. He struggled continually with abdominal pain and nausea/ vomiting. Hydromorphone PRINCIPAL SOFTWARE ARCHITECT was effective for pain though dose had to be adjusted. Nausea/vomiting remained intractable despite multimodal therapy. TPN was tried but not shown to give him any benefit. On 12/31 he elected transition to hospice. [facility] had already been consulted but had not completed pre-certification so he remained inpatient with comfort care. PLAN * Nausea/Vomiting: Recurrent. Intractable. Metoclopramide scheduled. Scopolamine , but removed 12/26 in case of adverse reaction. Added dexamethasone scheduled 12/26. Ondansetron and promethazine PRN. Added olanzapine 12/27 without much benefit and he hasn't been taking it consistently... so this was stopped. Encouraged use of lorazepam which he had been avoiding because of sedation. Permitted home dose of dronabinol which was not effective. Trial of diphenhydramine which didn't help much. Tried sumatriptan 12/31 but this provided no benefit. * Medication Adverse Effect, Delirium: Has confusion when using lorazepam, perhaps due to paradoxical reaction. Stopped this altogether since he's getting no palliative effect. Trial of ziprasidone for delirium. (Stopped olanzapine which he wasn't using.) * Abdominal Pain: Hydromorphone PRINCIPAL SOFTWARE ARCHITECT. Dose titrated 12/29. Had to decrease 12/30 because of sedation. With official transition now to comfort care, PRINCIPAL SOFTWARE ARCHITECT resumed and can further adjust as needed. * MAGDY: Stable. Attributed to dehydration in the setting of history of urinary obstruction requiring bilateral ureteral stents. 1.49 on admit, fernanda to peak 2.13 12/27. IVF. With transition to comfort care, stop checking labs. * Dehydration: IVF/TPN. Stopped 12/31 with transition to comfort. * Hypokalemia: Improved. Attributed to vomiting. Improved with K supplement. Gave Mg 1 g IV 12/26. Monitored trends. * Anorexia, Unintentional Weight Loss: Multifactorial. Tried to address on prior admit but not expected to improve. TPN in an effort to temporize the situation. * Metastatic Colon Cancer: No longer taking Lonsurf or Stivarga. CT 11/2016 as noted showing progression of metastatic disease over the preceding 3 months. Discussed with oncologist who endorsed hospice. Patient had struggled with this decision but has officially transitioned to comfort care now on 01-02-17 here at [facility] with [facility]. Family here. Support given * F/E/N: NPO initially but advanced to regular as tolerated. IVF as above. PowerPort. I&O, daily weight. * Prophylaxis: SCDs. * Code Status: DNR * Dispo: Inpatient Hospice for Comfort care per [facility]. CHRONIC ISSUES * HTN: Observe. No longer takes amlodipine, lisinopril. * Constipation: Bowel regimen. Bisacodyl. N/V continues, but short periods of relief. He has decided on in hospice and that will start today. He has tried going home, but hasn't done well in that setting. Will follow along with Hospice. Lyudmila Enriquez CHANGE ADVISOR January 02, 2017 09:35 Discharge Disposition Transitioning to inpatient Hospice care at [facility] Continued Medications: Cefdinir (Cefdinir) 125 Mg/5 Ml Susp.recon 300 MG PO BID Infection Ref 0 BTL Hydromorphone HCl (Dilaudid) 4 Mg Tab 4 MG PO Q4 1-2 tabs po q4 hours prn pain PRN PAIN #20 Ref 0 TAB Metoclopramide HCl (Metoclopramide HCl) 5 Mg/5 Ml Solution 10 MG PO Q6H PRN prn #200 Ondansetron (Ondansetron ODT) 8 Mg Tab.rapdis 8 MG PO Q8H PRN NAUSEA/VOMITING Scopolamine Hydrobromide (Transderm-Scop 1.5mg) 1 Each Patch.td72 1 PATCH TOP Q72H Discontinued Medications: Oxycodone HCl (Oxycodone HCl) 5 Mg/5 Ml Solution 10 MG PO Q3H PRN PAIN Follow up Instructions He is transferring to in Hospice today Copies to: End of Report . Lyudmila Genao APRN January 02, 2017 13:29 Melol Roman MD January 03, 2017 09:16
--- NOTE | 2017-01-02 13:30 | NUR ---
Pt discharged from inpatient stay. Will be admitted to inpatient hospice at this time.
== END 2017-01-02 13:00 | disposition hospice, inpatient (51) | DRG 375 ==
LOC: ED 19:43 → MED/SURG 22:04
PROVIDERS: ADMIT Hospitalist; ATTEND Hospitalist
DX: C78.89 Secondary malignant neoplasm of other digestive organs (principal); C18.9 Malignant neoplasm of colon, unspecified; N17.9 Acute kidney failure, unspecified; Z66 Do not resuscitate; Z51.5 Encounter for palliative care; C78.7 Secondary malignant neoplasm of liver and intrahepatic bile duct; E86.0 Dehydration; E87.6 Hypokalemia; R11.2 Nausea with vomiting, unspecified; I10 Essential (primary) hypertension; K59.00 Constipation, unspecified; R41.0 Disorientation, unspecified; T42.4X5A Adverse effect of benzodiazepines, initial encounter
CPT/HCPCS: 36415; 36591; 74022; 80048; 80053; 80069; 82150; 83690; 83735; 84132; 85025; 93005; 93010; 94770; 96361; 96365; 96375; 99282; 99285

== ENCOUNTER 2017-01-02 13:33 | Inpatient (IN) | payer OTHER, BC ==
[~2017-01-02] VITALS: Ht 193 cm; Wt 76.2 kg
--- NOTE | 2017-01-02 13:30 | NUR ---
Pt admitted to hospice service at this time with [facility]. Skin warm, dry, intact. Resprs nonlabored, even on RA. Oxy mask available for comfort. -Becca and Mom-Ania at bedside. NS @ TKO infusing with TWO WAY RADIO TECHNICIAN. Turn and reposition pt for comfort. Oral swabs at bedside. Pt denies needs at this time.
[~2017-01-02 13:33] MED LIST changes: +CEFD125S4 PO
--- OUTSIDE RECORDS SUMMARY | 2017-01-02 13:38 | XMS REPORT | Continuity of Care Document ---
Author Author [facility] Organization [facility] Address Unknown Phone Unavailable Care Team Providers Care Parts Counter Associate Name Role Phone Page, Mahanoy Plane PCP [phone] Source Comments Some departments are not documenting in the electronic medical record. If you do not see the information that you expected, contact Release of Information in the Health Information Management department at [phone] for further assistance in locating additional records.[facility] Active Allergies and Adverse Reactions No [...] Taken Blood Pressure 129/84 11/06/2013 8:54 AM PARTS COUNTER ASSOCIATE Pulse 88 11/06/2013 8:54 AM PARTS COUNTER ASSOCIATE Temperature 36.8 C (98.3 F) 07/22/2013 8:00 AM PARTS COUNTER ASSOCIATE Respiratory Rate - - Height 1.943 m (6' 4.5") 11/06/2013 8:54 AM PARTS COUNTER ASSOCIATE Weight 104.599 kg (230 lb 9.6 11/06/2013 8:54 AM PARTS COUNTER ASSOCIATE oz) Body Mass Index 27.71 11/06/2013 8:54 AM PARTS COUNTER ASSOCIATE Oxygen Saturation 100% 11/06/2013 8:54 AM PARTS COUNTER ASSOCIATE Plan of Care Health Maintenance Due Date Last Done Comments Hepatitis C Screening 1965 Physical (Comprehensive) 02/03/1972 Exam Pertussis Vaccine 02/03/1976 Tetanus Vaccine 1982 Colorectal Cancer 2015 Screening Influenza Vaccine 05/05/2017 Results from Last 3 Months Not on file
--- NOTE | 2017-01-02 13:43 | History and Physical (E) ---
History & Physical PCP: MD Dr Jolanta Chambers: Oncology HPI Prosper Feliciano is a 51 year old male admitted to inpatient Hospice here at [facility]. He was admitted 12-22-16 and Dc'd January 02, 2017 from an acute stay for nausea and vomiting with dehydration and associated hypokalemia. He has known metastatic colon an liver cancer and has been under the care of Dr Stover. Of note, patient was diagnosed 12/2011, stage IV-B, now on 5th line chemotherapy which has failed. He had been receiving pain medication through the RECLAMATION KETTLE TENDER pump (dilaudid) and receiving Zofran, Reglan, and Phenergan for persistent nausea and vomiting. He has had some loose stools, has not eaten in several days. He has become much weaker and he and family has opted for inpatient hospice for comfort care. PMH * Metastatic Colon cancer, stage IV-B, diagnosed 12/2011. Adenocarcinoma, grade 2, KRAS gene: wild-type. S/P colon resection and regional lymphadenectomy. History of Folfiri, Folfox, Xeliri, Lonsurf, all with bevacizumab (Avastin). Has progressed despite these regimens. * Iron deficiency anemia * HTN * Bilateral ureteral obstruction PSH * Colon resection with regional lymphadenectomy * Bilateral ureteral stents * PowerPort * HIPEC (hyperthermic intraperitoneal chemotherapy) at [facility] 2012. ALLERGIES: Please see list at end of report. HOME MEDICATIONS: Please see list at end of report. FH Father of melanoma. Mother is living and healthy. Children are healthy. SH Lives with and 2 children in their home in [place]. 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 No alcohol, tobacco, or drug use. ROS CONSTITUTION: Losing weight, he thinks about 50 pounds in the last few months. HEENT: No change in vision or hearing. No sores in mouth, sore throat. Has trouble swallowing pills. CV: No chest pain, palpitations. PULM: Occasional shortness of breath. No cough. GI: Per HPI, exam. : No dysuria. No blood in urine. MS: No new muscle or joint aches and pains. NEURO: No numbness or tingling. No weakness. INTEG: No rashes, lesions, or sores. ENDO: No heat or cold intolerance. No polydipsia or polyuria. HEME/LYMPH: No easy bruising or bleeding. No swollen glands. PSYCH: No change in mood or behavior. Vitals: GEN: Awake, alert, oriented. Weak and pale, family here HEENT: EOMI, clear sclerae, dry oral mucosa, temporal wasting. CV: RRR S1 S2 normal with no murmur LUNGS: Diminished without R/R/W. ABD: Soft, tender in RLQ this is chronic. Non-distended. No rebound tenderness.hypoactive BS EXTR: No C/C/E. Normal peripheral pulses. INTEG: No rash. Pallor. NEURO: No focal motor neuro deficit. Weight: 78 kg ASSESSMENT Prosper Feliciano is a 51 year old male admitted to inpatient hospice on 01-02-17. He continues to have nausea, vomiting, anorexia, unintentional weight loss, and dehydration, all in the setting of metastatic colon cancer for which he completed a 5th line therapy that unfortunately has failed. PLAN * Inpatient Hospice- for care and comfort measures per [facility] * Nausea/Vomiting: Ondansetron, promethazine, Reglan, Benadryl, decadron * Abdominal Pain: Minimal at present. Hydromorphone per RECLAMATION KETTLE TENDER Pump with basal rate * Dehydration: clear liquids as tolerates * Anorexia, Unintentional Weight Loss: Multifactorial. Supportive care * Chronic Pain: on RECLAMATION KETTLE TENDER pump * Metastatic Colon Cancer: No longer taking Lonsurf or Stivarga. supportive care. * F/E/N: Clear liquids as tolerates * Code Status: DNR * Dispo: Inpatient Hospice CHRONIC ISSUES * HTN: Observe. No longer takes amlodipine, lisinopril. Pt seen and examined with GAS LEAK INSPECTOR HELPER, agree with above. Will follow along with Hospice. Allergies/Home Medications Allergies: Coded Allergies: No Known Drug Allergies (Unverified , 12/22/16) Reported Home Medications Scheduled Cefdinir (Cefdinir) 300 MG PO BID (Reported) Scopolamine Hydrobromide (Transderm-Scop 1.5mg) 1 PATCH TOP Q72H (Reported) Scheduled PRN Hydromorphone HCl (Dilaudid) 4 MG PO Q4 PRN PRN PAIN Metoclopramide HCl (Metoclopramide HCl) 10 MG PO Q6H PRN PRN prn Ondansetron (Ondansetron ODT) 8 MG PO Q8H PRN PRN NAUSEA/VOMITING (Reported) Discontinued Medications Oxycodone HCl (Oxycodone HCl) 10 MG PO Q3H PRN PRN PAIN (Reported) Discontinued Reason: Course completed Copies to: End of Report . Lyudmila Genao APRN January 02, 2017 13:42 Mello Roman MD January 03, 2017 09:17
[2017-01-02] MEDS ORDERED: SUMAtriptan 6 MG/0.5 ML (IMITREX) INJ SC PRN (13:55)
[2017-01-02] MEDS ORDERED: BISACODYL 10 MG SUPP (DULCOLAX) PR PRN (13:55)
[2017-01-02] MEDS ORDERED: MAGNESIUM HYDROXIDE 80MG/ML (MILK OF MAGNESIA) 30 ML UDC PO PRN (13:55)
[2017-01-02] MEDS ORDERED: ONDANSETRON 2 MG/ML (Z0FRAN) 2 ML VIAL IV PRN (13:55)
[2017-01-02] MEDS ORDERED: POLYETHYLENE GLYCOL 17 GM (MIRALAX) PACKET PO PRN (13:55)
[2017-01-02] MEDS ORDERED: SODIUM CHLORIDE FLUSH 3 ML SYR IV PRN (13:55)
[2017-01-02] MEDS ORDERED: ZIPRASIDONE 20 MG INJ (GEODON) VIAL IM PRN (13:55)
[2017-01-02] MEDS ORDERED: DOCUSATE SODIUM 100 MG (COLACE) CAP PO PRN (13:55)
[2017-01-02] MEDS: diphenhydrAMINE 50 MG/ML INJ (BENADRYL) IV SCH ×2 (14:13→19:26)
[2017-01-02] MEDS: METOCLOPRAMIDE 10 MG/2 ML (REGLAN) VIAL IV SCH ×2 (14:17→21:35)
[2017-01-02] MEDS: DEXAMETHASONE 10 MG/ML (DECADRON) VIAL IV SCH ×2 (14:21→19:26)
--- NOTE | 2017-01-02 16:55 | NUR ---
PRN Zofran given at this time for c/o nausea. Pt asks about scheduling of medications. States "it's more for my , she's worried about me". states he has been dry heaving. Will continue to monitor.
[2017-01-02] MEDS ORDERED: [UNRECOGNIZED DRUG - OTHER] PO SCH (18:00)
--- NOTE | 2017-01-02 18:39 | NUR ---
Pt resting in bed at this time. Family and visitors at bedside. Skin warm, dry, intact. Resprs nonlabored, even on RA. Pt has been alert this shift; talking and joking with staff. NS TKO and HOME ASSESSMENT NURSE infusing in R PAC with no difficulty. Pt and family deny needs at this time.
[2017-01-02] MEDS: PROMETHAZINE HCL INJ 25 MG in SODIUM CHLORIDE 25 ML IV PRN (19:27)
[2017-01-03] MEDS: diphenhydrAMINE 50 MG/ML INJ (BENADRYL) IV SCH ×5 (00:01→23:18)
[2017-01-03] MEDS: ONDANSETRON 2 MG/ML (Z0FRAN) 2 ML VIAL IV SCH ×4 (00:01→14:39)
[2017-01-03] MEDS: DEXAMETHASONE 10 MG/ML (DECADRON) VIAL IV SCH ×5 (00:01→23:18)
[2017-01-03] MEDS: PROMETHAZINE HCL INJ 25 MG in SODIUM CHLORIDE 25 ML IV PRN ×6 (01:34→23:18)
[2017-01-03] MEDS: HYDROmorphone PCA 30 MG/30 ML (DILAUDID) VIAL IV PRN (03:28)
[2017-01-03] MEDS: SODIUM CHLORIDE FLUSH 10 ML SYR IV PRN ×2 (05:17→17:51)
[2017-01-03] MEDS: METOCLOPRAMIDE 10 MG/2 ML (REGLAN) VIAL IV SCH ×3 (06:09→22:11)
--- NOTE | 2017-01-03 09:30 | NUR ---
Nutrition Follow Up: TPN was DC'd on 12-30; pt. transitioned to Hospice yesterday. The n/v remains uncontrolled; nothing has worked either for symptom relief. 1. Continue to recommend no trays unless patient requests something, simply to help combat nausea and avoid overpowering scents from food. Will sign off on nutrition services at this time due to Hospice/comfort care.
--- NOTE | 2017-01-03 09:31 | NUR ---
At shift change this AM patient has large unmeasured amt of dark green liquid emesis. Jayda Cabral RN administered Phenergan 25mg IV as ordered. Marixa Butler RN from [facility] here this AM- patient was sleeping- mother requested that Marixa not wake him. Pt noted to have hiccups heard while resting. Simethicone ordered prn. RT PAC access intact, IVF TKO with Dilaudid COMMODITY LEAD as ordered. Mother and at bedside now.
[2017-01-03] MEDS: SIMETHICONE 40 MG/0.6 ML (MYLICON DROPS) ORAL SYRINGE PO PRN ×3 (10:09→17:58)
--- NOTE | 2017-01-03 10:21 | Progress Note (E) ---
Progress Note S: Awake and resting, has hiccups, vomited this am. Family in room, no stools in several days. Increasing benadryl and decadron today per [facility] O: I & O Past 24 hrs 01/03/17 07:00 Intake Total 543 ml Output Total 1000 ml Balance -457 ml Intake Oral 0 ml IV Total 543 ml Output Urine Total 0 ml Emesis 1000 ml Vitals: PRN GEN: Awake, alert, oriented. Weak and pale, family here HEENT: EOMI, clear sclerae, dry oral mucosa, temporal wasting. CV: RRR S1 S2 normal with no murmur LUNGS: Diminished without R/R/W. ABD: Soft, tender as usual EXTR: No C/C/E. Normal peripheral pulses. INTEG: No rash. Pallor. NEURO: No focal motor neuro deficit. ASSESSMENT Prosper Feliciano is a 51 year old male admitted to inpatient hospice on 01-02-17. He continues to have nausea, vomiting, anorexia, unintentional weight loss, and dehydration, all in the setting of metastatic colon cancer for which he completed a 5th line therapy that unfortunately has failed. PLAN * Inpatient Hospice- for care and comfort measures per [facility] * Nausea/Vomiting: Ondansetron, promethazine, Reglan, Benadryl, decadron * Abdominal Pain: Minimal at present. Hydromorphone per SOLIDWORKS DRAFTER Pump with basal rate * Dehydration: clear liquids as tolerates * Hiccups- simethicone prn * Anorexia, Unintentional Weight Loss: Multifactorial. Supportive care * Chronic Pain: on SOLIDWORKS DRAFTER pump * Metastatic Colon Cancer: No longer taking Lonsurf or Stivarga. supportive care. * F/E/N: Clear liquids as tolerates * Code Status: DNR * Dispo: Inpatient Hospice CHRONIC ISSUES * HTN: Observe. No longer takes amlodipine, lisinopril. Pt seen and examined with REAL ESTATE ASSISTANT, agree with above. Pt is feeling better with pain SOLIDWORKS DRAFTER which is really relieving his pain. He is still nauseous, but does have short periods of relief. Hospice nurse recommended increasing Benadryl and Decadron. If this hasn't helped by tomorrow, will consider octreotide as this has helped in the past. Lyudmila Enriquez APRN January 03, 2017 10:21 Mello Roman MD January 03, 2017 20:27
--- NOTE | 2017-01-03 16:39 | NUR ---
@1110 pt was nauseated- gave Phenergan 25mg IV as ordered. Zofran 8mg IV schedule was changed to 9a, 3p, 9p, 3a to provide better spread out coverage of antiemetic. @ 1545- Pt had large amt unmeasured liquid emesis filling small trash can. Dark green color. Phenergan 25mg IV infusing at this time. Pt is awake and alert, thankful for cares- states COMMUNICATIONS OPERATOR is controlling pain. and mother at bedside- other visitors come and go. Denies having BM for "several days".
--- NOTE | 2017-01-03 19:46 | NUR ---
Pt is having severe nausea and vomiting, gave Phenergan 25mg IVPB for N/V at this time. rates pain 3/10. is at bedside, call light is in reach.
--- NOTE | 2017-01-03 23:18 | NUR ---
Pt is having severe nausea and vomiting, gave Phenergan 25mg IVPB for N/V at this time.
[2017-01-04] MEDS: ONDANSETRON 2 MG/ML (Z0FRAN) 2 ML VIAL IV SCH ×4 (03:08→21:52)
--- NOTE | 2017-01-04 04:38 | NUR ---
Pt is resting in bed asleep, is in bed next to pt sleeping. Will continue to monitor.
[2017-01-04] MEDS: DEXAMETHASONE 10 MG/ML (DECADRON) VIAL IV SCH ×3 (05:25→17:42)
[2017-01-04] MEDS: PROMETHAZINE HCL INJ 25 MG in SODIUM CHLORIDE 25 ML IV PRN ×2 (05:26→10:13)
[2017-01-04] MEDS: METOCLOPRAMIDE 10 MG/2 ML (REGLAN) VIAL IV SCH ×3 (05:26→21:52)
[2017-01-04] MEDS: SIMETHICONE 40 MG/0.6 ML (MYLICON DROPS) ORAL SYRINGE PO PRN ×3 (05:26→17:56)
[2017-01-04] MEDS: diphenhydrAMINE 50 MG/ML INJ (BENADRYL) IV SCH ×3 (05:26→17:55)
--- NOTE | 2017-01-04 10:28 | NUR ---
Phenergan 25mg IV infusing at this time for nausea- has not had emesis this am yet. and mother remain at bedside. Dilaudid BUTTON SEWING MACHINE OPERATOR in place and within reach.
--- NOTE | 2017-01-04 13:18 | Progress Note (E) ---
Progress Note S: no new changes, less vomiting, hiccups are better, family here in room O: I & O Past 24 hrs 01/04/17 07:00 Intake Total 253 ml Output Total 200 ml Balance 53 ml Intake Oral 0 ml IV Total 253 ml Output Urine Total 200 ml Joanne;s: prn GEN: Awake, alert, oriented. Weak and pale, family here HEENT: EOMI, clear sclerae, dry oral mucosa, temporal wasting. CV: RRR S1 S2 normal with no murmur LUNGS: Diminished without R/R/W. ABD: Soft, tender as usual EXTR: No C/C/E. Normal peripheral pulses. INTEG: No rash. Pallor. NEURO: No focal motor neuro deficit. ASSESSMENT Prosper Feliciano is a 51 year old male admitted to inpatient hospice on 01-02-17. He continues to have nausea, vomiting, anorexia, unintentional weight loss, and dehydration, all in the setting of metastatic colon cancer for which he completed a 5th line therapy that unfortunately has failed. PLAN * Inpatient Hospice- for care and comfort measures per [facility] * Nausea/Vomiting: Ondansetron, promethazine, Reglan, Benadryl, decadron * Abdominal Pain: Minimal at present. Hydromorphone per BOILER REPAIRMAN Pump with basal rate * Dehydration: clear liquids as tolerates * Hiccups- simethicone prn * Anorexia, Unintentional Weight Loss: Multifactorial. Supportive care * Chronic Pain: on BOILER REPAIRMAN pump * Metastatic Colon Cancer: No longer taking Lonsurf or Stivarga. supportive care. * F/E/N: Clear liquids as tolerates * Code Status: DNR * Dispo: Inpatient Hospice, continue present management CHRONIC ISSUES * HTN: Observe. No longer takes amlodipine, lisinopril. Pt seen and examined, agree with above. Pt can go several hours without vomiting and he was able to drink a little more yesterday. However, he vomited quite a bit yesterday evening. Pain BOILER REPAIRMAN continues to help a lot with pain. Will continue with current management. Lyudmila Enriquez APRN January 04, 2017 13:18 Mello Roman MD January 04, 2017 20:11
[2017-01-04] MEDS: SODIUM CHLORIDE FLUSH 10 ML SYR IV PRN (17:43)
[2017-01-04] MEDS: HYDROmorphone PCA 30 MG/30 ML (DILAUDID) VIAL IV PRN (18:53)
[2017-01-05] MEDS: diphenhydrAMINE 50 MG/ML INJ (BENADRYL) IV SCH ×5 (00:06→23:59)
[2017-01-05] MEDS: DEXAMETHASONE 10 MG/ML (DECADRON) VIAL IV SCH ×5 (00:06→23:59)
[2017-01-05] MEDS: PROMETHAZINE HCL INJ 25 MG in SODIUM CHLORIDE 25 ML IV PRN ×2 (03:04→10:15)
[2017-01-05] MEDS: ONDANSETRON 2 MG/ML (Z0FRAN) 2 ML VIAL IV SCH ×4 (03:04→21:08)
--- NOTE | 2017-01-05 05:16 | NUR ---
1900-Pt is sitting up in bed visiting with family and friends, witnessed Miladys RN change Dilaudid BRANCH EXAMINER pump and tubing at this time, pt is alert and talkative, denies n/v at this time. Currently rates pain 2/10. Call light is in reach, will continue to monitor. 2100-Pt is resting in bed asleep, is resting in bed next to pt. Will continue to monitor. 0300-Pt is vomiting, gave PRN Phenergan 25mg IVPB for n/v at this time. 0415- calls this RN into room, is worried something is wrong with pt. He is lethargic, staring off into distance, not blinking for long periods of time. Resp are even and nonlabored, pulse is strong. Discussed end of life with at this time. begins crying, ask her if she would like me to call someone, she denies at this time. Will continue to monitor. 0530-Pt and are asleep at this time. Will continue to monitor.
[2017-01-05] MEDS: METOCLOPRAMIDE 10 MG/2 ML (REGLAN) VIAL IV SCH ×3 (05:45→21:08)
[2017-01-05] MEDS: SIMETHICONE 40 MG/0.6 ML (MYLICON DROPS) ORAL SYRINGE PO PRN (07:59)
--- NOTE | 2017-01-05 08:00 | NUR ---
Pt resting in bed at this time. Eyes open, looking around; does not seem to be tracking well and seems somewhat confused. Mother at bedside states he needs to use the urinal. Assisted to edge of bed. Pt continues to struggle with tracking. Pt voids approx 10mL into urinal and lies back down in bed. Pt then answers some questions appropriately but continues to seem lethargic. Repositioned pt with two assist. Denies other needs. Skin warm, dry, intact. Resprs nonlabored, even on RA. IVF and EXPELLER WORKER infusing into R PAC with no difficulty.
--- NOTE | 2017-01-05 10:15 | NUR ---
PRN Phenergan given at this time for persistent vomiting. Pt has vomited small amounts multiple times this shift. Denies other needs.
--- NOTE | 2017-01-05 10:53 | Progress Note (E) ---
Progress Note S: Resting with eyes closed, received pain meds this am, vomited x 2 last claudia - family here O: Vital Signs Date Time Temp Pulse Resp B/P Pulse Ox O2 Delivery O2 Flow Rate FiO2 01/05/17 05:58 14 Room air GEN: resting with eyes closed Weak and pale, family here HEENT: EOMI, clear sclerae, dry oral mucosa, temporal wasting. CV: RRR S1 S2 normal with no murmur LUNGS: Diminished without R/R/W. ABD: Soft, tender as usual EXTR: No C/C/E. Normal peripheral pulses. INTEG: No rash. Pallor. NEURO: No focal motor neuro deficit. ASSESSMENT Prosper Feliciano is a 51 year old male admitted to inpatient hospice on 01-02-17. He continues to have nausea, vomiting, anorexia, unintentional weight loss, and dehydration, all in the setting of metastatic colon cancer for which he completed a 5th line therapy that unfortunately has failed. PLAN * Inpatient Hospice- for care and comfort measures per [facility] * Nausea/Vomiting: Ondansetron, promethazine, Reglan, Benadryl, decadron * Abdominal Pain: Minimal at present. Hydromorphone per PAVING MACHINE OPERATOR Pump with basal rate * Dehydration: clear liquids as tolerates * Hiccups- simethicone prn * Anorexia, Unintentional Weight Loss: Multifactorial. Supportive care * Chronic Pain: on PAVING MACHINE OPERATOR pump * Metastatic Colon Cancer: No longer taking Lonsurf or Stivarga. supportive care. * F/E/N: Clear liquids as tolerates * Code Status: DNR * Dispo: Inpatient Hospice, continue present management CHRONIC ISSUES * HTN: Observe. No longer takes amlodipine, lisinopril. Pt seen and examined, agree with above. Pt seems less responsive today but says he has been comfortable. Nausea still comes and goes, but he still vomits only occasionally. Will continue current treatment. Lyudmila Enriquez APRN January 05, 2017 10:53 Mello Roman MD January 05, 2017 22:49
--- NOTE | 2017-01-05 12:21 | NUR ---
Upon administering 1200 meds, pt is noted to be sleeping soundly with approx 30 second periods of apnea, followed by a gasping breath and approx 3 shallow breaths, with this cycle repeating. No lower extremity mottling noted. Family brought into room, made aware of changes. Attempted to reach Marixa food service lead; left message. Comfort provided to family. Questions answered about dying process. Will continue to monitor.
[2017-01-05 12:45] VITALS: BP 124/80
--- NOTE | 2017-01-05 12:47 | Progress Note (E) ---
Progress Note Called by nurse, pts resp shallow and status a bit changed. in Room. Did vitals and were stable. Good heart beat and pt will arouse to me talking to him. Nods no to pain, seems comfortable. will monitor. His children will come up after school unless something else changes- then bring them in sooner per . Support given. Family in room. Lyudmila Genao APRN January 05, 2017 12:47
--- NOTE | 2017-01-05 14:15 | NUR ---
Upon hourly rounding, pt is sitting up in bed vomiting a large amount of dark green fluid into waste basket. Pt is alert, talking to . Expresses need to urinate. Assistance provided, but pt was unable to void. Explained option of no catheter. Pt states he would like this. Kobi Genao APRN notified. No inserted using sterile technique. Pt tolerates this well. Approx 20mL dark nabil, clear urine expelled. Sample sent down to lab. Bed bath and linen change provided. Pt tolerated this well. Denies other needs.
[2017-01-05 14:23] VITALS: BP 130/85
[2017-01-05 14:50] VITALS: BP 130/85
[2017-01-05 15:04] LABS: CLARITY,URINE Cloudy; COLOR,URINE Brown; GLUCOSE, URINE (UA) Negative (Negative); LEUKOCYTE ESTERASE ,URINE Trace (Negative); UROBILINOGEN,URINE 0.2 mg/dL (0.2-1.0)
[2017-01-05 15:07] LABS: BILIRUBIN,URINE 1+ (Negative)
[2017-01-05 15:18] LABS: RBC,URINE 50-100 /HPF; URINE CENTRIFUGED VOLUME 12 mL
--- NOTE | 2017-01-05 15:45 | NUR ---
Pt's children and in room at this time. Mother and visitors outside of room. Pt is relatively unresponsive at this time. Pt does not rouse to touch, but does lift his head and look around occasionally. 30 second periods of apnea noted on multiple occasions. Family denies needs.
[2017-01-05] MEDS ORDERED: PROMETHAZINE HCL INJ 12.5 MG in SODIUM CHLORIDE 25 ML IV ONE (17:20)
--- NOTE | 2017-01-05 17:33 | NUR ---
PRN Phenergan 12.5mg one time dose given at this time per Kobi Genao APRN's instruction. Pt alert, sitting up in bed. Requests a sprite. Family and friends at bedside. Pt denies other needs.
--- NOTE | 2017-01-05 18:45 | NUR ---
Pt resting soundly in bed at this time. Short periods of apnea noted. Pt appears comfortable. Does not rouse to touch or saying his name. No mottling noted. Multiple family members and friends at bedside and outside of room. IVF and SENIOR ACCOUNTING ASSOCIATE infusing with no difficulty. Lnagley patent to DD; dark nabil, clear drainage noted. Family denies needs at this time.
[2017-01-05 21:57] VITALS: BP 130/85
[2017-01-06] MEDS: ONDANSETRON 2 MG/ML (Z0FRAN) 2 ML VIAL IV SCH ×4 (03:25→22:09)
[2017-01-06] MEDS: METOCLOPRAMIDE 10 MG/2 ML (REGLAN) VIAL IV SCH ×3 (05:53→21:24)
[2017-01-06] MEDS: diphenhydrAMINE 50 MG/ML INJ (BENADRYL) IV SCH ×3 (05:53→18:05)
[2017-01-06] MEDS: DEXAMETHASONE 10 MG/ML (DECADRON) VIAL IV SCH ×3 (05:53→18:04)
[2017-01-06 06:57] VITALS: BP 130/85
[2017-01-06] MEDS: HYDROmorphone PCA 30 MG/30 ML (DILAUDID) VIAL IV PRN (08:45)
--- NOTE | 2017-01-06 09:29 | NUR ---
Pt. rests in bed, sitting up, with eyes open. Apneic episodes have been noted. He does communicate with staff by nodding his head this morning. He does not exhibit s/s of pain or distress. CCU NURSE infusing to PAC without difficulty. at bedside and mother outside room. Will continue to monitor.
--- NOTE | 2017-01-06 10:33 | Progress Note (E) ---
Progress Note S: Resting , no reported vomiting all night, family here, pain meds adequate, Hospice nurse Marixa has been here to assess. O: Vitals: Vital Signs Date Time Temp Pulse Resp B/P Pulse Ox O2 Delivery O2 Flow Rate FiO2 01/06/17 06:57 69 18 92 Room air 01/05/17 14:23 96.2 130/85 GEN: resting with eyes closed Weak and pale, family here HEENT: EOMI, clear sclerae, dry oral mucosa, temporal wasting. CV: RRR S1 S2 normal with no murmur LUNGS: Diminished without R/R/W. ABD: Soft, tender as usual EXTR: No C/C/E. Normal peripheral pulses. INTEG: No rash. Pallor. NEURO: No focal motor neuro deficit. ASSESSMENT Prosper Feliciano is a 51 year old male admitted to inpatient hospice on 01-02-17. He continues to have nausea, vomiting, anorexia, unintentional weight loss, and dehydration, all in the setting of metastatic colon cancer for which he completed a 5th line therapy that unfortunately has failed. PLAN * Inpatient Hospice- for care and comfort measures per [facility] * Nausea/Vomiting: Ondansetron, promethazine, Reglan, Benadryl, decadron * Abdominal Pain: Minimal at present. Hydromorphone per CLAY PRESS OPERATOR Pump with basal rate * Dehydration: clear liquids as tolerates * Hiccups- simethicone prn * Anorexia, Unintentional Weight Loss: Multifactorial. Supportive care * Chronic Pain: on CLAY PRESS OPERATOR pump * Metastatic Colon Cancer: No longer taking Lonsurf or Stivarga. supportive care. * F/E/N: Clear liquids as tolerates * Code Status: DNR * Dispo: Inpatient Hospice, continue present management- continue supportive care to family- showing signs of decline CHRONIC ISSUES * HTN Pt has not been very responsive in the past 12hr or so. He hasn't been vomiting either. Will continue current management. Lyudmila Enriquez APRN January 06, 2017 10:33 Mello Roman MD January 07, 2017 21:43
[2017-01-06] MEDS: SODIUM CHLORIDE FLUSH 10 ML SYR IV PRN ×3 (11:48→22:11)
[2017-01-06 14:21] VITALS: BP 130/85
--- NOTE | 2017-01-06 16:00 | NUR ---
Pt. has not had any emesis all morning and afternoon up to this point. He had just reported no pain or nausea while alert and responding to questions, when he started vomiting brown liquid emesis that carried an odor of feces. Pts. is concerned that he has been starting to twitch and spasm in his extremities more throughout the day.
[2017-01-06] MEDS: PROMETHAZINE HCL INJ 25 MG in SODIUM CHLORIDE 25 ML IV PRN (16:20)
--- NOTE | 2017-01-06 16:28 | NUR ---
Pt. has vomited twice now. Have explained to pts. family that spasms are likely due to electrolyte imbalance. Also discussed how intestinal obstruction makes it difficult for fluids to pass through, which induces vomiting when his stomach is full. He has not taken any liquids in today by mouth. Spoke with Ayesha at [facility] re: pts. spasms. Pts. does not want him to have Ativan due to his response the last time it was given to him. This was relayed to Ayesha. Awaiting return call from Hospice.
--- NOTE | 2017-01-06 16:30 | NUR ---
Call received from Ayesha at [facility] - on the comfort protocol, after Ativan is Haldol 1mg PO or IM and then Valium 5mg PO or IM - routes may be converted to IV.
--- NOTE | 2017-01-06 16:44 | NUR ---
Jayda DONNELLY notified of hospice comfort protocol and 's wish for pt. not to receive Ativan. Order received for Valium 1mg IV now and Q3H PRN for twitching and may continue if it is effective. May call on-call physician to increase dose if needed.
--- NOTE | 2017-01-06 17:43 | NUR ---
Valium mixed with NS becomes cloudy in syringe. Awaiting compatibility report from pharmacy.
--- NOTE | 2017-01-06 18:21 | NUR ---
Pts. family has decided that they do not want pt. to receive Valium at this time. After discussing with pharmacist, 1mg Valium can be mixed with 10mL NS by adding NS to Valium and mixture will not become cloudy.
--- NOTE | 2017-01-06 20:15 | NUR ---
Many family members in room at this time; pt. resting with HOB elevated; eyes open; occasionally verbally communicates. IVF/GEAR SHAVER SET UP OPERATOR infusing without difficulty; appears to be in no distress; slight muscle twitching noted; resp are even/shallow. Reassurance given to and family.
--- NOTE | 2017-01-06 20:45 | NUR ---
requests pt. to be repositioned; pt. experiences moderate amount of dark, liquid emesis with activity. Gown and linen change provided; pt. does not tolerate mouth swabs; skin care provided to face and arms/hands. Pt. nonverbal majority of the time; eyes open; resp are even currently.
[2017-01-07] MEDS: SODIUM CHLORIDE FLUSH 10 ML SYR IV PRN ×11 (00:05→23:47)
[2017-01-07] MEDS: DEXAMETHASONE 10 MG/ML (DECADRON) VIAL IV SCH ×4 (00:05→17:54)
[2017-01-07] MEDS: diphenhydrAMINE 50 MG/ML INJ (BENADRYL) IV SCH ×5 (00:14→23:47)
[2017-01-07] MEDS: ONDANSETRON 2 MG/ML (Z0FRAN) 2 ML VIAL IV SCH ×4 (02:46→21:28)
--- NOTE | 2017-01-07 02:50 | NUR ---
Scheduled Zofran given; pt. recently had small amount of brown emesis; gown and partial linen change. Pt. pushes pain button; eyes open; nonverbal. Fan blowing on pt. for comfort; at bedside.
[2017-01-07] MEDS: METOCLOPRAMIDE 10 MG/2 ML (REGLAN) VIAL IV SCH ×3 (05:31→22:08)
--- NOTE | 2017-01-07 06:00 | NUR ---
[place] output 500 cc's; dark, cloudy urine. Note: I's and O's not recorded/Hospice. Pt. has had no oral input; resists the mouth swabs usually. Pt.'s eyes open most of the night; eye contact made at times; motions with arms occasionally; remains nonverbal. Skin care completed at intervals throughout shift.
--- NOTE | 2017-01-07 06:55 | NUR ---
Scheduled 0600 meds given in long intervals; slow push. Pt. rests with eyes/mouth open; appears to be in no distress. Pt. is nonverbal; informed of each activity/task before initiation by this nurse/staff. Respirations are irregular at times; has remained at bedside.
--- NOTE | 2017-01-07 08:58 | NUR ---
Pt sleeping in bed, eyes slightly open, mouth open. Skin warm, dry, intact. Resprs nonlabored, even on RA. No apneic periods noted at this time. No mottling noted. asleep in room, mother sitting outside of room letting pt and rest. She states "I heard it was a rough night, so I'm glad to see they're both resting". Courtesy cart refreshed. Mother denies needs.
--- NOTE | 2017-01-07 12:04 | NUR ---
Upon hourly rounding this morning, pt continues to rest comfortably in bed. Multiple family members and friends are gathered outside of room. Pt will grimace some and move L arm up towards face, then face and arm relax again. RUSLAN Benadryl and Decadron given SIVP at this time. Family denies needs.
--- NOTE | 2017-01-07 13:04 | Progress Note (E) ---
Progress Note S: Resting , no reported vomiting all night, family here, pain meds adequate, Hospice nurse Cary has been here to assess and discussed case with her. O: PRN per hospice Vital Signs Date Time Temp Pulse Resp B/P Pulse Ox O2 Delivery O2 Flow Rate FiO2 01/07/17 06:20 65 14 89 Room air 01/05/17 14:23 96.2 130/85 I & O 01/06/17 01/07/17 Cumulative From/Thru 19:00 07:00 01/02/17 13:30 - 01/06/17 20:15 Intake Total 796 ml Output Total 1200 ml Balance -404 ml Lab-Past 14 Days, 35 Results 01/05/17 14:10: Urine Bacteria 2+H, Urine Bilirubin 1+H, Urine Blood 3+H, Urine Clarity Cloudy, Urine Collection Type Catheter, Urine Color Brown, Urine Glucose (UA) Negative, Urine Hyaline Casts Rare, Urine Ketones Negative, Urine Leukocyte Esterase TraceH, Urine Microscopic RBC 50-100, Urine Nitrite Negative, Urine Protein 2+H , Urine Specific [place] 1.025, Urine Squamous Epithelial Cells 2-5, Urine Urobilinogen 0.2, Urine WBC 2-5, Urine pH 6.0, Volume Urine Centrifuged 12 ml GEN: resting with eyes closed Weak and pale, family here CV: RR LUNGS: Non labored INTEG: No rash. Pallor. PE visual and by VS only per discussion with Hospice, pt has been agitated intermittently and after collaboration with LIGIA Townsend agree with avoiding PE as to avoid agitation ASSESSMENT Prosper Feliciano is a 51 year old male admitted to inpatient hospice on 01-02-17. He continues to have nausea, vomiting, anorexia, unintentional weight loss, and dehydration, all in the setting of metastatic colon cancer for which he completed a 5th line therapy that unfortunately has failed. PLAN * Inpatient Hospice- for care and comfort measures per [facility] * Nausea/Vomiting: Ondansetron, promethazine, Reglan, Benadryl, decadron * Abdominal Pain: Minimal at present. Hydromorphone per FINANCIAL ANALYSIS ADVISOR Pump with basal rate * Dehydration: clear liquids as tolerates * Hiccups- simethicone prn * Anorexia, Unintentional Weight Loss: Multifactorial. Supportive care * Chronic Pain: on FINANCIAL ANALYSIS ADVISOR pump * Metastatic Colon Cancer: No longer taking Lonsurf or Stivarga. supportive care. * F/E/N: Clear liquids as tolerates * Code Status: DNR * Dispo: Inpatient Hospice, continue present management- continue supportive care, continues to decline per family and Hospice CHRONIC ISSUES * HTN CONRADO AGUIRRE DO January 07, 2017 13:04
[2017-01-07] MEDS ORDERED: CARBOXYMETHYLCELLULOSE 0.5% OU PRN (14:10)
--- NOTE | 2017-01-07 14:11 | NUR ---
Pt vomited moderate amount of emesis smelling of stool at this time. RUSLAN Reglan given. Family attentive at pt's bedside. Denies other needs.
--- NOTE | 2017-01-07 15:07 | NUR ---
Pt's comes to nurse's station concerned that pt's pain is not well controlled with GAS PLANT OPERATOR. This nurse and spoke with Dr Villa about other pain control options. New orders to increase basal rate of Dilaudid to 0.75mg/hr entered. GAS PLANT OPERATOR pump unable to increase basal rate above 0.5mg. Other options discussed with Dr Villa at that time. New orders entered. GAS PLANT OPERATOR and carrier fluids DC'd at this time. Changes thoroughly discussed with pt's and mother. All questions answered. Assured family that we are going make sure he is as comfortable as possible.
[2017-01-07] MEDS: morphine ORAL CONC 20 MG/ML (ROXANOL) 1 ML SYRINGE PO PRN ×3 (15:15→18:07)
--- NOTE | 2017-01-07 15:15 | NUR ---
PRN Roxanol SL given at this time over approx 5-7 mins to prevent pt from choking or vomiting. Pt tolerated this well. lying in the bed next to patient, holding his hand. became tearful as mother began rubbing patient's leg stating "All is well. God is with us. I love you. Becca loves you. Brooks and Kathy love you. It's okay, Prosper. Rest in peace.". Encouragement provided. Resprs nonlabored, even at this time. Will continue to monitor.
[2017-01-07] MEDS: PROMETHAZINE HCL INJ 25 MG in SODIUM CHLORIDE 25 ML IV PRN ×2 (16:14→20:11)
--- NOTE | 2017-01-07 16:14 | NUR ---
PRN Phenergan and Roxanol given at this time. Pt continues to be nonverbal with eyes open but with no purposeful movement. Pt makes hiccup/belching noises every few minutes as if he is going to vomit, but no emesis results. Will continue to monitor.
--- NOTE | 2017-01-07 18:07 | NUR ---
RUSLAN Benadryl and Decadron given SIVP and PRN Roxanol given sublingual. Pt continues with belching/hiccuping noises with no emesis. Consulted Keamr Garibay, Patient Carrier on how to make pt more comfortable. Repositioned to R side, suction canister and tubing set up in case of emesis. Pt appears somewhat more comfortable in this position, but continues to make belching noises. and mother very attentive at bedside. Will continue to monitor.
[2017-01-07] MEDS: DIAZEPAM 10 MG/2 ML (VALIUM) SYRINGE IV PRN (18:38)
--- NOTE | 2017-01-07 18:38 | NUR ---
PRN Valium given SIVP at this time at recommendation of Kemar Garibay, Bender Helper. Dr Villa made aware of pt's condition, he encouraged this nurse to call Hospice nurse for recommendations. Cary, museum director who is rn liaison, will arrive to see patient at her earliest convenience. Informed her of all we had attempted this afternoon. Will continue to monitor.
[2017-01-07] MEDS ORDERED: SCOPOLAMINE 1.5 MG (TRANSDERM-SCOP) PATCH TD PRN (19:00)
--- NOTE | 2017-01-07 19:15 | NUR ---
Flory, Hospice SW called for an update as the hospice nurse had called her informing her of changes in medications. Updated Flory on what regimens were attempted this afternoon.
[2017-01-07] MEDS: morphine INJ 4 MG/ML 1 ML SYRINGE IV PRN ×2 (20:15→23:17)
--- NOTE | 2017-01-07 20:15 | NUR ---
Morphine 4 mg IV given for pain; Phenergan IV given for nausea. Prior to administration, pt. just had small amount of emesis; dark brown liquid. Partial linen change. Plan of care discussed in detail with ; much reassurance and support given.
--- NOTE | 2017-01-07 20:50 | NUR ---
Cortes/RN with Hospice here to see pt. and discuss care plan.
--- NOTE | 2017-01-07 21:30 | NUR ---
This nurse has long visit with pt.'s ; med schedule updated on board; written on paper for reference. thanks this nurse and staff multiple times for good care received for .
--- NOTE | 2017-01-07 23:17 | NUR ---
Morphine 4 mg IV given for discomfort. attempting to sleep on cot; two additional family members staying all night for support/assistance.
[2017-01-08] MEDS: DEXAMETHASONE 10 MG/ML (DECADRON) VIAL IV SCH ×2 (00:29→06:00)
[2017-01-08] MEDS: SODIUM CHLORIDE FLUSH 10 ML SYR IV PRN ×4 (00:30→05:19)
[2017-01-08] MEDS: PROMETHAZINE HCL INJ 25 MG in SODIUM CHLORIDE 25 ML IV PRN (01:44)
--- NOTE | 2017-01-08 01:45 | NUR ---
Phenergan IV given for nausea. Family members report small amount of emesis.
[2017-01-08] MEDS: ONDANSETRON 2 MG/ML (Z0FRAN) 2 ML VIAL IV SCH (02:55)
--- NOTE | 2017-01-08 02:55 | NUR ---
Scheduled Zofran given; pt. appears to be resting comfortably; family members report pt. "resting easier". Will continue to monitor.
[2017-01-08] MEDS: morphine INJ 4 MG/ML 1 ML SYRINGE IV PRN (03:41)
--- NOTE | 2017-01-08 03:41 | NUR ---
Pt. suddenly vomited; facial expression of pain/moaning; Morphine 4 mg IV given. Addendum: 01/08/17 at 0352 by Rima Ash RN Pt. also slightly repositioned; tolerated moderately well.
[2017-01-08] MEDS ORDERED: SODIUM CHLORIDE 250 ML ONE (03:46)
[2017-01-08] MEDS ORDERED: SODIUM CHLORIDE 250 ML IV SCH (04:00)
[2017-01-08] MEDS: DIAZEPAM 10 MG/2 ML (VALIUM) SYRINGE IV PRN (04:34)
--- NOTE | 2017-01-08 04:35 | NUR ---
Pt. exhibiting signs of anxiety; Valium given.
[2017-01-08] MEDS: METOCLOPRAMIDE 10 MG/2 ML (REGLAN) VIAL IV SCH (05:19)
--- NOTE | 2017-01-08 05:20 | NUR ---
Scheduled Reglan given; pt. calmer; exhibiting breathing pattern changes; appears to be in no distress.
--- NOTE | 2017-01-08 05:35 | NUR ---
Family comes out of room to ask this nurse to check pt. status.
--- NOTE | 2017-01-08 05:39 | NUR ---
Bmw Sales Consultant notified of bradycardic heart rate; shallow respirations.
--- NOTE | 2017-01-08 05:40 | NUR ---
Imedla Sanodval/RN, Wood Scrap Handler also checks pt.; verifies .
--- NOTE | 2017-01-08 05:45 | NUR ---
Much reassurance given to and family members. Appropriate notifications in motion.
--- NOTE | 2017-01-08 05:50 | NUR ---
Phone call to [facility] for notice of , for organ donation. they will call back.
[2017-01-08] MEDS: diphenhydrAMINE 50 MG/ML INJ (BENADRYL) IV SCH (06:00)
--- NOTE | 2017-01-08 06:00 | NUR ---
Telehospitalist notified of ; request for order to release the body.
--- NOTE | 2017-01-08 06:05 | NUR ---
Telehospitalist ok's request to release body.
--- NOTE | 2017-01-08 06:23 | NUR ---
Call returned from Arlin at Hospice she visited with family.
--- NOTE | 2017-01-08 07:58 | NUR ---
This nurse instructs LIGIA Jimenez to place ice on eyes and flush bilateral eyes with saline q1h in case patient meets criteria for eye donation.
--- NOTE | 2017-01-08 08:33 | NUR ---
This nurse calls [facility] again to check status of potential for eye donation. Spoke with Vida who transferred me to Lukasz at eye bank. Lukasz states he has to page someone regarding case and will call back. Reported to LIGIA Jimenez.
--- NOTE | 2017-01-08 08:51 | NUR ---
This nurse speaks with Nancy Blake from eye bank. Questions on patient's history answered by this RN. She will be contacting for permission to donate and call us back. Relayed to LIGIA Jimenez. Eye care will continue.
--- NOTE | 2017-01-08 08:59 | NUR ---
Nancy with eye bank calls back and states is not answering at number listed. This nurse give Nancy number listed for patient's mother. States she will call back when she gets an answer from family on donation status.
--- NOTE | 2017-01-08 10:24 | NUR ---
Have not heard back from eye bank. This nurse speaks with Vida at [facility] - she will page Nancy to call this nurse back.
--- NOTE | 2017-01-08 10:45 | NUR ---
Nancy calls this nurse back, stating none of pt's family are answering her phone calls. Pt's Grant mccoy, waiting outside of room. Asked him to speak with Nancy; he provided correct cell phone number for Becca. Number updated on face sheet.
--- NOTE | 2017-01-08 12:30 | NUR ---
[facility] tech here at this time to retrieve corneas from body. Bilateral eyes saline flushed Q1hr and ice packs applied to eyes since approx 0745 this am.
--- NOTE | 2017-01-08 14:29 | NUR ---
Eye bank tech left at this time. [facility] contacted at this time. They will contact pt's spouse and come transport the body.
--- NOTE | 2017-01-08 17:02 | Discharge Summary (E FT) ---
Discharge Summary (E FT) Admit Date January 02, 2017 at 13:33 Discharge Date January 08, 2017 at 14:51 Admitting Provider Mello Roman MD Primary Care Provider Prosper Matrinez MD Attending Provider Mello Roman MD Consulting Provider Hospital Course Summary Pt was admitted 12-22-16 and Dc'd January 02, 2017 from an acute stay for nausea and vomiting with dehydration and associated hypokalemia. He has known metastatic colon an liver cancer and has been under the care of Dr Stover. Of note, patient was diagnosed 12/2011, stage IV-B, now on 5th line chemotherapy which has failed. He had some loose stools and had not eaten in several days. He was becoming much weaker and he and family opted for inpatient hospice for comfort care. While on hospice, pt received pain medication through a MARINE SERVICES TECHNICIAN pump ( dilaudid) as well as Zofran, Reglan, Phenergan, Benadryl and dexamethasone for persistent nausea and vomiting. He was kept as comfortable as possible and peacefully with present. was verified by 2 nurses. PMH * Metastatic Colon cancer, stage IV-B, diagnosed 12/2011. Adenocarcinoma, grade 2, KRAS gene: wild-type. S/P colon resection and regional lymphadenectomy. History of Folfiri, Folfox, Xeliri, Lonsurf, all with bevacizumab (Avastin). Has progressed despite these regimens. * Iron deficiency anemia * HTN * Bilateral ureteral obstruction PSH * Colon resection with regional lymphadenectomy * Bilateral ureteral stents * PowerPort * HIPEC (hyperthermic intraperitoneal chemotherapy) at [facility] 2012. FH Father of melanoma. Mother is living and healthy. Children are healthy. SH Lives with and 2 children in their home in [place]. 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 No alcohol, tobacco, or drug use. Discharge Disposition [place] were donated to organ bank. Body transported to home. Copies to: End of Report . Mello Roman MD January 08, 2017 17:02
[2017-01-09] MEDS ORDERED: PATCH REMOVAL TOP SCH (19:00)
== END 2017-01-08 14:51 | disposition expired | DRG 375 ==
LOC: MED/SURG 13:33
PROVIDERS: ADMIT Family Medicine; ATTEND Family Medicine
DX: C18.9 Malignant neoplasm of colon, unspecified (principal); C78.7 Secondary malignant neoplasm of liver and intrahepatic bile duct; Z51.5 Encounter for palliative care; I10 Essential (primary) hypertension; D50.9 Iron deficiency anemia, unspecified; E86.0 Dehydration; R11.2 Nausea with vomiting, unspecified; R63.0 Anorexia; G89.29 Other chronic pain; Z66 Do not resuscitate
CPT/HCPCS: 81003; 81015; 87088